=== PATIENT | female | born 1930 | race Caucasian/White ===

== ENCOUNTER 2016-09-01 09:35 | Inpatient (IN) | payer OTHER ==
[~2016-09-01] VITALS: Ht 160 cm; Wt 76.0 kg
[~2016-09-01 09:35] MED LIST: CHOL100010 PO; DOCU1TAB6 PO; INSU1INJ15 SQ
[2016-09-01] MEDS ORDERED: CHOL100010 PO (10:09)
[2016-09-01 10:13] LABS: HEMATOCRIT 32.5 % (37-47); MEAN CELL VOLUME 84.9 fL (80-100); MEAN CORPUSCULAR HEMOGLOBIN 30.8 pg (25-34); MEAN CORPUSCULAR HGB CONC 36.3 g/dl (32-36); MEAN PLATELET VOLUME 9.6 fL (7.4-10.4); PLATELET COUNT 181 K/uL (130-400); RED BLOOD COUNT 3.83 M/uL (4.2-5.4); WHITE BLOOD COUNT 16.32 K/uL (4.8-10.8)
[2016-09-01] MEDS ORDERED: LISI20TA3 PO (10:21)
[2016-09-01 10:22] LABS: BUN/CREATININE RATIO 18.9 (10-20); CALCIUM 9.5 mg/dl (8.5-10.1); CREATININE 1.8 mg/dl (0.60-1.20); POTASSIUM 4.7 mmol/L (3.5-5.1)
[2016-09-01 10:25] LABS: ALB/GLOB RATIO 0.8 (0.9-2)
[2016-09-01 10:53] LABS: BASO % 0.1 %; BASO ABS # 0.01 K/uL (0-0.2); COMPLETE YES; EOS % 0.1 %; IG% 0.3 %; LYMPH ABS # 0.81 K/uL (1.2-3.4); MONO % 3.9 %; NEUT % 90.6 %
[2016-09-01] MEDS ORDERED: ONDANSETRON INJ 2 MG/ML 2 ML VIAL IV STA (11:29)
[2016-09-01] MEDS ORDERED: MoRPHine SULFATE 4 MG/ML 1 ML CARP\\VIAL IV STA (11:29)
[2016-09-01] MEDS ORDERED: SODIUM CHLORIDE 0.9% 500ML 500 ML IV STA (11:29)
--- NOTE | 2016-09-01 11:47 | EMERGENCY ROOM VISIT NOTE ---
History Report prepared by Bill: Elijah Roque Under the Supervision of: Dr. Wei Aceves M.D. First contact with patient: 11:07 Chief Complaint: GI ASSESSMENT Stated Complaint: NAUSEA/VOMITING/DIARRHEA Nursing Triage Summary: pt to the ED from home via EMS with c/o n/v/d and a near syncopal episode last night while on the toilet. pt states that her abd pain in the lower abd and is tender to touch. EMS reports that daughter told her that there were 3 episodes of bright red blood diarrhea BM. pt c/o feeling light headed. pt was Rx protonix but per EMS she has not been taking it History of Present Illness The patient is an 85 year old female who presents to the Emergency Room for an acute GI assessment. The patient has been experiencing persistent nausea for over one month. Last night she finally was able to vomit. She also started to have diarrhea last night, and some of the episodes contained bright-red blood as per the patient's daughter. The daughter also notes that the patient had a near-syncopal episode last night, which is common for her when she experiences vomiting or diarrhea. The patient was also complaining of left-sided chest pain last night at the site of her pacemaker. She is currently nauseous but denies abdominal pain. The patient saw Dr. Bright one month ago for the nausea. She was started on Prilosec, which has not relieved the persistent nausea. The patient is on baby aspirin but does not take any blood thinners. Her last colonoscopy was years ago. Source of History: patient, family (daugher) Onset: today Position: other (GI) Quality: other (GI assessment) Timing: other (acute) Associated Symptoms: + chest pain, + diarrhea, + hematochezia, + nausea, + vomiting, No abdominal pain Review of Systems See HPI for pertinent positives & negatives. A total of 10 systems reviewed and were otherwise negative. 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 Social History Smoking Status: Never Smoker Alcohol Use: none Marital Status: Housing Status: lives alone Occupation Status: unemployed Current/Historical Medications Scheduled Amlodipine (Norvasc), 5 MG PO BID Aspirin (Aspirin Ec), 81 MG PO Q2D Cholecalciferol (Vitamin D), 1,000 UNITS PO DAILY Cyanocobalamin (Vitamin B-12), 1,000 MCG PO DAILY Docusate Sodium (Docusate Sodium), 100 MG PO BID Fish Oil ([place]-3), 1,200 MG PO DAILY Insulin Detemir (Levemir Flextouch), 6 UNITS SC QAM Insulin Lispro (Human) (Humalog Kwikpen), UNITS SQ QAM Lisinopril (Prinivil), 20 MG PO QPM Scheduled PRN Lorazepam (Ativan), 0.5 MG PO Q8 PRN for Anxiety Allergies Coded Allergies: Darbepoetin [place] (Verified Allergy, Unknown, "RED ITCHY BLOTCHES ON SKIN" , 09/01/16) Physical Exam Vital Signs Date Time Temp Pulse Resp B/P Pulse Ox O2 Delivery O2 Flow Rate FiO2 09/01/16 14:57 92 18 189/91 97 Room Air 09/01/16 14:30 97 130/97 96 Room Air 09/01/16 13:33 100 17 203/82 96 Room Air 09/01/16 13:20 96 09/01/16 12:32 98 19 164/90 96 Room Air 09/01/16 11:43 92 24 171/101 96 Room Air 09/01/16 09:43 104 09/01/16 09:39 36.8 105 22 193/96 97 Room Air Physical Exam GENERAL: Patient is a healthy-appearing well-nourished 85 year old female HEAD: Normocephalic atraumatic EYES: Ocular movements intact pupils equal and react to light OROPHARYNX mucous membranes are moist no exudates present no erythema or edema present NECK: Supple no nuchal rigidity CHEST: Good equal expansion LUNGS: Clear and equal to auscultation CARDIAC: Normal S1 and S2 ABDOMEN: Soft nontender no guarding BACK: No CVA tenderness EXTREMITIES: No pain upon palpation normal muscle strength in all groups no clubbing cyanosis or edema NEURO: Patient is following commands is answering questions appropriately. Alert and oriented x3 Cranial Nerves 2-12 grossly intact Medical Decision & Procedures ER Provider Diagnostic Interpretation: Radiology results as stated below per my review and radiologist interpretation: ABDOMEN AND PELVIS CT WITH IV CONTRAST CT DOSE: 704.53 mGycm HISTORY: Pain Pt c/o diffuse abd pain TECHNIQUE: Multiaxial CT images of the abdomen and pelvis were performed following the use of intravenous contrast. COMPARISON STUDY: 05/19/2016 FINDINGS: Mild bibasilar dependent atelectasis mild cardiomegaly. Liver is uniform. Gallbladder is negative for distention. Spleen is unremarkable. Several nonobstructing renal calcifications are present bilaterally. There is no evidence for hydronephrosis. Bowel pattern is remarkable for wall edematous change involving the mid to distal transverse colon as well as proximal descending colon. Moderate pericolonic infiltrative change is present with the appearance consistent with that of a nonspecific colitis. There is no evidence for drainable abscess or collection. The remaining bowel pattern is considered unremarkable. Bladder is midline. The appendix is the extreme top limits of normal at 6 mm. There may be a trace of periappendiceal infiltrative change although again no abscess or collection is appreciated. IMPRESSION: 1. Wall thickening and edematous change of the mid to distal transverse and proximal descending colon. 2. The appearance suggestive of a nonspecific colitis. 3. No evidence for abscess collection or obstruction. 4. Slight prominence of the appendix with minimal periappendiceal infiltrative change. A low-grade form of appendicitis is not excluded although this may be reactive 5. Significant atherosclerotic change abdominal aorta and iliac vasculature with a 60-70% narrowing at the inferior bifurcation Electronically signed by: Brian Jarquin M.D. 09/01/2016 2:19 PM Laboratory Results 09/01/16 09:45 Red Blood Count 3.83, Mean Corpuscular Volume 84.9, Mean Corpuscular Hemoglobin 30.8, Mean Corpuscular Hemoglobin Concent 36.3, Mean Platelet Volume 9.6, Neutrophils (%) (Auto) 90.6, Lymphocytes (%) (Auto) 5.0, Monocytes (%) (Auto) 3.9, Eosinophils (%) (Auto) 0.1, Basophils (%) (Auto) 0.1, Neutrophils # (Auto) 14.81, Lymphocytes # (Auto) 0.81, Monocytes # (Auto) 0.63, Eosinophils # (Auto) 0.01, Basophils # (Auto) 0.01 09/01/16 09:45 Test 09/01/16 09:45 09/01/16 12:50 White Blood Count 16.32 K/uL (4.8-10.8) Red Blood Count 3.83 M/uL (4.2-5.4) Hemoglobin 11.8 g/dL (12.0-16.0) Hematocrit 32.5 % (37-47) Mean Corpuscular Volume 84.9 fL (80-100) Mean Corpuscular Hemoglobin 30.8 pg (25-34) Mean Corpuscular Hemoglobin Concent 36.3 g/dl (32-36) Platelet Count 181 K/uL (130-400) Mean Platelet Volume 9.6 fL (7.4-10.4) Neutrophils (%) (Auto) 90.6 % Lymphocytes (%) (Auto) 5.0 % Monocytes (%) (Auto) 3.9 % Eosinophils (%) (Auto) 0.1 % Basophils (%) (Auto) 0.1 % Neutrophils # (Auto) 14.81 K/uL (1.4-6.5) Lymphocytes # (Auto) 0.81 K/uL (1.2-3.4) Monocytes # (Auto) 0.63 K/uL (0.11-0.59) Eosinophils # (Auto) 0.01 K/uL (0-0.5) Basophils # (Auto) 0.01 K/uL (0-0.2) RDW Standard Deviation 42.4 fL (36.4-46.3) RDW Coefficient of Variation 13.9 % (11.5-14.5) Immature Granulocyte % (Auto) 0.3 % Immature Granulocyte # (Auto) 0.05 K/uL (0.00-0.02) Anion Gap 11.0 mmol/L (3-11) Est Creatinine Clear Calc Drug Dose 21.2 ml/min Estimated GFR () 29.0 Estimated GFR (Non- 25.0 BUN/Creatinine Ratio 18.9 (10-20) Calcium Level 9.5 mg/dl (8.5-10.1) Total Bilirubin 0.4 mg/dl (0.2-1) Aspartate Amino Transf (AST/SGOT) 12 U/L (15-37) Alanine Aminotransferase (ALT/SGPT) 18 U/L (12-78) Alkaline Phosphatase 110 U/L (45-117) Total Creatine Kinase 22 U/L (26-192) Creatine Kinase MB < 0.5 ng/ml (0.5-3.6) Creatine Kinase MB Ratio (0-3.0) Troponin I < 0.015 ng/ml (0-0.045) Total Protein 7.3 gm/dl (6.4-8.2) Albumin 3.2 gm/dl (3.4-5.0) Globulin 4.1 gm/dl (2.5-4.0) Albumin/Globulin Ratio 0.8 (0.9-2) Lipase 82 U/L (73-393) Urine Color YELLOW Urine Appearance CLEAR (CLEAR) Urine pH 6.0 (4.5-7.5) Urine Specific [place] 1.020 (1.000-1.030) Urine Protein 3+ (NEG) Urine Glucose (UA) 3+ (NEG) Urine Ketones NEG (NEG) Urine Occult Blood TRACE (NEG) Urine Nitrite NEG (NEG) Urine Bilirubin NEG (NEG) Urine Urobilinogen NEG (NEG) Urine Leukocyte Esterase NEG (NEG) Urine WBC (Auto) 1-5 /hpf (0-5) Urine RBC (Auto) 0-4 /hpf (0-4) Urine Hyaline Casts (Auto) 1-5 /lpf (0-5) Urine Epithelial Cells (Auto) 10-20 /lpf (0-5) Urine Bacteria (Auto) NEG (NEG) Labs reviewed by ED physician. Medications Administered Medications (Trade) Dose Ordered Sig/Luis Route Start Time Stop Time Status Last Admin Dose Admin Sodium Chloride (Nss 500ml) 500 ml @ 999 mls/hr Q31M STAT IV 09/01/16 11:29 09/01/16 11:59 DC 09/01/16 11:39 999 MLS/HR Morphine Sulfate (MoRPHine SULFATE INJ) 4 mg NOW STAT IV 09/01/16 11:29 09/01/16 11:30 DC 09/01/16 11:40 4 MG Ondansetron HCl 4 mg 4 mg NOW STAT IV 09/01/16 11:29 09/01/16 11:30 DC 09/01/16 11:40 4 MG Pantoprazole Sodium 80 mg/ Dextrose 120 ml @ 480 mls/hr NOW ONCE IV 09/01/16 14:45 09/01/16 14:59 DC 09/01/16 14:59 480 MLS/HR Pantoprazole Sodium/Dextrose (Protonix Inj/D5 100ml) 100 ml @ 20 mls/hr Q5H IV 09/01/16 15:00 09/01/16 19:59 09/01/16 14:59 20 MLS/HR ECG Indication: vomiting Rate (beats per minute): 96 Rhythm: sinus rhythm Findings: 1st degree AV block, no acute ischemic change, prolonged QT, no ectopy ED Course 1122: Past medical records reviewed. The patient was evaluated in room C5. A complete history and physical examination was performed. 1129: Zofran 4 mg IV, Morphine Sulfate 4 mg IV, NSS 500 ml @ 999 mls/hr. 1445: Protonix 80 mg / dextrose 120 ml @ 480 mls/hr. 1446: [facility] the [facility] [place] [facility] The patient will be evaluated. 1500: Protonix 40 mg / dextrose 100 ml @ 20 mls/hr. Medical Decision Differential diagnosis: Etiologies such as diverticulosis, AVM, coagulopathy, colitis, inflammatory bowel disease, malignancy, Charlene-Worthy tear, esophagitis, peptic ulcer disease , variceal bleed, gastritis, epistaxis, fissure, hemorrhoids, as well as others were entertained. This is an 85-year-old female who presents emergency department complaining of abdominal pain. The patient has had hemorrhagic diarrhea since last evening. Based on these findings I sent the patient for CAT scan of the abdomen pelvis. This was concerning for nonspecific colitis. I will start the patient on a Protonix bolus and drip. Her hemoglobin at this point is stable however did discuss the case with the hospitalist service who agreed to it the patient. Patient was in agreement with the treatment plan. Consults Time Called: 1440 Consulting Physician[facility] Returned Call: [phone]: [facility] the [facility] The patient will be evaluated. Impression Primary Impression: GI bleed Scribe Attestation The scribe's documentation has been prepared under my direction and personally reviewed by me in its entirety. I confirm that the note above accurately reflects all work, treatment, procedures, and medical decision making performed by me. Departure Information Dispostion Being Evaluated By Hospitalist Referrals Saúl Bright M.D. (PCP) Patient Instructions My [facility] Problem Qualifiers Primary Impression: GI bleed GI bleed type/associated pathology: anorectal hemorrhage Qualified Codes: K62.5 - Hemorrhage of anus and rectum
[2016-09-01] MEDS ORDERED: OPTIRAY 320 IV PRN (12:00)
[2016-09-01 13:20] LABS: URINE APPEARANCE CLEAR (CLEAR); URINE BILIRUBIN NEG (NEG); URINE COLOR YELLOW; URINE NITRITE NEG (NEG); UROBILINOGEN NEG (NEG); ZZUR CULT IF INDIC CLEAN CATCH NO
[2016-09-01 13:22] LABS: MANUAL MICROSCOPIC REQUIRED? NO; REVIEW REQ? NO
--- NOTE | 2016-09-01 14:20 | DIAGNOSTIC IMAGING REPORT ---
ABDOMEN AND PELVIS CT WITH IV CONTRAST CT DOSE: 704.53 mGycm HISTORY: Pain Pt c/o diffuse abd pain TECHNIQUE: Multiaxial CT images of the abdomen and pelvis were performed following the use of intravenous contrast. COMPARISON STUDY: 05/19/2016 FINDINGS: Mild bibasilar dependent atelectasis mild cardiomegaly. Liver is uniform. Gallbladder is negative for distention. Spleen is unremarkable. Several nonobstructing renal calcifications are present bilaterally. There is no evidence for hydronephrosis. Bowel pattern is remarkable for wall edematous change involving the mid to distal transverse colon as well as proximal descending colon. Moderate pericolonic infiltrative change is present with the appearance consistent with that of a nonspecific colitis. There is no evidence for drainable abscess or collection. The remaining bowel pattern is considered unremarkable. Bladder is midline. The appendix is the extreme top limits of normal at 6 mm. There may be a trace of periappendiceal infiltrative change although again no abscess or collection is appreciated. IMPRESSION: 1. Wall thickening and edematous change of the mid to distal transverse and proximal descending colon. 2. The appearance suggestive of a nonspecific colitis. 3. No evidence for abscess collection or obstruction. 4. Slight prominence of the appendix with minimal periappendiceal infiltrative change. A low-grade form of appendicitis is not excluded although this may be reactive 5. Significant atherosclerotic change abdominal aorta and iliac vasculature with a 60-70% narrowing at the inferior bifurcation Electronically signed by: Brian Jarquin M.D. 09/01/2016 2:19 PM Dictated Date/Time: 09/01/2016 1:26 PM
[2016-09-01] MEDS ORDERED: PANTOprazole INJ 80 MG in DEXTROSE 5% 100ML IV ONE (14:45)
[2016-09-01] MEDS ORDERED: PANTOprazole INJ 40 MG in DEXTROSE 5% 100ML IV SCH (15:00)
[2016-09-01] MEDS ORDERED: HydrALAZINE HCL 20 MG/ML VIAL ONE (15:44)
[2016-09-01] MEDS ORDERED: HydrALAZINE HCL 20 MG/ML VIAL IV. PRN (15:45)
[2016-09-01] MEDS ORDERED: LORA-741 PO (15:47)
[2016-09-01] MEDS: SODIUM CHLORIDE 0.9% 1000ML 1,000 ML IV SCH ×2 (16:05→21:33)
[2016-09-01 16:16] VITALS: BP 154/80; PULSE 105; TEMP 37; O2SAT 98; Ht 160 cm; Wt 76.0 kg
[2016-09-01] MEDS ORDERED: GLUCAGON FOR INJ 1 MG VIAL SQ PRN (17:45)
[2016-09-01] MEDS ORDERED: GLUCOSE 40% GEL 15 GM TUBE PO PRN (17:45)
[2016-09-01] MEDS ORDERED: GLUCOSE 10 TABS/TUBE PO PRN (17:45)
[2016-09-01] MEDS ORDERED: DEXTROSE 50% 50 ML SYR IV PRN (17:45)
--- NOTE | 2016-09-01 18:57 | History and Physical ---
History & Physical Date & Time of Service: Sep 01, 2016 at 18:42 Chief Complaint: Gi Bleed,Hypertension Primary Care Physician: Saúl Bright M.D. History of Present Illness Source: patient This is an 85 yo f that is presenting to us with acute frankly bloody diarrhea. The history was primarily taken by the daughter. She states that for probably more than a month the patient has been suffering not necessarily from abdominal pain but the sensation that she has to throw up. She saw her PCP recently and he placed her on Omeprazole but this has not improved any of the symptoms. this morning the patient woke up and had sudden onset diarrhea which was frankly bloody. This has never occurred in the past. She also vomited once. Because of this the patient was sent to the ED for further evaluation. Patient was hemodynamically stable in the ED however blood pressure was quite high. According to the daughter the patient has been unable to take her morning medications and did not get either her insulin or her bp medications. A Hemoccult was done by the ED Physician and it was noted that she had shayna blood on exam. When asked about the pain she was unable to quantify or describe it and stated she just felt like throwing up. Eructation was noted during the interview. Imaging was reflective of a colitis in the bowel. She has a history of syncope secondary to an asystolic episode where a pacer was placed but has not had an echo since 2012 which was WNL. She he no history of CHF. She does have a history of transfusions after a reaction to darbepoetin [place] however she has not required transfusions in many years. Her typical hgb is in the 11's. She has a history of CKD which she follows nephrology for and BL is 1.3-1.4. Past Medical/Surgical History Medical Problems: (1) Anemia Status: Chronic (2) Benign hypertension Status: Chronic (3) Diabetes mellitus Status: Chronic (4) Hyperlipidemia Status: Chronic (5) Hysterectomy Status: Resolved (6) Polymyalgia rheumatica Status: Chronic (7) Sjorens Status: Chronic Family History Patient reports no known family medical history. Social History Smoking Status: Never Smoker Smokeless Tobacco Use: No Alcohol Use: none Drug Use: none Marital Status: Housing status: lives alone Occupational Status: unemployed Immunizations History of Influenza Vaccine: Yes History of Tetanus Vaccine?: Unknown History of Pneumococcal: Yes History of Hepatitis B Vaccine: Unknown Multi-Drug Resistant Organisms History of MDRO: No Allergies Coded Allergies: Morphine (Verified Allergy, Mild, shortness of breath with panic attack, 09/01/16) Darbepoetin [place] (Verified Allergy, Unknown, "RED ITCHY BLOTCHES ON SKIN" , 09/01/16) Home Medications Scheduled Amlodipine (Norvasc), 5 MG PO BID Aspirin (Aspirin Ec), 81 MG PO Q2D Cholecalciferol (Vitamin D), 1,000 UNITS PO DAILY Cyanocobalamin (Vitamin B-12), 1,000 MCG PO DAILY Docusate Sodium (Docusate Sodium), 100 MG PO BID Fish Oil ([place]-3), 1,200 MG PO DAILY Insulin Detemir (Levemir Flextouch), 6 UNITS SC QAM Insulin Lispro (Human) (Humalog Kwikpen), UNITS SQ QAM Lisinopril (Prinivil), 20 MG PO QPM Scheduled PRN Lorazepam (Ativan), 0.5 MG PO Q8 PRN for Anxiety Review of Systems Unable to complete a full ROS because patient was somnolent in bed Abdomen: + GI bleeding, + diarrhea, + nausea, + pain, + vomiting Physical Exam Vital Signs Date Time Temp Pulse Resp B/P Pulse Ox O2 Delivery O2 Flow Rate FiO2 09/01/16 16:16 37.0 105 19 154/80 98 Room Air 09/01/16 15:42 91 19 184/91 96 09/01/16 14:57 92 18 189/91 97 Room Air 09/01/16 14:30 97 130/97 96 Room Air 09/01/16 13:33 100 17 203/82 96 Room Air 09/01/16 13:20 96 09/01/16 12:32 98 19 164/90 96 Room Air 09/01/16 11:43 92 24 171/101 96 Room Air 09/01/16 09:43 104 09/01/16 09:39 36.8 105 22 193/96 97 Room Air General Appearance: no apparent distress Head: normocephalic, atraumatic Eyes: normal inspection ENT: normal ENT inspection Neck: supple Respiratory/Chest: normal breath sounds, no respiratory distress, no accessory muscle use, + decreased breath sounds (bilat bases) Cardiovascular: no murmur, + tachycardia Abdomen/GI: + tenderness (to deep palpation of the suprapubic region), + abnormal bowel sounds (hyperdynamic), + distended (slightly), + fecal occult blood (positive as per ED physician) Back: normal inspection Extremities/Musculoskelatal: no calf tenderness, + pedal edema (+1 bilat LE) Neurologic/Psych: alert, normal mood/affect, oriented x 3 Skin: normal color, warm/dry, no rash Lymphatic: no adenopathy Diagnostics Laboratory Results Results Past 24 Hours Test 09/01/16 09:45 09/01/16 12:50 09/01/16 18:35 Range/Units White Blood Count 16.32 4.8-10.8 K/uL Red Blood Count 3.83 4.2-5.4 M/uL Hemoglobin 11.8 12.0-16.0 g/dL Hematocrit 32.5 37-47 % Mean Corpuscular Volume 84.9 80-100 fL Mean Corpuscular Hemoglobin 30.8 25-34 pg Mean Corpuscular Hemoglobin Concent 36.3 32-36 g/dl Platelet Count 181 130-400 K/uL Mean Platelet Volume 9.6 7.4-10.4 fL Neutrophils (%) (Auto) 90.6 % Lymphocytes (%) (Auto) 5.0 % Monocytes (%) (Auto) 3.9 % Eosinophils (%) (Auto) 0.1 % Basophils (%) (Auto) 0.1 % Neutrophils # (Auto) 14.81 1.4-6.5 K/uL Lymphocytes # (Auto) 0.81 1.2-3.4 K/uL Monocytes # (Auto) 0.63 0.11-0.59 K/uL Eosinophils # (Auto) 0.01 0-0.5 K/uL Basophils # (Auto) 0.01 0-0.2 K/uL RDW Standard Deviation 42.4 36.4-46.3 fL RDW Coefficient of Variation 13.9 11.5-14.5 % Immature Granulocyte % (Auto) 0.3 % Immature Granulocyte # (Auto) 0.05 0.00-0.02 K/uL Sodium Level 140 136-145 mmol/L Potassium Level 4.7 3.5-5.1 mmol/L Chloride Level 105 98-107 mmol/L Carbon Dioxide Level 24 21-32 mmol/L Anion Gap 11.0 3-11 mmol/L Blood Urea Nitrogen 34 7-18 mg/dl Creatinine 1.80 0.60-1.20 mg/dl Est Creatinine Clear Calc Drug Dose 21.2 ml/min Estimated GFR () 29.0 Estimated GFR (Non- 25.0 BUN/Creatinine Ratio 18.9 10-20 Random Glucose 269 70-99 mg/dl Calcium Level 9.5 8.5-10.1 mg/dl Total Bilirubin 0.4 0.2-1 mg/dl Aspartate Amino Transf (AST/SGOT) 12 15-37 U/L Alanine Aminotransferase (ALT/SGPT) 18 12-78 U/L Alkaline Phosphatase 110 45-117 U/L Total Creatine Kinase 22 26-192 U/L Creatine Kinase MB < 0.5 0.5-3.6 ng/ml Creatine Kinase MB Ratio 0-3.0 Troponin I < 0.015 0-0.045 ng/ml Total Protein 7.3 6.4-8.2 gm/dl Albumin 3.2 3.4-5.0 gm/dl Globulin 4.1 2.5-4.0 gm/dl Albumin/Globulin Ratio 0.8 0.9-2 Lipase 82 73-393 U/L Urine Color YELLOW Urine Appearance CLEAR CLEAR Urine pH 6.0 4.5-7.5 Urine Specific [place] 1.020 1.000-1.030 Urine Protein 3+ NEG Urine Glucose (UA) 3+ NEG Urine Ketones NEG NEG Urine Occult Blood TRACE NEG Urine Nitrite NEG NEG Urine Bilirubin NEG NEG Urine Urobilinogen NEG NEG Urine Leukocyte Esterase NEG NEG Urine WBC (Auto) 1-5 0-5 /hpf Urine RBC (Auto) 0-4 0-4 /hpf Urine Hyaline Casts (Auto) 1-5 0-5 /lpf Urine Epithelial Cells (Auto) 10-20 0-5 /lpf Urine Bacteria (Auto) NEG NEG Diagnostic Radiology HISTORY: Pain Pt c/o diffuse abd pain TECHNIQUE: Multiaxial CT images of the abdomen and pelvis were performed following the use of intravenous contrast. COMPARISON STUDY: 05/19/2016 FINDINGS: Mild bibasilar dependent atelectasis mild cardiomegaly. Liver is uniform. Gallbladder is negative for distention. Spleen is unremarkable. Several nonobstructing renal calcifications are present bilaterally. There is no evidence for hydronephrosis. Bowel pattern is remarkable for wall edematous change involving the mid to distal transverse colon as well as proximal descending colon. Moderate pericolonic infiltrative change is present with the appearance consistent with that of a nonspecific colitis. There is no evidence for drainable abscess or collection. The remaining bowel pattern is considered unremarkable. Bladder is midline. The appendix is the extreme top limits of normal at 6 mm. There may be a trace of periappendiceal infiltrative change although again no abscess or collection is appreciated. IMPRESSION: 1. Wall thickening and edematous change of the mid to distal transverse and proximal descending colon. 2. The appearance suggestive of a nonspecific colitis. 3. No evidence for abscess collection or obstruction. 4. Slight prominence of the appendix with minimal periappendiceal infiltrative change. A low-grade form of appendicitis is not excluded although this may be reactive 5. Significant atherosclerotic change abdominal aorta and iliac vasculature with a 60-70% narrowing at the inferior bifurcation EKG BPM 96 Qtc 490 Sinus rhythm with 1st degree A-V block Left axis deviation Left ventricular hypertrophy with repolarization abnormality Prolonged QT Abnormal ECG When compared with ECG of 14-JUN-2016 14:55, Sinus rhythm has replaced Electronic atrial pacemaker Impression Assessment and Plan This is an 85 yo f with shayna bleeding per rectum concerning for a lower gi bleed. Her labs are reflective of a contraction state vs infective process however will defer any abx at this time. Lower gi bleed ; unknown etiology Consult GI - NPO currently - HH q 8 h, T&S but no RBC held at this time, will base on next HH - CBC in am and follow - follow CMP Hypertension - as patient is NPO - hydralazine 10 mg q 4 h prn for > 160 - amlodipine and lisinopril held - ASA held JANIE on CKD secondary to dehydration - lisinopril held - follow BMP - received 500 cc in ED and NSS @ 75cc/h Contraction state causing leukocytosis vs infective process - follow CBC and BMP - C diff, stool culture and Norovirus DMII - insulin ISS - as NPO will wait to start long acting prolonged QTc - No zofran as can further prolong QTc - recheck EKG am DVT prophylaxis - SCD I agree with Resident assessment and plan and have seen and examined pt myself Pt admitted with LGIB Tachycardia and uncontrolled BP GI consulted at this time Cont to keep NPO Cont to trend HH Hydralazine PRN HTN Cont IVF as JANIE on CKD noted Level of Care Telemetry Advanced Directives Existing Living Will: No Existing Power of Credit Verification Clerk: No Resuscitation Status FULL RESUSCITATION VTE Prophylaxis VTE Risk Assessment Done? Y/N: Yes Risk Level: Moderate Given or contraindicated: SCD's Social Service Consult None Apply Note Total Time: Critical Care 30 - 74 minutes Additional Copies To Saúl Bright M.D.
[2016-09-01 19:13] VITALS: BP_SYST 191; BP_SYST 195; BP_DIAS 78; BP_DIAS 84; PULSE 95; TEMP 37.3; O2SAT 100
[2016-09-01] MEDS: PANTOprazole INJ 40 MG in DEXTROSE 5% 100ML IV SCH (20:49)
[2016-09-01 21:04] VITALS: BP 158/77; PULSE 91
[2016-09-01] MEDS: INSULIN ASPART 100 UNITS/ML 3 ML PEN SC SCH (21:28)
[2016-09-01] MEDS ORDERED: CIPROFLOXACIN / D5W 400 MG in PREMIXED IN D5W 200 ML IV SCH (22:00)
--- NOTE | 2016-09-01 22:31 | GASTROINTESTINAL CONSULTATION ---
DATE OF CONSULTATION: 09/01/2016 AGE: 85. SEX: Female. RACE: . ATTENDING PHYSICIAN: Dr. Calderon CONSULTING PHYSICIAN: Epifanio Sanchez DO REASON FOR CONSULTATION: GI bleed. HISTORY OF PRESENT ILLNESS: Nikki Thomas is an 85-year-old female, who presented to the Department of Emergency Medicine on 09/01/2016 with complaints of nausea, vomiting, diarrhea and multiple bloody bowel movements associated with bilateral lower quadrant abdominal pain the previous evening. The patient was evaluated in the Department of Emergency Medicine, was noted to have an H\T\H of 11.8 and 32.5. It should be noted that her previous H\T\H on 06/14/2016 was 11.6 and 32.6. PT and INR were normal. She did have a slightly elevated lactic acid level of 3.7. Her BUN and creatinine were noted to be 34 and 1.8. She underwent a CT scan of the abdomen and pelvis which showed some thickening of the distal transverse and proximal descending colon as well as the appearance suggesting nonspecific colitis. There was notable slight prominence of the appendix with minimal periappendiceal infiltrative changes. She was subsequently admitted and kept n.p.o. At the time that I saw the patient, she was hemodynamically stable. She had not had any further bowel movements since her arrival to the hospital. She denied any abdominal pain. She has not had any fever, chills, nausea or vomiting since her arrival. Her daughter is at her bedside at time and states that over the past 2-3 months she has noted that her mother has more complaints following meals with cramping as well as belching and gas and had recently tried Prilosec 20 mg daily the previous month, but noted no symptom improvement. She has also tried Gas-X as an outpatient. She last underwent a colonoscopy and EGD in 2011; neither of which showed significant findings for workup of anemia at that time, both performed by Dr. Ledezma. She denies any further complaints. PAST MEDICAL HISTORY: Significant for anemia, benign hypertension, diabetes mellitus, hyperlipidemia, polymyalgia rheumatica, Sjogren's, acute kidney injury and hematochezia. PAST SURGICAL HISTORY: Includes a hysterectomy. ALLERGIES: TO DARBEPOETIN AND MORPHINE. MEDICATIONS: At the present time include; sliding scale insulin, Protonix 8 mg per hour drip, hydralazine 10 mg IV q. 4 p.r.n. hypertension. FAMILY HISTORY: Negative for GI malignancy. SOCIAL HISTORY: She is . No tobacco, alcohol or illicit drug use. REVIEW OF SYSTEMS: Negative x12 system review other than pertinent positives listed in the HPI. PHYSICAL EXAMINATION: VITAL SIGNS: Include a temperature of 37.0, pulse 105, respirations 19, blood pressure 154/80 and pulse ox 98% on room air. GENERAL: She is awake, cooperative, in no acute distress. Chronic ill-appearing. HEAD: Normocephalic and atraumatic. EYES: Pupils are equally round. Extraocular muscles are intact. ENT: External evaluation of ears and nose are normal. Oropharynx is clear. NECK: Soft, supple. CHEST: Clear to auscultation in anterior lung carter, decreased breath sounds in bilateral bases. CARDIOVASCULAR: Regular rate and rhythm. ABDOMEN: Soft, nontender, nondistended. Positive bowel sounds. There is no hepatosplenomegaly or stigmata of chronic liver disease. EXTREMITIES: No clubbing, cyanosis or edema. SKIN: Soft and pink. LABORATORY STUDIES AND RADIOGRAPHIC STUDIES: Reviewed in the HPI. IMPRESSION: An 85-year-old female who presented with recent nausea, vomiting, diarrhea with hematochezia and abnormal CT imaging. Differential diagnosis in the patient includes: 1. Ischemic colitis. 2. Diverticular bleed. 3. Brisk upper gastrointestinal bleed from peptic ulcer disease, though less likely. 4. Hemorrhoidal bleeding. 5. Anal fissure. PLAN: At the present time, I would recommend a conservative approach secondary to the patient's advanced age and comorbid medical conditions due to findings on CT imaging which are consistent with pattern of ischemic colitis. I would add Cipro Cipro 400 mg IV b.i.d. as well as Flagyl 500 mg IV t.i.d. as this will prevent bacterial translocation across an inflamed colonic mucosa which can prevent secondary bacterial infection. I will advance her to clear liquids. I will also monitor her H\T\H and at this time will hold off on performing any invasive testing including EGD or colonoscopy. I will follow her clinical course and make further recommendations. Once again, thank you for allowing me to participate in the care of this patient. If you have any further questions, please do not hesitate in contacting me.
[2016-09-01] MEDS: METRONIDAZOLE / NSS 500 MG in PREMIXED NSS 100 ML IV SCH (23:11)
[2016-09-02] VITALS (7 sets, daily range): BP systolic 133–152; BP diastolic 62–82; PULSE 72–86; TEMP 36.5–37.4; O2SAT 92–99
[2016-09-02] MEDS: PANTOprazole INJ 40 MG in DEXTROSE 5% 100ML IV SCH ×5 (01:06→21:38)
[2016-09-02] MEDS ORDERED: CIPROFLOXACIN CONSULT ACTIVE PRN ×2 (01:15)
[2016-09-02] MEDS: SODIUM CHLORIDE 0.9% 1000ML 1,000 ML IV SCH ×2 (04:35→06:21)
[2016-09-02] MEDS: METRONIDAZOLE / NSS 500 MG in PREMIXED NSS 100 ML IV SCH ×3 (06:21→21:22)
[2016-09-02 06:34] LABS: HEMATOCRIT 28.7 % (37-47); MEAN CORPUSCULAR HEMOGLOBIN 30.6 pg (25-34); MEAN CORPUSCULAR HGB CONC 35.2 g/dl (32-36); MEAN PLATELET VOLUME 9.8 fL (7.4-10.4); PLATELET COUNT 133 K/uL (130-400); WHITE BLOOD COUNT 14.34 K/uL (4.8-10.8)
[2016-09-02 07:09] LABS: BUN/CREATININE RATIO 18.1 (10-20); CALCIUM 8.4 mg/dl (8.5-10.1); CREATININE 1.4 mg/dl (0.60-1.20); POTASSIUM 3.8 mmol/L (3.5-5.1)
[2016-09-02 07:12] LABS: ALB/GLOB RATIO 0.7 (0.9-2)
[2016-09-02] MEDS: INSULIN ASPART 100 UNITS/ML 3 ML PEN SC SCH ×4 (08:37→21:15)
--- NOTE | 2016-09-02 09:16 | Clinical Documentation Query ---
RADHA Whitman : CLINICAL DOCUMENTATION QUERY Patient is an 85 year old female admitted for evaluation and treatment of lower GI bleeding of unknown etiology. Documentation includes JANIE on CKD, not otherwise specified. Estimated GFR range from 09/27 to 05/30 of 29-46 ml/min. Please specify appropriate stage of CKD in your patient according to the [employer] definition. Thank you. In your clinical opinion is this patient being managed for: ( x ) Chronic kidney disease, stage 3 see notes ( ) Other explanation of clinical findings (Please Explain) ( ) Unable to determine (Please Define) ( ) Need to Discuss ( ) Not Agree The medical record reflects the following clinical findings, treatment, and risk factors. Clinical Indicators: As above Treatment: IVF, serial chemistries. Risk Factors: Age, HTN, DM Please clarify and document your clinical opinion in the progress notes and discharge summary. Terms such as "probable", "suspected", "likely", "questionable", "possible", or "still to be ruled out" are acceptable. IF IN AGREEMENT, YOU MUST DOCUMENT ABOVE DIAGNOSTIC STATEMENT IN DAILY PROGRESS NOTES AND DISCHARGE SUMMARY. This document is not part of the patient's record. Thank You, Fredy Ingram, RN [phone]
--- NOTE | 2016-09-02 09:17 | Clinical Documentation Query ---
BETTY Montejo : CLINICAL DOCUMENTATION QUERY Patient is an 85 year old female admitted for evaluation and treatment of lower GI bleeding of unknown etiology. Documentation includes JANIE on CKD, not otherwise specified. Estimated GFR range from 09/27 to 05/30 of 29-46 ml/min. Please specify appropriate stage of CKD in your patient according to the [employer] definition. Thank you. In your clinical opinion is this patient being managed for: ( ) Chronic kidney disease, stage 3 ( ) Other explanation of clinical findings (Please Explain) ( ) Unable to determine (Please Define) ( ) Need to Discuss ( ) Not Agree The medical record reflects the following clinical findings, treatment, and risk factors. Clinical Indicators: As above Treatment: IVF, serial chemistries. Risk Factors: Age, HTN, DM Please clarify and document your clinical opinion in the progress notes and discharge summary. Terms such as "probable", "suspected", "likely", "questionable", "possible", or "still to be ruled out" are acceptable. IF IN AGREEMENT, YOU MUST DOCUMENT ABOVE DIAGNOSTIC STATEMENT IN DAILY PROGRESS NOTES AND DISCHARGE SUMMARY. This document is not part of the patient's record. Thank You, Fredy Ingram, RN [phone]
--- NOTE | 2016-09-02 09:33 | Family Medicine Progress Note ---
Progress Note Date of Service Sep 02, 2016. Subjective Pt evaluation today including: conversation w/ patient, physical exam, chart review, lab review, review of studies Pain: 2/10only with movement PO Intake: tolerated clear fluid diet Voiding: no voiding problems Patient states she feels much better, she is more alert during this interview compared to yesterday Pain is under control and only worsens with movement Nausea is resolved questions and concerns discussed Constitutional: No fever Eyes: No worsening of vision ENT: No hearing loss Respiratory: No cough, No dyspnea on exertion, No shortness of breath, No sputum, No wheezing Abdomen: + pain, No GI bleeding, No constipation, No diarrhea, No nausea, No vomiting Musculoskeletal: No joint pain, No muscle pain Female : No dysuria Neurologic: + weakness, No balance problems Endo: No fatigue Skin: No rash Medications Medications Administered Medications (Trade) Dose Ordered Sig/Luis Route Start Time Stop Time Status Last Admin Dose Admin Sodium Chloride (Nss 500ml) 500 ml @ 999 mls/hr Q31M STAT IV 09/01/16 11:29 09/01/16 11:59 DC 09/01/16 11:39 999 MLS/HR Morphine Sulfate (MoRPHine SULFATE INJ) 4 mg NOW STAT IV 09/01/16 11:29 09/01/16 11:30 DC 09/01/16 11:40 4 MG Ondansetron HCl 4 mg 4 mg NOW STAT IV 09/01/16 11:29 09/01/16 11:30 DC 09/01/16 11:40 4 MG Pantoprazole Sodium 80 mg/ Dextrose 120 ml @ 480 mls/hr NOW ONCE IV 09/01/16 14:45 09/01/16 14:59 DC 09/01/16 14:59 480 MLS/HR Pantoprazole Sodium 40 mg/ Dextrose 100 ml @ 20 mls/hr Q5H IV 09/01/16 15:00 09/01/16 19:59 DC 09/01/16 14:59 20 MLS/HR Sodium Chloride (Nss 1000ml) 1,000 ml @ 75 mls/hr [id number] IV 09/01/16 15:15 10/01/16 15:14 09/02/16 06:21 75 MLS/HR Hydralazine HCl 20 mg 20 mg STK-MED ONCE .ROUTE 09/01/16 15:44 09/01/16 15:48 DC 09/01/16 15:50 10 MG Pantoprazole Sodium/Dextrose (Protonix Inj/D5 100ml) 100 ml @ 20 mls/hr Q5H IV 09/01/16 20:00 10/01/16 19:59 09/02/16 06:21 20 MLS/HR Insulin Aspart SLIDING SCALE G... ACHS SC 09/01/16 21:00 10/01/16 20:59 09/02/16 08:37 4 UNITS Ciprofloxacin/ Dextrose 400 mg/ Prmx 200 ml @ 100 mls/hr Q12H IV 09/01/16 22:00 09/02/16 02:00 DC 09/01/16 23:11 100 MLS/HR Metronidazole/Prmx (Flagyl / Nss/ Premixed Nss) 100 ml @ 100 mls/hr Q8H IV 09/01/16 22:00 09/11/16 21:59 09/02/16 06:21 100 MLS/HR Objective Vital Signs Date Time Temp Pulse Resp B/P Pulse Ox O2 Delivery O2 Flow Rate FiO2 09/02/16 07:33 36.9 81 18 137/66 92 2.0 09/02/16 04:00 Nasal Cannula 2.0 09/02/16 03:50 37.2 82 18 142/70 97 Nasal Cannula 2.0 09/02/16 00:39 37.4 86 19 148/82 97 Nasal Cannula 2.0 09/01/16 23:59 Nasal Cannula 2.0 09/01/16 21:04 91 158/77 09/01/16 20:00 Nasal Cannula 2.0 09/01/16 19:13 37.3 95 18 191/84 100 Nasal Cannula 2.0 195/78 09/01/16 16:16 37.0 105 19 154/80 98 Room Air 09/01/16 15:42 91 19 184/91 96 09/01/16 14:57 92 18 189/91 97 Room Air 09/01/16 14:30 97 130/97 96 Room Air 09/01/16 13:33 100 17 203/82 96 Room Air 09/01/16 13:20 96 09/01/16 12:32 98 19 164/90 96 Room Air 09/01/16 11:43 92 24 171/101 96 Room Air 09/01/16 09:43 104 09/01/16 09:39 36.8 105 22 193/96 97 Room Air Physical Exam General Appearance: no apparent distress, + obese Eyes: normal inspection ENT: normal ENT inspection Neck: supple Respiratory/Chest: normal breath sounds, no respiratory distress, no accessory muscle use, + decreased breath sounds (bilat bases) Cardiovascular: regular rate, rhythm, no murmur Abdomen: normal bowel sounds, soft, + tenderness (tender in lower quadrants however with deep palpation) Extremities: non-tender, normal inspection, no pedal edema, no calf tenderness Neurologic/Psychiatric: alert, oriented x 3 Skin: normal color, warm/dry, no rash Lymphatic: no adenopathy Laboratory Results Results Past 24 Hours Test 09/01/16 09:45 09/01/16 12:50 09/01/16 18:35 09/01/16 20:57 Range/Units White Blood Count 16.32 4.8-10.8 K/uL Red Blood Count 3.83 4.2-5.4 M/uL Hemoglobin 11.8 12.0-16.0 g/dL Hematocrit 32.5 37-47 % Mean Corpuscular Volume 84.9 80-100 fL Mean Corpuscular Hemoglobin 30.8 25-34 pg Mean Corpuscular Hemoglobin Concent 36.3 32-36 g/dl Platelet Count 181 130-400 K/uL Mean Platelet Volume 9.6 7.4-10.4 fL Neutrophils (%) (Auto) 90.6 % Lymphocytes (%) (Auto) 5.0 % Monocytes (%) (Auto) 3.9 % Eosinophils (%) (Auto) 0.1 % Basophils (%) (Auto) 0.1 % Neutrophils # (Auto) 14.81 1.4-6.5 K/uL Lymphocytes # (Auto) 0.81 1.2-3.4 K/uL Monocytes # (Auto) 0.63 0.11-0.59 K/uL Eosinophils # (Auto) 0.01 0-0.5 K/uL Basophils # (Auto) 0.01 0-0.2 K/uL RDW Standard Deviation 42.4 36.4-46.3 fL RDW Coefficient of Variation 13.9 11.5-14.5 % Immature Granulocyte % (Auto) 0.3 % Immature Granulocyte # (Auto) 0.05 0.00-0.02 K/uL Sodium Level 140 136-145 mmol/L Potassium Level 4.7 3.5-5.1 mmol/L Chloride Level 105 98-107 mmol/L Carbon Dioxide Level 24 21-32 mmol/L Anion Gap 11.0 3-11 mmol/L Blood Urea Nitrogen 34 7-18 mg/dl Creatinine 1.80 0.60-1.20 mg/dl Est Creatinine Clear Calc Drug Dose 21.2 ml/min Estimated GFR () 29.0 Estimated GFR (Non- 25.0 BUN/Creatinine Ratio 18.9 10-20 Random Glucose 269 70-99 mg/dl Calcium Level 9.5 8.5-10.1 mg/dl Total Bilirubin 0.4 0.2-1 mg/dl Aspartate Amino Transf (AST/SGOT) 12 15-37 U/L Alanine Aminotransferase (ALT/SGPT) 18 12-78 U/L Alkaline Phosphatase 110 45-117 U/L Total Creatine Kinase 22 26-192 U/L Creatine Kinase MB < 0.5 0.5-3.6 ng/ml Creatine Kinase MB Ratio 0-3.0 Troponin I < 0.015 0-0.045 ng/ml Total Protein 7.3 6.4-8.2 gm/dl Albumin 3.2 3.4-5.0 gm/dl Globulin 4.1 2.5-4.0 gm/dl Albumin/Globulin Ratio 0.8 0.9-2 Lipase 82 73-393 U/L Urine Color YELLOW Urine Appearance CLEAR CLEAR Urine pH 6.0 4.5-7.5 Urine Specific [place] 1.020 1.000-1.030 Urine Protein 3+ NEG Urine Glucose (UA) 3+ NEG Urine Ketones NEG NEG Urine Occult Blood TRACE NEG Urine Nitrite NEG NEG Urine Bilirubin NEG NEG Urine Urobilinogen NEG NEG Urine Leukocyte Esterase NEG NEG Urine WBC (Auto) 1-5 0-5 /hpf Urine RBC (Auto) 0-4 0-4 /hpf Urine Hyaline Casts (Auto) 1-5 0-5 /lpf Urine Epithelial Cells (Auto) 10-20 0-5 /lpf Urine Bacteria (Auto) NEG NEG Lactic Acid Level 3.7 0.4-2.0 mmol/L Bedside Glucose 315 70-90 mg/dl Test 3/20/17 21:41 09/02/16 06:09 09/02/16 07:12 09/02/16 08:53 Range/Units Hemoglobin 10.5 10.1 12.0-16.0 g/dL Hematocrit 30.0 28.7 37-47 % Lactic Acid Level 3.2 2.5 0.4-2.0 mmol/L Troponin I 0.036 0.025 0-0.045 ng/ml White Blood Count 14.34 4.8-10.8 K/uL Red Blood Count 3.30 4.2-5.4 M/uL Mean Corpuscular Volume 87.0 80-100 fL Mean Corpuscular Hemoglobin 30.6 25-34 pg Mean Corpuscular Hemoglobin Concent 35.2 32-36 g/dl RDW Standard Deviation 45.3 36.4-46.3 fL RDW Coefficient of Variation 14.3 11.5-14.5 % Platelet Count 133 130-400 K/uL Mean Platelet Volume 9.8 7.4-10.4 fL Sodium Level 139 136-145 mmol/L Potassium Level 3.8 3.5-5.1 mmol/L Chloride Level 107 98-107 mmol/L Carbon Dioxide Level 24 21-32 mmol/L Anion Gap 8.0 3-11 mmol/L Blood Urea Nitrogen 25 7-18 mg/dl Creatinine 1.40 0.60-1.20 mg/dl Est Creatinine Clear Calc Drug Dose 28.0 ml/min Estimated GFR () 39.3 Estimated GFR (Non- 33.9 BUN/Creatinine Ratio 18.1 10-20 Random Glucose 138 70-99 mg/dl Calcium Level 8.4 8.5-10.1 mg/dl Total Bilirubin 0.5 0.2-1 mg/dl Aspartate Amino Transf (AST/SGOT) 12 15-37 U/L Alanine Aminotransferase (ALT/SGPT) 14 12-78 U/L Alkaline Phosphatase 82 45-117 U/L Total Protein 5.9 6.4-8.2 gm/dl Albumin 2.4 3.4-5.0 gm/dl Globulin 3.5 2.5-4.0 gm/dl Albumin/Globulin Ratio 0.7 0.9-2 Bedside Glucose 158 70-90 mg/dl Assessment and Plan This is an 85 yo f with shayna bleeding per rectum concerning for a lower gi bleed. Based on CT results the patient is suffering from a most likely ischemic colitis. She has been slowly advancing her diet and is currently on rocephin and flagyl (not cipro because of Qtc). No interventions at this time otherwise Lower gi bleed ; unknown etiology Consult GI- appreciate input - Advancing diet as tolerated - HH q 8 h, T&S but no RBC held at this time - CBC follow - follow CMP - Rocephin and Flagyl - changed from cipro and flagyl because of the qtc Hypertension - Can restart home medications- amlodipine and lisinopril - hydralazine 10 mg q 4 h prn for > 160 - ASA held JANIE on CKD secondary to dehydration - lisinopril restarted, JANIE resolved - follow BMP - received 500 cc in ED - Will hold fluids as patient tolerating PO Contraction state causing leukocytosis vs infective process - follow CBC and BMP - C diff, stool culture and Norovirus - Rocephin and flagyl DMII - insulin ISS prolonged QTc - No zofran/ cipro as can further prolong QTc qtc 495 from 490 yesterday - recheck EKG am DVT prophylaxis - SCD Resident Physician Supervision Note: I interviewed and examined the patient. Discussed with Dr. Zhao and agree with findings and plan as documented in the note. Any exceptions or clarifications are listed here: None Documented By: Artem Rao feeling better less bloody stools. discussed probable ischemic colitis. pt/dtr with extensive questions about her chronic constipation and chronic nausea ( which seems to stem from the chronic constipation). vitals noted, nad no pallor or icterus, breathing unlabored rectal bleeding - likely ischemic colitis. improving. continue cipro/flagyl. supportive care. prior lipids noted to be markedly up - but refused statin. will need to re-address. and address risk factors. acute blood loss anemia - from above. hemodynamically stable chronic constipation - and chronic nausea likely stemming from chronic constipation - discussed miralax Continued [facility] stay due to: inadequate po fluid intake, multiple IV medications needed Discharge planning: uncertain
--- NOTE | 2016-09-02 09:49 | Gastroenterology Progress Note ---
Progress Note Date of Service: Sep 02, 2016 Subjective Pt evaluation today including: conversation w/ family, physical exam, lab review, review of studies Patient is an 85 yo female with presumed ischemic colitis after experiencing hematochezia, nausea, vomiting, & diarrhea. Patient reports her symptoms are improving at present. She reports less frequent abdominal discomfort. She reports resolution of nausea & vomiting. Her bowel habits have improved, but not returned to what she considers "normal." Her H/H is 10.1/28.7. She is presently on Cipro & Flagyl therapy. Review of Systems Constitutional: No chills, No fever Eyes: No problem reported Respiratory: No cough, No shortness of breath Cardiac: No chest pain Abdomen: + pain, No GI bleeding, No diarrhea, No nausea, No vomiting Musculoskeletal: No joint pain Medications Current Inpatient Medications Medications (Trade) Dose Ordered Sig/Luis Route Start Time Stop Time Status Last Admin Dose Admin Ioversol 125 ml 125 ml UD PRN IV 09/01/16 12:00 09/05/16 11:59 Sodium Chloride (Nss 1000ml) 1,000 ml @ 75 mls/hr [id number] IV 09/01/16 15:15 10/01/16 15:14 09/02/16 06:21 75 MLS/HR Hydralazine HCl 10 mg 10 mg Q4 PRN IV. 09/01/16 15:45 10/01/16 15:44 Pantoprazole Sodium/Dextrose (Protonix Inj/D5 100ml) 100 ml @ 20 mls/hr Q5H IV 09/01/16 20:00 10/01/16 19:59 09/02/16 06:21 20 MLS/HR Insulin Aspart (novoLOG ASPART) SLIDING SCALE G... ACHS SC 09/01/16 21:00 10/01/16 20:59 09/02/16 08:37 4 UNITS Glucose (Glucose 40% Gel) 15-30 GRAMS 15 GRAMS... UD PRN PO 09/01/16 17:45 10/01/16 17:44 Glucose (Glucose Chew Tab) 4-8 Tablets 4 Tabl... UD PRN PO 09/01/16 17:45 10/01/16 17:44 Dextrose (Dextrose 50% 50ML Syringe) 25-50ML OF 50% DW IV FOR... UD PRN IV 09/01/16 17:45 10/01/16 17:44 Glucagon 1 mg 1 mg UD PRN SQ 09/01/16 17:45 10/01/16 17:44 Metronidazole 500 mg/Prmx 100 ml @ 100 mls/hr Q8H IV 09/01/16 22:00 09/11/16 21:59 09/02/16 06:21 100 MLS/HR Ceftriaxone Sodium/Dextrose (Rocephin Inj/D5 50ml) 70 ml @ 100 mls/hr Q24H IV 09/02/16 09:30 09/12/16 09:29 UNV Objective Vital Signs Date Time Temp Pulse Resp B/P Pulse Ox O2 Delivery O2 Flow Rate FiO2 09/02/16 07:33 36.9 81 18 137/66 92 2.0 09/02/16 04:00 Nasal Cannula 2.0 09/02/16 03:50 37.2 82 18 142/70 97 Nasal Cannula 2.0 09/02/16 00:39 37.4 86 19 148/82 97 Nasal Cannula 2.0 09/01/16 23:59 Nasal Cannula 2.0 09/01/16 21:04 91 158/77 09/01/16 20:00 Nasal Cannula 2.0 09/01/16 19:13 37.3 95 18 191/84 100 Nasal Cannula 2.0 195/78 09/01/16 16:16 37.0 105 19 154/80 98 Room Air 09/01/16 15:42 91 19 184/91 96 09/01/16 14:57 92 18 189/91 97 Room Air 09/01/16 14:30 97 130/97 96 Room Air 09/01/16 13:33 100 17 203/82 96 Room Air 09/01/16 13:20 96 09/01/16 12:32 98 19 164/90 96 Room Air 09/01/16 11:43 92 24 171/101 96 Room Air 09/01/16 09:43 104 Physical Exam General Appearance: WD/WN, no apparent distress Eyes: normal inspection, PERRL Respiratory/Chest: lungs clear, normal breath sounds Cardiovascular: regular rate, rhythm Abdomen: normal bowel sounds, soft, + tenderness (minimal left sided tenderness ) Extremities: non-tender Neurologic/Psych: alert Skin: normal color Laboratory Results Last 24 Hours Test 09/01/16 09:45 09/01/16 12:50 09/01/16 18:35 09/01/16 20:57 White Blood Count 16.32 K/uL Red Blood Count 3.83 M/uL Hemoglobin 11.8 g/dL Hematocrit 32.5 % Mean Corpuscular Volume 84.9 fL Mean Corpuscular Hemoglobin 30.8 pg Mean Corpuscular Hemoglobin Concent 36.3 g/dl Platelet Count 181 K/uL Mean Platelet Volume 9.6 fL Neutrophils (%) (Auto) 90.6 % Lymphocytes (%) (Auto) 5.0 % Monocytes (%) (Auto) 3.9 % Eosinophils (%) (Auto) 0.1 % Basophils (%) (Auto) 0.1 % Neutrophils # (Auto) 14.81 K/uL Lymphocytes # (Auto) 0.81 K/uL Monocytes # (Auto) 0.63 K/uL Eosinophils # (Auto) 0.01 K/uL Basophils # (Auto) 0.01 K/uL RDW Standard Deviation 42.4 fL RDW Coefficient of Variation 13.9 % Immature Granulocyte % (Auto) 0.3 % Immature Granulocyte # (Auto) 0.05 K/uL Sodium Level 140 mmol/L Potassium Level 4.7 mmol/L Chloride Level 105 mmol/L Carbon Dioxide Level 24 mmol/L Anion Gap 11.0 mmol/L Blood Urea Nitrogen 34 mg/dl Creatinine 1.80 mg/dl Est Creatinine Clear Calc Drug Dose 21.2 ml/min Estimated GFR () 29.0 Estimated GFR (Non- 25.0 BUN/Creatinine Ratio 18.9 Random Glucose 269 mg/dl Calcium Level 9.5 mg/dl Total Bilirubin 0.4 mg/dl Aspartate Amino Transf (AST/SGOT) 12 U/L Alanine Aminotransferase (ALT/SGPT) 18 U/L Alkaline Phosphatase 110 U/L Total Creatine Kinase 22 U/L Creatine Kinase MB < 0.5 ng/ml Creatine Kinase MB Ratio Troponin I < 0.015 ng/ml Total Protein 7.3 gm/dl Albumin 3.2 gm/dl Globulin 4.1 gm/dl Albumin/Globulin Ratio 0.8 Lipase 82 U/L Urine Color YELLOW Urine Appearance CLEAR Urine pH 6.0 Urine Specific [place] 1.020 Urine Protein 3+ Urine Glucose (UA) 3+ Urine Ketones NEG Urine Occult Blood TRACE Urine Nitrite NEG Urine Bilirubin NEG Urine Urobilinogen NEG Urine Leukocyte Esterase NEG Urine WBC (Auto) 1-5 /hpf Urine RBC (Auto) 0-4 /hpf Urine Hyaline Casts (Auto) 1-5 /lpf Urine Epithelial Cells (Auto) 10-20 /lpf Urine Bacteria (Auto) NEG Lactic Acid Level 3.7 mmol/L Bedside Glucose 315 mg/dl Test 09/01/16 21:41 09/02/16 06:09 09/02/16 07:12 09/02/16 08:53 Hemoglobin 10.5 g/dL 10.1 g/dL Hematocrit 30.0 % 28.7 % Lactic Acid Level 3.2 mmol/L 2.5 mmol/L Troponin I 0.036 ng/ml 0.025 ng/ml White Blood Count 14.34 K/uL Red Blood Count 3.30 M/uL Mean Corpuscular Volume 87.0 fL Mean Corpuscular Hemoglobin 30.6 pg Mean Corpuscular Hemoglobin Concent 35.2 g/dl RDW Standard Deviation 45.3 fL RDW Coefficient of Variation 14.3 % Platelet Count 133 K/uL Mean Platelet Volume 9.8 fL Sodium Level 139 mmol/L Potassium Level 3.8 mmol/L Chloride Level 107 mmol/L Carbon Dioxide Level 24 mmol/L Anion Gap 8.0 mmol/L Blood Urea Nitrogen 25 mg/dl Creatinine 1.40 mg/dl Est Creatinine Clear Calc Drug Dose 28.0 ml/min Estimated GFR () 39.3 Estimated GFR (Non- 33.9 BUN/Creatinine Ratio 18.1 Random Glucose 138 mg/dl Calcium Level 8.4 mg/dl Total Bilirubin 0.5 mg/dl Aspartate Amino Transf (AST/SGOT) 12 U/L Alanine Aminotransferase (ALT/SGPT) 14 U/L Alkaline Phosphatase 82 U/L Total Protein 5.9 gm/dl Albumin 2.4 gm/dl Globulin 3.5 gm/dl Albumin/Globulin Ratio 0.7 Bedside Glucose 158 mg/dl Assessment and Plan Patient is an 85 yo female with hematochezia, nausea, vomiting, diarrhea, & abdominal pain thought to be related to ischemic colitis. 1) Continue IV Cipro 400 mg BID and Flagyl 500 mg TID. 2) No endoscopic evaluation planned at present. 3) Continue clear liquid diet as tolerated. 4) Supportive care per primary team. Thank you for allowing us to participate in the care of this patient. If you should have any further questions or concerns, do not hesitate to contact us. Agree with RAYSHAWN Tomlinson as above Abd: Soft, Tender LUQ, ND, +BS Continue Cipro and Flagyl therapy Continue supportive care
[2016-09-02] MEDS ORDERED: HYDROCODONE/ACETAMOPHEN 5/325MG TAB PO PRN (11:15)
[2016-09-02] MEDS ORDERED: ACETAMINOPHEN 325 MG TAB ONE (11:16)
[2016-09-02] MEDS ORDERED: CEFTRIAXONE SOD INJ 2,000 MG in DEXTROSE 5% 50ML 50 ML IV SCH (12:00)
--- NOTE | 2016-09-02 13:16 | Medical Student: [facility] ---
Med Student Progress Note Date of Service Sep 02, 2016. Subjective Pt evaluation today including: conversation w/ patient Voiding: no voiding problems Mrs. Thomas is a 85 year old female with past medical history significant for Sjogren's disease, type 2 DM, HTN, stage III chronic kidney disease who is being treated for lower GI bleed. No acute events overnight per RN. Per tele patient has been in normal sinus rhythm. Patient states she is feeling better today. Notes some fatigue. States slept okay and appetite is good, on clear liquid diet. Denies blood in urine or stool, nausea, vomiting, diarrhea, abdominal pain, lightheadedness, chest pain, palpitations. Review of Systems Constitutional: No chills, No fatigue, No fever Respiratory: No cough, No hemoptysis, No shortness of breath Cardiac: No chest pain, No palpitations Abdomen: No GI bleeding, No diarrhea, No nausea, No pain, No vomiting Musculoskeletal: No calf pain, No swelling Female : No dysuria, No hematuria, No urinary frequency Heme: No abnormal bleeding/bruising, No clotting problems Objective Vital Signs Date Time Temp Pulse Resp B/P Pulse Ox O2 Delivery O2 Flow Rate FiO2 09/02/16 12:00 Nasal Cannula 09/02/16 11:12 36.8 78 18 152/74 99 2.0 09/02/16 08:00 Nasal Cannula 09/02/16 07:33 36.9 81 18 137/66 92 2.0 09/02/16 04:00 Nasal Cannula 2.0 09/02/16 03:50 37.2 82 18 142/70 97 Nasal Cannula 2.0 09/02/16 00:39 37.4 86 19 148/82 97 Nasal Cannula 2.0 09/01/16 23:59 Nasal Cannula 2.0 09/01/16 21:04 91 158/77 09/01/16 20:00 Nasal Cannula 2.0 09/01/16 19:13 37.3 95 18 191/84 100 Nasal Cannula 2.0 195/78 09/01/16 16:16 37.0 105 19 154/80 98 Room Air 09/01/16 15:42 91 19 184/91 96 09/01/16 14:57 92 18 189/91 97 Room Air 09/01/16 14:30 97 130/97 96 Room Air 09/01/16 13:33 100 17 203/82 96 Room Air 09/01/16 13:20 96 Physical Exam General Appearance: WD/WN, no apparent distress Neck: supple, no adenopathy, no carotid bruits Respiratory/Chest: chest non-tender, lungs clear, normal breath sounds, no respiratory distress, no accessory muscle use Cardiovascular: regular rate, rhythm, no edema, no gallop, no JVD, no murmur Abdomen: normal bowel sounds, non tender, soft, no organomegaly Extremities: no pedal edema, no calf tenderness Neurologic/Psychiatric: alert, normal mood/affect, oriented x 3 Skin: normal color, warm/dry, no rash Laboratory Results Last 24 Hours Test 09/01/16 18:35 09/01/16 20:57 09/01/16 21:41 09/02/16 06:09 Lactic Acid Level 3.7 mmol/L 3.2 mmol/L Bedside Glucose 315 mg/dl Hemoglobin 10.5 g/dL 10.1 g/dL Hematocrit 30.0 % 28.7 % Troponin I 0.036 ng/ml 0.025 ng/ml White Blood Count 14.34 K/uL Red Blood Count 3.30 M/uL Mean Corpuscular Volume 87.0 fL Mean Corpuscular Hemoglobin 30.6 pg Mean Corpuscular Hemoglobin Concent 35.2 g/dl RDW Standard Deviation 45.3 fL RDW Coefficient of Variation 14.3 % Platelet Count 133 K/uL Mean Platelet Volume 9.8 fL Sodium Level 139 mmol/L Potassium Level 3.8 mmol/L Chloride Level 107 mmol/L Carbon Dioxide Level 24 mmol/L Anion Gap 8.0 mmol/L Blood Urea Nitrogen 25 mg/dl Creatinine 1.40 mg/dl Est Creatinine Clear Calc Drug Dose 28.0 ml/min Estimated GFR () 39.3 Estimated GFR (Non- 33.9 BUN/Creatinine Ratio 18.1 Random Glucose 138 mg/dl Calcium Level 8.4 mg/dl Total Bilirubin 0.5 mg/dl Aspartate Amino Transf (AST/SGOT) 12 U/L Alanine Aminotransferase (ALT/SGPT) 14 U/L Alkaline Phosphatase 82 U/L Total Protein 5.9 gm/dl Albumin 2.4 gm/dl Globulin 3.5 gm/dl Albumin/Globulin Ratio 0.7 Test 09/02/16 07:12 09/02/16 08:53 09/02/16 11:04 Bedside Glucose 158 mg/dl 197 mg/dl Lactic Acid Level 2.5 mmol/L Medications Current Inpatient Medications Medications (Trade) Dose Ordered Sig/Luis Route Start Time Stop Time Status Last Admin Dose Admin Ioversol (Optiray 320) 125 ml UD PRN IV 09/01/16 12:00 09/05/16 11:59 Hydralazine HCl 10 mg 10 mg Q4 PRN IV. 09/01/16 15:45 10/01/16 15:44 Pantoprazole Sodium/Dextrose (Protonix Inj/D5 100ml) 100 ml @ 20 mls/hr Q5H IV 09/01/16 20:00 10/01/16 19:59 09/02/16 11:21 20 MLS/HR Insulin Aspart (novoLOG ASPART) SLIDING SCALE G... ACHS SC 09/01/16 21:00 10/01/16 20:59 09/02/16 12:53 3 UNITS Glucose (Glucose 40% Gel) 15-30 GRAMS 15 GRAMS... UD PRN PO 09/01/16 17:45 10/01/16 17:44 Glucose (Glucose Chew Tab) 4-8 Tablets 4 Tabl... UD PRN PO 09/01/16 17:45 10/01/16 17:44 Dextrose (Dextrose 50% 50ML Syringe) 25-50ML OF 50% DW IV FOR... UD PRN IV 09/01/16 17:45 10/01/16 17:44 Glucagon 1 mg 1 mg UD PRN SQ 09/01/16 17:45 10/01/16 17:44 Metronidazole 500 mg/Prmx 100 ml @ 100 mls/hr Q8H IV 09/01/16 22:00 09/11/16 21:59 09/02/16 12:54 100 MLS/HR Ceftriaxone Sodium/Dextrose (Rocephin Inj/D5 50ml) 70 ml @ 100 mls/hr Q24H IV 09/02/16 12:00 09/12/16 11:59 09/02/16 11:20 100 MLS/HR Amlodipine Besylate (Norvasc Tab) 5 mg BID PO 09/02/16 21:00 10/02/16 20:59 Lisinopril (Zestril Tab) 20 mg QPM PO 09/02/16 21:00 10/02/16 20:59 Acetaminophen (Tylenol Tab) 650 mg Q4H PRN PO 09/02/16 11:15 10/02/16 11:14 Acetaminophen/ Hydrocodone Bitart ([place] 5/325 Tab) 1 tab Q4 PRN PO 09/02/16 11:15 09/16/16 11:14 Assessment and Plan Assessment and Plan: Mrs. Thomas is a 85 year old female with past medical history significant for HTN, type 2 diabetes, chronic kidney disease, Sjogren's disease being treated for GI bleed. 1. GI Bleed - Likely lower GI bleed. CT revealed wall thickening and edematous changes in mid to distal transverse and proximal descending colon, a watershed area. Thus most likely ischemic colitis. In addition age and history of hypercholesterolemia and diabetes support ischemic colitis. - Continue clear liquid diet - Discontinue IV fluids - Wean off oxygen - Discontinue ciprofloxacin and start Rocephin 2000 mg IV q24 due to prolonged QTc. Increased from 490 to 495 msec today. - Continue metronidazole to prevent bacterial translocation across damaged mucous membrane - Continue to monitor CBC, electrolytes, lactic acid 2. HTN - Blood pressure in 130s/60s. Down from 200s/90s yesterday. - Restart lisinopril 20 mg PO and amlodipine 5mg PO - Continue hydralazine 10 mg IV PRN, systolic >160 - Continue to monitor blood pressures 3. Normochromic/normocytic anemia - Likely due to combination of acute blood loss, hemodilution, and anemia of chronic disease. Hemoglobin decreased from 11.8 to 10.1 today. Baseline 11s. - Continue to monitor levels - Consider transfusion if hemoglobin <7 4. Type 2 DM - Last A1c 7.0 from May 2016. - Continue to monitor blood sugars - Continue NovoLog sliding scale 5. DVT prophylaxis - SCDs - Would not consider anticoagulation due to hemorrhage Continued [facility] stay due to: multiple IV medications needed Discharge planning: uncertain
[2016-09-02 13:58] LABS: HEMATOCRIT 27.7 % (37-47)
[2016-09-02] MEDS: ACETAMINOPHEN 325 MG TAB PO PRN (17:44)
[2016-09-02] MEDS: AMLODIPINE BESYLATE 5 MG TAB PO SCH (21:04)
[2016-09-02] MEDS: LISINOPRIL 20 MG TAB PO SCH (21:04)
[2016-09-02] MEDS ORDERED: CIPROFLOXACIN / D5W 400 MG in PREMIXED IN D5W 200 ML IV SCH (23:00)
[2016-09-03] MEDS: PANTOprazole INJ 40 MG in DEXTROSE 5% 100ML IV SCH ×3 (02:12→13:07)
[2016-09-03] MEDS: METRONIDAZOLE / NSS 500 MG in PREMIXED NSS 100 ML IV SCH (06:08)
[2016-09-03 07:51] LABS: HEMATOCRIT 27.2 % (37-47); MEAN CELL VOLUME 84.2 fL (80-100); MEAN CORPUSCULAR HEMOGLOBIN 30.3 pg (25-34); MEAN PLATELET VOLUME 9.6 fL (7.4-10.4); PLATELET COUNT 135 K/uL (130-400); RED BLOOD COUNT 3.23 M/uL (4.2-5.4); WHITE BLOOD COUNT 10.39 K/uL (4.8-10.8)
[2016-09-03 08:01] VITALS: BP 162/78; PULSE 80; TEMP 36.5; O2SAT 96
[2016-09-03] MEDS: INSULIN ASPART 100 UNITS/ML 3 ML PEN SC SCH ×4 (08:21→21:00)
[2016-09-03 08:22] VITALS: O2SAT 96
[2016-09-03 08:27] LABS: BUN/CREATININE RATIO 13.6 (10-20); CREATININE 1.6 mg/dl (0.60-1.20); POTASSIUM 3.4 mmol/L (3.5-5.1)
[2016-09-03 08:30] LABS: ALB/GLOB RATIO 0.7 (0.9-2)
[2016-09-03] MEDS: AMLODIPINE BESYLATE 5 MG TAB PO SCH ×2 (08:59→21:40)
[2016-09-03] MEDS ORDERED: POLYETHYLENE (MIRALAX) 17 GM PACK PO ONE (09:18)
[2016-09-03] MEDS ORDERED: POLYETHYLENE (MIRALAX) 17 GM PACK PO PRN (09:30)
--- NOTE | 2016-09-03 10:14 | Gastroenterology Progress Note ---
Progress Note Date of Service: Sep 03, 2016 Subjective Pt evaluation today including: conversation w/ patient, physical exam, lab review, review of studies Patient is an 85 yo female with hematochezia & abdominal pain felt to be related to ischemic colitis. She reports she is tolerating a clear liquid diet. She reports her abdominal pain is improving. She reports minimal tenderness when her lower abdomen is palpated. She denies rectal bleeding. She denies having a bowel movement in the past 24 hours. She offers no further complaints at present. Her antibiotics have been changed to Rocephin & Flagyl due to prolonged QTCs. Review of Systems Constitutional: No chills, No fever Eyes: No problem reported Respiratory: No cough, No shortness of breath Abdomen: + pain, No GI bleeding, No constipation, No diarrhea, No nausea, No vomiting Musculoskeletal: No joint pain Psych: No problem reported Skin: No problem reported Medications Current Inpatient Medications Medications (Trade) Dose Ordered Sig/Luis Route Start Time Stop Time Status Last Admin Dose Admin Ioversol (Optiray 320) 125 ml UD PRN IV 09/01/16 12:00 09/05/16 11:59 Hydralazine HCl 10 mg 10 mg Q4 PRN IV. 09/01/16 15:45 10/01/16 15:44 Pantoprazole Sodium/Dextrose (Protonix Inj/D5 100ml) 100 ml @ 20 mls/hr Q5H IV 09/01/16 20:00 10/01/16 19:59 09/03/16 07:15 20 MLS/HR Insulin Aspart (novoLOG ASPART) SLIDING SCALE G... ACHS SC 09/01/16 21:00 10/01/16 20:59 09/03/16 08:21 3 UNITS Glucose (Glucose 40% Gel) 15-30 GRAMS 15 GRAMS... UD PRN PO 09/01/16 17:45 10/01/16 17:44 Glucose (Glucose Chew Tab) 4-8 Tablets 4 Tabl... UD PRN PO 09/01/16 17:45 10/01/16 17:44 Dextrose (Dextrose 50% 50ML Syringe) 25-50ML OF 50% DW IV FOR... UD PRN IV 09/01/16 17:45 10/01/16 17:44 Glucagon 1 mg 1 mg UD PRN SQ 09/01/16 17:45 10/01/16 17:44 Metronidazole 500 mg/Prmx 100 ml @ 100 mls/hr Q8H IV 09/01/16 22:00 09/11/16 21:59 09/03/16 06:08 100 MLS/HR Ceftriaxone Sodium/Dextrose (Rocephin Inj/D5 50ml) 70 ml @ 100 mls/hr Q24H IV 09/02/16 12:00 09/12/16 11:59 09/02/16 11:20 100 MLS/HR Amlodipine Besylate (Norvasc Tab) 5 mg BID PO 09/02/16 21:00 10/02/16 20:59 09/03/16 08:59 5 MG Lisinopril (Zestril Tab) 20 mg QPM PO 09/02/16 21:00 10/02/16 20:59 09/02/16 21:04 20 MG Acetaminophen (Tylenol Tab) 650 mg Q4H PRN PO 09/02/16 11:15 10/02/16 11:14 09/02/16 17:44 650 MG Acetaminophen/ Hydrocodone Bitart ([place] 5/325 Tab) 1 tab Q4 PRN PO 09/02/16 11:15 09/16/16 11:14 Polyethylene (Miralax Powder Packet) 17 gm DAILY PO 09/04/16 09:00 10/04/16 08:59 Polyethylene (Miralax Powder Packet) 17 gm DAILY PRN PO 09/03/16 09:30 10/03/16 09:29 Objective Vital Signs Date Time Temp Pulse Resp B/P Pulse Ox O2 Delivery O2 Flow Rate FiO2 09/03/16 08:22 96 Room Air 09/03/16 08:01 36.5 80 22 162/78 96 Room Air 09/03/16 00:00 Room Air 09/02/16 23:55 36.5 73 18 133/67 95 Room Air 09/02/16 19:00 36.7 82 17 134/78 96 Room Air 09/02/16 19:00 96 Room Air 09/02/16 16:00 Room Air 09/02/16 15:42 36.7 72 18 135/70 96 Room Air 09/02/16 12:00 Nasal Cannula 09/02/16 11:12 36.8 78 18 152/74 99 2.0 Physical Exam General Appearance: WD/WN, no apparent distress Eyes: normal inspection, PERRL Respiratory/Chest: chest non-tender, lungs clear, normal breath sounds Cardiovascular: regular rate, rhythm Abdomen: normal bowel sounds, + tenderness Extremities: non-tender Neurologic/Psych: alert, oriented x 3 Skin: normal color Laboratory Results Last 24 Hours Test 09/02/16 11:04 09/02/16 13:50 09/02/16 16:29 09/02/16 19:41 Bedside Glucose 197 mg/dl 122 mg/dl 244 mg/dl Hemoglobin 9.7 g/dL Hematocrit 27.7 % Troponin I 0.030 ng/ml Test 09/03/16 07:40 09/03/16 07:45 White Blood Count 10.39 K/uL Red Blood Count 3.23 M/uL Hemoglobin 9.8 g/dL Hematocrit 27.2 % Mean Corpuscular Volume 84.2 fL Mean Corpuscular Hemoglobin 30.3 pg Mean Corpuscular Hemoglobin Concent 36.0 g/dl RDW Standard Deviation 44.2 fL RDW Coefficient of Variation 14.3 % Platelet Count 135 K/uL Mean Platelet Volume 9.6 fL Sodium Level 141 mmol/L Potassium Level 3.4 mmol/L Chloride Level 109 mmol/L Carbon Dioxide Level 20 mmol/L Anion Gap 12.0 mmol/L Blood Urea Nitrogen 22 mg/dl Creatinine 1.60 mg/dl Est Creatinine Clear Calc Drug Dose 24.5 ml/min Estimated GFR () 33.5 Estimated GFR (Non- 28.9 BUN/Creatinine Ratio 13.6 Random Glucose 171 mg/dl Lactic Acid Level 1.6 mmol/L Calcium Level 9.0 mg/dl Total Bilirubin 0.3 mg/dl Aspartate Amino Transf (AST/SGOT) 23 U/L Alanine Aminotransferase (ALT/SGPT) 14 U/L Alkaline Phosphatase 90 U/L Total Protein 6.0 gm/dl Albumin 2.5 gm/dl Globulin 3.5 gm/dl Albumin/Globulin Ratio 0.7 Bedside Glucose 171 mg/dl Assessment and Plan Patient is an 85 yo female with hematochezia, nausea, vomiting, diarrhea, & abdominal pain thought to be related to ischemic colitis. Antibiotics were changed from Cipro/Flagyl to Rocephin/Flagyl given prolonged QTCs. 1) Continue IV Rocephin 2 gm q 24 hour and Flagyl 500 mg TID. 2) No endoscopic evaluation planned at present. 3) Continue clear liquid diet as tolerated. 4) Supportive care per primary team. Thank you for allowing us to participate in the care of this patient. If you should have any further questions or concerns, do not hesitate to contact us. Agree with RAYSHAWN Tomlinson as above Abd: Soft, NT, ND, +BS Continue current therapy She is feeling much better today and tolerating advancement of diet
[2016-09-03] MEDS ORDERED: POTASSIUM CHLORIDE 10 MEQ TABCR PO ONE (10:30)
[2016-09-03] MEDS: ACETAMINOPHEN 325 MG TAB PO PRN (10:58)
[2016-09-03] MEDS ORDERED: NSS + 20MEQ KCL 1000ML 1,000 ML IV SCH (11:00)
[2016-09-03] MEDS: AMPICILLIN/SULBACTAM SOD INJ 1,500 MG in SODIUM CHLORIDE 0.9% 100ML 100 ML IV SCH ×2 (12:36→18:05)
[2016-09-03] MEDS ORDERED: NURSING VERBAL MED ORDER ONE (13:15)
[2016-09-03 16:00] VITALS: O2SAT 93
--- NOTE | 2016-09-03 16:37 | Family Medicine Progress Note ---
Progress Note Date of Service Sep 03, 2016. Subjective Pt evaluation today including: conversation w/ patient, conversation w/ family , physical exam, chart review, lab review, review of studies Pain: 2/ PO Intake: advancing Voiding: no voiding problems Patient was slightly confused this morning and was worried because her daughter was not there as of yet She states mild pain in LLQ Has not had a bm yet Not opposed to discussing about statin however would prefer to wait to discuss with daughter around The daughter stated that she had a vague muscular weakness in the lower extremities with a statin and thats why was d/c Constitutional: No fever Eyes: No worsening of vision Respiratory: No cough, No dyspnea on exertion, No shortness of breath, No sputum, No wheezing Cardiovascular: No chest pain Abdomen: + constipation, + pain, No GI bleeding, No diarrhea, No nausea, No vomiting Musculoskeletal: No joint pain, No muscle pain Female : No dysuria, No hematuria Neurologic: + weakness, No balance problems Psychiatric: No depression symptoms Heme: No abnormal bleeding/bruising Endo: + fatigue Skin: No rash Medications Medications Administered Medications (Trade) Dose Ordered Sig/Luis Route Start Time Stop Time Status Last Admin Dose Admin Sodium Chloride (Nss 500ml) 500 ml @ 999 mls/hr Q31M STAT IV 09/01/16 11:29 09/01/16 11:59 DC 09/01/16 11:39 999 MLS/HR Morphine Sulfate (MoRPHine SULFATE INJ) 4 mg NOW STAT IV 09/01/16 11:29 09/01/16 11:30 DC 09/01/16 11:40 4 MG Ondansetron HCl 4 mg 4 mg NOW STAT IV 09/01/16 11:29 09/01/16 11:30 DC 09/01/16 11:40 4 MG Pantoprazole Sodium 80 mg/ Dextrose 120 ml @ 480 mls/hr NOW ONCE IV 09/01/16 14:45 09/01/16 14:59 DC 09/01/16 14:59 480 MLS/HR Pantoprazole Sodium 40 mg/ Dextrose 100 ml @ 20 mls/hr Q5H IV 09/01/16 15:00 09/01/16 19:59 DC 09/01/16 14:59 20 MLS/HR Sodium Chloride (Nss 1000ml) 1,000 ml @ 75 mls/hr [id number] IV 09/01/16 15:15 09/02/16 10:31 DC 09/02/16 06:21 75 MLS/HR Hydralazine HCl 20 mg 20 mg STK-MED ONCE .ROUTE 09/01/16 15:44 09/01/16 15:48 DC 09/01/16 15:50 10 MG Pantoprazole Sodium/Dextrose (Protonix Inj/D5 100ml) 100 ml @ 20 mls/hr Q5H IV 09/01/16 20:00 09/03/16 13:15 DC 09/03/16 07:15 20 MLS/HR Insulin Aspart SLIDING SCALE G... ACHS SC 09/01/16 21:00 10/01/16 20:59 09/03/16 12:48 6 UNITS Ciprofloxacin/ Dextrose 400 mg/ Prmx 200 ml @ 100 mls/hr Q12H IV 09/01/16 22:00 09/02/16 02:00 DC 09/01/16 23:11 100 MLS/HR Metronidazole 500 mg/Prmx 100 ml @ 100 mls/hr Q8H IV 09/01/16 22:00 09/03/16 10:14 DC 09/03/16 06:08 100 MLS/HR Ceftriaxone Sodium/Dextrose (Rocephin Inj/D5 50ml) 70 ml @ 100 mls/hr Q24H IV 09/02/16 12:00 09/03/16 11:02 DC 09/02/16 11:20 100 MLS/HR Amlodipine Besylate (Norvasc Tab) 5 mg BID PO 09/02/16 21:00 10/02/16 20:59 09/03/16 08:59 5 MG Lisinopril (Zestril Tab) 20 mg QPM PO 09/02/16 21:00 10/02/16 20:59 09/02/16 21:04 20 MG Acetaminophen (Tylenol Tab) 650 mg Q4H PRN PO 09/02/16 11:15 10/02/16 11:14 09/03/16 10:58 650 MG Acetaminophen (Tylenol Tab) 650 mg STK-MED ONCE .ROUTE 09/02/16 11:16 09/02/16 11:19 DC 09/02/16 11:23 650 MG Polyethylene 17 gm 17 gm 0918 ONCE PO 09/03/16 09:18 09/03/16 09:31 DC 09/03/16 10:12 17 GM Potassium Chloride/Sodium Chloride (Nss + 20meq KCl 1000ml) 1,000 ml @ 80 mls/hr [id number] IV 09/03/16 11:00 10/03/16 10:29 09/03/16 11:29 80 MLS/HR Potassium Chloride 40 meq 40 meq NOW ONCE PO 09/03/16 10:30 09/03/16 10:31 DC 09/03/16 10:57 40 MEQ Ampicillin Sodium/ Sulbactam Sodium/ Sodium Chloride (Unasyn Inj/Nss 100ml) 104 ml @ 200 mls/hr Q6H IV 09/03/16 12:00 09/13/16 11:59 09/03/16 12:36 200 MLS/HR Objective Vital Signs Date Time Temp Pulse Resp B/P Pulse Ox O2 Delivery O2 Flow Rate FiO2 09/03/16 11:10 Room Air 09/03/16 08:22 96 Room Air 09/03/16 08:01 36.5 80 22 162/78 96 Room Air 09/03/16 00:00 Room Air 09/02/16 23:55 36.5 73 18 133/67 95 Room Air 09/02/16 19:00 36.7 82 17 134/78 96 Room Air 09/02/16 19:00 96 Room Air 09/02/16 16:00 Room Air 09/02/16 15:42 36.7 72 18 135/70 96 Room Air Physical Exam General Appearance: no apparent distress Eyes: normal inspection ENT: normal ENT inspection Neck: supple Respiratory/Chest: normal breath sounds, no respiratory distress, no accessory muscle use, + decreased breath sounds (decreased bilat bases) Cardiovascular: regular rate, rhythm, no murmur Abdomen: normal bowel sounds, non tender, soft Extremities: non-tender, normal inspection, no pedal edema, no calf tenderness Neurologic/Psychiatric: alert, + pertinent finding (slightly agitated this morning) Skin: normal color, warm/dry, no rash Lymphatic: no adenopathy Laboratory Results Results Past 24 Hours Test 09/02/16 16:29 09/02/16 19:41 09/03/16 07:40 09/03/16 07:45 Range/Units Bedside Glucose 122 244 171 70-90 mg/dl White Blood Count 10.39 4.8-10.8 K/uL Red Blood Count 3.23 4.2-5.4 M/uL Hemoglobin 9.8 12.0-16.0 g/dL Hematocrit 27.2 37-47 % Mean Corpuscular Volume 84.2 80-100 fL Mean Corpuscular Hemoglobin 30.3 25-34 pg Mean Corpuscular Hemoglobin Concent 36.0 32-36 g/dl RDW Standard Deviation 44.2 36.4-46.3 fL RDW Coefficient of Variation 14.3 11.5-14.5 % Platelet Count 135 130-400 K/uL Mean Platelet Volume 9.6 7.4-10.4 fL Sodium Level 141 136-145 mmol/L Potassium Level 3.4 3.5-5.1 mmol/L Chloride Level 109 98-107 mmol/L Carbon Dioxide Level 20 21-32 mmol/L Anion Gap 12.0 3-11 mmol/L Blood Urea Nitrogen 22 7-18 mg/dl Creatinine 1.60 0.60-1.20 mg/dl Est Creatinine Clear Calc Drug Dose 24.5 ml/min Estimated GFR () 33.5 Estimated GFR (Non- 28.9 BUN/Creatinine Ratio 13.6 10-20 Random Glucose 171 70-99 mg/dl Lactic Acid Level 1.6 0.4-2.0 mmol/L Calcium Level 9.0 8.5-10.1 mg/dl Total Bilirubin 0.3 0.2-1 mg/dl Aspartate Amino Transf (AST/SGOT) 23 15-37 U/L Alanine Aminotransferase (ALT/SGPT) 14 12-78 U/L Alkaline Phosphatase 90 45-117 U/L Total Protein 6.0 6.4-8.2 gm/dl Albumin 2.5 3.4-5.0 gm/dl Globulin 3.5 2.5-4.0 gm/dl Albumin/Globulin Ratio 0.7 0.9-2 Test 09/03/16 11:12 Range/Units Bedside Glucose 217 70-90 mg/dl Assessment and Plan This is an 85 yo f with shayna bleeding per rectum concerning for a lower gi bleed. Based on CT results the patient is suffering from a most likely ischemic colitis. She has been slowly advancing her diet and is currently on Unasyn empirically. Advancing her diet well. Did discuss statin use considering the potential vascular component of ischemic colitis and elevated LDL as per her labs a year ago. Lower gi bleed ; very likely ischemic colitis Consult GI- appreciate input - Advancing diet as tolerated - CBC follow - follow CMP - Unasyn - changed from cipro and flagyl because of the qtc - Did discuss statin with the family as a potential addition to medical regimen - they will think about it at this time, it is not urgent to start a statin now Hypertension - Can restart home medications- amlodipine and lisinopril - hydralazine 10 mg q 4 h prn for > 160 - ASA held JANIE on CKD secondary to dehydration - lisinopril restarted, JANIE resolved - follow BMP - received 500 cc in ED - Will hold fluids as patient tolerating PO Hypokalemia - replete prn - follow bmp Contraction state causing leukocytosis vs infective process - follow CBC and BMP - C diff, stool culture and Norovirus - Rocephin and flagyl DMII - insulin ISS prolonged QTc - No zofran/ cipro/ flagyl as can further prolong QTc - recheck EKG am DVT prophylaxis - SCD Pt/OT Resident Physician Supervision Note: I interviewed and examined the patient. Discussed with Dr. Zhao and agree with findings and plan as documented in the note. Any exceptions or clarifications are listed here: None Documented By: Artem Rao feeling better had BM no blood. discussed statin w vascular disease. she got weak from ?[place] about 5yrs ago, thinks tolerated lipitor well just didn't want to take it; age + data at the time (not clearly showing plaque stabilization in data at the time, now a benefit to consider) margarita noted nad breathing unlabored no pallor or icterus hgb now stable LGI bleed from ishemic colitis w acute blood loss anemia now stable discussed med management and secondary prevention chronic constipation - helped a lot w miralax. hopefully will continue this at home. improving ?home cherellerw Continued [facility] stay due to: multiple IV medications needed Discharge planning: uncertain
--- NOTE | 2016-09-03 16:46 | Medical Student: [facility] ---
Med Student Progress Note Date of Service Sep 03, 2016. Subjective Pt evaluation today including: conversation w/ patient Voiding: no voiding problems Mrs. Thomas is a 85 year old female with past medical history of Sjgren's disease, dyslipidemia, type 2 diabetes, hypertension, and chronic kidney disease who is being treated for a lower GI bleed. Per RN no acute events overnight. Today she states she is feeling better. Notes appetite is good and she was able to sleep during the night. Daughter states patient has been on statin in past both Lipitor and Crestor but had severe muscle pain and did not want to take extra pills. Denies blood in stool or urine, nausea, vomiting, fever, abdominal pain, lightheadedness, chest pain, or palpitations. Review of Systems Constitutional: No chills, No fever, No sweats Respiratory: No cough, No shortness of breath Cardiac: No chest pain, No edema, No palpitations Abdomen: No GI bleeding, No diarrhea, No nausea, No pain, No vomiting Musculoskeletal: No calf pain, No muscle pain, No swelling Female : No dysuria, No hematuria, No urinary frequency Objective Vital Signs Date Time Temp Pulse Resp B/P Pulse Ox O2 Delivery O2 Flow Rate FiO2 09/03/16 11:10 Room Air 09/03/16 08:22 96 Room Air 09/03/16 08:01 36.5 80 22 162/78 96 Room Air 09/03/16 00:00 Room Air 09/02/16 23:55 36.5 73 18 133/67 95 Room Air 09/02/16 19:00 36.7 82 17 134/78 96 Room Air 09/02/16 19:00 96 Room Air Physical Exam General Appearance: WD/WN, no apparent distress Neck: supple, no JVD, no carotid bruits Respiratory/Chest: chest non-tender, lungs clear, normal breath sounds, no respiratory distress, no accessory muscle use Cardiovascular: regular rate, rhythm, no edema, no gallop, no JVD, no murmur Abdomen: normal bowel sounds, soft, no organomegaly, + tenderness (right upper left quadrant) Extremities: no pedal edema, no calf tenderness Neurologic/Psychiatric: alert, normal mood/affect, oriented x 3 Skin: normal color, warm/dry, no rash Lymphatic: no adenopathy Laboratory Results Last 24 Hours Test 09/02/16 19:41 09/03/16 07:40 09/03/16 07:45 09/03/16 11:12 Bedside Glucose 244 mg/dl 171 mg/dl 217 mg/dl White Blood Count 10.39 K/uL Red Blood Count 3.23 M/uL Hemoglobin 9.8 g/dL Hematocrit 27.2 % Mean Corpuscular Volume 84.2 fL Mean Corpuscular Hemoglobin 30.3 pg Mean Corpuscular Hemoglobin Concent 36.0 g/dl RDW Standard Deviation 44.2 fL RDW Coefficient of Variation 14.3 % Platelet Count 135 K/uL Mean Platelet Volume 9.6 fL Sodium Level 141 mmol/L Potassium Level 3.4 mmol/L Chloride Level 109 mmol/L Carbon Dioxide Level 20 mmol/L Anion Gap 12.0 mmol/L Blood Urea Nitrogen 22 mg/dl Creatinine 1.60 mg/dl Est Creatinine Clear Calc Drug Dose 24.5 ml/min Estimated GFR () 33.5 Estimated GFR (Non- 28.9 BUN/Creatinine Ratio 13.6 Random Glucose 171 mg/dl Lactic Acid Level 1.6 mmol/L Calcium Level 9.0 mg/dl Total Bilirubin 0.3 mg/dl Aspartate Amino Transf (AST/SGOT) 23 U/L Alanine Aminotransferase (ALT/SGPT) 14 U/L Alkaline Phosphatase 90 U/L Total Protein 6.0 gm/dl Albumin 2.5 gm/dl Globulin 3.5 gm/dl Albumin/Globulin Ratio 0.7 Test 09/03/16 15:54 Bedside Glucose 151 mg/dl Medications Current Inpatient Medications Medications (Trade) Dose Ordered Sig/Luis Route Start Time Stop Time Status Last Admin Dose Admin Ioversol (Optiray 320) 125 ml UD PRN IV 09/01/16 12:00 09/05/16 11:59 Hydralazine HCl (HydrALAZINE INJ) 10 mg Q4 PRN IV. 09/01/16 15:45 10/01/16 15:44 Insulin Aspart (novoLOG ASPART) SLIDING SCALE G... ACHS SC 09/01/16 21:00 10/01/16 20:59 09/03/16 12:48 6 UNITS Glucose (Glucose 40% Gel) 15-30 GRAMS 15 GRAMS... UD PRN PO 09/01/16 17:45 10/01/16 17:44 Glucose (Glucose Chew Tab) 4-8 Tablets 4 Tabl... UD PRN PO 09/01/16 17:45 10/01/16 17:44 Dextrose (Dextrose 50% 50ML Syringe) 25-50ML OF 50% DW IV FOR... UD PRN IV 09/01/16 17:45 10/01/16 17:44 Glucagon (Glucagon Inj) 1 mg UD PRN SQ 09/01/16 17:45 10/01/16 17:44 Amlodipine Besylate (Norvasc Tab) 5 mg BID PO 09/02/16 21:00 10/02/16 20:59 09/03/16 08:59 5 MG Lisinopril (Zestril Tab) 20 mg QPM PO 09/02/16 21:00 10/02/16 20:59 09/02/16 21:04 20 MG Acetaminophen (Tylenol Tab) 650 mg Q4H PRN PO 09/02/16 11:15 10/02/16 11:14 09/03/16 10:58 650 MG Acetaminophen/ Hydrocodone Bitart ([place] 5/325 Tab) 1 tab Q4 PRN PO 09/02/16 11:15 09/16/16 11:14 Polyethylene (Miralax Powder Packet) 17 gm DAILY PO 09/04/16 09:00 10/04/16 08:59 Polyethylene 17 gm 17 gm DAILY PRN PO 09/03/16 09:30 10/03/16 09:29 Potassium Chloride/Sodium Chloride 1,000 ml @ 80 mls/hr [id number] IV 09/03/16 11:00 10/03/16 10:29 09/03/16 11:29 80 MLS/HR Ampicillin Sodium/ Sulbactam Sodium/ Sodium Chloride (Unasyn Inj/Nss 100ml) 104 ml @ 200 mls/hr Q6H IV 09/03/16 12:00 09/13/16 11:59 09/03/16 12:36 200 MLS/HR Assessment and Plan Assessment and Plan: Mrs. Thomas is a 85 year old female with past medical history significant for HTN, type 2 diabetes, chronic kidney disease, Sjogren's disease being treated for GI bleed. 1. GI Bleed - Likely lower GI bleed. CT revealed wall thickening and edematous changes in mid to distal transverse and proximal descending colon, a watershed area. Thus most likely ischemic colitis. In addition age and history of hypercholesterolemia, diabetes support ischemic colitis. WBC decreased from 14.34 to 10.39 today. Lactic acid down from 2.5 to 1.6. Potassium decreased from 3.8 to 3.4 likely due to clear liquids diet. - Consider 40 mEq Potassium Chloride supplement - Advance diet to soft food - QTc increased from 495 to 518 msec today. Discontinue Flagyl and Rocephin and being Unasyn IV. - Continue to monitor CBC, electrolytes 2. HTN - Blood pressure in 130s/60s. Down from 200s/90s upon admission. - Continue lisinopril 20 mg PO and amlodipine 5mg PO - Continue hydralazine 10 mg IV PRN, systolic >160 - Continue to monitor blood pressures 3. Dyslipidemia - Last values from May 2016 revealed triglycerides 435, total cholesterol 290, and HDL 31. After discussion about risks and benefits of statin. Patient and daughter will discuss and revisit idea tomorrow. Plan for patient to follow up with PCP. 4. Normochromic/normocytic anemia - Likely due to anemia of chronic disease. Hemoglobin decreased from 10.1 to 9.8 today. Baseline 11s. - Continue to monitor levels - Consider transfusion if hemoglobin <7 5. Type 2 DM - Last A1c 7.0 from May 2016. - Continue to monitor blood sugars - Continue NovoLog sliding scale 6. DVT prophylaxis - Encourage ambulation - Would not consider anticoagulation due to hemorrhage Discharge planning: home (with daughter)
[2016-09-03 21:00] VITALS: BP 167/52; PULSE 84; TEMP 36.7; O2SAT 96
[2016-09-03] MEDS: LISINOPRIL 20 MG TAB PO SCH (21:42)
[2016-09-03 23:50] VITALS: BP 164/70; PULSE 106; TEMP 36.7; O2SAT 96
[2016-09-04] MEDS: AMPICILLIN/SULBACTAM SOD INJ 1,500 MG in SODIUM CHLORIDE 0.9% 100ML 100 ML IV SCH ×4 (00:32→13:40)
[2016-09-04 07:03] VITALS: BP 186/70; PULSE 72; TEMP 36.6; O2SAT 95
[2016-09-04 08:03] LABS: HEMATOCRIT 29.6 % (37-47); MEAN CELL VOLUME 86.5 fL (80-100); MEAN CORPUSCULAR HEMOGLOBIN 30.1 pg (25-34); MEAN CORPUSCULAR HGB CONC 34.8 g/dl (32-36); MEAN PLATELET VOLUME 10.1 fL (7.4-10.4); PLATELET COUNT 155 K/uL (130-400); RED BLOOD COUNT 3.42 M/uL (4.2-5.4); WHITE BLOOD COUNT 7.14 K/uL (4.8-10.8)
[2016-09-04] MEDS: ACETAMINOPHEN 325 MG TAB PO PRN (08:17)
[2016-09-04] MEDS: AMLODIPINE BESYLATE 5 MG TAB PO SCH (08:17)
[2016-09-04] MEDS: INSULIN ASPART 100 UNITS/ML 3 ML PEN SC SCH ×2 (08:26→12:16)
[2016-09-04 08:28] LABS: BUN/CREATININE RATIO 11.8 (10-20); CALCIUM 8.6 mg/dl (8.5-10.1); CREATININE 1.7 mg/dl (0.60-1.20); POTASSIUM 4.1 mmol/L (3.5-5.1)
[2016-09-04 08:36] LABS: ALB/GLOB RATIO 0.7 (0.9-2)
[2016-09-04] MEDS ORDERED: POLYETHYLENE (MIRALAX) 17 GM PACK PO SCH (09:00)
[2016-09-04] MEDS ORDERED: SODIUM CHLORIDE 0.9% 1000ML 1,000 ML IV SCH (09:15)
--- NOTE | 2016-09-04 12:36 | Medical Student: [facility] ---
Med Student Progress Note Date of Service Sep 04, 2016. Subjective Pt evaluation today including: conversation w/ patient Voiding: no voiding problems Mrs. Thomas is a 85 year old female with past medical history of Sjgren's disease, dyslipidemia, type 2 diabetes, hypertension, and chronic kidney disease who is being treated for a lower GI bleed. No acute events overnight. Patient states she is feeling more fatigued today. Notes slept okay and tolerated solid food well at breakfast this AM. Denies fever, blood in stool or urine, abdominal pain, nausea, vomiting, lightheadedness, chest pain or palpitations, difficulty breathing. Review of Systems Constitutional: + fatigue, No chills, No fever, No sweats Respiratory: No cough, No shortness of breath, No sputum, No wheezing Cardiac: No chest pain, No edema, No palpitations Abdomen: No GI bleeding, No diarrhea, No nausea, No pain, No vomiting Female : No dysuria, No hematuria Heme: No abnormal bleeding/bruising Skin: No rash Objective Vital Signs Date Time Temp Pulse Resp B/P Pulse Ox O2 Delivery O2 Flow Rate FiO2 09/04/16 11:04 Room Air 09/04/16 07:03 36.6 72 18 186/70 95 09/04/16 00:00 Room Air 09/03/16 23:50 36.7 106 20 164/70 96 Room Air 09/03/16 21:00 36.7 84 167/52 96 Room Air 09/03/16 16:00 93 Room Air Physical Exam General Appearance: WD/WN, no apparent distress Neck: supple, no adenopathy, no carotid bruits Respiratory/Chest: chest non-tender, lungs clear, normal breath sounds, no respiratory distress, no accessory muscle use Cardiovascular: regular rate, rhythm, no edema, no gallop, no JVD, no murmur Abdomen: normal bowel sounds, non tender, soft, no organomegaly Extremities: no pedal edema, no calf tenderness Neurologic/Psychiatric: alert, normal mood/affect, oriented x 3 Skin: normal color, warm/dry, no rash Laboratory Results Last 24 Hours Test 09/03/16 15:54 09/03/16 21:20 09/04/16 07:48 09/04/16 07:49 Bedside Glucose 151 mg/dl 118 mg/dl 179 mg/dl White Blood Count 7.14 K/uL Red Blood Count 3.42 M/uL Hemoglobin 10.3 g/dL Hematocrit 29.6 % Mean Corpuscular Volume 86.5 fL Mean Corpuscular Hemoglobin 30.1 pg Mean Corpuscular Hemoglobin Concent 34.8 g/dl RDW Standard Deviation 45.5 fL RDW Coefficient of Variation 14.5 % Platelet Count 155 K/uL Mean Platelet Volume 10.1 fL Sodium Level 142 mmol/L Potassium Level 4.1 mmol/L Chloride Level 113 mmol/L Carbon Dioxide Level 19 mmol/L Anion Gap 10.0 mmol/L Blood Urea Nitrogen 20 mg/dl Creatinine 1.70 mg/dl Est Creatinine Clear Calc Drug Dose 23.2 ml/min Estimated GFR () 31.1 Estimated GFR (Non- 26.8 BUN/Creatinine Ratio 11.8 Random Glucose 171 mg/dl Calcium Level 8.6 mg/dl Total Bilirubin 0.3 mg/dl Aspartate Amino Transf (AST/SGOT) 19 U/L Alanine Aminotransferase (ALT/SGPT) 16 U/L Alkaline Phosphatase 92 U/L Total Protein 6.2 gm/dl Albumin 2.5 gm/dl Globulin 3.7 gm/dl Albumin/Globulin Ratio 0.7 Test 09/04/16 11:23 Bedside Glucose 200 mg/dl Medications Current Inpatient Medications Medications (Trade) Dose Ordered Sig/Luis Route Start Time Stop Time Status Last Admin Dose Admin Ioversol (Optiray 320) 125 ml UD PRN IV 09/01/16 12:00 09/05/16 11:59 Hydralazine HCl (HydrALAZINE INJ) 10 mg Q4 PRN IV. 09/01/16 15:45 10/01/16 15:44 Insulin Aspart (novoLOG ASPART) SLIDING SCALE G... ACHS SC 09/01/16 21:00 10/01/16 20:59 09/04/16 08:26 2 UNITS Glucose (Glucose 40% Gel) 15-30 GRAMS 15 GRAMS... UD PRN PO 09/01/16 17:45 10/01/16 17:44 Glucose (Glucose Chew Tab) 4-8 Tablets 4 Tabl... UD PRN PO 09/01/16 17:45 10/01/16 17:44 Dextrose (Dextrose 50% 50ML Syringe) 25-50ML OF 50% DW IV FOR... UD PRN IV 09/01/16 17:45 10/01/16 17:44 Glucagon (Glucagon Inj) 1 mg UD PRN SQ 09/01/16 17:45 10/01/16 17:44 Amlodipine Besylate (Norvasc Tab) 5 mg BID PO 09/02/16 21:00 10/02/16 20:59 09/04/16 08:17 5 MG Lisinopril (Zestril Tab) 20 mg QPM PO 09/02/16 21:00 10/02/16 20:59 Future Hold 09/03/16 21:42 20 MG Acetaminophen (Tylenol Tab) 650 mg Q4H PRN PO 09/02/16 11:15 10/02/16 11:14 09/04/16 08:17 650 MG Acetaminophen/ Hydrocodone Bitart ([place] 5/325 Tab) 1 tab Q4 PRN PO 09/02/16 11:15 09/16/16 11:14 Polyethylene (Miralax Powder Packet) 17 gm DAILY PO 09/04/16 09:00 10/04/16 08:59 Polyethylene 17 gm 17 gm DAILY PRN PO 09/03/16 09:30 10/03/16 09:29 Potassium Chloride/Sodium Chloride 1,000 ml @ 80 mls/hr [id number] IV 09/03/16 11:00 10/03/16 10:29 Future Hold 09/03/16 11:29 80 MLS/HR Ampicillin Sodium/ Sulbactam Sodium 1500 mg/Sodium Chloride 104 ml @ 200 mls/hr Q6H IV 09/03/16 12:00 09/13/16 11:59 09/04/16 08:16 200 MLS/HR Sodium Chloride (Nss 1000ml) 1,000 ml @ 100 mls/hr Q10H IV 09/04/16 09:15 10/04/16 09:14 09/04/16 10:45 100 MLS/HR Assessment and Plan Assessment and Plan: Mrs. Thomas is a 85 year old female with past medical history significant for HTN, type 2 diabetes, chronic kidney disease, Sjogren's disease being treated for GI bleed. 1. GI Bleed - Likely lower GI bleed. Most likely ischemic colitis due to age, CT scan, history of DM and dyslipidemia. WBC decreased from 10.39 to 7.14 today. No signs of further bleeding or GI symptoms. - Tolerating solid food diet well. - Day 4 of 7on antibiotics. Switch Unasyn IV to Augmentin 500 mg/ 125 mg PO q12 for three more days. - Continue to monitor CBC, electrolytes 2. Hypokalemia- Patient given 40 mEq potassium chloride supplement PO yesterday. Potassium increased from 3.4 to 4.1 today. - Continue to monitor 3. Prolonged QT - Likely due to ciprofloxacin and underlying kidney disease. Decreased from 518 to 494 today. - Monitor and avoid drugs that prolong QT 4. HTN - Blood pressure in 170-180s/70s this AM. Increased from 130s/60s past two days. - Continue lisinopril 20 mg PO and amlodipine 5mg PO - Give hydralazine 10 mg IV PRN due to systolic >160 - Continue to monitor blood pressures 5. Dyslipidemia - Last values from May 2016 revealed triglycerides 435, total cholesterol 290, and HDL 31. After discussion about risks and benefits of statin. Patient and daughter will discuss and revisit idea tomorrow. Plan for patient to follow up with PCP. 6. Normochromic/normocytic anemia - Likely due to anemia of chronic disease. Hemoglobin increased to 10.3 from 9.8 today. Baseline 11s. Last serum ferritin was in 563 in 2013. - Could consider iron levels or sed rate - Continue to monitor levels - Consider transfusion if hemoglobin <7 7. JANIE on chronic kidney disease - Likely due to dehydration, hypoperfusion. BUN stable at 22. Creatinine up to 1.7 from 1.6 yesterday, baseline at 1.5. - Continue lisinopril 20 mg - Continue to monitor levels - Avoid nephrotoxic drugs 8. Type 2 DM - Last A1c 7.0 from May 2016. - Continue to monitor blood sugars - Continue NovoLog sliding scale 9. DVT prophylaxis - Encourage ambulation - Would not consider anticoagulation due to hemorrhage Discharge planning: home (with daughter, consider home health)
--- NOTE | 2016-09-04 16:14 | Discharge Summary ---
Discharge Summary Date of Service Sep 04, 2016. Discharge Summary Admission Date: Sep 01, 2016 at 15:06 Discharge Disposition: Home Principal Diagnosis: ichemic colitis Immunizations: Have You Had Influenza Vaccine: Yes History of Tetanus Vaccine?: Unknown History of Pneumococcal: Yes History of Hepatitis B Vaccine: Unknown Discharge Exam Patient was feeling well on d/c We did discuss the possibility of starting a statin considering how high her lipid panel was a year ago however may consider in outpt considering the muscle weakness previously discussed d/c with daughter with patient both were agreeable Review of Systems: Constitutional: No fever Eyes: No worsening of vision ENT: No hearing loss Respiratory: No cough, No dyspnea at rest, No dyspnea on exertion, No shortness of breath, No sputum, No wheezing Cardiovascular: No chest pain Abdomen: No constipation, No diarrhea, No nausea, No pain, No vomiting Musculoskeletal: No joint pain, No muscle pain Genitourinary - Female: No dysuria, No hematuria Neurologic: + balance problems, No weakness Endocrine: No fatigue Physical Exam: General Appearance: no apparent distress, + obese Eyes: normal inspection ENT: normal ENT inspection Neck: supple Respiratory/Chest: normal breath sounds, no respiratory distress, no accessory muscle use Cardiovascular: regular rate, rhythm, no murmur Abdomen / GI: normal bowel sounds, non tender, soft Extremities: normal inspection, no calf tenderness, no pedal edema Neurologic/Psychiatric: alert, normal mood/affect, oriented x 3 Skin: normal color, warm/dry, no rash Lymphatic: no adenopathy Hospital Course This is an 85 yo f with shayna bleeding per rectum concerning for a lower gi bleed. Based on CT results the patient is suffering from a most likely ischemic colitis. She has been slowly advancing her diet and was treated with Unasyn empirically. On d/c she was transitioned to oral augmentin to complete the full course of abx. Advanced her diet well. Did discuss statin use considering the potential vascular component of ischemic colitis and elevated LDL as per her labs a year ago. Lower gi bleed ; very likely ischemic colitis Consult GI- appreciate input - Unasyn - transitioned to augmentin for a full 7 day course - Did discuss statin with the family as a potential addition to medical regimen - they will think about it at this time, it is not urgent to start a statin now Hypertension - Amlodipine continued - Lisinopril held on d/c because of elevated cr JANIE on CKD secondary to dehydration vs medication regimen - lisinopril held - recommend a recheck BMP and CBC in one week time Hypokalemia - as noted above DMII - insulin ISS prolonged QTc - No zofran/ cipro/ flagyl as can further prolong QTc - Qtc on d/c was 494 and has been approx 500 during admission DVT prophylaxis - SCD Total Time Spent: Greater than 30 minutes This includes examination of the patient, discharge planning, medication reconciliation, and communication with other providers. Discharge Instructions Please refer to the electronic Patient Visit Report (Discharge Instructions) for additional information. Additional Copies To Saúl Bright M.D.
[2016-09-04] MEDS ORDERED: AMOX500T PO (16:18)
[2016-09-04] MEDS ORDERED: MRLP17X PO (16:18)
[2016-09-04] MEDS ORDERED: LPT40 PO (16:19)
[2016-09-04 16:41] VITALS: BP 186/70; PULSE 72; TEMP 36.6; O2SAT 95
--- NOTE | 2016-09-04 16:57 | Discharge Instructions ---
Discharge Instructions Date of Service Sep 04, 2016. Admission Reason for Admission: Gi Bleed,Hypertension Discharge Discharge Diagnosis / Problem: ischemic colitis Discharge Goals Goal(s): Diagnostic testing, Therapeutic intervention Activity Recommendations Activity Limitations: resume your previous activity . Instructions / Follow-Up Instructions / Follow-Up As you know you were admitted to the hospital for abdominal pain and nausea and vomiting. We evaluated your abdomen with a CT scan and we found that you may be suffering from something called ischemic colitis. This can be as a result of infection or vascular disease. Considering that you have a history of very elevated "bad cholesterol" this may be a result of this. We did discuss statin as a possible addition to your medication regimen however this is not urgent and can be discussed with your PCP. We also would also like you to change your daily colace to one capful of miralax daily for your constipation. 1. Continue the augmentin as prescribed to prevent any potential infection from the colitis, transition of bacteria from the affected bowel can occur rarely however this is in order to prevent it 2. Change colace to miralax 1 capful daily for constipation 3. Please follow up with your PCP, we would like you to recheck your blood count and your kidney functioning in a week 4. Please hold your Lisinopril until your follow up with your PCP Current Hospital Diet Patient's current hospital diet: Diabetes Type 2 Diet Discharge Diet Recommended Diet: Diabetes Type 2 Diet Pending Studies Studies pending at discharge: no Medical Emergencies . Who to Call and When: Medical Emergencies: If at any time you feel your situation is an emergency, please call 911 immediately. . Non-Emergent Contact Non-Emergency issues call your: Primary Care Provider . . "Provider Documentation" section prepared by Mary Zhao. VTE Core Measure Inpt VTE Proph given/why not?: SCD's
[2017-02-06] MEDS ORDERED: CYAN10005 PO (07:20)
== END 2016-09-04 17:50 | disposition home or self-care (01) | DRG 394 ==
LOC: ENRESERVTM → ENRESERVDT → EDBD 09:35 → C.EDC 09:38 → C.2T 15:06 → UNDOADMIN 16:02 → C.MS2W 09-02 18:49
PROVIDERS: ADMIT Hospitalist; ATTEND Family Medicine
DX: K55.9 Vascular disorder of intestine, unspecified (principal); D62 Acute posthemorrhagic anemia; N17.9 Acute kidney failure, unspecified; I12.9 Hypertensive chronic kidney disease with stage 1 through stage 4 chronic kidney disease, or unspecified chronic kidney disease; N18.9 Chronic kidney disease, unspecified; E11.22 Type 2 diabetes mellitus with diabetic chronic kidney disease; K59.09 Other constipation; I45.81 Long QT syndrome; E87.6 Hypokalemia; Z79.4 Long term (current) use of insulin; Z79.82 Long term (current) use of aspirin

== ENCOUNTER → 2016-09-10 | Outpatient (CLI) | payer OTHER ==
[~2016-09-10] MED LIST changes: +AMLO-110 PO; +AMOX500T PO; +ASPI81TA28 PO; +CHOL1CAP57 PO; +CYAN10005 PO; +DIPH-437 PO; -DOCU1TAB6 PO; +ESCI10TA17 PO; +INSU100I2 SQ; -INSU1INJ15 SQ; +INSU3INJ3 SC; +LISI-725 PO; +LORA-741 PO; +LPT40 PO; +MOML PO; +MRLP17X PO; +NF656 TOP; +OMEG10007 PO; +OMEP40CA41 PO; +POLY335019 PO; +RANI75TA19 PO; +SIME80CH PO
[2016-09-10 16:49] LABS: HEMATOCRIT 29.1 % (37-47); MEAN CELL VOLUME 88.4 fL (80-100); MEAN CORPUSCULAR HEMOGLOBIN 30.4 pg (25-34); MEAN CORPUSCULAR HGB CONC 34.4 g/dl (32-36); MEAN PLATELET VOLUME 9.8 fL (7.4-10.4); PLATELET COUNT 235 K/uL (130-400); RED BLOOD COUNT 3.29 M/uL (4.2-5.4); WHITE BLOOD COUNT 6.94 K/uL (4.8-10.8)
[2016-09-10 16:57] LABS: BLOOD UREA NITROGEN 21 mg/dl (7-18); BUN/CREATININE RATIO 16.5 (10-20); CALCIUM 9.2 mg/dl (8.5-10.1); CARBON DIOXIDE 25 mmol/L (21-32); CHLORIDE 109 mmol/L (98-107); GLUCOSE 286 mg/dl (70-99); POTASSIUM 4.4 mmol/L (3.5-5.1); SODIUM 141 mmol/L (136-145)
== END | disposition home or self-care (01) ==
LOC: C.LABBC 14:23
PROVIDERS: ATTEND Internal Medicine
DX: N18.9 Chronic kidney disease, unspecified (principal); K55.9 Vascular disorder of intestine, unspecified

== ENCOUNTER → 2016-10-30 | Outpatient (CLI) | payer OTHER ==
[~2016-10-30] MED LIST changes: -AMOX500T PO; +ESCI1TAB6 PO; +LSN5 PO; +PLV75 PO
--- NOTE | 2016-10-30 14:42 | DIAGNOSTIC IMAGING REPORT ---
CT HEAD WITHOUT CONTRAST (CT) CLINICAL HISTORY: F03.90 Major neurocognitive disorder R/O intracranial [id number] COMPARISON STUDY: 06/14/2016 TECHNIQUE: Axial CT of the brain is performed from the vertex to the skull base. IV contrast was not administered for this examination. CT DOSE: 614.27 mGy.cm FINDINGS: No intra or extra-axial mass lesions are visualized. There is no CT evidence of acute cortical infarction. There is no evidence of midline shift. There is no acute hemorrhage. No calvarial fractures are visualized. There are patchy white matter hypodensities likely on a small vessel basis. There is mild ventricular dilatation, similar to the prior study and likely secondary to volume loss. There is no evidence of acute sinusitis IMPRESSION: No acute intracranial findings Electronically signed by: Villa Moreno M.D. 10/30/2016 2:41 PM Dictated Date/Time: 10/30/2016 2:40 PM
== END | disposition home or self-care (01) ==
LOC: C.CTS 14:25
PROVIDERS: ATTEND Internal Medicine
DX: F03.90 Unspecified dementia, unspecified severity, without behavioral disturbance, psychotic disturbance, mood disturbance, and anxiety (principal)

== ENCOUNTER 2016-11-24 14:31 | Emergency (ER) | payer OTHER ==
[~2016-11-24 14:31] MED LIST changes: -AMLO-110 PO; -ASPI81TA28 PO; -CHOL1CAP57 PO; -CYAN10005 PO; -DIPH-437 PO; -ESCI10TA17 PO; -ESCI1TAB6 PO; -INSU100I2 SQ; -INSU3INJ3 SC; -LISI-725 PO; -LSN5 PO; -MOML PO; -NF656 TOP; -OMEG10007 PO; -OMEP40CA41 PO; -PLV75 PO; -POLY335019 PO; -RANI75TA19 PO; -SIME80CH PO
[2016-11-24 14:39] VITALS: TEMP 36.6; Ht 165.1 cm
[2016-11-24] MEDS ORDERED: ONDANSETRON INJ 2 MG/ML 2 ML VIAL IV STA (14:40)
[2016-11-24] MEDS ORDERED: SODIUM CHLORIDE 0.9% 1000ML 1,000 ML IV STA (14:40)
--- NOTE | 2016-11-24 14:59 | DIAGNOSTIC IMAGING REPORT ---
CHEST ONE VIEW PORTABLE HISTORY: Generalized abdominal pain. COMPARISON: None. FINDINGS: Left basilar subsegmental atelectasis is improved. No new focal lung consolidations. No evidence for pulmonary edema. Calcified thoracic aorta. Cardiac silhouette is normal in size. No pleural effusions. No pneumothorax. Left-sided dual-chamber pacemaker. IMPRESSION: No acute process. Electronically signed by: Cole Sheffield M.D. 11/24/2016 2:58 PM Dictated Date/Time: 11/24/2016 2:55 PM
[2016-11-24] MEDS ORDERED: DIPH-437 PO (15:23)
[2016-11-24] MEDS ORDERED: OMEP40CA41 PO (15:23)
--- NOTE | 2016-11-24 15:25 | EMERGENCY ROOM VISIT NOTE ---
History Report prepared by Bill: Yannick Marcano Under the Supervision of: Dr. Wei Aceves M.D. First contact with patient: 14:34 Stated Complaint: ILLNESS History of Present Illness The patient is a 86 year old female who presents to the Emergency Room by EMS with complaints of a persistent illness beginning today. Her symptoms include nausea, vomiting, diarrhea and abdominal pain. She denies any headaches, chest pain, SOB, or back pain. The patient states that she does not currently have any abdominal pain or nausea. She has a history of abdominal surgeries, but can not remember which ones. She notes that she vomited twice today, and only had " a little" diarrhea. Per nursing staff, the patient was reported to have had a syncopal episode while going to the bathroom. They state that the patient's symptoms began following this episode. They also note that the patient has had five similar episodes within the past year. Per daughter, the patient's syncopal episode was witnessed by her caregiver. She states that the patient was straining while going to the bathroom, and passed out. She notes that the patient has been a little more confused than usual recently. The patient denies any constipation. Source of History: patient Onset: Today Quality: other (illness) Timing: other (persistent) Associated Symptoms: + nausea, + vomiting, + abdominal pain, + diarrhea, No headache, No chest pain, No SOB, No back pain Review of Systems See HPI for pertinent positives & negatives. A total of 10 systems reviewed and were otherwise negative. 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 Social History Smoking Status: Never Smoker Alcohol Use: none Drug Use: none Marital Status: Housing Status: lives alone Occupation Status: unemployed Current/Historical Medications Scheduled Amlodipine (Norvasc), 5 MG PO BID Aspirin (Aspirin Ec), 81 MG PO Q2D Cholecalciferol (Vitamin D3), 1,000 INTER.UNIT PO DAILY Cyanocobalamin (Vitamin B-12), 1,000 MCG PO DAILY Fish Oil (Argyle-3), 1,200 MG PO DAILY Insulin Detemir (Levemir Flextouch), 6 UNITS SC QAM Insulin Lispro (Human) (Humalog Kwikpen), 1 DOSE SQ UD Lidocaine (Lidoderm Patch 5%), 1 PATCH TOP ONAMOFFPM Lisinopril (Zestril), 20 MG PO QPM Omeprazole (Prilosec), 40 MG PO QAM Polyethylene Glycol 3350 (Miralax), 8.5 GM PO DAILY Ranitidine Hcl (Ranitidine Hcl), 75 MG PO HS Scheduled PRN Acetaminophen/Diphenhydramine (Tylenol Pm), 1 TAB PO HS PRN for Sleep Magnesium Hydroxide (Milk Of Magnesia), 30 ML PO DAILY PRN for Constipation Simethicone (Gas-X), 80 MG PO UD PRN for Gas or Constipation Allergies Coded Allergies: Morphine (Verified Allergy, Mild, shortness of breath with panic attack, 09/01/16) Darbepoetin Randall (Verified Allergy, Unknown, "RED ITCHY BLOTCHES ON SKIN" , 09/01/16) Physical Exam Vital Signs Date Time Temp Pulse Resp B/P (MAP) Pulse Ox O2 Delivery O2 Flow Rate FiO2 11/24/16 14:39 36.6 75 18 139/75 96 Room Air 11/24/16 14:39 72 Physical Exam GENERAL: Patient is listless, slow to answer questions but does not appear to be in pain. EYES: The conjunctivae are clear. The pupils are round and reactive. EARS, NOSE, MOUTH AND THROAT: The nose is without any evidence of any deformity. Mucous membranes are moist tongue is midline NECK: The neck is nontender and supple. RESPIRATORY: Normal respiratory effort is noted there is no evidence of wheezing rhonchi or rales CARDIOVASCULAR: Regular rate and rhythm noted to auscultation, systolic murmur suggested. GASTROINTESTINAL: The abdomen is moderately distended and diffusely tender. Significant epigastric tenderness to palpation MUSCULOSKELETAL/EXTREMITIES: There is no evidence of gross deformity full range of motion is noted in the hips and shoulders, Bilateral pedal edema. SKIN: There is no obvious evidence of any rash. There are no petechiae, pallor or cyanosis noted. NEUROLOGIC: Patient is oriented to person, place and situation but not time. Medical Decision & Procedures ER Provider Diagnostic Interpretation: Radiology results as stated below per my review and radiologist interpretation: CHEST ONE VIEW PORTABLE FINDINGS: Left basilar subsegmental atelectasis is improved. No new focal lung consolidations. No evidence for pulmonary edema. Calcified thoracic aorta. Cardiac silhouette is normal in size. No pleural effusions. No pneumothorax. Left-sided dual-chamber pacemaker. IMPRESSION: No acute process. Electronically signed by: Cole Sheffield M.D. CT HEAD WITHOUT CONTRAST (CT) FINDINGS: No intra or extra-axial mass lesions are visualized. There is no CT evidence of acute cortical infarction. There is no evidence of midline shift. There is no acute hemorrhage. No calvarial fractures are visualized. There are patchy white matter hypodensities likely on a small vessel basis. There is mild ventricular dilatation, likely secondary to volume loss. This remain stable. There is no evidence of acute sinusitis IMPRESSION: No acute intracranial findings Electronically signed by: Villa Moreno M.D. ABDOMEN AND PELVIS CT WITHOUT CONTRAST FINDINGS: Mild interstitial change at both lung bases. Liver is uniform. Several small calcific densities are identified along the course of the common ductal these appear to be present on the prior study and possibly vascular. Nonobstructing renal calcifications are present bilaterally. This is similar as compared to the prior study. There is no evidence for hydronephrosis. Bladder is midline. There are no contained bladder calcifications. The appendix is normal. IMPRESSION: 1. Bilateral nonobstructing renal calcifications. 2.. Normal appendix. 3. Nonobstructive bowel pattern. 4. Calcifications adjacent to the cystic/common bile duct felt to be primarily vascular although if Symptomatology persists MRCP or right upper quadrant ultrasound would be indicated. 5. Nonspecific bibasilar interstitial change Electronically signed by: Brian Jarquin M.D. Laboratory Results 11/24/16 15:30 Red Blood Count 3.63, Mean Corpuscular Volume 89.0, Mean Corpuscular Hemoglobin 30.9, Mean Corpuscular Hemoglobin Concent 34.7, Mean Platelet Volume 9.7, Neutrophils (%) (Auto) 79.3, Lymphocytes (%) (Auto) 13.9, Monocytes (%) (Auto) 4.0, Eosinophils (%) (Auto) 2.4, Basophils (%) (Auto) 0.3, Neutrophils # (Auto) 5.88, Lymphocytes # (Auto) 1.03, Monocytes # (Auto) 0.30, Eosinophils # (Auto) 0.18, Basophils # (Auto) 0.02 11/24/16 15:30 Test 11/24/16 15:30 White Blood Count 7.42 K/uL (4.8-10.8) Red Blood Count 3.63 M/uL (4.2-5.4) Hemoglobin 11.2 g/dL (12.0-16.0) Hematocrit 32.3 % (37-47) Mean Corpuscular Volume 89.0 fL (80-100) Mean Corpuscular Hemoglobin 30.9 pg (25-34) Mean Corpuscular Hemoglobin Concent 34.7 g/dl (32-36) Platelet Count 171 K/uL (130-400) Mean Platelet Volume 9.7 fL (7.4-10.4) Neutrophils (%) (Auto) 79.3 % Lymphocytes (%) (Auto) 13.9 % Monocytes (%) (Auto) 4.0 % Eosinophils (%) (Auto) 2.4 % Basophils (%) (Auto) 0.3 % Neutrophils # (Auto) 5.88 K/uL (1.4-6.5) Lymphocytes # (Auto) 1.03 K/uL (1.2-3.4) Monocytes # (Auto) 0.30 K/uL (0.11-0.59) Eosinophils # (Auto) 0.18 K/uL (0-0.5) Basophils # (Auto) 0.02 K/uL (0-0.2) RDW Standard Deviation 47.0 fL (36.4-46.3) RDW Coefficient of Variation 14.4 % (11.5-14.5) Immature Granulocyte % (Auto) 0.1 % Immature Granulocyte # (Auto) 0.01 K/uL (0.00-0.02) Anion Gap 9.0 mmol/L (3-11) Estimated GFR () 25.4 Estimated GFR (Non- 21.9 BUN/Creatinine Ratio 22.0 (10-20) Calcium Level 9.0 mg/dl (8.5-10.1) Total Bilirubin 0.3 mg/dl (0.2-1) Direct Bilirubin < 0.1 mg/dl (0-0.2) Aspartate Amino Transf (AST/SGOT) 10 U/L (15-37) Alanine Aminotransferase (ALT/SGPT) 22 U/L (12-78) Alkaline Phosphatase 100 U/L (45-117) Total Creatine Kinase 20 U/L (26-192) Creatine Kinase MB < 0.5 ng/ml (0.5-3.6) Creatine Kinase MB Ratio (0-3.0) Troponin I < 0.015 ng/ml (0-0.045) Total Protein 6.6 gm/dl (6.4-8.2) Albumin 3.1 gm/dl (3.4-5.0) Lipase 154 U/L (73-393) Laboratory results per my review. Medications Administered Medications (Trade) Dose Ordered Sig/Luis Route Start Time Stop Time Status Last Admin Dose Admin Sodium Chloride 1,000 ml @ 999 mls/hr Q1H1M STAT IV 11/24/16 14:40 11/24/16 15:40 DC 11/24/16 15:56 999 MLS/HR ECG Indication: abdominal pain Rate (beats per minute): 68 Rhythm: sinus rhythm Findings: 1st degree AV block, no ectopy, other (LVH by voltage criteria) Comparison ECG Date: September 04, 2016 Change: no significant change ED Course 1436: The patient was evaluated in room C5. A complete history and physical examination were performed. 1440: Ordered Zofran Inj 4 mg IV, NSS 1,000 ml @ 999 mls/hr IV. 1529: The patient's daughter has arrived. I spoke with her at bedside. The patient is resting comfortably. 1620: Upon reevaluation, the patient is resting comfortably. I discussed the results and treatment plan with her. She verbalized agreement of the treatment plan. The patient was discharged home. Medical Decision Differential diagnosis: Etiologies such as appendicitis, diverticulitis, PUD, biliary pathology, UTI, pancreatitis, obstruction, mesenteric ischemia, aortic pathology, infections, inflammatory bowel disease, renal colic, as well as others were entertained. Patient was found to have a slightly elevated blood pressure due to circumstances. I do not believe that the patient requires hypertension monitoring. Medication Reconciliation: I attest that I have personally reviewed the patient' s current medications list. The patient is an 86-year-old female who presented to the emergency department for an evaluation after having a syncopal episode. The patient was having a bowel movement which she had a syncopal episode. She had an episode of emesis as well. This was witnessed by the caregiver however the patient's daughter presented to the emergency Department with her. The patient was treated with IV fluids in the emergency department. She was reevaluated multiple times. She did have significant abdominal tenderness on initial valuation but this seemed to resolve spontaneously. I discussed the patient's laboratory radiographic studies with her and her daughter. She does have a very loud systolic murmur. I reviewed the patient's echocardiogram from 2012 and apparently the patient does have aortic stenosis. I feel this would explain the patient's syncopal episode especially given that she had a mild elevation in her creatinine I do feel she is somewhat dehydrated. I discussed this with the daughter. At this time she states that she does not take her mother 1 surgery for this lesion and the patient stated that she did not wish to have surgery for this either. She was encouraged to follow-up with her primary digital content marketing manager as well as her primary care physician for further evaluation or return to the emergency Department immediately if symptoms change worsen or the need arises. Impression Primary Impression: Syncope Additional Impressions: Aortic stenosis Heart murmur Dehydration Scribe Attestation The scribe's documentation has been prepared under my direction and personally reviewed by me in its entirety. I confirm that the note above accurately reflects all work, treatment, procedures, and medical decision making performed by me. Departure Information Dispostion Home / Self-Care Referrals Saúl Bright M.D. (PCP) Forms HOME CARE DOCUMENTATION FORM, IMPORTANT VISIT INFORMATION, WORK / SCHOOL INSTRUCTIONS Patient Instructions [facility], Syncope Additional Instructions Continue all medications as prescribed. Encourage the patient to drink plenty of liquids. Keep her well-hydrated. Follow-up with your family this week for reevaluation. Return to the emergency department immediately if symptoms change worsen or if the need arises. Problem Qualifiers Primary Impression: Syncope Syncope type: unspecified Qualified Codes: R55 - Syncope and collapse Additional Impressions: Aortic stenosis Cardiac valve disease etiology: etiology unspecified Qualified Codes: I35.0 - Nonrheumatic aortic (valve) stenosis
[2016-11-24 15:44] LABS: BASO % 0.3 %; BASO ABS # 0.02 K/uL (0-0.2); COMPLETE YES; EOS % 2.4 %; HEMATOCRIT 32.3 % (37-47); IG% 0.1 %; LYMPH % 13.9 %; LYMPH ABS # 1.03 K/uL (1.2-3.4); MEAN CORPUSCULAR HEMOGLOBIN 30.9 pg (25-34); MEAN CORPUSCULAR HGB CONC 34.7 g/dl (32-36); MEAN PLATELET VOLUME 9.7 fL (7.4-10.4); NEUT % 79.3 %; PLATELET COUNT 171 K/uL (130-400); RED BLOOD COUNT 3.63 M/uL (4.2-5.4); WHITE BLOOD COUNT 7.42 K/uL (4.8-10.8)
--- NOTE | 2016-11-24 15:47 | DIAGNOSTIC IMAGING REPORT ---
CT HEAD WITHOUT CONTRAST (CT) CLINICAL HISTORY: Acute change in mental status COMPARISON STUDY: 10/30/2016 TECHNIQUE: Axial CT of the brain is performed from the vertex to the skull base. IV contrast was not administered for this examination. CT DOSE: FINDINGS: No intra or extra-axial mass lesions are visualized. There is no CT evidence of acute cortical infarction. There is no evidence of midline shift. There is no acute hemorrhage. No calvarial fractures are visualized. There are patchy white matter hypodensities likely on a small vessel basis. There is mild ventricular dilatation, likely secondary to volume loss. This remain stable. There is no evidence of acute sinusitis IMPRESSION: No acute intracranial findings Electronically signed by: Villa Moreno M.D. 11/24/2016 3:46 PM Dictated Date/Time: 11/24/2016 3:45 PM
--- NOTE | 2016-11-24 15:58 | DIAGNOSTIC IMAGING REPORT ---
ABDOMEN AND PELVIS CT WITHOUT CONTRAST CT DOSE: 1421.53 mGy.cm HISTORY: Nausea vomiting TECHNIQUE: Multiaxial CT images of the abdomen and pelvis were performed without contrast. COMPARISON STUDY: 09/01/2016 FINDINGS: Mild interstitial change at both lung bases. Liver is uniform. Several small calcific densities are identified along the course of the common ductal these appear to be present on the prior study and possibly vascular. Nonobstructing renal calcifications are present bilaterally. This is similar as compared to the prior study. There is no evidence for hydronephrosis. Bladder is midline. There are no contained bladder calcifications. The appendix is normal. IMPRESSION: 1. Bilateral nonobstructing renal calcifications. 2.. Normal appendix. 3. Nonobstructive bowel pattern. 4. Calcifications adjacent to the cystic/common bile duct felt to be primarily vascular although if Symptomatology persists MRCP or right upper quadrant ultrasound would be indicated. 5. Nonspecific bibasilar interstitial change Electronically signed by: Brian Jarquin M.D. 11/24/2016 3:57 PM Dictated Date/Time: 11/24/2016 3:45 PM
[2016-11-24 15:59] LABS: ALT/SGPT 22 U/L (12-78); AST/SGOT 10 U/L (15-37); BLOOD UREA NITROGEN 44 mg/dl (7-18); CARBON DIOXIDE 24 mmol/L (21-32); CHLORIDE 108 mmol/L (98-107); GLUCOSE 224 mg/dl (70-99); POTASSIUM 5.1 mmol/L (3.5-5.1); SODIUM 141 mmol/L (136-145)
[2016-11-24 16:04] LABS: ALKALINE PHOSPHATASE 100 U/L (45-117)
[2016-11-24 17:00] VITALS: BP 162/116; PULSE 68; O2SAT 97
[2017-02-06] MEDS ORDERED: CYAN10005 PO (07:20)
== END 2016-11-24 17:56 | disposition home or self-care (01) ==
LOC: EDBD 14:31 → C.EDC 14:32
DX: R55 Syncope and collapse (principal); I35.0 Nonrheumatic aortic (valve) stenosis; R01.1 Cardiac murmur, unspecified; E86.0 Dehydration; I10 Essential (primary) hypertension; D64.9 Anemia, unspecified; E11.9 Type 2 diabetes mellitus without complications; E78.5 Hyperlipidemia, unspecified; M35.3 Polymyalgia rheumatica; Z79.82 Long term (current) use of aspirin; Z79.899 Other long term (current) drug therapy

== ENCOUNTER 2017-01-11 15:06 | Inpatient (IN) | payer OTHER ==
[~2017-01-11] VITALS: Ht 160 cm; Wt 73.6 kg
[~2017-01-11 15:06] MED LIST changes: -CHOL100010 PO; +DIPH-437 PO; -LORA-741 PO; -LPT40 PO; -MRLP17X PO; +OMEP40CA41 PO
[2017-01-11] MEDS ORDERED: SODIUM CHLORIDE 0.9% 1000ML 1,000 ML IV STA (15:14)
[2017-01-11] MEDS ORDERED: ONDANSETRON INJ 2 MG/ML 2 ML VIAL IV STA (15:14)
[2017-01-11 15:31] LABS: HEMATOCRIT 30.3 % (37-47); MEAN CELL VOLUME 88.9 fL (80-100); MEAN CORPUSCULAR HEMOGLOBIN 31.7 pg (25-34); MEAN CORPUSCULAR HGB CONC 35.6 g/dl (32-36); MEAN PLATELET VOLUME 9.3 fL (7.4-10.4); PLATELET COUNT 201 K/uL (130-400); RED BLOOD COUNT 3.41 M/uL (4.2-5.4)
[2017-01-11] MEDS: FENTANYL CITRATE INJ 50 MCG/1 ML 2 ML VIAL IV PRN ×2 (15:33→20:38)
[2017-01-11 15:40] LABS: PARTIAL THROMBOPLASTIN RATIO 0.9; PROTHROMBIN TIME (PATIENT) 10.4 SECONDS (9.0-12.0)
[2017-01-11] MEDS ORDERED: ESCI10TA17 PO (15:48)
[2017-01-11 15:49] LABS: ALT/SGPT 21 U/L (12-78); AST/SGOT 11 U/L (15-37); BLOOD UREA NITROGEN 37 mg/dl (7-18); BUN/CREATININE RATIO 21.5 (10-20); CALCIUM 9.4 mg/dl (8.5-10.1); CARBON DIOXIDE 25 mmol/L (21-32); CHLORIDE 106 mmol/L (98-107); GLUCOSE 287 mg/dl (70-99); SODIUM 141 mmol/L (136-145)
[2017-01-11 15:55] LABS: ALKALINE PHOSPHATASE 101 U/L (45-117)
[2017-01-11 15:56] LABS: BASO % 0.4 %; BASO ABS # 0.03 K/uL (0-0.2); COMPLETE YES; EOS % 1.8 %; IG% 0.2 %; LYMPH % 16.3 %; LYMPH ABS # 1.34 K/uL (1.2-3.4); MONO % 4.8 %; NEUT % 76.5 %
--- NOTE | 2017-01-11 17:03 | DIAGNOSTIC IMAGING REPORT ---
GALLBLADDER-ABD LIMITED CLINICAL HISTORY: ABDOMINAL PAIN/GI nausea TECHNIQUE: Ultrasound COMPARISON STUDY: None FINDINGS: Pancreas not well seen due to overlying bowel content. Mild fatty infiltration of liver. Normal gallbladder. No bile duct 3 mm. No evidence for renal hydronephrosis. IMPRESSION: No acute process. Mild fatty infiltration of liver. The above report was generated using voice recognition software. It may contain grammatical, syntax or spelling errors. Electronically signed by: Brian Jarquin M.D. 01/11/2017 5:02 PM Dictated Date/Time: 01/11/2017 5:01 PM
--- NOTE | 2017-01-11 19:14 | EMERGENCY ROOM VISIT NOTE ---
History Report prepared by Bill: Roxana Perez Under the Supervision of: Dr. Devin House D.O. First contact with patient: 15:08 Chief Complaint: ABDOMINAL PAIN Stated Complaint: UPPER RIGHT QUAD AB PAIN History of Present Illness The patient is an 86 year old female who presents to the Emergency Room with complaints of persistent RUQ abdominal pain starting last night. The patient presents to the ED by EMS. Her daughter reports the pain started last night around 2230. The pain worsened with movement. Two hours later, the pain seemed to have improved while she was at rest. This morning the pain started again after she ate her breakfast of cereal with milk. She reports nausea, but denies vomiting. She denies any rashes, back pain,chest pain, or SOB. She still has her gallbladder. She has had gallbladder tests before which were normal. She has had abdominal pain previously, but it was usually in her lower abdomen. Source of History: patient, family Onset: last night Position: abdomen (RUQ) Quality: other (pain) Timing: other (persistent) Modifying Factors (Worsening): movement Associated Symptoms: + nausea, No chest pain, No SOB, No vomiting, No back pain, No rash Review of Systems See HPI for pertinent positives & negatives. A total of 10 systems reviewed and were otherwise negative. 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 Social History Smoking Status: Never Smoker Alcohol Use: none Drug Use: none Marital Status: Housing Status: lives alone Occupation Status: unemployed Current/Historical Medications Scheduled Amlodipine (Norvasc), 5 MG PO BID Aspirin (Aspirin Ec), 81 MG PO Q2D Cholecalciferol (Vitamin D3), 1,000 INTER.UNIT PO QAM Cyanocobalamin (Vitamin B-12), 1,000 MCG PO DAILY Escitalopram (Lexapro), 5 MG PO HS Fish Oil ([place]-3), 1,200 MG PO DAILY Insulin Detemir (Levemir Flextouch), 6 UNITS SC QAM Insulin Lispro (Human) (Humalog Kwikpen), 1 DOSE SQ UD Lidocaine (Lidoderm Patch 5%), 1 PATCH TOP ONAMOFFPM Lisinopril (Zestril), 20 MG PO QPM Omeprazole (Prilosec), 40 MG PO QAM Polyethylene Glycol 3350 (Miralax), 8.5 GM PO DAILY Ranitidine Hcl (Ranitidine Hcl), 75 MG PO HS Scheduled PRN Magnesium Hydroxide (Milk Of Magnesia), 30 ML PO DAILY PRN for Constipation Simethicone (Gas-X), 80 MG PO UD PRN for Gas or Constipation Allergies Coded Allergies: Morphine (Verified Allergy, Mild, shortness of breath with panic attack, 09/01/16) Darbepoetin Randall (Verified Allergy, Unknown, "RED ITCHY BLOTCHES ON SKIN" , 09/01/16) Physical Exam Vital Signs Date Time Temp Pulse Resp B/P (MAP) Pulse Ox O2 Delivery O2 Flow Rate FiO2 01/11/17 21:32 72 20 141/81 95 Room Air 2.0 Nasal Cannula 01/11/17 20:40 76 20 167/103 98 Nasal Cannula 2.0 01/11/17 20:13 79 01/11/17 19:00 78 20 157/84 98 Nasal Cannula 2.0 01/11/17 18:30 76 20 166/59 95 Room Air 01/11/17 17:31 68 20 170/71 96 Room Air 01/11/17 15:33 73 01/11/17 15:10 36.4 82 20 170/84 96 Room Air Physical Exam GENERAL: Patient is awake, alert, very anxious and uncomfortable appearing. EARS, NOSE, MOUTH AND THROAT: The nose is without any evidence of any deformity. Mucous membranes are moist tongue is midline NECK: The neck is nontender and supple. RESPIRATORY: Normal respiratory effort is noted there is no evidence of wheezing rhonchi or rales CARDIOVASCULAR: Regular rate and rhythm noted there no murmurs rubs or gallops normal S1 normal S2 GASTROINTESTINAL: The abdomen is mildly distended but soft, significant RUQ tenderness to palpation, positive Hurtado's sign. MUSCULOSKELETAL/EXTREMITIES: There is no evidence of gross deformity full range of motion is noted in the hips and shoulders SKIN: There is no obvious evidence of any rash. There are no petechiae, pallor or cyanosis noted. NEUROLOGIC: Patient is awake alert and oriented x3 Medical Decision & Procedures ER Provider Diagnostic Interpretation: X-ray results as stated below per interpretation by me and the radiologist. Radiology results as stated below per my review and radiologist interpretation: ABDOMEN 2VIEW W/PA CHEST RTN CLINICAL HISTORY: ABDOMINAL PAIN/GI pain COMPARISON STUDY: 11/24/2016 FINDINGS: Permanent bipolar cardiac pacemaker. Minimal bibasilar atelectasis. Lungs appear clear. Nonobstructive bowel pattern. Moderate increase in fecal load throughout the colon. IMPRESSION: 1. No acute process the chest. 2. Increased fecal load throughout the colon. No obstructive change. The above report was generated using voice recognition software. It may contain grammatical, syntax or spelling errors. Electronically signed by: Brian Jarquin M.D. 01/11/2017 4:27 PM Dictated Date/Time: 01/11/2017 4:26 PM GALLBLADDER-ABD LIMITED CLINICAL HISTORY: ABDOMINAL PAIN/GI nausea TECHNIQUE: Ultrasound COMPARISON STUDY: None FINDINGS: Pancreas not well seen due to overlying bowel content. Mild fatty infiltration of liver. Normal gallbladder. No bile duct 3 mm. No evidence for renal hydronephrosis. IMPRESSION: No acute process. Mild fatty infiltration of liver. The above report was generated using voice recognition software. It may contain grammatical, syntax or spelling errors. Electronically signed by: Brian Jarquin M.D. 01/11/2017 5:02 PM Dictated Date/Time: 01/11/2017 5:01 PM ABD/PELVIS NO IV OR ORAL CONT CT DOSE: 473.78 mGy.cm HISTORY: Pain right sided pain TECHNIQUE: Multiaxial CT images of the abdomen and pelvis were performed without contrast. A dose lowering technique was utilized adhering to the principles of ALARA. COMPARISON STUDY: 11/24/2016 FINDINGS: Bibasilar infiltrative change. Configuration of liver is unremarkable. Bilateral renal calcifications are present. No evidence for an obstructing urinary tract calculus. Atherosclerotic change abdominal and pelvic vasculature. Normal appendix. Nonobstructive bowel pattern. Bladder is midline. No free fluid within the pelvic cul-de-sac. IMPRESSION: 1. Small bibasilar parenchymal infiltrates. 2. Bilateral nonobstructing renal calcifications unchanged from the prior study. 3. Nonobstructing bowel pattern with a normal appendix. The above report was generated using voice recognition software. It may contain grammatical, syntax or spelling errors. Electronically signed by: Brian Jarquin M.D. 01/11/2017 8:02 PM Dictated Date/Time: 01/11/2017 7:59 PM Laboratory Results 01/11/17 15:15 Red Blood Count 3.41, Mean Corpuscular Volume 88.9, Mean Corpuscular Hemoglobin 31.7, Mean Corpuscular Hemoglobin Concent 35.6, Mean Platelet Volume 9.3, Neutrophils (%) (Auto) 76.5, Lymphocytes (%) (Auto) 16.3, Monocytes (%) (Auto) 4.8, Eosinophils (%) (Auto) 1.8, Basophils (%) (Auto) 0.4, Neutrophils # (Auto) 6.27, Lymphocytes # (Auto) 1.34, Monocytes # (Auto) 0.39, Eosinophils # (Auto) 0.15, Basophils # (Auto) 0.03 01/11/17 15:15 Test 01/11/17 15:15 01/11/17 19:55 White Blood Count 8.20 K/uL (4.8-10.8) Red Blood Count 3.41 M/uL (4.2-5.4) Hemoglobin 10.8 g/dL (12.0-16.0) Hematocrit 30.3 % (37-47) Mean Corpuscular Volume 88.9 fL (80-100) Mean Corpuscular Hemoglobin 31.7 pg (25-34) Mean Corpuscular Hemoglobin Concent 35.6 g/dl (32-36) Platelet Count 201 K/uL (130-400) Mean Platelet Volume 9.3 fL (7.4-10.4) Neutrophils (%) (Auto) 76.5 % Lymphocytes (%) (Auto) 16.3 % Monocytes (%) (Auto) 4.8 % Eosinophils (%) (Auto) 1.8 % Basophils (%) (Auto) 0.4 % Neutrophils # (Auto) 6.27 K/uL (1.4-6.5) Lymphocytes # (Auto) 1.34 K/uL (1.2-3.4) Monocytes # (Auto) 0.39 K/uL (0.11-0.59) Eosinophils # (Auto) 0.15 K/uL (0-0.5) Basophils # (Auto) 0.03 K/uL (0-0.2) RDW Standard Deviation 44.3 fL (36.4-46.3) RDW Coefficient of Variation 13.7 % (11.5-14.5) Immature Granulocyte % (Auto) 0.2 % Immature Granulocyte # (Auto) 0.02 K/uL (0.00-0.02) Red Blood Cell Morphology Unremarkable Prothrombin Time 10.4 SECONDS (9.0-12.0) Prothromb Time International Ratio 1.0 (0.9-1.1) Activated Partial Thromboplast Time 23.1 SECONDS (21.0-31.0) Partial Thromboplastin Ratio 0.9 Anion Gap 10.0 mmol/L (3-11) Est Creatinine Clear Calc Drug Dose 23.9 ml/min Estimated GFR () 30.9 Estimated GFR (Non- 26.6 BUN/Creatinine Ratio 21.5 (10-20) Calcium Level 9.4 mg/dl (8.5-10.1) Total Bilirubin 0.4 mg/dl (0.2-1) Direct Bilirubin < 0.1 mg/dl (0-0.2) Aspartate Amino Transf (AST/SGOT) 11 U/L (15-37) Alanine Aminotransferase (ALT/SGPT) 21 U/L (12-78) Alkaline Phosphatase 101 U/L (45-117) Total Creatine Kinase 21 U/L (26-192) Creatine Kinase MB < 0.5 ng/ml (0.5-3.6) Creatine Kinase MB Ratio (0-3.0) Troponin I < 0.015 ng/ml (0-0.045) Total Protein 6.8 gm/dl (6.4-8.2) Albumin 3.1 gm/dl (3.4-5.0) Lipase 114 U/L (73-393) Urine Color YELLOW Urine Appearance CLEAR (CLEAR) Urine pH 6.0 (4.5-7.5) Urine Specific [place] 1.017 (1.000-1.030) Urine Protein TRACE (NEG) Urine Glucose (UA) 1+ (NEG) Urine Ketones NEG (NEG) Urine Occult Blood NEG (NEG) Urine Nitrite NEG (NEG) Urine Bilirubin NEG (NEG) Urine Urobilinogen NEG (NEG) Urine Leukocyte Esterase NEG (NEG) Urine WBC (Auto) 1-5 /hpf (0-5) Urine RBC (Auto) 0-4 /hpf (0-4) Urine Hyaline Casts (Auto) 0 /lpf (0-5) Urine Epithelial Cells (Auto) 10-20 /lpf (0-5) Urine Bacteria (Auto) NEG (NEG) Laboratory results per my review. Medications Administered Medications (Trade) Dose Ordered Sig/Luis Route Start Time Stop Time Status Last Admin Dose Admin Sodium Chloride 1,000 ml @ 125 mls/hr Q8H STAT IV 01/11/17 15:14 01/11/17 23:13 01/11/17 15:32 125 MLS/HR Ondansetron HCl (Zofran Inj) 4 mg NOW STAT IV 01/11/17 15:14 01/11/17 15:16 DC 01/11/17 15:32 4 MG Fentanyl Citrate (Fentanyl Inj) 50 mcg Q20M PRN IV 01/11/17 15:15 01/25/17 15:14 01/11/17 20:38 50 MCG ECG Indication: abdominal pain Rate (beats per minute): 77 Rhythm: sinus rhythm Findings: 1st degree AV block, other (LVH by voltage criteria) Comparison ECG Date: 24-Nov-2016 Change: no significant change ED Course 1512: The patient was evaluated in room A9B. A complete history and physical examination were performed. 1514: Zofran Inj 4 mg IV, NSS 1000 ml @ 125 mls/hr IV. 1515: Fentanyl Citrate 50 mcg IV. 1809: I reevaluated the patient. She is now having pain in his lower abdomen. She will go for a CT. 2020: Upon reevaluation, the patient is resting comfortably. I discussed results and treatment plan with her and her family. They verbalize agreement and understanding. The patient will be evaluated for further management and care. 2047: I discussed the patient's case with Dr. Gotti, [facility] hospitalist. The patient will be evaluated for further management. Medical Decision Prior records/ancillary studies reviewed. Triage Nursing notes reviewed. Additional history obtained from family. The patient's history was concerning for abdominal pain. Differential diagnosis: Etiologies such as appendicitis, diverticulitis, PUD, biliary pathology, UTI, pancreatitis, obstruction, mesenteric ischemia, aortic pathology, infections, inflammatory bowel disease, renal colic, as well as others were entertained. The patient is a 86-year-old female who presented to emergency department for an evaluation of right upper quadrant abdominal pain. The patient did not appear to have referred pain rather she had reproducible right upper quadrant abdominal pain to palpation. There is no signs of rash or signs of chills. She was not tachycardic or hypoxic. The patient was treated with IV fluids as well as IV pain medication in the emergency department. She was reevaluated multiple times. On subsequent reevaluation she was feeling much better. I discussed the patient's laboratory and radiographic studies with her. Because of continued pain in her daughter was very concerned and because of the location of the pain I was concerned this could represent gallbladder pathology with normal ultrasound and labs. This reason I discussed her case with the on-call [facility] hospitalist. They've agreed to evaluate the patient in the emergency department for further management and disposition. Medication Reconcilliation Current Medication List: was personally reviewed by me Blood Pressure Screening Patient's blood pressure: Elevated blood pressure Blood pressure disposition: Elevated BP felt to be situational Consults Time Called: 2033 Consulting Physician: Dr. Gotti [facility] hospitalist Returned Call: 2047 I discussed the patient's case with her. The patient will be evaluated for further management. Impression Primary Impression: Right upper quadrant abdominal pain Additional Impression: Intractable abdominal pain Scribe Attestation The scribe's documentation has been prepared under my direction and personally reviewed by me in its entirety. I confirm that the note above accurately reflects all work, treatment, procedures, and medical decision making performed by me. Departure Information Dispostion Being Evaluated By Hospitalist Referrals Saúl Bright M.D. (PCP) Patient Instructions My [facility] Health Problem Qualifiers
--- NOTE | 2017-01-11 20:04 | DIAGNOSTIC IMAGING REPORT ---
ABD/PELVIS NO IV OR ORAL CONT CT DOSE: 473.78 mGy.cm HISTORY: Pain right sided pain TECHNIQUE: Multiaxial CT images of the abdomen and pelvis were performed without contrast. A dose lowering technique was utilized adhering to the principles of ALARA. COMPARISON STUDY: 11/24/2016 FINDINGS: Bibasilar infiltrative change. Configuration of liver is unremarkable. Bilateral renal calcifications are present. No evidence for an obstructing urinary tract calculus. Atherosclerotic change abdominal and pelvic vasculature. Normal appendix. Nonobstructive bowel pattern. Bladder is midline. No free fluid within the pelvic cul-de-sac. IMPRESSION: 1. Small bibasilar parenchymal infiltrates. 2. Bilateral nonobstructing renal calcifications unchanged from the prior study. 3. Nonobstructing bowel pattern with a normal appendix. The above report was generated using voice recognition software. It may contain grammatical, syntax or spelling errors. Electronically signed by: Brian Jarquin M.D. 01/11/2017 8:02 PM Dictated Date/Time: 01/11/2017 7:59 PM
[2017-01-11 20:37] LABS: URINE APPEARANCE CLEAR (CLEAR); URINE BILIRUBIN NEG (NEG); URINE COLOR YELLOW; URINE NITRITE NEG (NEG); URINE SPECIFIC GRAVITY 1.017 (1.000-1.030); UROBILINOGEN NEG (NEG)
[2017-01-11 20:40] LABS: MANUAL MICROSCOPIC REQUIRED? NO; REVIEW REQ? NO
--- NOTE | 2017-01-11 21:49 | History and Physical ---
History & Physical Date & Time of Service: Jan 11, 2017 at 21:49 Chief Complaint: Upper Right Quad Ab Pain Primary Care Physician: Saúl Bright M.D. History of Present Illness Source: patient, family Mrs Thomas is an 86 yo F with known ischemic colitis (last admission in 08/2016) , hypertension, and long QTc, who presents with severe abdominal pain since last night. Her daughter reports the pt was eating dinner then had severe right upper abd pain. She was gagging but did not vomit. She had persistent pain overnight and it recurred today when the pt was eating her cereal this morning. She notes the pain is worse w/breathing in. She does have a red linear rash under the breast but daughter reports that is persistently there and gets a yeast infection occasionally. In the ED, she was worked up for cholecystitis but Xray, US, and CT were all negative. Her pain is persistent currently, worse w/movements, and she has not eaten anything but is afraid to do so as well. Past Medical/Surgical History Medical Problems: (1) Anemia Status: Chronic (2) Benign hypertension Status: Chronic (3) Diabetes mellitus Status: Chronic (4) Hyperlipidemia Status: Chronic (5) Hysterectomy Status: Resolved (6) Polymyalgia rheumatica Status: Chronic (7) Sjorens Status: Chronic Family History Patient reports no known family medical history. No pertinent FHx Social History Smoking Status: Never Smoker Smokeless Tobacco Use: No Alcohol Use: none Drug Use: none Marital Status: Housing status: lives alone Occupational Status: unemployed Immunizations History of Influenza Vaccine: Yes History of Tetanus Vaccine?: Unknown History of Pneumococcal: Yes History of Hepatitis B Vaccine: Unknown Multi-Drug Resistant Organisms History of MDRO: No Allergies Coded Allergies: Morphine (Verified Allergy, Mild, shortness of breath with panic attack, 09/01/16) Darbepoetin Randall (Verified Allergy, Unknown, "RED ITCHY BLOTCHES ON SKIN" , 09/01/16) Home Medications Scheduled Amlodipine (Norvasc), 5 MG PO BID Aspirin (Aspirin Ec), 81 MG PO Q2D Cholecalciferol (Vitamin D3), 1,000 INTER.UNIT PO QAM Cyanocobalamin (Vitamin B-12), 1,000 MCG PO DAILY Escitalopram (Lexapro), 5 MG PO HS Fish Oil ([place]-3), 1,200 MG PO DAILY Insulin Detemir (Levemir Flextouch), 6 UNITS SC QAM Insulin Lispro (Human) (Humalog Kwikpen), 1 DOSE SQ UD Lidocaine (Lidoderm Patch 5%), 1 PATCH TOP ONAMOFFPM Lisinopril (Zestril), 20 MG PO QPM Omeprazole (Prilosec), 40 MG PO QAM Polyethylene Glycol 3350 (Miralax), 8.5 GM PO DAILY Ranitidine Hcl (Ranitidine Hcl), 75 MG PO HS Scheduled PRN Magnesium Hydroxide (Milk Of Magnesia), 30 ML PO DAILY PRN for Constipation Simethicone (Gas-X), 80 MG PO UD PRN for Gas or Constipation Review of Systems See HPI for pertinent positives & negatives. A total of 10 systems reviewed and were otherwise negative. Physical Exam Vital Signs Date Time Temp Pulse Resp B/P (MAP) Pulse Ox O2 Delivery O2 Flow Rate FiO2 01/11/17 21:32 72 20 141/81 95 Room Air 2.0 Nasal Cannula 01/11/17 20:40 76 20 167/103 98 Nasal Cannula 2.0 01/11/17 20:13 79 01/11/17 19:00 78 20 157/84 98 Nasal Cannula 2.0 01/11/17 18:30 76 20 166/59 95 Room Air 01/11/17 17:31 68 20 170/71 96 Room Air 01/11/17 15:33 73 01/11/17 15:10 36.4 82 20 170/84 96 Room Air General Appearance: WD/WN, + mild distress, + thin Head: normocephalic, atraumatic Eyes: normal inspection, PERRL ENT: hearing grossly normal Neck: supple, no JVD Respiratory/Chest: lungs clear, normal breath sounds, no respiratory distress Cardiovascular: regular rate, rhythm, no murmur, normal peripheral pulses Abdomen/GI: soft, + tenderness (mild RUQ tenderness) Back: no CVA tenderness, normal range of motion Neurologic/Psych: alert, normal mood/affect, normal reflexes, oriented x 3 Skin: + pertinent finding (erythema under R breast, no evidence of yeast infection) Diagnostics Laboratory Results Results Past 24 Hours Test 01/11/17 15:15 01/11/17 19:55 Range/Units White Blood Count 8.20 4.8-10.8 K/uL Red Blood Count 3.41 4.2-5.4 M/uL Hemoglobin 10.8 12.0-16.0 g/dL Hematocrit 30.3 37-47 % Mean Corpuscular Volume 88.9 80-100 fL Mean Corpuscular Hemoglobin 31.7 25-34 pg Mean Corpuscular Hemoglobin Concent 35.6 32-36 g/dl Platelet Count 201 130-400 K/uL Mean Platelet Volume 9.3 7.4-10.4 fL Neutrophils (%) (Auto) 76.5 % Lymphocytes (%) (Auto) 16.3 % Monocytes (%) (Auto) 4.8 % Eosinophils (%) (Auto) 1.8 % Basophils (%) (Auto) 0.4 % Neutrophils # (Auto) 6.27 1.4-6.5 K/uL Lymphocytes # (Auto) 1.34 1.2-3.4 K/uL Monocytes # (Auto) 0.39 0.11-0.59 K/uL Eosinophils # (Auto) 0.15 0-0.5 K/uL Basophils # (Auto) 0.03 0-0.2 K/uL RDW Standard Deviation 44.3 36.4-46.3 fL RDW Coefficient of Variation 13.7 11.5-14.5 % Immature Granulocyte % (Auto) 0.2 % Immature Granulocyte # (Auto) 0.02 0.00-0.02 K/uL Red Blood Cell Morphology Unremarkable Prothrombin Time 10.4 9.0-12.0 SECONDS Prothromb Time International Ratio 1.0 0.9-1.1 Activated Partial Thromboplast Time 23.1 21.0-31.0 SECONDS Partial Thromboplastin Ratio 0.9 Sodium Level 141 136-145 mmol/L Potassium Level 5.0 3.5-5.1 mmol/L Chloride Level 106 98-107 mmol/L Carbon Dioxide Level 25 21-32 mmol/L Anion Gap 10.0 3-11 mmol/L Blood Urea Nitrogen 37 7-18 mg/dl Creatinine 1.70 0.60-1.20 mg/dl Est Creatinine Clear Calc Drug Dose 23.9 ml/min Estimated GFR () 30.9 Estimated GFR (Non- 26.6 BUN/Creatinine Ratio 21.5 10-20 Random Glucose 287 70-99 mg/dl Calcium Level 9.4 8.5-10.1 mg/dl Total Bilirubin 0.4 0.2-1 mg/dl Direct Bilirubin < 0.1 0-0.2 mg/dl Aspartate Amino Transf (AST/SGOT) 11 15-37 U/L Alanine Aminotransferase (ALT/SGPT) 21 12-78 U/L Alkaline Phosphatase 101 45-117 U/L Total Creatine Kinase 21 26-192 U/L Creatine Kinase MB < 0.5 0.5-3.6 ng/ml Creatine Kinase MB Ratio 0-3.0 Troponin I < 0.015 0-0.045 ng/ml Total Protein 6.8 6.4-8.2 gm/dl Albumin 3.1 3.4-5.0 gm/dl Lipase 114 73-393 U/L Urine Color YELLOW Urine Appearance CLEAR CLEAR Urine pH 6.0 4.5-7.5 Urine Specific [place] 1.017 1.000-1.030 Urine Protein TRACE NEG Urine Glucose (UA) 1+ NEG Urine Ketones NEG NEG Urine Occult Blood NEG NEG Urine Nitrite NEG NEG Urine Bilirubin NEG NEG Urine Urobilinogen NEG NEG Urine Leukocyte Esterase NEG NEG Urine WBC (Auto) 1-5 0-5 /hpf Urine RBC (Auto) 0-4 0-4 /hpf Urine Hyaline Casts (Auto) 0 0-5 /lpf Urine Epithelial Cells (Auto) 10-20 0-5 /lpf Urine Bacteria (Auto) NEG NEG Diagnostic Radiology CT ABd/PELVIS IMPRESSION: 1. Small bibasilar parenchymal infiltrates. 2. Bilateral nonobstructing renal calcifications unchanged from the prior study. 3. Nonobstructing bowel pattern with a normal appendix. GALLBLADDER US IMPRESSION: No acute process. Mild fatty infiltration of liver. EKG NSR w/1st degree AV block, Rate 67, QTc 497 No change from prior EKG Impression Assessment and Plan 86 yo F w/hypertension, hx of ischemic colitis, known PMR, w/severe abdominal pain after eating - ddx biliary colic, renal colic, ?ischemic colitis. Plan: Intractable abd pain - HIDA scan with EF tomorrow - For tonight will attempt full liquids if able, NPO in AM before scan - Tylenol IV for pain. Does not do well w/morphine and became "out of it" per daughter w/fentanyl - If HIDA neg, will consider GI consult Hx of PMR - Would consider low dose steroid for pain, will defer until after scan tomorrow HTN - Continue home medications T2DM - Continue home insulin - Lantus / Novolog regime CODE STATUS: DNR VTE: Heparin DISPO: Admitted to Med/Surg *DAUGHTER reports if she needs to be contacted between 9-4pm at work, her number is [phone]. Cell is [phone] for anytime after. Attending Addendum: I have physically seen and examined this patient, have supervised the medical residents activities, and agree with the H&P as noted above with the following exceptions: NONE The patient is awake, alert and oriented 3, lying in bed. Reports sharp discomfort when light pressure is applied to upper body muscles and bones bilaterally in any and every location. HEENT--PERRL, EOMI, mucous membranes and oropharynx dry. Neck--stiff secondary to arthritis, no JVD or bruits, thyroid normal, trachea midline, no adenopathy. Heart--normal S1 and S2, no extra beats, no murmurs, rubs or gallops. Lungs--clear bilaterally but decreased throughout, no respiratory distress, no accessory muscle use. Abdomen--normal bowel sounds and soft, tender to right upper quadrant indistinguishable from myalgias and arthralgias elicited. Nondistended, no hernias or masses, no organomegaly. Extremities--no cyanosis, clubbing or edema. There are good distal pulses b/l. Dermatologic--normal skin turgor, normal color, warm and dry, no abnormal lymph nodes, no rash. Neurologic--cranial nerves II through XII grossly intact, motor and sensory examination normal. Rheumatologic--sharp pain causing wincing when light pressure applied to any areas above the diaphragm along the trunk and upper extremities. No head or scalp tenderness. Psychiatric--keep her eyes closed and winces in pain whenever touched. Assessment and Plan: 1. Abdominal pain worsened after eating--the patient be admitted to the medical surgical floor. She will be nothing by mouth after midnight. Order a HIDA scan with gallbladder ejection fraction to assess for cholecystitis. She has never had an EGD, but may need 1 to assess for gastritis/peptic ulcer disease. She may have an element of diabetic gastroparesis. Change omeprazole 40 mg by mouth every morning to famotidine 20 mg IV twice a day. Consult gastroenterology if HIDA scan negative. 2. Polymyalgia rheumatica--on my examination the symptoms are more significant than the above. Finished a GI workup above, and then would do a trial of prednisone or Solu- Medrol and then a tapering schedule Level of Care Med/Surg Advanced Directives Existing Advance Directive: Yes Existing Living Will: Yes Existing Power of Bulk Sealer Operator: Yes Resuscitation Status DO NOT RESUSCITATE VTE Prophylaxis Risk Level: Moderate Given or contraindicated: SCD's Social Service Consult >80 yr.& Lives Alone Resident Tracking Resident Involvement: Resident Care Provided Care Provided: Adult Hospital Medicine
[2017-01-11] MEDS ORDERED: MAGNESIUM HYDROXIDE SUSP 30 ML UDC PO PRN ×2 (22:00)
[2017-01-11] MEDS ORDERED: ONDANSETRON INJ 2 MG/ML 2 ML VIAL IV PRN (22:00)
[2017-01-11] MEDS ORDERED: ACETAMINOPHEN 325 MG TAB PO PRN (22:00)
[2017-01-11] MEDS ORDERED: SIMETHICONE 80 MG CHEW PO PRN (22:00)
[2017-01-11 22:40] VITALS: BP 173/73; PULSE 80; TEMP 36.5; O2SAT 95
[2017-01-11] MEDS: HEPARIN SOD 5000 UNIT/0.5 ML CARP SQ SCH (23:06)
[2017-01-11] MEDS: LISINOPRIL 20 MG TAB PO SCH (23:08)
[2017-01-11] MEDS: AMLODIPINE BESYLATE 5 MG TAB PO SCH (23:11)
[2017-01-11] MEDS: RANITIDINE HCL 150 MG TAB PO SCH (23:12)
[2017-01-11] MEDS: INSULIN ASPART 100 UNITS/ML 3 ML PEN SQ SCH (23:23)
[2017-01-11 23:54] VITALS: BP 173/73; PULSE 80; TEMP 36.5; Ht 160 cm; Wt 73.6 kg
[2017-01-12 07:12] VITALS: BP 137/84; PULSE 74; TEMP 36.7; O2SAT 90
[2017-01-12] MEDS: AMLODIPINE BESYLATE 5 MG TAB PO SCH ×2 (08:00→20:26)
--- NOTE | 2017-01-12 08:03 | DIAGNOSTIC IMAGING REPORT ---
ABDOMEN 2VIEW W/PA CHEST RTN CLINICAL HISTORY: ABDOMINAL PAIN/GI pain COMPARISON STUDY: 11/24/2016 FINDINGS: Permanent bipolar cardiac pacemaker. Minimal bibasilar atelectasis. Lungs appear clear. Nonobstructive bowel pattern. Moderate increased in fecal load throughout the colon. IMPRESSION: 1. No acute process the chest. 2. Increased fecal load throughout the colon. No obstructive change. The above report was generated using voice recognition software. It may contain grammatical, syntax or spelling errors. Electronically signed by: Brian Jarquin M.D. 01/11/2017 4:27 PM Dictated Date/Time: 01/11/2017 4:26 PM
[2017-01-12] MEDS: INSULIN ASPART 100 UNITS/ML 3 ML PEN SQ SCH ×4 (08:25→20:17)
[2017-01-12] MEDS: LIDODERM (LIDOCAINE) PATCH 5% TD SCH (08:26)
[2017-01-12] MEDS ORDERED: NURSING VERBAL MED ORDER ONE (08:30)
[2017-01-12] MEDS: INSULIN DETEMIR FLEXPEN/FLEX TOUCH 100 UNITS/ML 3ML SC SCH (08:31)
[2017-01-12] MEDS: SODIUM CHLORIDE 0.9% 1000ML 1,000 ML IV SCH ×2 (08:48→15:55)
[2017-01-12] MEDS ORDERED: ASPIRIN 81 MG ECTAB PO SCH (09:00)
--- NOTE | 2017-01-12 09:36 | Family Medicine Progress Note ---
Progress Note Date of Service Jan 12, 2017. Subjective Pt evaluation today including: conversation w/ patient, physical exam, chart review, lab review Pain: Denies pain currently Voiding: no voiding problems Patient currently denies pain Patient has some difficulty vocalizing the overall trajectory of her abdominal pain States she has slight mid-back pain but no abdominal pain currently No other issues overnight Has not eaten since admission No further family nearby to provide collateral Medications Current Inpatient Medications Medications (Trade) Dose Ordered Sig/Luis Route Start Time Stop Time Status Last Admin Dose Admin Amlodipine Besylate (Norvasc Tab) 5 mg BID PO 01/12/17 08:00 02/11/17 08:59 01/11/17 23:11 5 MG Aspirin (Ecotrin Tab) 81 mg Q2D@0900 PO 01/12/17 09:00 02/11/17 08:59 Escitalopram Oxalate (Lexapro Tab) 5 mg HS PO 01/12/17 21:00 02/11/17 20:59 Insulin Detemir (Levemir Flexpen/ FlexTouch) 6 units QAM SC 01/12/17 08:00 02/11/17 08:59 Insulin Aspart (novoLOG ASPART) ACHS SQ 01/11/17 23:00 02/10/17 22:59 01/11/17 23:23 2 UNITS Lidocaine (Lidoderm Patch 5%) 1 patch QAM TD 01/12/17 08:00 02/11/17 07:59 01/12/17 08:26 1 PATCH Lisinopril (Zestril Tab) 20 mg QPM PO 01/12/17 21:00 02/11/17 20:59 01/11/17 23:08 20 MG Simethicone (Mylicon Chew Tab) 80 mg UD PRN PO 01/11/17 22:00 02/10/17 21:59 Pantoprazole Sodium (Protonix Tab) 40 mg QAM PO 01/12/17 08:00 02/11/17 08:59 Ranitidine HCl (zANTac TAB) 75 mg HS PO 01/12/17 21:00 02/11/17 20:59 01/11/17 23:12 75 MG Miscellaneous (Remove Lidoderm Patch) 1 ea DAILY@21 N/A 01/11/17 23:00 02/10/17 22:59 Acetaminophen (Tylenol Tab) 650 mg Q4H PRN PO 01/11/17 22:00 02/10/17 21:59 01/12/17 02:43 650 MG Magnesium Hydroxide (Milk Of Magnesia Susp) 30 ml Q6H PRN PO 01/11/17 22:00 02/10/17 21:59 Ondansetron HCl (Zofran Inj) 4 mg Q6H PRN IV 01/11/17 22:00 02/10/17 21:59 Heparin Sodium (Porcine) (Heparin Sq 5000 Unit/0.5ml) 5,000 unit Q12H SQ 01/11/17 22:00 02/10/17 21:59 01/11/17 23:06 5,000 UNIT Sodium Chloride 1,000 ml @ 150 mls/hr Q6H40M IV 01/12/17 08:45 02/11/17 08:44 01/12/17 08:48 150 MLS/HR Objective Vital Signs Date Time Temp Pulse Resp B/P (MAP) Pulse Ox O2 Delivery O2 Flow Rate FiO2 01/12/17 08:00 Room Air 01/12/17 07:12 36.7 74 16 137/84 (101) 90 Room Air 01/12/17 00:00 Room Air 01/11/17 23:54 36.5 80 16 173/73 Room Air 01/11/17 22:40 36.5 80 16 173/73 (106) 95 Room Air 01/11/17 22:28 88 20 177/69 98 01/11/17 22:28 88 20 177/69 98 Nasal Cannula 2.0 01/11/17 21:32 72 20 141/81 95 Room Air 2.0 Nasal Cannula 01/11/17 20:40 76 20 167/103 98 Nasal Cannula 2.0 01/11/17 20:13 79 01/11/17 19:00 78 20 157/84 98 Nasal Cannula 2.0 01/11/17 18:30 76 20 166/59 95 Room Air 01/11/17 17:31 68 20 170/71 96 Room Air 01/11/17 15:33 73 01/11/17 15:10 36.4 82 20 170/84 96 Room Air Physical Exam General Appearance: WD/WN, no apparent distress Eyes: normal inspection, EOMI ENT: hearing grossly normal, pharynx normal Neck: supple, no adenopathy, no JVD Respiratory/Chest: lungs clear, no respiratory distress Cardiovascular: regular rate, rhythm, no gallop, no murmur Abdomen: normal bowel sounds, non tender, soft, + pertinent finding (Hurtado's sign negative) Extremities: non-tender, no pedal edema Neurologic/Psychiatric: alert, normal mood/affect, oriented x 3 Skin: normal color, warm/dry, no rash Lymphatic: no adenopathy Laboratory Results Last 24 Hours Test 01/11/17 15:15 01/11/17 19:55 01/11/17 23:17 01/12/17 08:20 White Blood Count 8.20 K/uL Red Blood Count 3.41 M/uL Hemoglobin 10.8 g/dL Hematocrit 30.3 % Mean Corpuscular Volume 88.9 fL Mean Corpuscular Hemoglobin 31.7 pg Mean Corpuscular Hemoglobin Concent 35.6 g/dl Platelet Count 201 K/uL Mean Platelet Volume 9.3 fL Neutrophils (%) (Auto) 76.5 % Lymphocytes (%) (Auto) 16.3 % Monocytes (%) (Auto) 4.8 % Eosinophils (%) (Auto) 1.8 % Basophils (%) (Auto) 0.4 % Neutrophils # (Auto) 6.27 K/uL Lymphocytes # (Auto) 1.34 K/uL Monocytes # (Auto) 0.39 K/uL Eosinophils # (Auto) 0.15 K/uL Basophils # (Auto) 0.03 K/uL RDW Standard Deviation 44.3 fL RDW Coefficient of Variation 13.7 % Immature Granulocyte % (Auto) 0.2 % Immature Granulocyte # (Auto) 0.02 K/uL Red Blood Cell Morphology Unremarkable Prothrombin Time 10.4 SECONDS Prothromb Time International Ratio 1.0 Activated Partial Thromboplast Time 23.1 SECONDS Partial Thromboplastin Ratio 0.9 Sodium Level 141 mmol/L Potassium Level 5.0 mmol/L Chloride Level 106 mmol/L Carbon Dioxide Level 25 mmol/L Anion Gap 10.0 mmol/L Blood Urea Nitrogen 37 mg/dl Creatinine 1.70 mg/dl Est Creatinine Clear Calc Drug Dose 23.9 ml/min Estimated GFR () 30.9 Estimated GFR (Non- 26.6 BUN/Creatinine Ratio 21.5 Random Glucose 287 mg/dl Calcium Level 9.4 mg/dl Total Bilirubin 0.4 mg/dl Direct Bilirubin < 0.1 mg/dl Aspartate Amino Transf (AST/SGOT) 11 U/L Alanine Aminotransferase (ALT/SGPT) 21 U/L Alkaline Phosphatase 101 U/L Total Creatine Kinase 21 U/L Creatine Kinase MB < 0.5 ng/ml Creatine Kinase MB Ratio Troponin I < 0.015 ng/ml Total Protein 6.8 gm/dl Albumin 3.1 gm/dl Lipase 114 U/L Urine Color YELLOW Urine Appearance CLEAR Urine pH 6.0 Urine Specific [place] 1.017 Urine Protein TRACE Urine Glucose (UA) 1+ Urine Ketones NEG Urine Occult Blood NEG Urine Nitrite NEG Urine Bilirubin NEG Urine Urobilinogen NEG Urine Leukocyte Esterase NEG Urine WBC (Auto) 1-5 /hpf Urine RBC (Auto) 0-4 /hpf Urine Hyaline Casts (Auto) 0 /lpf Urine Epithelial Cells (Auto) 10-20 /lpf Urine Bacteria (Auto) NEG Bedside Glucose 212 mg/dl 136 mg/dl Test 01/12/17 09:20 Assessment and Plan 86 year old female with history of ischemic colitis, presenting with post- prandial RUQ pain. US and CT scans were negative for acute process. HIDA scan is scheduled for today. Our plan for her is as follows: RUQ pain - US and CT negative - Normal LFT - HIDA scan pending today - Start low residue diet after procedure - Continue Zantac and Simethicone - Tyenol PRN for pain Acute Kidney Injury - Cr 1.7: baseline 1.3-1.5 - Likely 2/2 dehydration - Start IV NSS 150 ml/hr; repeat Cr this AM 1.3, back at baseline currently Type 2 Diabetes Mellitus - Hold home meds - Patient NPO; BSG q6h while fasting; AC/HS when able to tolerate PO - Continue Novolog SSI; goal 140-180 Hypertension - Continue Lisinopril and Amlodipine Depression - Continue Lexapro PMR - Chronic, no evidence of acute exacerbation at this time Anemia - Appears chronic and stable; no action at this time DVT prophylaxis - Heparin 5000 q 8h Code Status - DNR Disposition - Med/Surg Continued [facility] stay due to: inadequate po fluid intake Discharge planning: home Reviewed: Pt Seen/Exam by Me History continues to complain of having pain all over the abdomen. otherwise unable to give much history Constitutional: denies: fever General Appearance: no apparent distress Respiratory: lungs clear, no respiratory distress Cardiovascular: regular rate, rhythm Gastrointestinal: normal bowel sounds, soft, tenderness (right upper abdomen +) Neurologic/Psychiatric: alert Skin Characteristics: warm/dry Assessment/Plan Resident Physician Supervision Note: I was present with Dr. Ty in bedside. I verified the coleman history and physical, reviewed labs and image studies, discussed the case with the resident and agree with the findings and care plan.
[2017-01-12 09:49] LABS: HEMATOCRIT 25.9 % (37-47); MEAN CORPUSCULAR HEMOGLOBIN 31.6 pg (25-34); MEAN CORPUSCULAR HGB CONC 35.5 g/dl (32-36); MEAN PLATELET VOLUME 8.9 fL (7.4-10.4); PLATELET COUNT 163 K/uL (130-400); RED BLOOD COUNT 2.91 M/uL (4.2-5.4)
[2017-01-12] MEDS: HEPARIN SOD 5000 UNIT/0.5 ML CARP SQ SCH (09:53)
[2017-01-12 10:06] LABS: BUN/CREATININE RATIO 24.1 (10-20); CREATININE 1.3 mg/dl (0.60-1.20); POTASSIUM 4.3 mmol/L (3.5-5.1)
[2017-01-12 10:11] LABS: ALB/GLOB RATIO 0.9 (0.9-2)
[2017-01-12] MEDS ORDERED: HydrALAZINE HCL 20 MG/ML VIAL IV. PRN (11:15)
[2017-01-12] MEDS ORDERED: SINCALIDE INJ 1.5 MCG in SODIUM CHLORIDE 0.9% 100ML 100 ML IV ONE (13:45)
--- NOTE | 2017-01-12 13:46 | Medical Student: [facility] ---
Med Student Progress Note Date of Service Jan 12, 2017. Subjective Pt evaluation today including: conversation w/ patient, chart review Patient states she is currently without pain, but feels that something is "catching in her ribs" upon deep inspiration. Abdominal pain has decreased overnight. Denies any chest pain, fevers, nausea, or vomiting. She does complain that is has been several (4-5) days since she last moved her bowels. No issues with urination. She also has not eaten since admission. This is partly due to her being NPO for her HIDA scan this afternoon, however she also reports decreased appetite. Review of Systems Constitutional: No fever, No chills, No sweats, No weakness ENT: No sore throat Respiratory: No cough, No shortness of breath Cardiac: No chest pain, No orthopnea Musculoskeletal: + problem reported (Pain over floating ribs bilaterally) Neurologic: + memory loss Endo: No excessive thirst, No excessive urination Skin: No new/changing skin lesions All Other Systems: Reviewed and Negative Objective Vital Signs Date Time Temp Pulse Resp B/P (MAP) Pulse Ox O2 Delivery O2 Flow Rate FiO2 01/12/17 08:00 Room Air 01/12/17 07:12 36.7 74 16 137/84 (101) 90 Room Air 01/12/17 00:00 Room Air 01/11/17 23:54 36.5 80 16 173/73 Room Air 01/11/17 22:40 36.5 80 16 173/73 (106) 95 Room Air 01/11/17 22:28 88 20 177/69 98 01/11/17 22:28 88 20 177/69 98 Nasal Cannula 2.0 01/11/17 21:32 72 20 141/81 95 Room Air 2.0 Nasal Cannula 01/11/17 20:40 76 20 167/103 98 Nasal Cannula 2.0 01/11/17 20:13 79 01/11/17 19:00 78 20 157/84 98 Nasal Cannula 2.0 01/11/17 18:30 76 20 166/59 95 Room Air 01/11/17 17:31 68 20 170/71 96 Room Air 01/11/17 15:33 73 01/11/17 15:10 36.4 82 20 170/84 96 Room Air Physical Exam General Appearance: WD/WN, no apparent distress Eyes: bilateral eyes normal inspection, bilateral eyes PERRL, bilateral eyes EOMI ENT: normal ENT inspection, hearing grossly normal, pharynx normal Neck: supple, no adenopathy, no JVD, no carotid bruits, trachea midline Respiratory/Chest: lungs clear, normal breath sounds, no respiratory distress, no accessory muscle use, + pertinent finding (Chest wall is tender parasternally ) Cardiovascular: regular rate, rhythm, no edema, no gallop, no JVD, no murmur Abdomen: normal bowel sounds, soft, no organomegaly, no pulsatile mass, + tenderness Extremities: normal inspection, no pedal edema Neurologic/Psychiatric: normal mood/affect Skin: normal color, warm/dry, no rash Laboratory Results Last 24 Hours Test 01/11/17 15:15 01/11/17 19:55 01/11/17 23:17 01/12/17 08:20 White Blood Count 8.20 K/uL Red Blood Count 3.41 M/uL Hemoglobin 10.8 g/dL Hematocrit 30.3 % Mean Corpuscular Volume 88.9 fL Mean Corpuscular Hemoglobin 31.7 pg Mean Corpuscular Hemoglobin Concent 35.6 g/dl Platelet Count 201 K/uL Mean Platelet Volume 9.3 fL Neutrophils (%) (Auto) 76.5 % Lymphocytes (%) (Auto) 16.3 % Monocytes (%) (Auto) 4.8 % Eosinophils (%) (Auto) 1.8 % Basophils (%) (Auto) 0.4 % Neutrophils # (Auto) 6.27 K/uL Lymphocytes # (Auto) 1.34 K/uL Monocytes # (Auto) 0.39 K/uL Eosinophils # (Auto) 0.15 K/uL Basophils # (Auto) 0.03 K/uL RDW Standard Deviation 44.3 fL RDW Coefficient of Variation 13.7 % Immature Granulocyte % (Auto) 0.2 % Immature Granulocyte # (Auto) 0.02 K/uL Red Blood Cell Morphology Unremarkable Prothrombin Time 10.4 SECONDS Prothromb Time International Ratio 1.0 Activated Partial Thromboplast Time 23.1 SECONDS Partial Thromboplastin Ratio 0.9 Sodium Level 141 mmol/L Potassium Level 5.0 mmol/L Chloride Level 106 mmol/L Carbon Dioxide Level 25 mmol/L Anion Gap 10.0 mmol/L Blood Urea Nitrogen 37 mg/dl Creatinine 1.70 mg/dl Est Creatinine Clear Calc Drug Dose 23.9 ml/min Estimated GFR () 30.9 Estimated GFR (Non- 26.6 BUN/Creatinine Ratio 21.5 Random Glucose 287 mg/dl Calcium Level 9.4 mg/dl Total Bilirubin 0.4 mg/dl Direct Bilirubin < 0.1 mg/dl Aspartate Amino Transf (AST/SGOT) 11 U/L Alanine Aminotransferase (ALT/SGPT) 21 U/L Alkaline Phosphatase 101 U/L Total Creatine Kinase 21 U/L Creatine Kinase MB < 0.5 ng/ml Creatine Kinase MB Ratio Troponin I < 0.015 ng/ml Total Protein 6.8 gm/dl Albumin 3.1 gm/dl Lipase 114 U/L Urine Color YELLOW Urine Appearance CLEAR Urine pH 6.0 Urine Specific [place] 1.017 Urine Protein TRACE Urine Glucose (UA) 1+ Urine Ketones NEG Urine Occult Blood NEG Urine Nitrite NEG Urine Bilirubin NEG Urine Urobilinogen NEG Urine Leukocyte Esterase NEG Urine WBC (Auto) 1-5 /hpf Urine RBC (Auto) 0-4 /hpf Urine Hyaline Casts (Auto) 0 /lpf Urine Epithelial Cells (Auto) 10-20 /lpf Urine Bacteria (Auto) NEG Bedside Glucose 212 mg/dl 136 mg/dl Test 01/12/17 09:35 01/12/17 11:35 White Blood Count 5.30 K/uL Red Blood Count 2.91 M/uL Hemoglobin 9.2 g/dL Hematocrit 25.9 % Mean Corpuscular Volume 89.0 fL Mean Corpuscular Hemoglobin 31.6 pg Mean Corpuscular Hemoglobin Concent 35.5 g/dl RDW Standard Deviation 44.9 fL RDW Coefficient of Variation 13.7 % Platelet Count 163 K/uL Mean Platelet Volume 8.9 fL Sodium Level 144 mmol/L Potassium Level 4.3 mmol/L Chloride Level 114 mmol/L Carbon Dioxide Level 24 mmol/L Anion Gap 6.0 mmol/L Blood Urea Nitrogen 31 mg/dl Creatinine 1.30 mg/dl Est Creatinine Clear Calc Drug Dose 29.3 ml/min Estimated GFR () 42.7 Estimated GFR (Non- 36.9 BUN/Creatinine Ratio 24.1 Random Glucose 116 mg/dl Calcium Level 8.0 mg/dl Total Bilirubin 0.2 mg/dl Aspartate Amino Transf (AST/SGOT) 11 U/L Alanine Aminotransferase (ALT/SGPT) 17 U/L Alkaline Phosphatase 73 U/L Total Protein 5.4 gm/dl Albumin 2.5 gm/dl Globulin 2.9 gm/dl Albumin/Globulin Ratio 0.9 Bedside Glucose 140 mg/dl Assessment and Plan Assessment and Plan: Assessment This is a 86 year old woman with a PMH of ischemic colitis who presents with post-prandial upper abdominal pain. Plan Abdominal pain -Patient's pain has drastically decreased and is now more focused around her ribs rather than abdomen. Negative abebe's sign. -Ultrasound and abdominal CT were negative -HIDA scan is pending -Possibly related to demand ischemia given her prior history of ischemic collitis. However, given her age, I'm not sure this warrants further investigation. -Continue tylenol PRN for pain. DM2 -Home meds are being held for HIDA scan this afternoon -Continue sliding scale insulin with blood glucose checks q6h -Resume home meds after HIDA scan Depression -Continue lexapro at home dose HTN -Continue amlodipine and lisinopril Anemia -Appears to be a chronic issue upon reviewing previous labs. Stable at this time. DVT prophylaxis -5000 units of heparin subQ q8h Patient is a DNR Continued [facility] stay due to: inadequate po fluid intake Discharge planning: home
--- NOTE | 2017-01-12 15:07 | DIAGNOSTIC IMAGING REPORT ---
HEPATOBILIARY EF IMAGING HISTORY: Pain. Nausea. rug abd pain after eating COMPARISON: None. TECHNIQUE: Immediately following the intravenous administration of 5.2 mCi Tc-99m Choletec, dynamic anterior abdominal imaging pre/post 1.5 mcg of Kinevac was performed. FINDINGS: Uniform hepatic tracer accumulation is shown. Prompt intrahepatic biliary excretion is seen. The gallbladder, common bile duct, and small bowel are all visualized by 50 minutes. This appearance represents the normal sequence of biliary excretion. The gallbladder ejection fraction following administration of Kinevac was 0 % (normal >35%). IMPRESSION: 1. 1. Delayed imaging of the gallbladder 2. Gallbladder ejection fraction calculated to be 0 %. 3. This appearance suggests chronic a calculus cholecystitis, with no significant ejection fraction. The above report was generated using voice recognition software. It may contain grammatical, syntax or spelling errors. Electronically signed by: Brian Jarquin M.D. 01/12/2017 3:06 PM Dictated Date/Time: 01/12/2017 3:03 PM
[2017-01-12 15:30] VITALS: BP 166/79; PULSE 70; TEMP 36.6; O2SAT 90
[2017-01-12] MEDS: PANTOprazole SOD 40 MG TAB PO SCH (15:51)
[2017-01-12] MEDS ORDERED: OXYCODONE HCL IR 5 MG TAB (IMMEDIATE RELEASE) PO PRN (17:30)
--- NOTE | 2017-01-12 17:58 | Surgery Consultation ---
Consultation Date of Consultation: Jan 12, 2017. Attending Physician: Glory Madison M.D. Reason for Consultation: Right upper quadrant abdominal pain, HIDA scan with EF 0% History of Present Illness Nikki Thomas is an 86 year old woman with HTN, DM2, hyperlipidemia, polymyalgia rheumatica, Sjogren's syndrome, aortic stenosis, pacemaker in place and spinal stenosis who was admitted on 01/11/17 with right upper quadrant abdominal pain. Pain started Thursday evening in the right upper quadrant, associated with some retching (but no real vomiting). Pain continued into Thursday; she attempted to eat some cereal with milk, but had severe abdominal pain following this and was subsequently taken to the ED by her family. Denies fever, chills, headaches, dizziness, vision changes, chest pain, SOB, constipation / diarrhea, melena / hematochezia / acholic stools, dysuria or urinary problems. In the ED, a RUQ ultrasound was completed which showed a normal gallbladder (no stones / sludge, no wall thickening, no pericholecystic fluid, normal intra and extrahepatic bile ducts). A CT scan was completed, which did not show any acute abnormalities; it did show diffusely calcified abdominal vessels. A HIDA scan with CCK was completed today, which showed an EF of 0%; patient is unsure whether administration of CCK caused reproduction of the RUQ pain. She continues to have RUQ pain with deep inspiration, and reports increased pain last night after eating peanut butter crackers. Patient has a history of colonic ischemia a few months ago affecting the mid transverse and proximal descending colon from which she had bloody stools - treated non-operatively with antibiotics and resolution. She has a history of open hysterectomy in the 70s, no other abdominal operations. She takes aspirin 81mg every other day, no other anticoagulation or steroids. Past Medical/Surgical History Medical Problems: (1) Ambulatory dysfunction Status: Acute (2) Aortic stenosis Status: Acute (3) Dehydration Status: Acute (4) Heart murmur Status: Acute (5) Intractable abdominal pain Status: Acute (6) Right upper quadrant abdominal pain Status: Acute (7) Spinal stenosis Status: Acute (8) Syncope Status: Acute (9) UTI (urinary tract infection) Status: Acute (10) Vasovagal syncope Status: Acute (11) Vomiting Status: Acute Family History Patient reports no known family medical history. Social History Smoking Status: Never Smoker Smokeless Tobacco Use: No Alcohol Use: none Drug Use: none Marital Status: Housing Status: lives alone Occupation Status: unemployed Allergies Coded Allergies: Morphine (Verified Allergy, Mild, shortness of breath with panic attack, 09/01/16) Darbepoetin [place] (Verified Allergy, Unknown, "RED ITCHY BLOTCHES ON SKIN" , 09/01/16) Home Medications Scheduled Amlodipine (Norvasc), 5 MG PO BID Aspirin (Aspirin Ec), 81 MG PO Q2D Cholecalciferol (Vitamin D3), 1,000 INTER.UNIT PO QAM Cyanocobalamin (Vitamin B-12), 1,000 MCG PO DAILY Escitalopram (Lexapro), 5 MG PO HS Fish Oil ([place]-3), 1,200 MG PO DAILY Insulin Detemir (Levemir Flextouch), 6 UNITS SC QAM Insulin Lispro (Human) (Humalog Kwikpen), 1 DOSE SQ UD Lidocaine (Lidoderm Patch 5%), 1 PATCH TOP ONAMOFFPM Lisinopril (Zestril), 20 MG PO QPM Omeprazole (Prilosec), 40 MG PO QAM Polyethylene Glycol 3350 (Miralax), 8.5 GM PO DAILY Ranitidine Hcl (Ranitidine Hcl), 75 MG PO HS Scheduled PRN Magnesium Hydroxide (Milk Of Magnesia), 30 ML PO DAILY PRN for Constipation Simethicone (Gas-X), 80 MG PO UD PRN for Gas or Constipation Current Inpatient Medications Current Inpatient Medications Medications (Trade) Dose Ordered Sig/Luis Route Start Time Stop Time Status Last Admin Dose Admin Amlodipine Besylate (Norvasc Tab) 5 mg BID PO 01/12/17 08:00 02/11/17 08:59 01/11/17 23:11 5 MG Aspirin (Ecotrin Tab) 81 mg Q2D@0900 PO 01/12/17 09:00 02/11/17 08:59 Escitalopram Oxalate (Lexapro Tab) 5 mg HS PO 01/12/17 21:00 02/11/17 20:59 Insulin Detemir (Levemir Flexpen/ FlexTouch) 6 units QAM SC 01/12/17 08:00 02/11/17 08:59 Insulin Aspart (novoLOG ASPART) ACHS SQ 01/11/17 23:00 02/10/17 22:59 01/11/17 23:23 2 UNITS Lidocaine (Lidoderm Patch 5%) 1 patch QAM TD 01/12/17 08:00 02/11/17 07:59 01/12/17 08:26 1 PATCH Lisinopril (Zestril Tab) 20 mg QPM PO 01/12/17 21:00 02/11/17 20:59 01/11/17 23:08 20 MG Simethicone (Mylicon Chew Tab) 80 mg UD PRN PO 01/11/17 22:00 02/10/17 21:59 Pantoprazole Sodium (Protonix Tab) 40 mg QAM PO 01/12/17 08:00 02/11/17 08:59 01/12/17 15:51 40 MG Ranitidine HCl (zANTac TAB) 75 mg HS PO 01/12/17 21:00 02/11/17 20:59 01/11/17 23:12 75 MG Miscellaneous (Remove Lidoderm Patch) 1 ea DAILY@21 N/A 01/11/17 23:00 02/10/17 22:59 Acetaminophen (Tylenol Tab) 650 mg Q4H PRN PO 01/11/17 22:00 02/10/17 21:59 01/12/17 02:43 650 MG Magnesium Hydroxide (Milk Of Magnesia Susp) 30 ml Q6H PRN PO 01/11/17 22:00 02/10/17 21:59 Ondansetron HCl (Zofran Inj) 4 mg Q6H PRN IV 01/11/17 22:00 02/10/17 21:59 Heparin Sodium (Porcine) (Heparin Sq 5000 Unit/0.5ml) 5,000 unit Q12H SQ 01/11/17 22:00 02/10/17 21:59 01/12/17 09:53 5,000 UNIT Hydralazine HCl (HydrALAZINE INJ) 5 mg Q4H PRN IV. 01/12/17 11:15 02/11/17 11:14 Oxycodone HCl (Roxicodone Immediate Rel Tab) 5 mg Q4H PRN PO 01/12/17 17:30 01/26/17 17:29 UNV Review of Systems Constitutional: + fatigue, No fever, No chills, No sweats Eyes: No eye pain, No problem reported Respiratory: No cough, No wheezing, No shortness of breath Cardiovascular: No chest pain, No edema, No palpitations Abdomen: + pain (right upper quadrant, subcostal), + nausea Genitourinary - Female: No dysuria, No urinary frequency, No urinary urgency Neurologic: + balance problems Physical Exam Date Time Temp Pulse Resp B/P (MAP) Pulse Ox O2 Delivery O2 Flow Rate FiO2 01/12/17 16:00 Room Air 01/12/17 15:30 36.6 70 18 166/79 (108) 90 Room Air 01/12/17 08:00 Room Air 01/12/17 07:12 36.7 74 16 137/84 (101) 90 Room Air 01/12/17 00:00 Room Air 01/11/17 23:54 36.5 80 16 173/73 Room Air 01/11/17 22:40 36.5 80 16 173/73 (106) 95 Room Air 01/11/17 22:28 88 20 177/69 98 01/11/17 22:28 88 20 177/69 98 Nasal Cannula 2.0 01/11/17 21:32 72 20 141/81 95 Room Air 2.0 Nasal Cannula 01/11/17 20:40 76 20 167/103 98 Nasal Cannula 2.0 01/11/17 20:13 79 01/11/17 19:00 78 20 157/84 98 Nasal Cannula 2.0 01/11/17 18:30 76 20 166/59 95 Room Air General Appearance: WD/WN, no apparent distress, + thin Head: normocephalic, atraumatic Eyes: normal inspection, sclerae normal Neck: supple Respiratory/Chest: chest non-tender, lungs clear, normal breath sounds, no accessory muscle use Cardiovascular: regular rate, rhythm Abdomen/GI: non tender (except deep palpation of right upper quadrant / flank) , soft Neurologic/Psych: normal mood/affect, oriented x 3 Skin: normal color, warm/dry Laboratory Results Last 24 Hours Test 01/11/17 19:55 01/11/17 23:17 01/12/17 08:20 01/12/17 09:35 Urine Color YELLOW Urine Appearance CLEAR Urine pH 6.0 Urine Specific [place] 1.017 Urine Protein TRACE Urine Glucose (UA) 1+ Urine Ketones NEG Urine Occult Blood NEG Urine Nitrite NEG Urine Bilirubin NEG Urine Urobilinogen NEG Urine Leukocyte Esterase NEG Urine WBC (Auto) 1-5 /hpf Urine RBC (Auto) 0-4 /hpf Urine Hyaline Casts (Auto) 0 /lpf Urine Epithelial Cells (Auto) 10-20 /lpf Urine Bacteria (Auto) NEG Bedside Glucose 212 mg/dl 136 mg/dl White Blood Count 5.30 K/uL Red Blood Count 2.91 M/uL Hemoglobin 9.2 g/dL Hematocrit 25.9 % Mean Corpuscular Volume 89.0 fL Mean Corpuscular Hemoglobin 31.6 pg Mean Corpuscular Hemoglobin Concent 35.5 g/dl RDW Standard Deviation 44.9 fL RDW Coefficient of Variation 13.7 % Platelet Count 163 K/uL Mean Platelet Volume 8.9 fL Sodium Level 144 mmol/L Potassium Level 4.3 mmol/L Chloride Level 114 mmol/L Carbon Dioxide Level 24 mmol/L Anion Gap 6.0 mmol/L Blood Urea Nitrogen 31 mg/dl Creatinine 1.30 mg/dl Est Creatinine Clear Calc Drug Dose 29.3 ml/min Estimated GFR () 42.7 Estimated GFR (Non- 36.9 BUN/Creatinine Ratio 24.1 Random Glucose 116 mg/dl Calcium Level 8.0 mg/dl Total Bilirubin 0.2 mg/dl Aspartate Amino Transf (AST/SGOT) 11 U/L Alanine Aminotransferase (ALT/SGPT) 17 U/L Alkaline Phosphatase 73 U/L Total Protein 5.4 gm/dl Albumin 2.5 gm/dl Globulin 2.9 gm/dl Albumin/Globulin Ratio 0.9 Test 01/12/17 11:35 01/12/17 16:55 Bedside Glucose 140 mg/dl 136 mg/dl 01/11/17 RUQ U/S: FINDINGS: Pancreas not well seen due to overlying bowel content. Mild fatty infiltration of liver. Normal gallbladder. No bile duct 3 mm. No evidence for renal hydronephrosis. IMPRESSION: No acute process. Mild fatty infiltration of liver. 01/11/17 CXR & KUB: IMPRESSION: 1. No acute process the chest. 2. Increased fecal load throughout the colon. No obstructive change. 01/11/17 CT Abd / Pelvis without contrast: IMPRESSION: 1. Small bibasilar parenchymal infiltrates. 2. Bilateral nonobstructing renal calcifications unchanged from the prior study. 3. Nonobstructing bowel pattern with a normal appendix. 01/12/17 HIDA scan with CCK administration: IMPRESSION: 1. Delayed imaging of the gallbladder 2. Gallbladder ejection fraction calculated to be 0 %. 3. This appearance suggests chronic a calculus cholecystitis, with no significant ejection fraction. Assessment & Plan Nikki Thomas is an 86 year old woman with HTN, DM2, hyperlipidemia, polymyalgia rheumatica, Sjogren's syndrome, aortic stenosis, pacemaker in place and spinal stenosis who was admitted on 01/11/17 with right upper quadrant abdominal pain, found to have a normal appearing gallbladder on imaging but HIDA scan with CCK administration showed ejection fraction of 0%. Vitals are stable and normal. She does not have a leukocytosis or elevated LFTs / bilirubin. Symptoms are consistent with biliary dyskinesia. Discussed gallbladder disease at length with patient and her daughter at bedside; all questions answered to apparent satisfaction. -Scheduled for laparoscopic, possible open cholecystectomy tomorrow -OK to trial diet tonight, NPO at midnight, maintenance IVF while NPO -Obtain AM labs (CBC/diff, BMP, LFTs) -Hold anticoagulation (aspirin 81mg and heparin) tonight and tomorrow morning -Will re-evaluate in morning -Consent signed by patient's daughter (POA) and placed in hard chart -Recommend pre op cardiology evaluation
[2017-01-12] MEDS: ESCITALOPRAM OXALATE 10 MG TAB PO SCH (20:27)
[2017-01-12] MEDS: RANITIDINE HCL 150 MG TAB PO SCH (20:27)
[2017-01-12] MEDS: LISINOPRIL 20 MG TAB PO SCH (20:27)
[2017-01-13 00:14] VITALS: BP 160/70; PULSE 89; TEMP 36.7; O2SAT 91
[2017-01-13 06:04] LABS: HEMATOCRIT 28.8 % (37-47); MEAN CELL VOLUME 88.1 fL (80-100); MEAN PLATELET VOLUME 9.1 fL (7.4-10.4); PLATELET COUNT 178 K/uL (130-400); RED BLOOD COUNT 3.27 M/uL (4.2-5.4)
[2017-01-13 06:40] LABS: BUN/CREATININE RATIO 17.6 (10-20); CALCIUM 9.1 mg/dl (8.5-10.1); CREATININE 1.4 mg/dl (0.60-1.20); POTASSIUM 4.2 mmol/L (3.5-5.1)
[2017-01-13 06:43] LABS: ALB/GLOB RATIO 0.9 (0.9-2)
[2017-01-13] MEDS ORDERED: NURSING VERBAL MED ORDER ONE (06:45)
[2017-01-13] MEDS: SODIUM CHLORIDE 0.9% 1000ML 1,000 ML IV SCH ×2 (07:03→23:46)
[2017-01-13 07:51] VITALS: BP 175/77; PULSE 90; TEMP 36.6; O2SAT 91
[2017-01-13] MEDS: INSULIN ASPART 100 UNITS/ML 3 ML PEN SQ SCH ×4 (07:54→20:37)
[2017-01-13] MEDS: INSULIN DETEMIR FLEXPEN/FLEX TOUCH 100 UNITS/ML 3ML SC SCH (07:55)
[2017-01-13] MEDS: AMLODIPINE BESYLATE 5 MG TAB PO SCH ×2 (08:20→20:29)
[2017-01-13] MEDS: LIDODERM (LIDOCAINE) PATCH 5% TD SCH (08:21)
[2017-01-13] MEDS: PANTOprazole SOD 40 MG TAB PO SCH (09:05)
--- NOTE | 2017-01-13 09:29 | Family Medicine Progress Note ---
Progress Note Date of Service Jan 13, 2017. Subjective Pt evaluation today including: conversation w/ patient, physical exam, chart review, lab review Pain: None currently NPO this morning; anticipating possible surgery Daughter at bedside; expressing some reluctance to doing surgery immediately; may prefer trial diet to see if pain has subsided Slept well overnight; no issues Pt currently pain free; but notes some generalized chest wall discomfort; reproducible with palpation Constitutional: No fever, No chills, No sweats Eyes: No eye pain, No redness, No discharge ENT: No nasal symptoms, No sore throat, No tinnitus Respiratory: No cough, No wheezing, No shortness of breath Cardiovascular: + chest pain (chest wall tenderness), No orthopnea, No palpitations Abdomen: No pain, No nausea, No vomiting, No diarrhea, No constipation Musculoskeletal: No joint pain, No muscle pain, No swelling Female : No dysuria, No urinary frequency Neurologic: No paralysis, No weakness, No numbness/tingling, No vertigo Heme: No abnormal bleeding/bruising, No clotting problems, No swollen lymph nodes Endo: No fatigue Skin: No rash, No new/changing skin lesions Medications Current Inpatient Medications Medications (Trade) Dose Ordered Sig/Luis Route Start Time Stop Time Status Last Admin Dose Admin Amlodipine Besylate (Norvasc Tab) 5 mg BID PO 01/12/17 08:00 02/11/17 08:59 01/13/17 08:20 5 MG Aspirin (Ecotrin Tab) 81 mg Q2D@0900 PO 01/12/17 09:00 02/11/17 08:59 Future Hold Escitalopram Oxalate (Lexapro Tab) 5 mg HS PO 01/12/17 21:00 02/11/17 20:59 01/12/17 20:27 5 MG Insulin Detemir (Levemir Flexpen/ FlexTouch) 6 units QAM SC 01/12/17 08:00 02/11/17 08:59 Insulin Aspart (novoLOG ASPART) ACHS SQ 01/11/17 23:00 02/10/17 22:59 01/12/17 18:01 1 UNITS Lidocaine (Lidoderm Patch 5%) 1 patch QAM TD 01/12/17 08:00 02/11/17 07:59 01/13/17 08:21 1 PATCH Lisinopril (Zestril Tab) 20 mg QPM PO 01/12/17 21:00 02/11/17 20:59 01/12/17 20:27 20 MG Simethicone (Mylicon Chew Tab) 80 mg UD PRN PO 01/11/17 22:00 02/10/17 21:59 Pantoprazole Sodium (Protonix Tab) 40 mg QAM PO 01/12/17 08:00 02/11/17 08:59 01/13/17 09:05 40 MG Ranitidine HCl (zANTac TAB) 75 mg HS PO 01/12/17 21:00 02/11/17 20:59 01/12/17 20:27 75 MG Miscellaneous (Remove Lidoderm Patch) 1 ea DAILY@21 N/A 01/11/17 23:00 02/10/17 22:59 01/12/17 20:26 1 EA Acetaminophen (Tylenol Tab) 650 mg Q4H PRN PO 01/11/17 22:00 02/10/17 21:59 01/12/17 02:43 650 MG Magnesium Hydroxide (Milk Of Magnesia Susp) 30 ml Q6H PRN PO 01/11/17 22:00 02/10/17 21:59 Ondansetron HCl (Zofran Inj) 4 mg Q6H PRN IV 01/11/17 22:00 02/10/17 21:59 Heparin Sodium (Porcine) (Heparin Sq 5000 Unit/0.5ml) 5,000 unit Q12H SQ 01/11/17 22:00 02/10/17 21:59 Future Hold 01/12/17 09:53 5,000 UNIT Oxycodone HCl (Roxicodone Immediate Rel Tab) 5 mg Q4H PRN PO 01/12/17 17:30 01/26/17 17:29 Sodium Chloride 1,000 ml @ 60 mls/hr [id number] IV 01/13/17 07:00 02/12/17 06:59 01/13/17 07:03 60 MLS/HR Hydralazine HCl (HydrALAZINE INJ) 10 mg Q4H PRN IV. 01/13/17 11:15 02/11/17 11:14 UNV Objective Vital Signs Date Time Temp Pulse Resp B/P (MAP) Pulse Ox O2 Delivery O2 Flow Rate FiO2 01/13/17 08:00 Room Air 01/13/17 07:51 36.6 90 20 175/77 (109) 91 Room Air 01/13/17 00:14 36.7 89 18 160/70 (100) 91 Room Air 01/13/17 00:00 Room Air 01/12/17 20:00 Room Air 01/12/17 16:00 Room Air 01/12/17 15:30 36.6 70 18 166/79 (108) 90 Room Air Physical Exam General Appearance: WD/WN, no apparent distress Eyes: normal inspection, EOMI ENT: hearing grossly normal, pharynx normal Neck: supple, no adenopathy, no JVD Respiratory/Chest: lungs clear, no respiratory distress, + pertinent finding ( bilateral anterior chest wall tenderness) Cardiovascular: regular rate, rhythm, no gallop, no murmur Abdomen: normal bowel sounds, non tender, soft Extremities: non-tender, no pedal edema Neurologic/Psychiatric: alert, normal mood/affect Skin: normal color, warm/dry, no rash Lymphatic: no adenopathy Laboratory Results Last 24 Hours Test 01/12/17 09:35 01/12/17 11:35 01/12/17 16:55 01/12/17 20:13 White Blood Count 5.30 K/uL Red Blood Count 2.91 M/uL Hemoglobin 9.2 g/dL Hematocrit 25.9 % Mean Corpuscular Volume 89.0 fL Mean Corpuscular Hemoglobin 31.6 pg Mean Corpuscular Hemoglobin Concent 35.5 g/dl RDW Standard Deviation 44.9 fL RDW Coefficient of Variation 13.7 % Platelet Count 163 K/uL Mean Platelet Volume 8.9 fL Sodium Level 144 mmol/L Potassium Level 4.3 mmol/L Chloride Level 114 mmol/L Carbon Dioxide Level 24 mmol/L Anion Gap 6.0 mmol/L Blood Urea Nitrogen 31 mg/dl Creatinine 1.30 mg/dl Est Creatinine Clear Calc Drug Dose 29.3 ml/min Estimated GFR () 42.7 Estimated GFR (Non- 36.9 BUN/Creatinine Ratio 24.1 Random Glucose 116 mg/dl Calcium Level 8.0 mg/dl Total Bilirubin 0.2 mg/dl Aspartate Amino Transf (AST/SGOT) 11 U/L Alanine Aminotransferase (ALT/SGPT) 17 U/L Alkaline Phosphatase 73 U/L Total Protein 5.4 gm/dl Albumin 2.5 gm/dl Globulin 2.9 gm/dl Albumin/Globulin Ratio 0.9 Bedside Glucose 140 mg/dl 136 mg/dl 156 mg/dl Test 01/13/17 05:22 01/13/17 07:44 White Blood Count 5.40 K/uL Red Blood Count 3.27 M/uL Hemoglobin 9.8 g/dL Hematocrit 28.8 % Mean Corpuscular Volume 88.1 fL Mean Corpuscular Hemoglobin 30.0 pg Mean Corpuscular Hemoglobin Concent 34.0 g/dl RDW Standard Deviation 44.0 fL RDW Coefficient of Variation 13.7 % Platelet Count 178 K/uL Mean Platelet Volume 9.1 fL Sodium Level 141 mmol/L Potassium Level 4.2 mmol/L Chloride Level 111 mmol/L Carbon Dioxide Level 23 mmol/L Anion Gap 7.0 mmol/L Blood Urea Nitrogen 25 mg/dl Creatinine 1.40 mg/dl Est Creatinine Clear Calc Drug Dose 27.2 ml/min Estimated GFR () 39.1 Estimated GFR (Non- 33.7 BUN/Creatinine Ratio 17.6 Random Glucose 141 mg/dl Calcium Level 9.1 mg/dl Total Bilirubin 0.4 mg/dl Aspartate Amino Transf (AST/SGOT) 11 U/L Alanine Aminotransferase (ALT/SGPT) 15 U/L Alkaline Phosphatase 80 U/L Total Protein 6.0 gm/dl Albumin 2.8 gm/dl Globulin 3.2 gm/dl Albumin/Globulin Ratio 0.9 Bedside Glucose 168 mg/dl Assessment and Plan 86 year old female with history of ischemic colitis, presenting with post- prandial RUQ pain. US and CT scans were negative for acute process. HIDA scan with GB EF of 0%. Our plan for her is as follows: RUQ pain sec to ? biliary dyskinesia - US and CT negative; HIDA showing GB EF 0% - Continues to have normal LFTs - Surgery following patient; recommendations appreciated No urgency for surgery at this time; will do trial of PO diet today Awaiting pre-operative cardiac evaluation in case surgery to happen - We will do trial diet on patient today; type 2 DM diet - Continue Zantac and Simethicone - Tyenol PRN for pain Acute Kidney Injury - Resolved; Cr 1.4: baseline 1.3-1.5 - Likely 2/2 dehydration on arrival - Continue IVF at 60 ml/hr; will start PO diet; will D/C fluids later in the day if patient is tolerating PO Type 2 Diabetes Mellitus - Hold home meds - Patient NPO; BSG q6h while fasting; AC/HS when able to tolerate PO - Continue Novolog SSI; goal 140-180 Hypertension - Continue Lisinopril and Amlodipine Depression - Continue Lexapro History of PMR - Chest wall tenderness may be manifestation of PMR? Will treat conservatively at this time; as I would prefer to avoid starting patient on steroids Anemia - Appears chronic and stable; no action at this time DVT prophylaxis - Will re-start Heparin today; hold tonight in anticipation of possible surgery Code Status - DNR Disposition - Med/Surg Continued [facility] stay due to: inadequate po fluid intake Discharge planning: uncertain Reviewed: Pt Seen/Exam by Me History pain in abdomen better today had a meal this afternoon and felt ok Constitutional: denies: fever Respiratory: negative: short of breath Cardiovascular: denies chest pain Gastrointestinal/Abdominal: negative: abdominal pain General Appearance: no apparent distress Respiratory: no respiratory distress Cardiovascular: regular rate, rhythm Gastrointestinal: normal bowel sounds, non tender, soft Neurologic/Psychiatric: alert, other (sitting up at the edge of bed and comfortable) Skin Characteristics: warm/dry Assessment/Plan Resident Physician Supervision Note: I was present with Dr. Ty in bedside. I verified the coleman history and physical, reviewed labs and image studies, discussed the case with the resident and agree with the findings and care plan.
--- NOTE | 2017-01-13 10:03 | Clinical Documentation Query ---
CLINICAL DOCUMENTATION QUERY Dr. 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 Clinical Indicators: 86 yo female presenting with RUQ abd pain. HIDA scan "suggests chronic acalculus cholecystitis." Treatment: general surgery consult with plan for lap evonne vs open evonne Risk Factors: age, DM Please clarify and document your clinical opinion in the progress notes and discharge summary. Terms such as "probable", "suspected", "likely", "questionable", "possible", or "still to be ruled out" are acceptable. IF IN AGREEMENT, YOU MUST DOCUMENT ABOVE DIAGNOSTIC STATEMENT IN DAILY PROGRESS NOTES AND DISCHARGE SUMMARY. This document is not part of the patient's record. Thank You, Yesenia Lai, LUKE [phone]
--- NOTE | 2017-01-13 10:04 | Clinical Documentation Query ---
CLINICAL DOCUMENTATION QUERY Dr. 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 Clinical Indicators: 86 yo female presenting with RUQ abd pain. HIDA scan "suggests chronic acalculus cholecystitis." Treatment: general surgery consult with plan for lap evonne vs open evonne Risk Factors: age, DM Please clarify and document your clinical opinion in the progress notes and discharge summary. Terms such as "probable", "suspected", "likely", "questionable", "possible", or "still to be ruled out" are acceptable. IF IN AGREEMENT, YOU MUST DOCUMENT ABOVE DIAGNOSTIC STATEMENT IN DAILY PROGRESS NOTES AND DISCHARGE SUMMARY. This document is not part of the patient's record. Thank You, Yesenia Lai, LUKE [phone]
--- NOTE | 2017-01-13 10:14 | CARDIOLOGY CONSULTATION REPORT ---
DATE OF CONSULTATION: 01/13/2017 DATE OF CONSULTATION: 01/13/2017 REASON FOR CONSULTATION: 1. Valvular heart disease. 2. Sinus node dysfunction/complete heart block status post dual chamber pacemaker. 3. Preoperative cardiac evaluation. HISTORY OF PRESENT ILLNESS: Mrs. Thomas is a very pleasant 86-year-old white female with a history of sinus node dysfunction and complete heart block status post [employer]onic Advismindy JOEL MRI compatible dual chamber pacemaker placement, mild aortic stenosis, mild to moderate mitral stenosis, mild concentric LVH, hypertension, hypercholesterolemia, stage III chronic kidney disease, type 2 DM, PMR, GERD, carotid artery disease and a known history of ischemic colitis who presented acutely to [facility] with right upper quadrant pain with eating, which may be related to gallbladder disease, although that has not been confirmed yet. There is a possibility she will need a laparoscopic cholecystectomy so we were asked to evaluate her from a cardiac standpoint. The patient has not experienced any limiting cardiopulmonary symptoms, but she is very limited in her activities. She generally transfers from bed to wheelchair, toilet to wheelchair, etc. but is able to provide self hygiene and do minor things around her home. She has not experienced any exertional chest pain, heaviness, tightness, pressure or discomfort. She denies any exertional neck, jaw, back or arm pain. She denies any shortness of breath, unusual dyspnea on exertion, orthopnea or PND. She denies any palpitations, tachypalpitations, syncope or near syncope. She still has some right upper quadrant and right lower quadrant discomfort at this time, but denies any nausea or vomiting. Her last echocardiogram was performed on 04/22/2013, this showed normal LV size with mild concentric LVH, LVEF 60% to 65% without regional wall motion abnormalities. Mild valvular aortic stenosis, mild to moderate mitral stenosis and normal biatrial dimensions. MEDICATIONS: 1. Normal saline at 60 mL/hr. 2. Lexapro 5 mg at bedtime. 3. Lisinopril 20 mg q. p.m. 4. Ranitidine 75 mg p.o. at bedtime. 5. OxyIR 5 mg p.o. q. 4 hours p.r.n. 6. Hydralazine 5 mg IV q. 4 hours p.r.n. for hypertension. 7. Normally on aspirin, but currently being held. 8. Norvasc 5 mg b.i.d. 9. Levemir insulin 6 units subQ injection each morning. 10. Lidocaine patch on q. a.m. 11. Protonix 40 mg daily. 12. NovoLog siding scale insulin. 13. Simethicone 80 mg as needed for gas or constipation. 14. Tylenol p.r.n. 15. Milk of Magnesia p.r.n. 16. Zofran p.r.n. ALLERGIES: 1. DARBEPOETIN. 2. MORPHINE. PAST MEDICAL HISTORY: 1. Valvular heart disease as described above. 2. Sinus node dysfunction/complete heart block status post Medtronic Nate JOEL MRI compatible dual chamber pacemaker placement. 3. Preserved LV systolic function. 4. Hypertension. 5. Hypercholesterolemia. 6. Chronic kidney disease. 7. Type 2 DM. 8. Polymyalgia rheumatica. 9. GERD. 10. History of ischemic colitis. 11. Carotid artery stenosis. 12. Hearing loss. 13. History of cervical spondyloarthritic. 14. History of candidal intertrigo. 15. History of pancytopenia and anemia. 16. History of neurocognitive disorder. 17. Multinodular goiter. 18. History of renal cyst. 19. Sjogren's syndrome. SOCIAL HISTORY: The patient is . She is a lifelong nonsmoker. She does not drink alcohol. Physically inactive. FAMILY HISTORY: Significant for stroke in her mother. Brother with a history of atherosclerosis, hypertension and type 2 diabetes mellitus. PHYSICAL EXAMINATION: VITAL SIGNS: Temperature is 36.6 degrees celsius, pulse 90 and regular, respiratory rate is 14 unlabored, blood pressure 175/77, SPO2 is 91% on room air. I&Os minus 875 mL total. GENERAL: The patient is in no acute distress. She is lying comfortably in her hospital bed supine. HEAD, EYES, EARS, NOSE, AND THROAT: Head is atraumatic, normocephalic. EOMs intact. Sclera anicteric. Faces symmetric. No perioral cyanosis. Mucous membranes are moist. NECK: Without thyromegaly, adenopathy, or JVD. Carotid upstrokes are +2 bilaterally without obvious bruits. CHEST AND LUNGS: Clear to auscultation throughout all lung carter, no wheezes, rales, or rhonchi. CARDIOVASCULAR SYSTEM: S1 and S2 are regular with a grade 2/6 basal systolic murmur which radiates to the upper chest and left sternal border. No obvious diastolic murmurs or diastolic rumbles. No opening snap. PMI is nondisplaced. No lifts, heaves, or thrills. No abdominal, aortic or renal bruits. ABDOMINAL EXAMINATION: Bowel sounds are present. There is tenderness to palpation in the right lower quadrant and right upper quadrant. No guarding, rigidity or rebound tenderness. EXTREMITIES: Are without clubbing, cyanosis, or edema. Intact radial pulses bilaterally. Intact posterior tibial pulses bilaterally. NEUROLOGIC EXAMINATION: The patient is awake, alert and oriented. Answers questions appropriately. Speech is clear. Follows commands. Normal movement in bilateral upper and lower extremities. Gait pattern not assessed. EKG: Shows normal sinus rhythm with a left anterior fascicular block, left axis deviation, LVH with repolarization abnormality and a prolonged QT interval corrected at 497 milliseconds. No change compared to her initial EKG on admission. Chest x-ray shows no acute cardiopulmonary processes. Abdominal and pelvic CT scan shows bilateral non-obstructing renal calcifications, small bibasilar parenchymal infiltrates, and non-obstructing bowel pattern with normal appendix. HIDA scan shows a gallbladder EF of 0%. Updated echocardiogram is pending. LABORATORY DATA: White blood cell count is 5.40, hemoglobin 9.8 g/dL, hematocrit 28.8%, and platelet count 178,000. Sodium is 141 mmol/L, potassium 4.2 mmol/L, BUN 25 mg/dL, creatinine 1.40 mg/dL. Random glucose 168 mg/dL. LFTs are unremarkable. Total CK 21 units per liter with CK-MB of less than 0.5 ng/mL. Troponin I on admission was less than 0.015 ng/mL. ASSESSMENT: 1. Right upper and right lower quadrant discomfort, question underlying gallbladder disease. 2. Valvular heart disease including mild aortic stenosis, mild to moderate mitral stenosis (on echocardiogram 2012), preserved left ventricular systolic function. 3. Sinus node dysfunction/complete heart block status post dual chamber pacemaker. 4. Hypertension. 5. Dyslipidemia. 6. Chronic kidney disease. 7. Dyslipidemia. 8. Chronic kidney disease. 9. Type 2 diabetes mellitus. 10. Polymyalgia rheumatic. 11. Gastroesophageal reflux disease. 12. Carotid artery disease. 13. History of ischemic colitis. 14. Prolonged QT interval. 15. Diagnosis mentioned above. PLAN: 1. I will discuss with Dr. Fajardo. 2. Recommend echocardiogram to reevaluate LV systolic function, diastolic function and to reassess valvular abnormalities. 3. Will make further recommendations pending the outcome of the echocardiogram. 4. Continue amlodipine 5 mg b.i.d. including the morning of surgery with sips of water. 5. Continue lisinopril 5 mg daily. Hold the day of surgery as to avoid perioperative refractory hypotension. 6. Agree with ongoing IV hydralazine p.r.n. 7. Closely monitor daily I&Os, body weights. 8. Her device was last interrogated in October 2016. She is not dependent upon her device. Appropriate pacing and sensing characteristics. Threshold testing was performed and current device settings are appropriate. 9. We will continue to follow this patient while hospitalized. 10. Thank you for asking us to see this patient in consultation. JATINDER
[2017-01-13] MEDS ORDERED: PERFLUTREN LIPID MICROSPHERE (DEFINITY) IV ONE (10:29)
--- NOTE | 2017-01-13 10:30 | Surgery Progress Note ---
Surgery Progress Note Date of Service Jan 13, 2017. Subjective + feeling well Feeling well this morning. Continues to have pain in RUQ, especially with deep inspiration. Appears to also have some tenderness (though inconsistently endorsed) in left ribs. Did not eat much last night, pain did not increase with small amount of PO intake. Denies N/V. No new symptoms. Objective Vital Signs: Date Time Temp Pulse Resp B/P (MAP) Pulse Ox O2 Delivery O2 Flow Rate FiO2 01/13/17 08:00 Room Air 01/13/17 07:51 36.6 90 20 175/77 (109) 91 Room Air 01/13/17 00:14 36.7 89 18 160/70 (100) 91 Room Air 01/13/17 00:00 Room Air 01/12/17 20:00 Room Air 01/12/17 16:00 Room Air 01/12/17 15:30 36.6 70 18 166/79 (108) 90 Room Air General Appearance: WD/WN, no apparent distress, + thin Head: normocephalic, atraumatic Neck: supple Respiratory/Chest: lungs clear, normal breath sounds Cardiovascular: regular rate, rhythm (Pacemaker in place) Abdomen: normal bowel sounds, soft, + tenderness (to deep palpation in RUQ and upon deep inspiration) Laboratory Results: Results Past 24 Hours Test 01/12/17 11:35 01/12/17 16:55 01/12/17 20:13 01/13/17 05:22 Range/Units Bedside Glucose 140 136 156 70-90 mg/dl White Blood Count 5.40 4.8-10.8 K/uL Red Blood Count 3.27 4.2-5.4 M/uL Hemoglobin 9.8 12.0-16.0 g/dL Hematocrit 28.8 37-47 % Mean Corpuscular Volume 88.1 80-100 fL Mean Corpuscular Hemoglobin 30.0 25-34 pg Mean Corpuscular Hemoglobin Concent 34.0 32-36 g/dl RDW Standard Deviation 44.0 36.4-46.3 fL RDW Coefficient of Variation 13.7 11.5-14.5 % Platelet Count 178 130-400 K/uL Mean Platelet Volume 9.1 7.4-10.4 fL Sodium Level 141 136-145 mmol/L Potassium Level 4.2 3.5-5.1 mmol/L Chloride Level 111 98-107 mmol/L Carbon Dioxide Level 23 21-32 mmol/L Anion Gap 7.0 3-11 mmol/L Blood Urea Nitrogen 25 7-18 mg/dl Creatinine 1.40 0.60-1.20 mg/dl Est Creatinine Clear Calc Drug Dose 27.2 ml/min Estimated GFR () 39.1 Estimated GFR (Non- 33.7 BUN/Creatinine Ratio 17.6 10-20 Random Glucose 141 70-99 mg/dl Calcium Level 9.1 8.5-10.1 mg/dl Total Bilirubin 0.4 0.2-1 mg/dl Aspartate Amino Transf (AST/SGOT) 11 15-37 U/L Alanine Aminotransferase (ALT/SGPT) 15 12-78 U/L Alkaline Phosphatase 80 45-117 U/L Total Protein 6.0 6.4-8.2 gm/dl Albumin 2.8 3.4-5.0 gm/dl Globulin 3.2 2.5-4.0 gm/dl Albumin/Globulin Ratio 0.9 0.9-2 Test 01/13/17 07:44 Range/Units Bedside Glucose 168 70-90 mg/dl Assessment & Plan Nikki Thomas is a 86 year old woman who was admitted on 01/11/17 with right upper quadrant pain. CT scan and ultrasound did not show gallbladder abnormalities. She does not have leukocytosis or LFT abnormalities. Pain reported to increase after eating peanut butter on day of admission. HIDA scan with CCK administration showed EF of 0%. Discussed again at length with patient and her daughter at bedside. -Operation cancelled for today -Will get cardiology evaluation for optimization -Trial diet today - watch for RUQ symptoms with PO intake -NPO at midnight - if symptoms return with PO intake, will schedule for lap evonne tomorrow -Discussed the above with primary team -Will continue to follow
[2017-01-13] MEDS ORDERED: HydrALAZINE HCL 20 MG/ML VIAL IV. PRN (11:15)
--- NOTE | 2017-01-13 11:16 | ECHOCARDIOGRAM REPORT ---
*NOTICE TO RECEIVING DEMOCRAT AGENCY This information is strictly Confidential and protected under [place] law. [place] law prohibits you from making any further disclosure of this information unless further disclosure is expressly permitted by the written consent of the person to whom it pertains or is authorized by law. A general authorization for the release of medical or other information is not sufficient for this purpose. Hospital accepts no responsibility if the information is made available to any other person, INCLUDING THE PATIENT. Interpretation Summary * Name: TOMAS VARGAS Study Date: 01/13/2017 09:20 AM BP: 175/77 mmHg * Patient Location: .4E\S\E403\S\1 HR: 90 * : 1930 (M/d/yyy) Gender: Female Height: 63 in * Age: 86 yrs Ethnicity: CA Weight: 162 lb * Ordering Physician: Raghu Irwin * Performed By: Cara Fowler * * Reason For Study: MURMURS * BSA: 1.8 m2 * -- Conclusions -- * There is mild asymmetric left ventricular hypertrophy. * Left ventricular systolic function is normal. * Grade I diastolic dysfunction, (abnormal relaxation pattern). * The right ventricular systolic function is reduced as assessed by tricuspid annular plane systolic excursion (TAPSE) (TAPSE <1.6 cm). * Mild to moderate valvular aortic stenosis. * There is moderate mitral annular calcification. * There is moderate mitral stenosis. * Compared to a study from 2013 there has been slight progression in the degree of aortic and mitral stenosis. Procedure Details * A complete two-dimensional transthoracic echocardiogram was performed (2D, M-mode, Doppler and color flow Doppler). * The study was technically difficult. * There were technical limitations due to patient'sbody habitus * A contrast injection of Definity was performed to improve assessment of LV function. * Contrast was injected into an intravenous site in the left arm. * One vial of Definity ultrasound contrast was diluted in normal saline to a total volume of 10 ml. A total of '2' ml of solution was administered during imaging. * Lot # [id number] of Definity utilized for procedure. * Expiration date 01/30. * The attending nurse who injected the contrast agent was TRANG RASHAAD, RN. Left Ventricle * The left ventricle is grossly normal size. * There is mild asymmetric left ventricular hypertrophy. * Ejection Fraction = 55-60%. * Left ventricular systolic function is normal. * Grade I diastolic dysfunction, (abnormal relaxation pattern). Right Ventricle * The right ventricle is not well visualized. * The right ventricular systolic function is reduced as assessed by tricuspid annular plane systolic excursion (TAPSE) (TAPSE <1.6 cm). Atria * The left atrium is not well visualized. * Right atrium not well visualized. Mitral Valve * The mitral valve is grossly normal. * There is moderate mitral annular calcification. * There is moderate mitral stenosis. * Significant mitral regurgitation is absent. Tricuspid Valve * The tricuspid valve is not well visualized. * Significant tricuspid regurgitation is absent. Aortic Valve * The aortic valve is not well visualized. * Mild to moderate valvular aortic stenosis. * There is no significant aortic regurgitation. Pericardium/Pleural * There is no pericardial effusion. MMode 2D Measurements and Calculations IVSd 1.5 cm IVSs 1.9 cm LVIDd 3.2 cm LVIDs 2.2 cm LVPWd 1.0 cm LVPWs 1.5 cm IVS/LVPW 1.5 FS 31.5 % EDV(Teich) 40.2 ml ESV(Teich) 15.7 ml EF(Teich) 60.8 % EDV(cubed) 32.0 ml ESV(cubed) 10.3 ml EF(cubed) 67.9 % % IVS thick 21.0 % % LVPW thick 46.8 % LV mass(C)d 129.4 grams LV mass(C)dI 73.2 grams/m\S\2 LV mass(C)s 131.1 grams LV mass(C)sI 74.2 grams/m\S\2 CO(Teich) 2.0 l/min CI(Teich) 1.1 l/min/m\S\2 SV(Teich) 24.5 ml SI(Teich) 13.8 ml/m\S\2 CO(cubed) 1.8 l/min CI(cubed) 10 l/min/m\S\2 SV(cubed) 21.7 ml SI(cubed) 12.3 ml/m\S\2 ACS 0.74 cm asc Aorta Diam 2.4 cm LVOT diam 1.6 cm LVOT area 2.0 cm\S\2 LVAd ap4 25.4 cm\S\2 LVLd ap4 7.7 cm EDV(MOD-sp4) 68.9 ml LVAs ap4 15.9 cm\S\2 LVLs ap4 6.9 cm ESV(MOD-sp4) 29.8 ml EF(MOD-sp4) 56.7 % LVAd ap2 21.4 cm\S\2 LVLd ap2 6.7 cm EDV(MOD-sp2) 55.6 ml LVAs ap2 12.3 cm\S\2 LVLs ap2 5.5 cm ESV(MOD-sp2) 22.4 ml EF(MOD-sp2) 59.7 % CO(MOD-sp4) 3.2 l/min CI(MOD-sp4) 1.8 l/min/m\S\2 SV(MOD-sp4) 39.1 ml SI(MOD-sp4) 22.1 ml/m\S\2 CO(MOD-sp2) 2.7 l/min CI(MOD-sp2) 1.5 l/min/m\S\2 SV(MOD-sp2) 33.2 ml SI(MOD-sp2) 18.8 ml/m\S\2 Doppler Measurements and Calculations MV E max sharon 84.6 cm/sec MV A max sharon 209.7 cm/sec MV E/A 0.40 MV dec time 0.23 sec Ao V2 max 272.4 cm/sec Ao max PG 29.7 mmHg Ao max PG (full) 21.5 mmHg Ao V2 mean 179.4 cm/sec Ao mean PG 15.4 mmHg Ao V2 VTI 65.7 cm VALERIE(V,A) 1.0 cm\S\2 VALERIE(V,D) 1.0 cm\S\2 LV V1 max PG 8.2 mmHg LV V1 max 143.0 cm/sec PA V2 max 89.7 cm/sec PA max PG 3.2 mmHg
[2017-01-13 11:25] VITALS: BP 144/70; PULSE 86
[2017-01-13 14:55] VITALS: BP 166/73; PULSE 81; TEMP 36.5; O2SAT 95
--- NOTE | 2017-01-13 15:06 | Medical Student: [facility] ---
Med Student Progress Note Date of Service Jan 13, 2017. Subjective Pt evaluation today including: conversation w/ patient, conversation w/ family , physical exam, chart review, lab review, review of studies No acute events overnight. Patient reports she overall is feeling, "OK". Was somewhat confused when I saw her this morning. Was repetitively asking where her daughter was and what was going on with her in the hospital. She did not remember meeting with the surgeon the day prior or that she may be having surgery today. The patient was much calmer later this morning when I saw her again with her daughter present. Review of Systems Constitutional: No fever, No chills, No sweats ENT: No hearing loss, No nasal symptoms Respiratory: + cough, No sputum, No wheezing, No shortness of breath, No dyspnea on exertion, No dyspnea at rest Cardiac: No chest pain Abdomen: + pain, No nausea, No vomiting, No diarrhea, No constipation Neurologic: + memory loss Psychiatric: + anxiety All Other Systems: Reviewed and Negative Objective Vital Signs Date Time Temp Pulse Resp B/P (MAP) Pulse Ox O2 Delivery O2 Flow Rate FiO2 01/13/17 11:25 86 144/70 (94) 01/13/17 08:00 Room Air 01/13/17 07:51 36.6 90 20 175/77 (109) 91 Room Air 01/13/17 00:14 36.7 89 18 160/70 (100) 91 Room Air 01/13/17 00:00 Room Air 01/12/17 20:00 Room Air 01/12/17 16:00 Room Air 01/12/17 15:30 36.6 70 18 166/79 (108) 90 Room Air Physical Exam General Appearance: WD/WN, no apparent distress Eyes: bilateral eyes normal inspection, bilateral eyes PERRL, bilateral eyes EOMI ENT: normal ENT inspection Neck: supple, no adenopathy, thyroid normal, no carotid bruits, trachea midline Respiratory/Chest: chest non-tender, lungs clear, normal breath sounds, no respiratory distress, no accessory muscle use Cardiovascular: regular rate, rhythm, no edema, no gallop, no JVD, + systolic murmur (soft, 2/6 systolic murmur) Abdomen: normal bowel sounds, non tender, soft, no organomegaly Neurologic/Psychiatric: no motor/sensory deficits, alert, normal mood/affect Skin: normal color, no rash Lymphatic: no adenopathy Laboratory Results Last 24 Hours Test 01/12/17 16:55 01/12/17 20:13 01/13/17 05:22 01/13/17 07:44 Bedside Glucose 136 mg/dl 156 mg/dl 168 mg/dl White Blood Count 5.40 K/uL Red Blood Count 3.27 M/uL Hemoglobin 9.8 g/dL Hematocrit 28.8 % Mean Corpuscular Volume 88.1 fL Mean Corpuscular Hemoglobin 30.0 pg Mean Corpuscular Hemoglobin Concent 34.0 g/dl RDW Standard Deviation 44.0 fL RDW Coefficient of Variation 13.7 % Platelet Count 178 K/uL Mean Platelet Volume 9.1 fL Sodium Level 141 mmol/L Potassium Level 4.2 mmol/L Chloride Level 111 mmol/L Carbon Dioxide Level 23 mmol/L Anion Gap 7.0 mmol/L Blood Urea Nitrogen 25 mg/dl Creatinine 1.40 mg/dl Est Creatinine Clear Calc Drug Dose 27.2 ml/min Estimated GFR () 39.1 Estimated GFR (Non- 33.7 BUN/Creatinine Ratio 17.6 Random Glucose 141 mg/dl Calcium Level 9.1 mg/dl Total Bilirubin 0.4 mg/dl Aspartate Amino Transf (AST/SGOT) 11 U/L Alanine Aminotransferase (ALT/SGPT) 15 U/L Alkaline Phosphatase 80 U/L Total Protein 6.0 gm/dl Albumin 2.8 gm/dl Globulin 3.2 gm/dl Albumin/Globulin Ratio 0.9 Test 01/13/17 11:34 Bedside Glucose 195 mg/dl Assessment and Plan Assessment and Plan: Assessment and Plan: Assessment This is a 86 year old woman with a PMH of ischemic colitis who presents with post-prandial upper abdominal pain in the setting of an abnormal HIDA scan study. Plan Abdominal pain -Patient's pain has drastically decreased and is now more focused around her ribs ribs and somewhat in RUQ of abdomen. -Ultrasound and abdominal CT were negative -HIDA scan shows 0% emptying of gallbladder. -Initially planned for lap evonne today, however daughter now wants to give a trial of PO food intake to see if pain returns. -Plan for lap evonne tomorrow if pain returns with food intake and keep NPO at midnight. -Appreciate cardiology recommendations on meds and echo. -Continue tylenol PRN for pain. DM2 -Continue sliding scale insulin with blood glucose checks q6h -Resume home meds Depression -Continue lexapro at home dose HTN -Continue amlodipine and lisinopril Anemia -Appears to be a chronic issue upon reviewing previous labs. Stable at this time. DVT prophylaxis -5000 units of heparin subQ q8h Continued [facility] stay due to: inadequate po fluid intake, inadequate oral pain control Discharge planning: uncertain
[2017-01-13] MEDS: ESCITALOPRAM OXALATE 10 MG TAB PO SCH (20:32)
[2017-01-13] MEDS: RANITIDINE HCL 150 MG TAB PO SCH (20:33)
[2017-01-13] MEDS: LISINOPRIL 20 MG TAB PO SCH (20:33)
[2017-01-13 20:34] VITALS: BP 159/71; PULSE 81
[2017-01-13 23:30] VITALS: BP 149/78; PULSE 82; TEMP 36.8; O2SAT 92
[2017-01-14] MEDS: INSULIN DETEMIR FLEXPEN/FLEX TOUCH 100 UNITS/ML 3ML SC SCH (07:45)
[2017-01-14] MEDS: INSULIN ASPART 100 UNITS/ML 3 ML PEN SQ SCH ×2 (08:00→12:34)
[2017-01-14 08:03] VITALS: BP 162/61; PULSE 76; TEMP 36.9; O2SAT 95
[2017-01-14 08:08] LABS: MEAN CELL VOLUME 88.1 fL (80-100); MEAN CORPUSCULAR HEMOGLOBIN 30.8 pg (25-34); MEAN PLATELET VOLUME 9.4 fL (7.4-10.4); PLATELET COUNT 167 K/uL (130-400); RED BLOOD COUNT 3.18 M/uL (4.2-5.4)
[2017-01-14 08:46] LABS: CREATININE 1.4 mg/dl (0.60-1.20)
[2017-01-14 08:49] LABS: ALB/GLOB RATIO 0.8 (0.9-2)
[2017-01-14] MEDS: LIDODERM (LIDOCAINE) PATCH 5% TD SCH (08:58)
[2017-01-14] MEDS: PANTOprazole SOD 40 MG TAB PO SCH (08:58)
[2017-01-14] MEDS: AMLODIPINE BESYLATE 5 MG TAB PO SCH (08:58)
[2017-01-14] MEDS ORDERED: NURSING VERBAL MED ORDER ONE (10:15)
[2017-01-14 14:22] VITALS: BP 146/87; PULSE 70; O2SAT 94
--- NOTE | 2017-01-14 14:59 | Surgery Progress Note ---
Surgery Progress Note Date of Service Jan 14, 2017. Subjective Post OP Day: HD # 3 + feeling well, + pain controlled, + diet (tolerated dinner last night, cannot remember what she had to eat but it tasted good and enjoyed it), No complaints, No chest pain, No SOB, No bowel movement, No flatus, No nausea, No vomiting Objective Vital Signs: Date Time Temp Pulse Resp B/P (MAP) Pulse Ox O2 Delivery O2 Flow Rate FiO2 01/14/17 14:22 70 94 01/14/17 08:20 Room Air 01/14/17 08:03 36.9 76 20 162/61 (94) 95 Room Air 01/14/17 00:00 Room Air 01/13/17 23:30 36.8 82 18 149/78 (101) 92 Room Air 01/13/17 20:34 81 159/71 (100) 01/13/17 20:00 Room Air 01/13/17 16:00 Room Air 01/13/17 14:55 36.5 81 20 166/73 (104) 95 Room Air General Appearance: WD/WN, no apparent distress Head: normocephalic, atraumatic Neck: trachea midline Respiratory/Chest: no respiratory distress, no accessory muscle use Cardiovascular: regular rate, rhythm, no murmur Abdomen: non distended, soft, + tenderness (Right mid abdomen to flank region, reproducible at times other times not, no rigidity , guarding, or peritonitis) Laboratory Results: Results Past 24 Hours Test 01/13/17 16:23 01/13/17 20:34 01/14/17 07:00 01/14/17 07:58 Range/Units Bedside Glucose 99 192 164 70-90 mg/dl White Blood Count 5.70 4.8-10.8 K/uL Red Blood Count 3.18 4.2-5.4 M/uL Hemoglobin 9.8 12.0-16.0 g/dL Hematocrit 28.0 37-47 % Mean Corpuscular Volume 88.1 80-100 fL Mean Corpuscular Hemoglobin 30.8 25-34 pg Mean Corpuscular Hemoglobin Concent 35.0 32-36 g/dl RDW Standard Deviation 44.7 36.4-46.3 fL RDW Coefficient of Variation 13.9 11.5-14.5 % Platelet Count 167 130-400 K/uL Mean Platelet Volume 9.4 7.4-10.4 fL Sodium Level 142 136-145 mmol/L Potassium Level 4.0 3.5-5.1 mmol/L Chloride Level 113 98-107 mmol/L Carbon Dioxide Level 21 21-32 mmol/L Anion Gap 8.0 3-11 mmol/L Blood Urea Nitrogen 25 7-18 mg/dl Creatinine 1.40 0.60-1.20 mg/dl Est Creatinine Clear Calc Drug Dose 27.2 ml/min Estimated GFR () 39.1 Estimated GFR (Non- 33.7 BUN/Creatinine Ratio 18.0 10-20 Random Glucose 150 70-99 mg/dl Calcium Level 9.0 8.5-10.1 mg/dl Total Bilirubin 0.4 0.2-1 mg/dl Aspartate Amino Transf (AST/SGOT) 15 15-37 U/L Alanine Aminotransferase (ALT/SGPT) 15 12-78 U/L Alkaline Phosphatase 78 45-117 U/L Total Protein 6.1 6.4-8.2 gm/dl Albumin 2.8 3.4-5.0 gm/dl Globulin 3.3 2.5-4.0 gm/dl Albumin/Globulin Ratio 0.8 0.9-2 Test 01/14/17 11:26 Range/Units Bedside Glucose 156 70-90 mg/dl Assessment & Plan RUQ/Right Flank Pain -vitals stable - no leukocytosis - cmp showing normal LFTS and total bilirubin Biliary Dyskinesia?? -HIDA scan showing EF of 0% - sometimes reproducible RUQ to right flank pain other times not on examination Plan: Patient feeling better today. Tolerated dinner last evening with no reproduction of her abdominal pain. There is no indication for emergent cholecystectomy at this time and patients daughter is not present today. Will start diet. Dr. Mendez to speak with patient's daughter in regards to plan for either inpatient cholecystectomy or elective cholecystectomy Continue current medical management Dr. Mendez has seen and examined patient, agrees with above.
[2017-01-14 15:11] VITALS: BP 143/67; PULSE 72; TEMP 36.7; O2SAT 93
[2017-01-14 16:48] VITALS: BP 143/67; PULSE 72; TEMP 36.7; O2SAT 93
--- NOTE | 2017-01-14 16:48 | Discharge Instructions ---
Discharge Instructions Date of Service Jan 14, 2017. Admission Reason for Admission: Intractable Abd Pain, Rt Upper Quad Abd Pain Discharge Discharge Diagnosis / Problem: Biliary Colic Discharge Goals Goal(s): Decrease discomfort, Improve function Activity Recommendations Activity Limitations: resume your previous activity . Instructions / Follow-Up Instructions / Follow-Up You came to the ED for right upper quadrant abdominal pain. An ultrasound and CT scan were negative for gallbladder inflammation. However a HIDA study showed that you gallbladder does not contract effectively. It is possible that the source of your pain was your gallbladder but based on the timing and inconsistent pattern with eating, the picture is still unclear. Our surgical team followed you throughout your hospital course and agree. We opted initially to attempt conservative measures and watch for recurrence of abdominal pain on a diet. Fortunately, you tolerated your food well and we decided that you may do well without surgery at this time and simply being observed at home. As such you can be discharged back home. When you go home please do the following: - Please start eating soups and then move to lower bulk foods (bananas, rice, apple, sauce, toast) and advance your diet if you have no pain - Take 1 dose of Miralax today to help with having a bowel movement and preventing constipation - Continue all your current medications. If your symptoms fail to improve, acutely worsen, please seek medical attention immediately by either calling your primary care provider or going to your nearest emergency department. Otherwise, please see your primary care provider in 3-5 days to ensure that your symptoms continue to improve. It was a pleasure to be involved in your care and we wish you all the best. Current Hospital Diet Patient's current hospital diet: Diabetes Type 2 Diet Discharge Diet Recommended Diet: Low Sodium Diet (2gm Na) (low fat, high fibre) Procedures Procedures Performed: Echocardiogram Interpretation Summary Name: TOMAS VARGAS Study Date: 01/13/2017 09:20 AM BP: 175/77 mmHg Patient Location: C.4E\\S\\E403\\S\\1 HR: 90 : 1930 (M/d/yyyy) Gender: Female Height: 63 in Age: 86 yrs Ethnicity: [place] Weight: 162 lb Ordering Physician: Raghu Irwin PA Performed By: Cara Fowler Reason For Study: MURMURS BSA: 1.8 m2 -- Conclusions -- There is mild asymmetric left ventricular hypertrophy. Left ventricular systolic function is normal. Grade I diastolic dysfunction, (abnormal relaxation pattern). The right ventricular systolic function is reduced as assessed by tricuspid annular plane systolic excursion (TAPSE) (TAPSE <1.6 cm). Mild to moderate valvular aortic stenosis. There is moderate mitral annular calcification. There is moderate mitral stenosis. Compared to a study from 2013 there has been slight progression in the degree of aortic and Pending Studies Studies pending at discharge: no Medical Emergencies . Who to Call and When: Medical Emergencies: If at any time you feel your situation is an emergency, please call 911 immediately. . Non-Emergent Contact Non-Emergency issues call your: Primary Care Provider Call Non-Emergent contact if: you have a fever, your pain is worsening, your pain is unusual for you, your pain is concerning you . . "Provider Documentation" section prepared by Bryan Ty. . VTE Core Measure Inpt VTE Proph given/why not?: Unfractionated heparin SQ, SCD's
--- NOTE | 2017-01-14 17:16 | Discharge Summary ---
Discharge Summary Date of Service Jan 14, 2017. (Bryan Ty MD) Discharge Summary Admission Date: Jan 11, 2017 at 21:52 Discharge Date: Jan 14, 2017 Discharge Disposition: Home Principal Diagnosis: RUQ Pain, Biliary Akinesia Immunizations: Have You Had Influenza Vaccine: Yes History of Tetanus Vaccine?: Unknown History of Pneumococcal: Yes History of Hepatitis B Vaccine: Unknown Procedures: HISTORY: Pain. Nausea. rug abd pain after eating COMPARISON: None. TECHNIQUE: Immediately following the intravenous administration of 5.2 mCi Tc-99m Choletec, dynamic anterior abdominal imaging pre/post 1.5 mcg of Kinevac was performed. FINDINGS: Uniform hepatic tracer accumulation is shown. Prompt intrahepatic biliary excretion is seen. The gallbladder, common bile duct, and small bowel are all visualized by 50 minutes. This appearance represents the normal sequence of biliary excretion. The gallbladder ejection fraction following administration of Kinevac was 0 % (normal >35%). IMPRESSION: 1. 1. Delayed imaging of the gallbladder 2. Gallbladder ejection fraction calculated to be 0 %. 3. This appearance suggests chronic a calculus cholecystitis, with no significant ejection fraction. [~ rep ct add3]] ABD/PELVIS NO IV OR ORAL CONT CT DOSE: 473.78 mGy.cm HISTORY: Pain right sided pain TECHNIQUE: Multiaxial CT images of the abdomen and pelvis were performed without contrast. A dose lowering technique was utilized adhering to the principles of ALARA. COMPARISON STUDY: 11/24/2016 FINDINGS: Bibasilar infiltrative change. Configuration of liver is unremarkable. Bilateral renal calcifications are present. No evidence for an obstructing urinary tract calculus. Atherosclerotic change abdominal and pelvic vasculature. Normal appendix. Nonobstructive bowel pattern. Bladder is midline. No free fluid within the pelvic cul-de-sac. IMPRESSION: 1. Small bibasilar parenchymal infiltrates. 2. Bilateral nonobstructing renal calcifications unchanged from the prior study. 3. Nonobstructing bowel pattern with a normal appendix. GALLBLADDER-ABD LIMITED CLINICAL HISTORY: ABDOMINAL PAIN/GI nausea TECHNIQUE: Ultrasound COMPARISON STUDY: None FINDINGS: Pancreas not well seen due to overlying bowel content. Mild fatty infiltration of liver. Normal gallbladder. No bile duct 3 mm. No evidence for renal hydronephrosis. IMPRESSION: No acute process. Mild fatty infiltration of liver. Interpretation Summary * Name: TOMAS VARGAS Study Date: 01/13/2017 09:20 AM BP: 175/77 mmHg * Patient Location: C.4E\S\E403\S\1 HR: 90 * : 1930 (M/d/yyyy) Gender: Female Height: 63 in * Age: 86 yrs Ethnicity: [place] Weight: 162 lb * Ordering Physician: Raghu Irwin * Performed By: Cara Fowler * * Reason For Study: MURMURS * BSA: 1.8 m2 * -- Conclusions -- * There is mild asymmetric left ventricular hypertrophy. * Left ventricular systolic function is normal. * Grade I diastolic dysfunction, (abnormal relaxation pattern). * The right ventricular systolic function is reduced as assessed by tricuspid annular plane systolic excursion (TAPSE) (TAPSE <1.6 cm). * Mild to moderate valvular aortic stenosis. * There is moderate mitral annular calcification. * There is moderate mitral stenosis. * Compared to a study from 2013 there has been slight progression in the degree of aortic and mitral stenosis. Consultations: General Surgery (Bryan Ty MD) Medication Reconciliation Continued Medications: Amlodipine (Norvasc) 5 Mg Tab 5 MG PO BID Aspirin (Aspirin Ec) 81 Mg Tab 81 MG PO Q2D Cholecalciferol (Vitamin D3) 1,000 Unit Cap 1000 INTER.UNIT PO QAM Cyanocobalamin (Vitamin B-12) 1,000 Mcg Tab 1000 MCG PO DAILY Escitalopram (Lexapro) 10 Mg Tab 5 MG PO HS Fish Oil (Encampment-3) 1 Ea Cap 1200 MG PO DAILY Insulin Detemir (Levemir Flextouch) 100 Unit/Ml Inj 6 UNITS SC QAM Insulin Lispro (Human) (Humalog Kwikpen) 100 Unit/Ml Inj 1 DOSE SQ UD SLIDING SCALE FOR HUMALOG FOLLOWS: LESS THAN 180 O UNITS 181-200 3 UNITS 201-250 6 UNITS 251-300 12 UNITS 301-350 14 UNITS 351-400 18 UNITS Lidocaine (Lidoderm Patch 5%) 1 Ea Tdsy 1 PATCH TOP ONAMOFFPM APPLY IN MORNING, REMOVE AT NIGHT. (ON 12 HOURS-OFF 12 HOURS). Lisinopril (Zestril) 20 Mg Tab 20 MG PO QPM Magnesium Hydroxide (Milk Of Magnesia) 30 Ml Susp 30 ML PO DAILY PRN for Constipation Omeprazole (Prilosec) 40 Mg Cap 40 MG PO QAM Polyethylene Glycol 3350 (Miralax) 1 Pow Pow 8.5 GM PO DAILY Ranitidine Hcl (Ranitidine Hcl) 75 Mg Tab 75 MG PO HS Simethicone (Gas-X) 80 Mg Chw 80 MG PO UD PRN for Gas or Constipation TAKE PER PACKAGE DIRECTIONS Discharge Exam 10 point review of systems was negative unless stated in the hospital course (Bryan Ty MD) Review of Systems: Constitutional: No fever Respiratory: No shortness of breath Cardiovascular: + problem reported (mild lower abdomen discomfort not related to eating), No chest pain Physical Exam: General Appearance: no apparent distress Respiratory/Chest: lungs clear, no respiratory distress Cardiovascular: regular rate, rhythm Abdomen / GI: normal bowel sounds, non tender, soft Neurologic/Psychiatric: alert, oriented x 3 Skin: warm/dry (Glory Madison M.D.) Hospital Course 86 year old female with history of ischemic colitis, presenting with intermittent post-prandial RUQ pain x 2 days. She is also known to have had ischemic colitis in August 2016, treated supportively. Her hospital course was as follows: RUQ pain sec to ? biliary dyskinesia - US and CT negative - HIDA showing GB EF 0%; LFTs normal - Surgery consulted; picture somewhat unclear given timing of pain and at time inconsistent location of reported pain (occasionally points to RUQ, other times points to ribs) - Observed with feeding; had 48 hours where PO diet was tolerated - Decision made with family to withhold surgery at this time, to return home and observe for recurrence of symptoms with slowing advancing diet - Recommended patient advance diet slowly after going home: start soup --> BRAT diet --> advance to bulkier foods as tolerated Instructed to take dose of Miralax to help with BM and eat high fluid and high fibre diet Recommended Tylenol PRN for pain Acute Kidney Injury - Likely 2/2 dehydration from vomiting prior to hospital arrival - Increased to 1.7 at admission - Improved to baseline after IV rehydration and improved PO intake Type 2 Diabetes Mellitus - Insulin sliding scale; BSG within range during hospitalization Hypertension - Continued Lisinopril and Amlodipine Depression - Continued Lexapro History of PMR - Occasional complaints of mild bilateral chest wall tenderness. Considered possibility of PMR but preferred to avoid steroids as pain seemed to be improving on its own Disposition Safe to Return home per PT assessment Total Time Spent: Less than 30 minutes This includes examination of the patient, discharge planning, medication reconciliation, and communication with other providers. (Bryan Ty MD) Resident Physician Supervision Note: I was present with Dr. Ty in bedside. I verified the coleman history and physical, reviewed labs and image studies, discussed the case with the resident and agree with the findings and care plan. Total Time Spent: Greater than 30 minutes (35) (Glory Madison M.D.) Discharge Instructions Please refer to the electronic Patient Visit Report (Discharge Instructions) for additional information. (Bryan Ty MD) Additional Copies To Saúl Bright M.D.
[2017-02-06] MEDS ORDERED: CYAN10005 PO (07:20)
== END 2017-01-14 17:23 | disposition home or self-care (01) | DRG 445 ==
LOC: EDBD 15:06 → C.EDA 15:07 → C.4E 21:52 → ENRESERV 22:14
PROVIDERS: ADMIT Hospitalist; ATTEND Family Medicine
DX: K82.8 Other specified diseases of gallbladder (principal); N17.9 Acute kidney failure, unspecified; E86.0 Dehydration; I08.0 Rheumatic disorders of both mitral and aortic valves; R07.89 Other chest pain; E11.9 Type 2 diabetes mellitus without complications; I10 Essential (primary) hypertension; E78.5 Hyperlipidemia, unspecified; F32.9 Major depressive disorder, single episode, unspecified; Z51.81 Encounter for therapeutic drug level monitoring; Z79.899 Other long term (current) drug therapy; Z79.4 Long term (current) use of insulin; Z79.82 Long term (current) use of aspirin; Z66 Do not resuscitate; Z87.39 Personal history of other diseases of the musculoskeletal system and connective tissue; Z87.19 Personal history of other diseases of the digestive system; Z95.0 Presence of cardiac pacemaker

== ENCOUNTER 2017-02-06 09:29 | Observation (INO) | payer OTHER ==
[~2017-02-06] VITALS: Ht 167.6 cm; Wt 73.6 kg
[~2017-02-06 09:29] MED LIST changes: +CYAN10005 PO; -DIPH-437 PO; +ESCI10TA17 PO
[2017-02-06] MEDS ORDERED: METOCLOPRAMIDE HCL INJ 5 MG/ML 2 ML VIAL IV STA (09:35)
[2017-02-06] MEDS ORDERED: SODIUM CHLORIDE 0.9% 500ML 500 ML IV STA (09:35)
[2017-02-06] MEDS ORDERED: LORA-741 PO (09:37)
[2017-02-06] MEDS ORDERED: OPTIRAY 320 IV PRN (09:45)
--- NOTE | 2017-02-06 09:51 | EMERGENCY ROOM VISIT NOTE ---
History Report prepared by Bill: Mimi Callahan Under the Supervision of: Dr. Wei Aceves M.D. First contact with patient: 09:29 Chief Complaint: VOMITING Stated Complaint: ILLNESS History of Present Illness The patient is a 86 year old female who presents to the Emergency Room with complaints of intermittent vomiting since last night. She started feeling unwell last evening and has been vomiting green and yellow bile into this morning. She has been complaining of diffuse lower abdominal pain. The patient denies any diarrhea or recent antibiotic use. She was brought to the ED by ambulance. Source of History: patient, EMS Onset: last night Position: abdomen Quality: other (vomiting) Timing: intermittent Associated Symptoms: + abdominal pain, No diarrhea Review of Systems See HPI for pertinent positives & negatives. A total of 10 systems reviewed and were otherwise negative. 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 Social History Smoking Status: Never Smoker Alcohol Use: none Drug Use: none Marital Status: Housing Status: lives alone Occupation Status: unemployed Current/Historical Medications Scheduled Amlodipine (Norvasc), 5 MG PO BID Aspirin (Aspirin Ec), 81 MG PO Q2D Cholecalciferol (Vitamin D3), 2,000 INTER.UNIT PO QAM Cyanocobalamin (Vitamin B-12), 1,000 MCG PO DAILY Fish Oil ([place]-3), 1,200 MG PO DAILY Insulin Detemir (Levemir Flextouch), 6 UNITS SC QAM Insulin Lispro (Human) (Humalog Kwikpen), 1 DOSE SQ UD Lidocaine (Lidoderm Patch 5%), 1 PATCH TOP ONAMOFFPM Lisinopril (Zestril), 20 MG PO QPM Polyethylene Glycol 3350 (Miralax), 17 GM PO DAILY Ranitidine Hcl (Ranitidine Hcl), 75 MG PO HS Scheduled PRN Lorazepam (Ativan), 0.5 MG PO Q8 PRN for Anxiety Magnesium Hydroxide (Milk Of Magnesia), 30 ML PO DAILY PRN for Constipation Simethicone (Gas-X), 80 MG PO UD PRN for Gas or Constipation Allergies Coded Allergies: Morphine (Verified Allergy, Mild, shortness of breath with panic attack, 09/01/16) Darbepoetin Randall (Verified Allergy, Unknown, "RED ITCHY BLOTCHES ON SKIN" , 09/01/16) Physical Exam Vital Signs Date Time Temp Pulse Resp B/P (MAP) Pulse Ox O2 Delivery O2 Flow Rate FiO2 02/06/17 13:15 72 02/06/17 13:04 72 16 175/72 95 Room Air 02/06/17 11:49 Room Air 02/06/17 10:45 79 16 155/58 97 Room Air 02/06/17 09:53 79 02/06/17 09:40 96 Room Air 02/06/17 09:36 36.6 84 22 149/81 98 Room Air Physical Exam GENERAL: Patient is a healthy-appearing well-nourished elderly female. HEAD: Normocephalic atraumatic EYES: Ocular movements intact pupils equal and react to light OROPHARYNX mucous membranes are moist no exudates present no erythema or edema present NECK: Supple no nuchal rigidity CHEST: Good equal expansion LUNGS: Clear and equal to auscultation CARDIAC: Normal S1 and S2 ABDOMEN: Soft, diffusely tender throughout the abdomen, no guarding BACK: No CVA tenderness EXTREMITIES: No pain upon palpation normal muscle strength in all groups no clubbing cyanosis or edema NEURO: Patient is following commands and answering questions appropriately. Alert and oriented x3 Cranial Nerves 2-12 grossly intact Medical Decision & Procedures ER Provider Diagnostic Interpretation: Radiology results as stated below per my review and radiologist interpretation: CHEST ONE VIEW PORTABLE CLINICAL HISTORY: Chest pain and. COMPARISON STUDY: Chest radiograph November 24, 2016. FINDINGS: A dual lead left subclavian pacemaker is unchanged in position. Cardiomediastinal silhouette is normal. There is no evidence of pulmonary edema. No pneumothorax or pleural effusion is present. No consolidation is identified. The appearance of the chest is unchanged. IMPRESSION: No acute cardiopulmonary findings. Electronically signed by: Javan Camargo M.D. 02/06/2017 10:22 AM Dictated Date/Time: 02/06/2017 10:20 AM ABDOMEN AND PELVIS CT WITH IV CONTRAST CT DOSE: 824.73 mGycm HISTORY: Pt c/o diffuse abdominal pain TECHNIQUE: Multiaxial CT images of the abdomen and pelvis were performed following the use of intravenous contrast. A dose lowering technique was utilized adhering to the principles of ALARA. COMPARISON STUDY: Abdomen and pelvis CT 01/11/2017. FINDINGS: Bibasilar linear densities consistent with subsegmental atelectasis. No suspicious lytic or blastic osseous lesions. Pacemaker wires are noted. The liver, spleen, pancreas, adrenal glands, and gallbladder are unremarkable. Bilateral nephrolithiasis is again noted. Dominant stone within the lower pole the right kidney measures 1.2 cm. Extensive calcified plaque within the abdominal aorta and mesenteric vessels. This results in approximately 80% focal stenosis at the aortic bifurcation. Mild bladder wall thickening. No ureteral stones. No hydronephrosis. Hysterectomy. No bowel wall thickening or obstruction. Normal appendix. IMPRESSION: 1. Bilateral nephrolithiasis. No ureteral stones. No hydronephrosis. 2. No bowel wall thickening or obstruction. 3. Normal appendix. 4. Extensive calcified plaque within the aorta and iliac arteries. There is focal stenosis of approximately 80% at the aortic bifurcation. Electronically signed by: Cole Sheffield M.D. 02/06/2017 10:31 AM Dictated Date/Time: 02/06/2017 10:20 AM Laboratory Results 02/06/17 09:40 Red Blood Count 3.68, Mean Corpuscular Volume 89.4, Mean Corpuscular Hemoglobin 29.6, Mean Corpuscular Hemoglobin Concent 33.1, Mean Platelet Volume 9.4, Neutrophils (%) (Auto) 79.6, Lymphocytes (%) (Auto) 15.0, Monocytes (%) (Auto) 4.5, Eosinophils (%) (Auto) 0.3, Basophils (%) (Auto) 0.3, Neutrophils # (Auto) 7.18, Lymphocytes # (Auto) 1.35, Monocytes # (Auto) 0.41, Eosinophils # (Auto) 0.03, Basophils # (Auto) 0.03 02/06/17 09:40 Test 02/06/17 09:40 02/06/17 09:48 02/06/17 12:11 White Blood Count 9.03 K/uL (4.8-10.8) Red Blood Count 3.68 M/uL (4.2-5.4) Hemoglobin 10.9 g/dL (12.0-16.0) Hematocrit 32.9 % (37-47) Mean Corpuscular Volume 89.4 fL (80-100) Mean Corpuscular Hemoglobin 29.6 pg (25-34) Mean Corpuscular Hemoglobin Concent 33.1 g/dl (32-36) Platelet Count 180 K/uL (130-400) Mean Platelet Volume 9.4 fL (7.4-10.4) Neutrophils (%) (Auto) 79.6 % Lymphocytes (%) (Auto) 15.0 % Monocytes (%) (Auto) 4.5 % Eosinophils (%) (Auto) 0.3 % Basophils (%) (Auto) 0.3 % Neutrophils # (Auto) 7.18 K/uL (1.4-6.5) Lymphocytes # (Auto) 1.35 K/uL (1.2-3.4) Monocytes # (Auto) 0.41 K/uL (0.11-0.59) Eosinophils # (Auto) 0.03 K/uL (0-0.5) Basophils # (Auto) 0.03 K/uL (0-0.2) RDW Standard Deviation 44.4 fL (36.4-46.3) RDW Coefficient of Variation 13.5 % (11.5-14.5) Immature Granulocyte % (Auto) 0.3 % Immature Granulocyte # (Auto) 0.03 K/uL (0.00-0.02) Est Creatinine Clear Calc Drug Dose 28.9 ml/min Estimated GFR () 39.1 Estimated GFR (Non- 33.7 BUN/Creatinine Ratio 16.4 (10-20) Calcium Level 9.2 mg/dl (8.5-10.1) Total Bilirubin 0.7 mg/dl (0.2-1) Direct Bilirubin 0.1 mg/dl (0-0.2) Aspartate Amino Transf (AST/SGOT) 11 U/L (15-37) Alanine Aminotransferase (ALT/SGPT) 16 U/L (12-78) Alkaline Phosphatase 91 U/L (45-117) Total Creatine Kinase 20 U/L (26-192) Creatine Kinase MB < 0.5 ng/ml (0.5-3.6) Creatine Kinase MB Ratio (0-3.0) Troponin I 0.018 ng/ml (0-0.045) Total Protein 7.0 gm/dl (6.4-8.2) Albumin 3.3 gm/dl (3.4-5.0) Lipase 85 U/L (73-393) Bedside Hemoglobin 10.2 g/dl (12.0-16.0) Bedside Hematocrit 30 % (37-47) Bedside Sodium 140 mEq/L (135-144) Bedside Potassium 4.0 mEq/L (3.3-5.0) Bedside Chloride 102 mEq/L (101-112) Bedside Total CO2 22 mEq/l (24-31) Anion Gap 20.0 mmol/L (16-25) Bedside Blood Urea Nitrogen 25 mg/dl (7-18) Bedside Creatinine 1.4 mg/dl (0.6-1.3) Bedside Glucose (other) 167 mg/dl (70-99) Bedside Ionized Calcium (Sarah) 1.24 mmol/l (1.12-1.32) Bedside Lactic Acid Venous 0.80 mmol/L (0.90-1.70) Labs reviewed by ED physician. Medications Administered Medications (Trade) Dose Ordered Sig/Luis Route Start Time Stop Time Status Last Admin Dose Admin Sodium Chloride 500 ml @ 999 mls/hr Q31M STAT IV 02/06/17 09:35 02/06/17 10:05 DC 02/06/17 09:54 999 MLS/HR Metoclopramide HCl (Reglan Inj) 10 mg NOW STAT IV 02/06/17 09:35 02/06/17 09:37 DC 02/06/17 09:53 10 MG ECG Indication: vomiting Rate (beats per minute): 77 Rhythm: normal sinus Findings: 1st degree AV block, no acute ischemic change, prolonged QT, no ectopy ED Course 0929: Past medical records reviewed. The patient was evaluated in room C3. A complete history and physical examination was performed. 0935: Reglan 10 mg IV, NSS 500 ml @ 999 mls/hr IV 1057: I spoke with Dr. Draper. We discussed the patients case. The patient will be evaluated by the [facility] for further management. 1103: I discussed the case with Dr. Mendez of general surgery. 1105: I reassessed the patient at this time. She is resting comfortably. I discussed the results and treatment plan with the patient. I answered all pertaining questions that she had. She expressed understanding and verbalized agreement. Medical Decision Differential diagnosis: Etiologies such as gastroenteritis, food borne illness, infections, appendicitis , diverticulitis, inflammatory bowel disease, obstruction, GI bleed, biliary pathology, as well as others were entertained. This is an 86-year-old female who presents emergency department complaining of generalized abdominal pain. Upon arrival to the emergency department the patient is exquisitely tender on examination. The patient has a known chronic mesenteric ischemia as well as known chronic acalculous cholecystitis. She has a normal CBC normal renal profile normal liver profile normal lipase. The patient was given normal saline bolus as well as Reglan. Repeat examination revealed improvement patient's symptoms. I did discuss the case with surgery who asked that the patient be admitted to the hospital. I also discussed the case with the hospitalist service who agreed to admit the patient. Medication Reconcilliation Current Medication List: was personally reviewed by me Blood Pressure Screening Patient's blood pressure: Elevated blood pressure Blood pressure disposition: Referred to PCP Consults Time Called: 1055 Consulting Physician: Dr. Draper Returned Call: [address] Draper. We discussed the patients case. The patient will be evaluated by the [facility] for further management. Additional Consults: Time Called: 1101 Consulted Physician: Dr. Mendez Returned Call: 1103 Additional Comments: I discussed the case with Dr. Mendez of general surgery. Impression Primary Impression: Generalized abdominal pain Scribe Attestation The scribe's documentation has been prepared under my direction and personally reviewed by me in its entirety. I confirm that the note above accurately reflects all work, treatment, procedures, and medical decision making performed by me. Departure Information Dispostion Being Evaluated By Hospitalist Referrals Saúl Bright M.D. (PCP) Patient Instructions My [facility]
[2017-02-06 09:53] LABS: BASO % 0.3 %; BASO ABS # 0.03 K/uL (0-0.2); COMPLETE YES; EOS % 0.3 %; HEMATOCRIT 32.9 % (37-47); IG% 0.3 %; LYMPH ABS # 1.35 K/uL (1.2-3.4); MEAN CELL VOLUME 89.4 fL (80-100); MEAN CORPUSCULAR HEMOGLOBIN 29.6 pg (25-34); MEAN CORPUSCULAR HGB CONC 33.1 g/dl (32-36); MEAN PLATELET VOLUME 9.4 fL (7.4-10.4); MONO % 4.5 %; NEUT % 79.6 %; PLATELET COUNT 180 K/uL (130-400); RED BLOOD COUNT 3.68 M/uL (4.2-5.4); WHITE BLOOD COUNT 9.03 K/uL (4.8-10.8)
[2017-02-06 09:58] LABS: ISTAT CREATININE 1.4 mg/dl (0.6-1.3); ISTAT HEMOGLOBIN 10.2 g/dl (12.0-16.0); ISTAT IONIZED CALCIUM 1.24 mmol/l (1.12-1.32)
[2017-02-06] MEDS ORDERED: INSU3INJ3 SC (10:09)
[2017-02-06 10:14] LABS: AST/SGOT 11 U/L (15-37); BLOOD UREA NITROGEN 23 mg/dl (7-18); BUN/CREATININE RATIO 16.4 (10-20); CALCIUM 9.2 mg/dl (8.5-10.1); CARBON DIOXIDE 24 mmol/L (21-32); CHLORIDE 106 mmol/L (98-107); GLUCOSE 164 mg/dl (70-99); SODIUM 139 mmol/L (136-145)
[2017-02-06 10:19] LABS: ALKALINE PHOSPHATASE 91 U/L (45-117); ALT/SGPT 16 U/L (12-78)
--- NOTE | 2017-02-06 10:23 | DIAGNOSTIC IMAGING REPORT ---
CHEST ONE VIEW PORTABLE CLINICAL HISTORY: Chest pain and. COMPARISON STUDY: Chest radiograph November 24, 2016. FINDINGS: A dual lead left subclavian pacemaker is unchanged in position. Cardiomediastinal silhouette is normal. There is no evidence of pulmonary edema. No pneumothorax or pleural effusion is present. No consolidation is identified. The appearance of the chest is unchanged. IMPRESSION: No acute cardiopulmonary findings. Electronically signed by: Javan Camargo M.D. 02/06/2017 10:22 AM Dictated Date/Time: 02/06/2017 10:20 AM
--- NOTE | 2017-02-06 10:33 | DIAGNOSTIC IMAGING REPORT ---
ABDOMEN AND PELVIS CT WITH IV CONTRAST CT DOSE: 824.73 mGycm HISTORY: Pt c/o diffuse abdominal pain TECHNIQUE: Multiaxial CT images of the abdomen and pelvis were performed following the use of intravenous contrast. A dose lowering technique was utilized adhering to the principles of ALARA. COMPARISON STUDY: Abdomen and pelvis CT 01/11/2017. FINDINGS: Bibasilar linear densities consistent with subsegmental atelectasis. No suspicious lytic or blastic osseous lesions. Pacemaker wires are noted. The liver, spleen, pancreas, adrenal glands, and gallbladder are unremarkable. Bilateral nephrolithiasis is again noted. Dominant stone within the lower pole the right kidney measures 1.2 cm. Extensive calcified plaque within the abdominal aorta and mesenteric vessels. This results in approximately 80% focal stenosis at the aortic bifurcation. Mild bladder wall thickening. No ureteral stones. No hydronephrosis. Hysterectomy. No bowel wall thickening or obstruction. Normal appendix. IMPRESSION: 1. Bilateral nephrolithiasis. No ureteral stones. No hydronephrosis. 2. No bowel wall thickening or obstruction. 3. Normal appendix. 4. Extensive calcified plaque within the aorta and iliac arteries. There is focal stenosis of approximately 80% at the aortic bifurcation. Electronically signed by: Cole Sheffield M.D. 02/06/2017 10:31 AM Dictated Date/Time: 02/06/2017 10:20 AM
[2017-02-06] MEDS ORDERED: OMEG10007 PO (11:08)
[2017-02-06 11:49] VITALS: Ht 167.6 cm; Wt 73.6 kg
--- NOTE | 2017-02-06 11:54 | Surgery Consultation ---
Consultation Date of Consultation: Feb 06, 2017. Attending Physician: History of Present Illness Nikki Thomas is an 86 year old woman with HTN, DM2, hyperlipidemia, polymyalgia rheumatica, Sjogren's syndrome, aortic stenosis, pacemaker in place and spinal stenosis who presented to the ED with diffuse abdominal pain. Per her daughter , yesterday patient wasn't quite acting herself - was tolerating fluids, but had no appetite and did not eat much. In the evening, she starting having bilious vomiting, and complained of bilateral low abdominal pain. Vomiting continued overnight. This morning she was brought to the ED for further evaluation. Since arrival, she has received IV hydration, and currently denies abdominal pain or feeling nauseated. She was recently admitted earlier this month with right upper quadrant abdominal pain; the gallbladder was found to be normal with low EF on HIDA scan, and pain resolved without treatment. Denies fever, chills, headaches, dizziness, vision changes, chest pain, SOB, constipation / diarrhea, melena / hematochezia / acholic stools, dysuria or urinary problems. A CT scan was completed, which did not show any acute abnormalities; it did show diffusely calcified abdominal vessels. Patient has a history of colonic ischemia a few months ago affecting the mid transverse and proximal descending colon from which she had bloody stools - treated non- operatively with antibiotics and resolution. She has a history of open hysterectomy in the 70s, no other abdominal operations. She takes aspirin 81mg every other day, no other anticoagulation or steroids. Past Medical/Surgical History Medical Problems: (1) Ambulatory dysfunction Status: Acute (2) Aortic stenosis Status: Acute (3) Dehydration Status: Acute (4) Heart murmur Status: Acute (5) Intractable abdominal pain Status: Acute (6) Right upper quadrant abdominal pain Status: Acute (7) Spinal stenosis Status: Acute (8) Syncope Status: Acute (9) UTI (urinary tract infection) Status: Acute (10) Vasovagal syncope Status: Acute (11) Vomiting Status: Acute Family History Patient reports no known family medical history. Social History Smoking Status: Never Smoker Drug Use: none Marital Status: Housing Status: lives alone Occupation Status: unemployed Allergies Coded Allergies: Morphine (Verified Allergy, Mild, shortness of breath with panic attack, 09/01/16) Darbepoetin Randall (Verified Allergy, Unknown, "RED ITCHY BLOTCHES ON SKIN" , 09/01/16) Home Medications Scheduled Amlodipine (Norvasc), 5 MG PO BID Aspirin (Aspirin Ec), 81 MG PO Q2D Cholecalciferol (Vitamin D3), 2,000 INTER.UNIT PO QAM Cyanocobalamin (Vitamin B-12), 1,000 MCG PO DAILY Fish Oil ([place]-3), 1,200 MG PO DAILY Insulin Detemir (Levemir Flextouch), 6 UNITS SC QAM Insulin Lispro (Human) (Humalog Kwikpen), 1 DOSE SQ UD Lidocaine (Lidoderm Patch 5%), 1 PATCH TOP ONAMOFFPM Lisinopril (Zestril), 20 MG PO QPM Polyethylene Glycol 3350 (Miralax), 17 GM PO DAILY Ranitidine Hcl (Ranitidine Hcl), 75 MG PO HS Scheduled PRN Lorazepam (Ativan), 0.5 MG PO Q8 PRN for Anxiety Magnesium Hydroxide (Milk Of Magnesia), 30 ML PO DAILY PRN for Constipation Simethicone (Gas-X), 80 MG PO UD PRN for Gas or Constipation Current Inpatient Medications Current Inpatient Medications Medications (Trade) Dose Ordered Sig/Luis Route Start Time Stop Time Status Last Admin Dose Admin Ioversol (Optiray 320) 125 ml UD PRN IV 02/06/17 09:45 02/10/17 09:44 Review of Systems Constitutional: + fatigue, No fever, No chills, No sweats Eyes: No eye pain, No redness Respiratory: No cough, No sputum, No shortness of breath Cardiovascular: No chest pain Abdomen: + pain, + nausea, + vomiting, No diarrhea, No constipation Genitourinary - Female: No dysuria Physical Exam Date Time Temp Pulse Resp B/P (MAP) Pulse Ox O2 Delivery O2 Flow Rate FiO2 02/06/17 10:45 79 16 155/58 97 Room Air 02/06/17 09:53 79 02/06/17 09:40 96 Room Air 02/06/17 09:36 36.6 84 22 149/81 98 Room Air General Appearance: WD/WN, no apparent distress Head: normocephalic, atraumatic Eyes: normal inspection Neck: supple Respiratory/Chest: lungs clear, normal breath sounds, no respiratory distress Cardiovascular: regular rate, rhythm Abdomen/GI: normal bowel sounds, non tender, soft Skin: normal color, warm/dry Laboratory Results Last 24 Hours Test 02/06/17 09:40 02/06/17 09:48 White Blood Count 9.03 K/uL Red Blood Count 3.68 M/uL Hemoglobin 10.9 g/dL Hematocrit 32.9 % Mean Corpuscular Volume 89.4 fL Mean Corpuscular Hemoglobin 29.6 pg Mean Corpuscular Hemoglobin Concent 33.1 g/dl Platelet Count 180 K/uL Mean Platelet Volume 9.4 fL Neutrophils (%) (Auto) 79.6 % Lymphocytes (%) (Auto) 15.0 % Monocytes (%) (Auto) 4.5 % Eosinophils (%) (Auto) 0.3 % Basophils (%) (Auto) 0.3 % Neutrophils # (Auto) 7.18 K/uL Lymphocytes # (Auto) 1.35 K/uL Monocytes # (Auto) 0.41 K/uL Eosinophils # (Auto) 0.03 K/uL Basophils # (Auto) 0.03 K/uL RDW Standard Deviation 44.4 fL RDW Coefficient of Variation 13.5 % Immature Granulocyte % (Auto) 0.3 % Immature Granulocyte # (Auto) 0.03 K/uL Sodium Level 139 mmol/L Potassium Level 4.0 mmol/L Chloride Level 106 mmol/L Carbon Dioxide Level 24 mmol/L Anion Gap 9.0 mmol/L 20.0 mmol/L Blood Urea Nitrogen 23 mg/dl Creatinine 1.40 mg/dl Est Creatinine Clear Calc Drug Dose 28.9 ml/min Estimated GFR () 39.1 Estimated GFR (Non- 33.7 BUN/Creatinine Ratio 16.4 Random Glucose 164 mg/dl Calcium Level 9.2 mg/dl Total Bilirubin 0.7 mg/dl Direct Bilirubin 0.1 mg/dl Aspartate Amino Transf (AST/SGOT) 11 U/L Alanine Aminotransferase (ALT/SGPT) 16 U/L Alkaline Phosphatase 91 U/L Total Creatine Kinase 20 U/L Creatine Kinase MB < 0.5 ng/ml Creatine Kinase MB Ratio Troponin I 0.018 ng/ml Total Protein 7.0 gm/dl Albumin 3.3 gm/dl Lipase 85 U/L Bedside Hemoglobin 10.2 g/dl Bedside Hematocrit 30 % Bedside Sodium 140 mEq/L Bedside Potassium 4.0 mEq/L Bedside Chloride 102 mEq/L Bedside Total CO2 22 mEq/l Bedside Blood Urea Nitrogen 25 mg/dl Bedside Creatinine 1.4 mg/dl Bedside Glucose (other) 167 mg/dl Bedside Ionized Calcium (Sarah) 1.24 mmol/l 02/06/17 CT Abd / Pelvis: IMPRESSION: 1. Bilateral nephrolithiasis. No ureteral stones. No hydronephrosis. 2. No bowel wall thickening or obstruction. 3. Normal appendix. 02/06/17 CXR: No acute cardiorespiratory abnormalities Assessment & Plan Nikki Thomas is an 86 year old woman with HTN, DM2, hyperlipidemia, polymyalgia rheumatica, Sjogren's syndrome, aortic stenosis, pacemaker in place and spinal stenosis who presented to the ED with diffuse abdominal pain, likely due to mesenteric ischemia. Vitals are stable and normal. Labs are within normal limits. Pain is now improved with IV hydration, just feels weak and fatigued. CT scan did not show any acute abnormalities - did show diffuse calcification of abdominal vessels. Likely patient had pain due to mesenteric ischemia which was exacerbated by dehydration / vomiting. -No acute surgical intervention indicated at this time -Continue IVF hydration -Would keep NPO today, possible trial CLD tomorrow depending on progress -Trend labs, replete electrolytes as needed -Pain and nausea control as needed (none needed at this time) -Rest of care per Medicine team -Will continue to follow Lizz Mendez MD 02/06/17
[2017-02-06] MEDS ORDERED: AMLO-110 PO (12:30)
[2017-02-06] MEDS ORDERED: POLYETHYLENE (MIRALAX) 17 GM PACK PO PRN (13:45)
[2017-02-06] MEDS ORDERED: ONDANSETRON INJ 2 MG/ML 2 ML VIAL IV PRN (13:45)
[2017-02-06] MEDS ORDERED: ALUMINUM/MAGNESIUM/SIMETH (MAALOX MAX) 30 ML UDC PO PRN (13:45)
[2017-02-06] MEDS ORDERED: ACETAMINOPHEN 325 MG TAB PO PRN (13:45)
[2017-02-06] MEDS ORDERED: MAGNESIUM HYDROXIDE SUSP 30 ML UDC PO PRN ×2 (13:45→17:45)
[2017-02-06 14:13] VITALS: O2SAT 96
[2017-02-06 14:57] VITALS: BP 161/59; PULSE 74; TEMP 36.5; O2SAT 96
[2017-02-06] MEDS ORDERED: LISI-725 PO (15:23)
[2017-02-06] MEDS ORDERED: POLY335019 PO (15:23)
[2017-02-06] MEDS ORDERED: NF656 TOP (15:23)
[2017-02-06] MEDS ORDERED: SIME80CH PO (15:23)
[2017-02-06] MEDS ORDERED: RANI75TA19 PO (15:23)
[2017-02-06] MEDS ORDERED: MOML PO (15:23)
[2017-02-06] MEDS ORDERED: CHOL1CAP57 PO (15:23)
[2017-02-06] MEDS ORDERED: ASPI81TA28 PO (16:12)
[2017-02-06] MEDS ORDERED: MICONAZOLE NITRATE POWDER 43 GM ONE (16:32)
[2017-02-06] MEDS ORDERED: INSU100I2 SQ (16:38)
[2017-02-06] MEDS ORDERED: NURSING VERBAL MED ORDER ONE (17:15)
[2017-02-06] MEDS: SODIUM CHLOR 0.45% + 20MEQ KCL 1,000 ML IV SCH (17:38)
[2017-02-06] MEDS ORDERED: SIMETHICONE 80 MG CHEW PO PRN (17:45)
[2017-02-06] MEDS ORDERED: LORAZEPAM 0.5 MG TAB PO PRN (17:45)
[2017-02-06] MEDS ORDERED: DEXTROSE 50% 50 ML SYR IV PRN (18:45)
[2017-02-06] MEDS ORDERED: GLUCAGON FOR INJ 1 MG VIAL SQ PRN (18:45)
[2017-02-06] MEDS ORDERED: INSULIN ASPART 100 UNITS/ML 3 ML PEN SQ SCH (18:45)
[2017-02-06] MEDS ORDERED: GLUCOSE 40% GEL 15 GM TUBE PO PRN (18:45)
[2017-02-06] MEDS ORDERED: GLUCOSE 10 TABS/TUBE PO PRN (18:45)
[2017-02-06 19:40] VITALS: BP 160/77; PULSE 76; TEMP 36.7; O2SAT 95
--- NOTE | 2017-02-06 19:40 | History and Physical ---
History & Physical Date of Service Feb 06, 2017. History & Physical obs #[id number]
[2017-02-06 20:04] VITALS: BP 157/86; PULSE 73
[2017-02-06] MEDS: AMLODIPINE BESYLATE 5 MG TAB PO SCH (20:06)
[2017-02-06] MEDS: RANITIDINE HCL 150 MG TAB PO SCH (20:07)
[2017-02-06] MEDS: LISINOPRIL 20 MG TAB PO SCH (20:08)
--- NOTE | 2017-02-06 20:43 | HISTORY & PHYSICAL EXAMINATION ---
DATE OF ADMISSION: 02/06/2017 ADMISSION HISTORY AND PHYSICAL CHIEF COMPLAINT: Nausea and vomiting. HISTORY OF PRESENT ILLNESS: The patient is a very pleasant 86-year-old female who started last evening with nausea and vomiting. Earlier in the day, she seemed to be feeling okay, she did not eat as well, but actually the daughter always is encouraging her to drink more and she normally does not actually was drinking more fluids yesterday than she normally does, but then started to complain of feeling full and then as evening came around, she started with nausea and vomiting several episodes and seeming a little bit out of it, the daughter notes that she has had previous episodes of syncope and while she was truly syncopal she kind of looked like she was maybe headed in that direction. As the night progressed, the patient then was able to lie down and rest some, although the daughter notes she did not think she really slept much at all and then this morning she had more nausea and vomiting. Because of all of this, she was brought to the ER for further evaluation. Here, she also was complaining of some diffuse lower abdominal pain, no upper abdominal, no epigastric or right upper quadrant pain; however, that pain even totally went away after getting some IV fluids. Relevantly, she has been here recently in the past in August with an episode of abdominal pain that was deemed likely due to ischemic colitis and then here in late December early January with abdominal pain that was deemed most likely related to gallbladder disease with a gallbladder EF of 0%, but she improved with supportive care and was deemed too high risk for surgical intervention at this point in time. REVIEW OF SYSTEMS: Otherwise negative, except for as above. PAST MEDICAL HISTORY: Most notable for ischemic colitis and gallbladder disease. She also has anemia, hypertension, type 2 diabetes, hyperlipidemia, polymyalgia rheumatica, Sjogrens, aortic stenosis, osteoarthritis, carotid artery disease, GERD, CKD stage III, and mitral stenosis. PAST SURGICAL HISTORY: Hysterectomy, temporal artery biopsy and a pacer placement for sick sinus syndrome and third degree AV block. FAMILY HISTORY: Including atherosclerosis, hypertension, stroke and diabetes. SOCIAL HISTORY: She is not a smoker. She is . She has a supportive family. She is not a drinker. ALLERGIES: DARBEPOETIN AND MORPHINE. PHYSICAL EXAMINATION: VITAL SIGNS: Temperature 36.6, pulse 84, respiratory rate 22, blood pressure 149/81, 98% on room air. GENERAL: She is awake, alert, oriented x3, pleasant. She has no recollection of last night's event; however, appears somewhat fatigued, otherwise in no acute distress. HEENT: Normocephalic, atraumatic. Mucous membranes slightly dry. CARDIOVASCULAR: Regular, fairly distant. No rubs, murmurs, or gallops. LUNGS: Clear to auscultation bilaterally. No rales, rhonchi, or wheezes. Good effort. ABDOMEN: Soft, nondistended, nontender, no masses or organomegaly. There is no right upper quadrant pain to even deep palpation and the remainder of her abdomen is totally benign as well. EXTREMITIES: Show no cyanosis, clubbing or edema. No calf tenderness. SKIN: Shows no rashes. No pallor or icterus. NEUROLOGIC: Shows cranial nerves II-XII to be grossly intact. Gross motor and sensory are intact. MENTAL STATUS: Shows overall good recent and remote recall, however, she really has very little recollection for last night's events including perseverating on the fact that she does not remember vomiting multiple times. Normal mood and affect. Good judgment and insight overall. LABS AND DIAGNOSTICS: CBC shows a white count of 9.03, hemoglobin 10.9, platelets of 180. Complete metabolic panel with sodium 139, potassium 4, chloride 106, CO2 24, BUN 23, creatinine 1.4, calcium 9.2, glucose 164. Total bili of 0.7 with a direct of 0.1, AST 11, ALT 16, alkaline phosphatase 91, CK total of 20 with an MB of less than 0.5. Troponin of 0.018. Total protein 7, albumin 3.3, lipase 85. Lactate of 0.8. Chest x-ray showed no acute cardiopulmonary findings. CT abdomen and pelvis showed bibasilar linear densities consistent with subsegmental atelectasis, no suspicious lytic or blastic osseous lesions, pacemaker wires noted. Liver, spleen, pancreas, adrenal glands, and gallbladder unremarkable. Bilateral nephrolithiasis noted, dominant stone in the lower pole of right kidney measuring 1.2 cm, extensive calcified plaque within the abdominal aorta and mesenteric vessels resulting in an 80% focal stenosis at the aortic bifurcation, mild bladder wall thickening, no ureteral stones, no hydronephrosis, hysterectomy. No bowel wall thickening or obstruction, normal appendix. ASSESSMENT AND PLAN: 1. Nausea and vomiting. This appears most likely to be related to a viral gastroenteritis. The patient's daughter does note that they have had a number of people as they know come down with a viral gastroenteritis and certainly there is one known in the community right now given the fact that she was feeling good and then suddenly had some nausea and vomiting and now appears to be feeling better again and this is the most likely etiology, probably with some subsequent dehydration continuing to have her feel bad, but it is far less likely this is gallbladder related given the fact that it is a different presentation of what she had last month. She has no right upper quadrant pain even though she did last month. Her labs is relates to her biliary tree are normal and she has no abdominal pain to palpation; however, certainly will continue to monitor and well less likely than simply a viral etiology, ischemic colitis, ischemic mesenteric disease flareup seems also less likely given the fact that there has been no diarrhea, bloody or otherwise, although it is possible that some of her abdominal pain was due to transient mesenteric ischemia from dehydration. 2. Dehydration. Continue IV fluids gently and follow closely. 3. Chronic kidney disease stage III. Continue IV fluids, follow her labs. 4. Ischemic colitis as above. If there was a little bit of flare up, it was probably simply due to dehydration. Continue to follow her closely. Certainly if she has any bloody diarrhea that we confirm this was going on, if there is in not, it would be more likely this is all just viral etiology alone. 5. Gallbladder disease, continue to follow her clinically. Follow complete metabolic panel and if she is unable to tolerate advancing her diet will need to then revisit how much gallbladder issues are at play. 6. Hypertension. Continue her home medications. 7. Diabetes. Continue insulin management. 8. Deep venous thrombosis prophylaxis, heparin subQ.
[2017-02-07 00:14] VITALS: BP 155/65; PULSE 67; TEMP 36.4; O2SAT 97
[2017-02-07 05:50] LABS: HEMATOCRIT 29.2 % (37-47); MEAN CELL VOLUME 88.8 fL (80-100); MEAN CORPUSCULAR HEMOGLOBIN 30.1 pg (25-34); MEAN CORPUSCULAR HGB CONC 33.9 g/dl (32-36); MEAN PLATELET VOLUME 9.3 fL (7.4-10.4); PLATELET COUNT 156 K/uL (130-400); RED BLOOD COUNT 3.29 M/uL (4.2-5.4); WHITE BLOOD COUNT 8.15 K/uL (4.8-10.8)
[2017-02-07 06:14] LABS: BASO % 0.1 %; BASO ABS # 0.01 K/uL (0-0.2); COMPLETE YES; EOS % 0.6 %; IG% 0.4 %; LYMPH % 14.7 %; MONO % 6.7 %; NEUT % 77.5 %
[2017-02-07 06:27] LABS: BUN/CREATININE RATIO 17.9 (10-20); CALCIUM 8.6 mg/dl (8.5-10.1); CREATININE 1.2 mg/dl (0.60-1.20); POTASSIUM 4.1 mmol/L (3.5-5.1)
[2017-02-07] MEDS: SODIUM CHLOR 0.45% + 20MEQ KCL 1,000 ML IV SCH ×2 (06:35→20:26)
[2017-02-07] MEDS: AMLODIPINE BESYLATE 5 MG TAB PO SCH ×2 (07:45→20:27)
[2017-02-07] MEDS: CHOLECALCIFEROL 1000 INTER.UNIT TAB PO SCH (07:45)
[2017-02-07] MEDS: OMEGA-3 (PURIFIED FISH OIL) 1 GM CAP PO SCH (07:45)
[2017-02-07] MEDS: CYANOCOBALAMIN 500 MCG TAB (VIT B-12) PO SCH (07:46)
[2017-02-07] MEDS: LIDODERM (LIDOCAINE) PATCH 5% TD SCH (07:47)
[2017-02-07] MEDS: POLYETHYLENE (MIRALAX) 17 GM PACK PO SCH (07:47)
[2017-02-07] MEDS: INSULIN ASPART 100 UNITS/ML 3 ML PEN SQ SCH ×3 (07:50→17:10)
[2017-02-07] MEDS ORDERED: ASPIRIN 81 MG ECTAB PO SCH (08:00)
[2017-02-07 08:14] VITALS: BP 163/64; PULSE 78; TEMP 36.4; O2SAT 92
[2017-02-07] MEDS: INSULIN DETEMIR FLEXPEN/FLEX TOUCH 100 UNITS/ML 3ML SC SCH (08:33)
--- NOTE | 2017-02-07 09:11 | Surgery Progress Note ---
Surgery Progress Note Date of Service Feb 07, 2017. Subjective Patient examined at bedside this morning. Afebrile, vitals stable overnight on room air, no acute events. Sitting up comfortably in chair this morning, states she has no abdominal pain. Tolerated clear liquids for breakfast without N/V. Voiding without difficulty. Last BM 02/07. No complaints, feels great. Objective Vital Signs: Date Time Temp Pulse Resp B/P (MAP) Pulse Ox O2 Delivery O2 Flow Rate FiO2 02/07/17 08:14 36.4 78 18 163/64 (97) 92 Room Air 02/07/17 00:14 36.4 67 16 155/65 (95) 97 Room Air 02/07/17 00:05 Room Air 02/06/17 20:04 73 157/86 (109) 02/06/17 20:00 Room Air 02/06/17 19:40 36.7 76 18 160/77 (104) 95 Room Air 02/06/17 16:00 Room Air 02/06/17 14:57 36.5 74 18 161/59 (93) 96 Room Air 02/06/17 14:13 76 18 171/75 96 02/06/17 13:15 72 02/06/17 13:04 72 16 175/72 95 Room Air 02/06/17 11:49 Room Air 02/06/17 10:45 79 16 155/58 97 Room Air 02/06/17 09:53 79 02/06/17 09:40 96 Room Air 02/06/17 09:36 36.6 84 22 149/81 98 Room Air General Appearance: WD/WN, no apparent distress Head: normocephalic Neck: supple Respiratory/Chest: lungs clear, normal breath sounds Cardiovascular: regular rate, rhythm Abdomen: normal bowel sounds, non tender, non distended, soft Laboratory Results: Results Past 24 Hours Test 02/06/17 09:40 02/06/17 09:48 02/06/17 12:11 02/06/17 17:44 Range/Units White Blood Count 9.03 4.8-10.8 K/uL Red Blood Count 3.68 4.2-5.4 M/uL Hemoglobin 10.9 12.0-16.0 g/dL Hematocrit 32.9 37-47 % Mean Corpuscular Volume 89.4 80-100 fL Mean Corpuscular Hemoglobin 29.6 25-34 pg Mean Corpuscular Hemoglobin Concent 33.1 32-36 g/dl Platelet Count 180 130-400 K/uL Mean Platelet Volume 9.4 7.4-10.4 fL Neutrophils (%) (Auto) 79.6 % Lymphocytes (%) (Auto) 15.0 % Monocytes (%) (Auto) 4.5 % Eosinophils (%) (Auto) 0.3 % Basophils (%) (Auto) 0.3 % Neutrophils # (Auto) 7.18 1.4-6.5 K/uL Lymphocytes # (Auto) 1.35 1.2-3.4 K/uL Monocytes # (Auto) 0.41 0.11-0.59 K/uL Eosinophils # (Auto) 0.03 0-0.5 K/uL Basophils # (Auto) 0.03 0-0.2 K/uL RDW Standard Deviation 44.4 36.4-46.3 fL RDW Coefficient of Variation 13.5 11.5-14.5 % Immature Granulocyte % (Auto) 0.3 % Immature Granulocyte # (Auto) 0.03 0.00-0.02 K/uL Sodium Level 139 136-145 mmol/L Potassium Level 4.0 3.5-5.1 mmol/L Chloride Level 106 98-107 mmol/L Carbon Dioxide Level 24 21-32 mmol/L Anion Gap 9.0 20.0 16-25 mmol/L Blood Urea Nitrogen 23 7-18 mg/dl Creatinine 1.40 0.60-1.20 mg/dl Est Creatinine Clear Calc Drug Dose 28.9 ml/min Estimated GFR () 39.1 Estimated GFR (Non- 33.7 BUN/Creatinine Ratio 16.4 10-20 Random Glucose 164 70-99 mg/dl Calcium Level 9.2 8.5-10.1 mg/dl Total Bilirubin 0.7 0.2-1 mg/dl Direct Bilirubin 0.1 0-0.2 mg/dl Aspartate Amino Transf (AST/SGOT) 11 15-37 U/L Alanine Aminotransferase (ALT/SGPT) 16 12-78 U/L Alkaline Phosphatase 91 45-117 U/L Total Creatine Kinase 20 26-192 U/L Creatine Kinase MB < 0.5 0.5-3.6 ng/ml Creatine Kinase MB Ratio 0-3.0 Troponin I 0.018 0-0.045 ng/ml Total Protein 7.0 6.4-8.2 gm/dl Albumin 3.3 3.4-5.0 gm/dl Lipase 85 73-393 U/L Bedside Hemoglobin 10.2 12.0-16.0 g/dl Bedside Hematocrit 30 37-47 % Bedside Sodium 140 135-144 mEq/L Bedside Potassium 4.0 3.3-5.0 mEq/L Bedside Chloride 102 101-112 mEq/L Bedside Total CO2 22 24-31 mEq/l Bedside Blood Urea Nitrogen 25 7-18 mg/dl Bedside Creatinine 1.4 0.6-1.3 mg/dl Bedside Glucose (other) 167 70-99 mg/dl Bedside Ionized Calcium (Sarah) 1.24 1.12-1.32 mmol/l Bedside Lactic Acid Venous 0.80 0.90-1.70 mmol/L Bedside Glucose 155 70-90 mg/dl Test 02/06/17 20:25 02/07/17 05:24 02/07/17 07:50 Range/Units Bedside Glucose 153 150 70-90 mg/dl White Blood Count 8.15 4.8-10.8 K/uL Red Blood Count 3.29 4.2-5.4 M/uL Hemoglobin 9.9 12.0-16.0 g/dL Hematocrit 29.2 37-47 % Mean Corpuscular Volume 88.8 80-100 fL Mean Corpuscular Hemoglobin 30.1 25-34 pg Mean Corpuscular Hemoglobin Concent 33.9 32-36 g/dl Platelet Count 156 130-400 K/uL Mean Platelet Volume 9.3 7.4-10.4 fL Neutrophils (%) (Auto) 77.5 % Lymphocytes (%) (Auto) 14.7 % Monocytes (%) (Auto) 6.7 % Eosinophils (%) (Auto) 0.6 % Basophils (%) (Auto) 0.1 % Neutrophils # (Auto) 6.31 1.4-6.5 K/uL Lymphocytes # (Auto) 1.20 1.2-3.4 K/uL Monocytes # (Auto) 0.55 0.11-0.59 K/uL Eosinophils # (Auto) 0.05 0-0.5 K/uL Basophils # (Auto) 0.01 0-0.2 K/uL RDW Standard Deviation 44.3 36.4-46.3 fL RDW Coefficient of Variation 13.6 11.5-14.5 % Immature Granulocyte % (Auto) 0.4 % Immature Granulocyte # (Auto) 0.03 0.00-0.02 K/uL Sodium Level 141 136-145 mmol/L Potassium Level 4.1 3.5-5.1 mmol/L Chloride Level 110 98-107 mmol/L Carbon Dioxide Level 21 21-32 mmol/L Anion Gap 10.0 3-11 mmol/L Blood Urea Nitrogen 21 7-18 mg/dl Creatinine 1.20 0.60-1.20 mg/dl Est Creatinine Clear Calc Drug Dose 33.9 ml/min Estimated GFR () 47.1 Estimated GFR (Non- 40.6 BUN/Creatinine Ratio 17.9 10-20 Random Glucose 134 70-99 mg/dl Calcium Level 8.6 8.5-10.1 mg/dl Assessment & Plan Nikki Thomas is an 86 year old woman with HTN, DM2, hyperlipidemia, polymyalgia rheumatica, Sjogren's syndrome, aortic stenosis, pacemaker in place and spinal stenosis who presented to the ED with diffuse abdominal pain, likely due to mesenteric ischemia. Vitals are stable and normal. Labs are within normal limits. Pain is now improved with IV hydration.. CT scan did not show any acute abnormalities - did show diffuse calcification of abdominal vessels. Likely patient had pain due to mesenteric ischemia which was exacerbated by dehydration / vomiting. -No acute surgical intervention indicated -CLD, advance diet as tolerated -Trend labs, replete electrolytes as needed -Pain and nausea control as needed (none needed at this time) -Rest of care per Medicine team -Will continue to follow Lizz Mendez MD 02/07/17
--- NOTE | 2017-02-07 12:39 | Progress Note ---
Subjective Date of Service: Feb 07, 2017. Subjective Pt evaluation today including: conversation w/ patient, physical exam, chart review, lab review, review of studies, review of inpatient medication list Resting comfortably in bed Denies any further nausea or vomiting No acute events overnight Problem List Medical Problems: (1) Ambulatory dysfunction Status: Acute (2) Aortic stenosis Status: Acute (3) Dehydration Status: Acute (4) Generalized abdominal pain Status: Acute (5) Heart murmur Status: Acute (6) Intractable abdominal pain Status: Acute (7) Right upper quadrant abdominal pain Status: Acute (8) Spinal stenosis Status: Acute (9) Syncope Status: Acute (10) UTI (urinary tract infection) Status: Acute (11) Vasovagal syncope Status: Acute (12) Vomiting Status: Acute Review of Systems Constitutional: No fever, No chills, No sweats, No weight loss, No weakness Eyes: No worsening of vision, No eye pain, No redness, No discharge Respiratory: No cough, No sputum, No wheezing, No shortness of breath, No dyspnea on exertion Cardiac: No chest pain, No orthopnea, No PND, No edema Abdomen: No pain, No nausea, No vomiting, No diarrhea, No constipation Musculoskeletal: No joint pain, No muscle pain, No swelling, No calf pain Female : No dysuria, No urinary frequency, No hematuria, No incontinence Neurologic: No memory loss, No paralysis, No weakness, No numbness/tingling Psychiatric: No depression symptoms, No anhedonism, No anxiety, No insomnia Endo: No fatigue, No excessive thirst Skin: No rash, No itch Objective Vital Signs Date Time Temp Pulse Resp B/P (MAP) Pulse Ox O2 Delivery O2 Flow Rate FiO2 02/07/17 08:14 36.4 78 18 163/64 (97) 92 Room Air 02/07/17 08:00 Room Air 02/07/17 00:14 36.4 67 16 155/65 (95) 97 Room Air 02/07/17 00:05 Room Air 02/06/17 20:04 73 157/86 (109) 02/06/17 20:00 Room Air 02/06/17 19:40 36.7 76 18 160/77 (104) 95 Room Air 02/06/17 16:00 Room Air 02/06/17 14:57 36.5 74 18 161/59 (93) 96 Room Air 02/06/17 14:13 76 18 171/75 96 02/06/17 13:15 72 02/06/17 13:04 72 16 175/72 95 Room Air Physical Exam General Appearance: WD/WN, no apparent distress Eyes: normal inspection, PERRL, EOMI, sclerae normal Neck: supple, no adenopathy, thyroid normal, no JVD Respiratory/Chest: chest non-tender, lungs clear, normal breath sounds, no respiratory distress Cardiovascular: regular rate, rhythm, no edema, no gallop, no JVD Abdomen: normal bowel sounds, non tender, soft, no organomegaly Neurologic/Psychiatric: no motor/sensory deficits, alert, normal mood/affect, oriented x 3 Laboratory Results Last 24 Hours Test 02/06/17 17:44 02/06/17 20:25 02/07/17 05:24 02/07/17 07:50 Bedside Glucose 155 mg/dl 153 mg/dl 150 mg/dl White Blood Count 8.15 K/uL Red Blood Count 3.29 M/uL Hemoglobin 9.9 g/dL Hematocrit 29.2 % Mean Corpuscular Volume 88.8 fL Mean Corpuscular Hemoglobin 30.1 pg Mean Corpuscular Hemoglobin Concent 33.9 g/dl Platelet Count 156 K/uL Mean Platelet Volume 9.3 fL Neutrophils (%) (Auto) 77.5 % Lymphocytes (%) (Auto) 14.7 % Monocytes (%) (Auto) 6.7 % Eosinophils (%) (Auto) 0.6 % Basophils (%) (Auto) 0.1 % Neutrophils # (Auto) 6.31 K/uL Lymphocytes # (Auto) 1.20 K/uL Monocytes # (Auto) 0.55 K/uL Eosinophils # (Auto) 0.05 K/uL Basophils # (Auto) 0.01 K/uL RDW Standard Deviation 44.3 fL RDW Coefficient of Variation 13.6 % Immature Granulocyte % (Auto) 0.4 % Immature Granulocyte # (Auto) 0.03 K/uL Sodium Level 141 mmol/L Potassium Level 4.1 mmol/L Chloride Level 110 mmol/L Carbon Dioxide Level 21 mmol/L Anion Gap 10.0 mmol/L Blood Urea Nitrogen 21 mg/dl Creatinine 1.20 mg/dl Est Creatinine Clear Calc Drug Dose 33.9 ml/min Estimated GFR () 47.1 Estimated GFR (Non- 40.6 BUN/Creatinine Ratio 17.9 Random Glucose 134 mg/dl Calcium Level 8.6 mg/dl Test 02/07/17 11:27 Bedside Glucose 248 mg/dl Assessment and Plan Nausea and vomiting likely related to viral gastroenteritis Cont supportive care Gen surg consulted, no need for intervention at this time Will advance diet as tolerated Dehydration. Continue IV fluids gently and follow closely. Chronic kidney disease stage III. Continue IV fluids, follow her labs. Ischemic colitis as above. If there was a little bit of flare up, it was probably simply due to dehydration. Continue to follow her closely. Certainly if she has any bloody diarrhea that we confirm this was going on, if there is in not, it would be more likely this is all just viral etiology alone. Hypertension. Continue her home medications. Diabetes. Continue insulin management. Deep venous thrombosis prophylaxis, heparin subQ.
[2017-02-07 15:49] VITALS: BP 148/69; PULSE 72; TEMP 36.5; O2SAT 96
[2017-02-07] MEDS: LISINOPRIL 20 MG TAB PO SCH (20:27)
[2017-02-07] MEDS: RANITIDINE HCL 150 MG TAB PO SCH (20:28)
[2017-02-07 23:54] VITALS: BP 147/76; PULSE 70; TEMP 36.6; O2SAT 96
[2017-02-08 07:53] VITALS: BP 168/69; PULSE 78; TEMP 36.8; O2SAT 99
[2017-02-08] MEDS ORDERED: NURSING VERBAL MED ORDER ONE (08:00)
--- NOTE | 2017-02-08 09:00 | Surgery Progress Note ---
Surgery Progress Note Date of Service Feb 08, 2017. Subjective Patient examined at bedside this morning. Afebrile, vitals stable on room air, no acute events overnight. Feels great this morning. Denies abdominal pain. Tolerated breakfast without N/V. Voiding without difficulty. No complaints. Objective Vital Signs: Date Time Temp Pulse Resp B/P (MAP) Pulse Ox O2 Delivery O2 Flow Rate FiO2 02/08/17 07:53 36.8 78 18 168/69 (102) 99 Room Air 02/08/17 00:46 Room Air 02/07/17 23:54 36.6 70 16 147/76 (99) 96 Room Air 02/07/17 20:41 Room Air 02/07/17 16:00 Room Air 02/07/17 15:49 36.5 72 18 148/69 (95) 96 Room Air General Appearance: WD/WN, no apparent distress Head: normocephalic Neck: supple Respiratory/Chest: chest non-tender, lungs clear, normal breath sounds Cardiovascular: regular rate, rhythm Abdomen: non tender, non distended, soft (no rebound / guarding) Laboratory Results: Results Past 24 Hours Test 02/07/17 11:27 02/07/17 16:32 02/07/17 19:56 02/08/17 07:48 Range/Units Bedside Glucose 248 124 161 153 70-90 mg/dl Assessment & Plan Nikki Thomas is an 86 year old woman with HTN, DM2, hyperlipidemia, polymyalgia rheumatica, Sjogren's syndrome, aortic stenosis, pacemaker in place and spinal stenosis who presented to the ED with diffuse abdominal pain, likely due to mesenteric ischemia. Vitals are stable and normal. Labs are within normal limits. Pain is now improved with IV hydration. CT scan did not show any acute abnormalities - did show diffuse calcification of abdominal vessels. Likely patient had pain due to GI virus / mesenteric ischemia which was exacerbated by dehydration / vomiting. -No acute surgical intervention indicated -Diet as tolerated -Rest of care per Medicine team -General Surgery will sign off. Please call with any further concerns or questions. Lizz Mendez MD 02/08/17
[2017-02-08] MEDS: OMEGA-3 (PURIFIED FISH OIL) 1 GM CAP PO SCH (09:03)
[2017-02-08] MEDS: CYANOCOBALAMIN 500 MCG TAB (VIT B-12) PO SCH (09:03)
[2017-02-08] MEDS: AMLODIPINE BESYLATE 5 MG TAB PO SCH (09:03)
[2017-02-08] MEDS: CHOLECALCIFEROL 1000 INTER.UNIT TAB PO SCH (09:03)
[2017-02-08] MEDS: POLYETHYLENE (MIRALAX) 17 GM PACK PO SCH (09:04)
[2017-02-08] MEDS: INSULIN ASPART 100 UNITS/ML 3 ML PEN SQ SCH ×2 (09:04→12:22)
[2017-02-08] MEDS: LIDODERM (LIDOCAINE) PATCH 5% TD SCH (09:04)
[2017-02-08] MEDS: INSULIN DETEMIR FLEXPEN/FLEX TOUCH 100 UNITS/ML 3ML SC SCH (09:07)
--- NOTE | 2017-02-08 11:50 | Discharge Instructions ---
Discharge Instructions Date of Service Feb 08, 2017. Admission Reason for Admission: Generalized Abdomial Pain Discharge Discharge Diagnosis / Problem: Generalized abdominal pain, viral gastroenteritis Discharge Goals Goal(s): Decrease discomfort, Improve function, Increase independence, Improve disease control, Improve nutritional status, Learn about illness, Diagnostic testing, Prevent Disease Progression Activity Recommendations Activity Limitations: resume your previous activity Exercise/Sports Limitations: as tolerated . Instructions / Follow-Up Instructions / Follow-Up Patient to be discharged home Likely patient had a bout of viral gastroenteritis "stomach bug" Please advance diet as tolerated, may start with soups and broths and advance as tolerated Please stay hydrated If worsening abdominal pain, nausea, vomiting or diarrhea please report to ER Follow up with Dr Saúl Bright as scheduled Current Hospital Diet Patient's current hospital diet: Diabetes Type 2 Diet Discharge Diet Recommended Diet: Diabetes Type 2 Diet Pending Studies Studies pending at discharge: no Medical Emergencies . Who to Call and When: Medical Emergencies: If at any time you feel your situation is an emergency, please call 911 immediately. . Non-Emergent Contact Non-Emergency issues call your: Primary Care Provider Call Non-Emergent contact if: you have a fever, your pain is worsening . . "Provider Documentation" section prepared by Eric Frederick. . VTE Core Measure Inpt VTE Proph given/why not?: Treatment not indicated
[2017-02-08 12:49] VITALS: BP 168/69; PULSE 78; TEMP 36.8; O2SAT 99
--- NOTE | 2017-02-08 15:33 | Discharge Summary ---
Discharge Summary Date of Service Feb 08, 2017. Discharge Summary Admission Date: Feb 06, 2017 at 13:34 Discharge Date: Feb 08, 2017 Discharge Disposition: Home Principal Diagnosis: Chronic mesenteric ischemia, viral gastroenteritis Immunizations: Have You Had Influenza Vaccine: Yes History of Tetanus Vaccine?: Unknown History of Pneumococcal: Yes History of Hepatitis B Vaccine: Unknown Consultations: General surgery Medication Reconciliation Continued Medications: Amlodipine (Norvasc) 5 Mg Tab 5 MG PO BID Aspirin (Aspirin Ec) 81 Mg Tab 81 MG PO Q2D Cholecalciferol (Vitamin D3) 1,000 Unit Cap 2000 INTER.UNIT PO QAM Cyanocobalamin (Vitamin B-12) 1,000 Mcg Tab 1000 MCG PO DAILY Fish Oil ([place]-3) 1 Ea Cap 1200 MG PO DAILY Insulin Detemir (Levemir Flextouch) 100 Unit/Ml Inj 6 UNITS SC QAM Insulin Lispro (Human) (Humalog Kwikpen) 100 Unit/Ml Inj 1 DOSE SQ UD SLIDING SCALE FOR HUMALOG FOLLOWS: LESS THAN 180 O UNITS 181-200 3 UNITS 201-250 6 UNITS 251-300 12 UNITS 301-350 14 UNITS 351-400 18 UNITS Lidocaine (Lidoderm Patch 5%) 1 Ea Tdsy 1 PATCH TOP ONAMOFFPM APPLY IN MORNING, REMOVE AT NIGHT. (ON 12 HOURS-OFF 12 HOURS). Lisinopril (Zestril) 20 Mg Tab 20 MG PO QPM Lorazepam (Ativan) 0.5 Mg Tab 0.5 MG PO Q8 PRN for Anxiety, TAB Magnesium Hydroxide (Milk Of Magnesia) 30 Ml Susp 30 ML PO DAILY PRN for Constipation Polyethylene Glycol 3350 (Miralax) 1 Pow Pow 17 GM PO DAILY Ranitidine Hcl (Ranitidine Hcl) 75 Mg Tab 75 MG PO HS Simethicone (Gas-X) 80 Mg Chw 80 MG PO UD PRN for Gas or Constipation TAKE PER PACKAGE DIRECTIONS Discharge Exam Review of Systems: Constitutional: No fever, No chills, No sweats, No weakness ENT: No hearing loss, No unusual epistaxis, No nasal symptoms, No sore throat Respiratory: No cough, No sputum, No wheezing, No shortness of breath Cardiovascular: No chest pain, No orthopnea, No PND, No edema Abdomen: No pain, No nausea, No vomiting, No diarrhea Musculoskeletal: No joint pain, No muscle pain, No swelling Genitourinary - Female: No dysuria, No urinary frequency, No urinary urgency , No urinary incontinence Neurologic: No memory loss, No paralysis, No weakness, No numbness/tingling Psychiatric: No depression symptoms, No anhedonism, No anxiety, No insomnia Endocrine: No fatigue, No excessive thirst Physical Exam: General Appearance: WD/WN, no apparent distress Eyes: normal inspection, PERRL, EOMI, sclerae normal Neck: supple, no adenopathy, thyroid normal, no JVD Respiratory/Chest: chest non-tender, lungs clear, normal breath sounds, no respiratory distress Cardiovascular: regular rate, rhythm, no edema, no gallop, no JVD Abdomen / GI: normal bowel sounds, non tender, soft, no organomegaly Extremities: normal inspection, no calf tenderness, normal capillary refill , no pedal edema Neurologic/Psychiatric: no motor/sensory deficits, alert, normal mood/affect , oriented x 3 Skin: normal color, warm/dry, no rash Lymphatic: no adenopathy Hospital Course Nausea and vomiting likely related to viral gastroenteritis in addition to chronic mesenteric ischemia Cont supportive care Gen surg consulted, no need for intervention at this time Will advance diet as tolerated, DC home Dehydration. Continue IV fluids gently and follow closely. Chronic kidney disease stage III. At baseline. Continue IV fluids. Ischemic colitis as above. If there was a little bit of flare up, it was probably simply due to dehydration. Continue to follow her closely. Certainly if she has any bloody diarrhea that we confirm this was going on, if there is in not, it would be more likely this is all just viral etiology alone. Hypertension. Continue her home medications. Diabetes. Continue insulin management. Deep venous thrombosis prophylaxis, heparin subQ. Total Time Spent: Greater than 30 minutes This includes examination of the patient, discharge planning, medication reconciliation, and communication with other providers. Discharge Instructions Please refer to the electronic Patient Visit Report (Discharge Instructions) for additional information. Additional Copies To Saúl Bright M.D.
== END 2017-02-08 15:18 | disposition home or self-care (01) ==
LOC: EDBD 09:29 → C.EDC 09:31 → C.4E 13:34 → ENRESERV 13:50 → CANRESERV 13:50 → ENRESERV 13:54 → C.4E 18:58
PROVIDERS: ADMIT Family Medicine; ATTEND Hospitalist
DX: K55.9 Vascular disorder of intestine, unspecified (principal); E86.0 Dehydration; E11.9 Type 2 diabetes mellitus without complications; A08.4 Viral intestinal infection, unspecified; N18.3 Chronic kidney disease, stage 3 (moderate); M35.00 Sjogren syndrome, unspecified; I35.0 Nonrheumatic aortic (valve) stenosis; I12.9 Hypertensive chronic kidney disease with stage 1 through stage 4 chronic kidney disease, or unspecified chronic kidney disease; K21.9 Gastro-esophageal reflux disease without esophagitis; E78.5 Hyperlipidemia, unspecified; M35.3 Polymyalgia rheumatica; Z79.82 Long term (current) use of aspirin; Z79.899 Other long term (current) drug therapy; Z79.4 Long term (current) use of insulin; Z95.0 Presence of cardiac pacemaker

== ENCOUNTER 2017-05-09 09:47 | Inpatient (IN) | payer OTHER ==
[~2017-05-09] VITALS: Ht 157.5 cm; Wt 74.5 kg
[~2017-05-09 09:47] MED LIST changes: +AMLO-110 PO; +ASPI81TA28 PO; +CHOL1CAP57 PO; -ESCI10TA17 PO; +INSU100I2 SQ; +INSU3INJ3 SC; +LISI-725 PO; +LORA-741 PO; +MOML PO; +NF656 TOP; +OMEG10007 PO; -OMEP40CA41 PO; +POLY335019 PO; +RANI75TA19 PO; +SIME80CH PO
[2017-05-09] MEDS ORDERED: SODIUM CHLORIDE 0.9% 1000ML 1,000 ML IV STA (10:07)
--- NOTE | 2017-05-09 10:24 | EMERGENCY ROOM VISIT NOTE ---
History Report prepared by Bill: Narcisa Mohr Under the Supervision of: Dr. Curly Rodríguez M.D. First contact with patient: 10:00 Chief Complaint: DEHYDRATION Stated Complaint: WEAKNESS Nursing Triage Summary: pt lives with her daughter both family and pt reports "general illness last few days" no n/v/d family reports pt "gets like this with dehydration" pt has had decrease fluid intake last few days pt has equal movement of all extremities, equal but weak pt speech is slurred and has been last few days, family reports "this happens when she is dehydrated" no pain no recent falls pt reports "Im just not thirsty" History of Present Illness The patient is an 86 year old white female with a past medical history of anemia , hypertension, diabetes, GI bleed, hyperlipidemia, and Sjgren's Syndrome who presents to the ED with a cc of persistent weakness beginning several days ago. Positive slurred speech, decrease fluid intake, decrease urination, cough. Negative nausea, vomiting, diarrhea. The patient's daughter states that she feels that the patient has become dehydrated, noting that she becomes dehydrated periodically. She states that the patient has become too weak to transfer herself from her wheelchair to a chair over the past few days. The patient's daughter denies the patient ever having slurred speech in the past. Source of History: patient Onset: several days ago Position: other (global) Quality: other (weakness) Timing: other (persistent) Associated Symptoms: + cough, No nausea, No vomiting, No diarrhea Note: Associated symptoms: decrease fluid intake, slurred speech, decrease urination Review of Systems See HPI for pertinent positives and negatives. A total of ten systems were reviewed and were otherwise negative. Past Medical & Surgical Medical Problems: (1) Anemia (2) Benign hypertension (3) Diabetes mellitus (4) GI bleed (5) Hyperlipidemia (6) Hypertension (7) Hysterectomy (8) Intractable back pain (9) Nausea & vomiting (10) Polymyalgia rheumatica (11) possible cva (12) Sjorens Family History Patient reports no known family medical history. Social History Smoking Status: Never Smoker Alcohol Use: none Drug Use: none Marital Status: Housing Status: lives alone Occupation Status: unemployed Current/Historical Medications Scheduled Acetaminophen/Diphenhydramine (Tylenol Pm), 1 TAB PO HS Amlodipine (Norvasc), 5 MG PO BID Aspirin (Aspirin Ec), 81 MG PO Q2D Cholecalciferol (Vitamin D3), 2,000 INTER.UNIT PO QAM Cyanocobalamin (Vitamin B-12), 1,000 MCG PO DAILY Escitalopram Oxalate (Lexapro), 5 MG PO QPM Fish Oil ([place]-3), 1,200 MG PO DAILY Insulin Detemir (Levemir Flextouch), 6 UNITS SC QAM Insulin Lispro (Human) (Humalog Kwikpen), 1 DOSE SQ UD Lidocaine (Lidoderm Patch 5%), 1 PATCH TOP ONAMOFFPM Lisinopril (Zestril), 20 MG PO QPM Polyethylene Glycol 3350 (Miralax), 17 GM PO DAILY Ranitidine Hcl (Ranitidine Hcl), 75 MG PO HS Scheduled PRN Magnesium Hydroxide (Milk Of Magnesia), 30 ML PO DAILY PRN for Constipation Simethicone (Gas-X), 80 MG PO UD PRN for Gas or Constipation Allergies Coded Allergies: Morphine (Verified Allergy, Mild, shortness of breath with panic attack, 09/01/16) Darbepoetin Randall (Verified Allergy, Unknown, "RED ITCHY BLOTCHES ON SKIN" , 09/01/16) Physical Exam Vital Signs Date Time Temp Pulse Resp B/P (MAP) Pulse Ox O2 Delivery O2 Flow Rate FiO2 05/09/17 13:32 179/53 05/09/17 13:06 75 14 98 05/09/17 13:01 189/75 05/09/17 12:36 74 20 97 05/09/17 12:31 201/75 05/09/17 12:29 76 20 198/85 97 05/09/17 12:06 67 17 97 05/09/17 12:01 198/75 05/09/17 11:36 70 18 96 05/09/17 11:31 178/62 05/09/17 11:24 183/68 05/09/17 10:50 95 Room Air 05/09/17 10:36 71 17 05/09/17 10:31 209/78 05/09/17 10:17 73 15 97 05/09/17 10:02 192/75 05/09/17 09:58 74 05/09/17 09:55 36.7 75 20 200/82 97 Room Air 05/09/17 09:53 200/82 Physical Exam GENERAL: Awake, alert, well-appearing, NAD HENT: Normocephalic, atraumatic. Dry mucous membranes. EYES: Normal conjunctiva. Sclera non-icteric. NECK: Supple. No nuchal rigidity. FROM. RESPIRATORY: Decreased breath sounds at the bases, CTAB, no rhonchi, wheezing, crackles CARDIAC: RRR, no MRG ABDOMEN: Soft, NTND, BS+ MSK: No chest wall TTP, no LE edema NEURO: CN 2-12 intact, 5/5 upper and lower extremity strength, no dysmetria, questionable left sided facial droop, slurred speech, no drift, good finger to nose, no sensory deficits. SKIN: No rash or jaundice noted. Medical Decision & Procedures ER Provider Diagnostic Interpretation: Radiology results as stated below per my review and radiologist interpretation: CT OF THE HEAD WITHOUT CONTRAST CLINICAL HISTORY: Weakness COMPARISON STUDY: Head CT November 24, 2016. CT DOSE: 537.48 mGy.cm TECHNIQUE: Helical axial images of the head were obtained without IV contrast. Automated exposure control was utilized for the study. A dose lowering technique was utilized adhering to the principles of ALARA. FINDINGS: No acute intracranial hemorrhage, midline shift or mass effect is present. Ventricular system is stable. Basilar cisterns are patent. There are no extra-axial collections. White matter hypodensity suggests small vessel disease. There are no findings to suggest acute dural sinus thrombosis or acute territorial infarct. There are no significant calvarial abnormalities. IMPRESSION: No acute intracranial findings. Electronically signed by: Javan Camargo M.D. 05/09/2017 11:52 AM Dictated Date/Time: 05/09/2017 11:51 AM CHEST ONE VIEW PORTABLE CLINICAL HISTORY: Weakness. COMPARISON STUDY: Chest radiograph February 06, 2017. 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 There is no pneumothorax or pleural effusion. Lung volumes are diminished. There is no evidence of pulmonary edema. Cardiomediastinal silhouette is stable. There is no consolidation to suggest pneumonia. IMPRESSION: No acute cardiopulmonary findings. Electronically signed by: Javan Camargo M.D. 05/09/2017 11:38 AM Dictated Date/Time: 05/09/2017 11:37 AM KUB CLINICAL HISTORY: Abdominal fullness. COMPARISON STUDY: CT of the abdomen and pelvis February 06, 2017. FINDINGS: Pacer leads are partially imaged. There is extensive vascular calcification. There is no evidence for a bowel obstruction. Multiple bilateral renal calculi are noted. Pelvic calcifications likely reflect phleboliths. IMPRESSION: 1. No evidence of a bowel obstruction. 2. Bilateral nephrolithiasis. Electronically signed by: Javan Camargo M.D. 05/09/2017 11:39 AM Dictated Date/Time: 05/09/2017 11:38 AM Laboratory Results 05/09/17 10:41 Red Blood Count 3.55, Mean Corpuscular Volume 88.2, Mean Corpuscular Hemoglobin 31.0, Mean Corpuscular Hemoglobin Concent 35.1, Mean Platelet Volume 9.4, Neutrophils (%) (Auto) 69.5, Lymphocytes (%) (Auto) 20.3, Monocytes (%) (Auto) 5.2, Eosinophils (%) (Auto) 4.0, Basophils (%) (Auto) 0.7, Neutrophils # (Auto) 4.18, Lymphocytes # (Auto) 1.22, Monocytes # (Auto) 0.31, Eosinophils # (Auto) 0.24, Basophils # (Auto) 0.04 05/09/17 10:41 Test 05/09/17 10:41 White Blood Count 6.01 K/uL (4.8-10.8) Red Blood Count 3.55 M/uL (4.2-5.4) Hemoglobin 11.0 g/dL (12.0-16.0) Hematocrit 31.3 % (37-47) Mean Corpuscular Volume 88.2 fL (80-100) Mean Corpuscular Hemoglobin 31.0 pg (25-34) Mean Corpuscular Hemoglobin Concent 35.1 g/dl (32-36) Platelet Count 167 K/uL (130-400) Mean Platelet Volume 9.4 fL (7.4-10.4) Neutrophils (%) (Auto) 69.5 % Lymphocytes (%) (Auto) 20.3 % Monocytes (%) (Auto) 5.2 % Eosinophils (%) (Auto) 4.0 % Basophils (%) (Auto) 0.7 % Neutrophils # (Auto) 4.18 K/uL (1.4-6.5) Lymphocytes # (Auto) 1.22 K/uL (1.2-3.4) Monocytes # (Auto) 0.31 K/uL (0.11-0.59) Eosinophils # (Auto) 0.24 K/uL (0-0.5) Basophils # (Auto) 0.04 K/uL (0-0.2) RDW Standard Deviation 45.2 fL (36.4-46.3) RDW Coefficient of Variation 14.0 % (11.5-14.5) Immature Granulocyte % (Auto) 0.3 % Immature Granulocyte # (Auto) 0.02 K/uL (0.00-0.02) Prothrombin Time 10.7 SECONDS (9.0-12.0) Prothromb Time International Ratio 1.0 (0.9-1.1) Activated Partial Thromboplast Time 24.1 SECONDS (21.0-31.0) Partial Thromboplastin Ratio 0.9 Anion Gap 8.0 mmol/L (3-11) Est Creatinine Clear Calc Drug Dose 30.7 ml/min Estimated GFR () 44.4 Estimated GFR (Non- 38.3 BUN/Creatinine Ratio 19.0 (10-20) Calcium Level 9.4 mg/dl (8.5-10.1) Phosphorus Level 3.7 mg/dl (2.5-4.9) Magnesium Level 1.9 mg/dl (1.8-2.4) Total Bilirubin 0.4 mg/dl (0.2-1) Direct Bilirubin < 0.1 mg/dl (0-0.2) Aspartate Amino Transf (AST/SGOT) 14 U/L (15-37) Alanine Aminotransferase (ALT/SGPT) 18 U/L (12-78) Alkaline Phosphatase 83 U/L (45-117) Troponin I < 0.015 ng/ml (0-0.045) Total Protein 7.2 gm/dl (6.4-8.2) Albumin 3.4 gm/dl (3.4-5.0) Lipase 119 U/L (73-393) Thyroid Stimulating Hormone (TSH) 1.360 uIu/ml (0.300-4.500) Laboratory results reviewed by me Medications Administered Medications (Trade) Dose Ordered Sig/Luis Route Start Time Stop Time Status Last Admin Dose Admin Sodium Chloride 1,000 ml @ 999 mls/hr Q1H1M STAT IV 05/09/17 10:07 05/09/17 11:07 DC 05/09/17 11:44 999 MLS/HR Aspirin (Aspirin Chew) 324 mg NOW STAT PO 05/09/17 13:14 05/09/17 13:15 DC 05/09/17 14:40 324 MG ECG Indication: weakness Rate (beats per minute): 69 Rhythm: sinus rhythm Findings: 1st degree AV block, prolonged QT, other (prolonged WI, no STS or TWI ) ED Course 1013: The patient was evaluated in room B11B. A complete history and physical exam was performed. 1224: I reevaluated the patient and she is resting comfortably. I discussed the exam findings with her and I discussed the treatment plan. She verbalized complete understanding and agreement. She is going to be evaluated for further treatment. 1229: I discussed the patients case with Dr. Medina [facility]. He is going to evaluate the patient for further treatment. Medical Decision Differential diagnosis: Etiologies such as metabolic, infection, hypo/hyperglycemia, electrolyte abnormalities, cardiac sources, intracerebral event, toxicologic, neurologic, as well as others were entertained. The patient is an 86 year old white female with a past medical history of anemia , hypertension, diabetes, GI bleed, hyperlipidemia, and Sjgren's Syndrome who presents to the ED with a cc of persistent weakness beginning several days ago. Patient was seen and evaluated at the bedside patient does live with her daughter who states that she has gotten progressively worse and with regard to weakness over the last several days. Patient has had a decreased by mouth intake. Patient did have a bowel movement today and has been urinating without issue. Patient denies any abdominal pain, nausea, vomiting. On exam the patient does have some slurred speech and some questionable left-sided facial droop. However, the patient is able to smile without any droop but in her base position its questionable. Patient's symptom onset sounds like it several days. The daughter states that sometimes when she has slurred speech it is related to dehydration as it has in the past. Patient's neurologic exam is otherwise fairly unremarkable. Patient does have some dry mucous membranes. Patient did have blood work that was completed along with a CT of the head, chest x-ray, KUB, and EKG. Patient was given IV fluids. Patient's EKG was nonischemic. Patient CT of the head neg acute. Patient's plain imaging was also negative for any acute abnormality that would require further treatment. Patient was able tolerate some helena ar by mouth. Given that the patient has had prolonged slurred speech for possible TIA versus acute or subacute stroke. Patient was given a full dose aspirin. Patient's other blood work was fairly unremarkable. Patient does have some CK D. Creatinine today is 1.2. I did speak with the medicine team who agreed to further evaluate the patient for further treatment and work up. Medication Reconcilliation Current Medication List: was personally reviewed by me Consults Time Called: [id number] Consulting Physician: MAKAYLA Kimble Returned Call: [phone] I discussed the patients case with MAKAYLA Kimble. He is going to evaluate the patient for further treatment. Impression Primary Impression: Weakness Additional Impression: Slurred speech Scribe Attestation The scribe's documentation has been prepared under my direction and personally reviewed by me in its entirety. I confirm that the note above accurately reflects all work, treatment, procedures, and medical decision making performed by me. Departure Information Dispostion Being Evaluated By Hospitalist Saúl Cisse M.D. (PCP) Problem Qualifiers
[2017-05-09] MEDS ORDERED: DIPH-437 PO (10:37)
[2017-05-09] MEDS ORDERED: ESCI1TAB6 PO (10:37)
[2017-05-09 10:54] LABS: BASO % 0.7 %; BASO ABS # 0.04 K/uL (0-0.2); COMPLETE YES; HEMATOCRIT 31.3 % (37-47); IG% 0.3 %; LYMPH % 20.3 %; LYMPH ABS # 1.22 K/uL (1.2-3.4); MEAN CELL VOLUME 88.2 fL (80-100); MEAN CORPUSCULAR HGB CONC 35.1 g/dl (32-36); MEAN PLATELET VOLUME 9.4 fL (7.4-10.4); MONO % 5.2 %; NEUT % 69.5 %; PLATELET COUNT 167 K/uL (130-400); RED BLOOD COUNT 3.55 M/uL (4.2-5.4); WHITE BLOOD COUNT 6.01 K/uL (4.8-10.8)
[2017-05-09 11:02] LABS: PARTIAL THROMBOPLASTIN RATIO 0.9; PROTHROMBIN TIME (PATIENT) 10.7 SECONDS (9.0-12.0)
[2017-05-09 11:08] LABS: ALT/SGPT 18 U/L (12-78); AST/SGOT 14 U/L (15-37); BLOOD UREA NITROGEN 24 mg/dl (7-18); CALCIUM 9.4 mg/dl (8.5-10.1); CARBON DIOXIDE 23 mmol/L (21-32); CHLORIDE 107 mmol/L (98-107); CREATININE 1.26 mg/dl (0.60-1.20); GLUCOSE 141 mg/dl (70-99); MAGNESIUM 1.9 mg/dl (1.8-2.4); POTASSIUM 4.2 mmol/L (3.5-5.1); SODIUM 138 mmol/L (136-145)
[2017-05-09 11:19] LABS: ALKALINE PHOSPHATASE 83 U/L (45-117)
--- NOTE | 2017-05-09 11:39 | DIAGNOSTIC IMAGING REPORT ---
CHEST ONE VIEW PORTABLE CLINICAL HISTORY: Weakness. COMPARISON STUDY: Chest radiograph February 06, 2017. 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 There is no pneumothorax or pleural effusion. Lung volumes are diminished. There is no evidence of pulmonary edema. Cardiomediastinal silhouette is stable. There is no consolidation to suggest pneumonia. IMPRESSION: No acute cardiopulmonary findings. Electronically signed by: Javan Camargo M.D. 05/09/2017 11:38 AM Dictated Date/Time: 05/09/2017 11:37 AM
--- NOTE | 2017-05-09 11:41 | DIAGNOSTIC IMAGING REPORT ---
KUB CLINICAL HISTORY: Abdominal fullness. COMPARISON STUDY: CT of the abdomen and pelvis February 06, 2017. FINDINGS: Pacer leads are partially imaged. There is extensive vascular calcification. There is no evidence for a bowel obstruction. Multiple bilateral renal calculi are noted. Pelvic calcifications likely reflect phleboliths. IMPRESSION: 1. No evidence of a bowel obstruction. 2. Bilateral nephrolithiasis. Electronically signed by: Javan Camargo M.D. 05/09/2017 11:39 AM Dictated Date/Time: 05/09/2017 11:38 AM
--- NOTE | 2017-05-09 11:54 | DIAGNOSTIC IMAGING REPORT ---
CT OF THE HEAD WITHOUT CONTRAST CLINICAL HISTORY: Weakness COMPARISON STUDY: Head CT November 24, 2016. CT DOSE: 537.48 mGy.cm TECHNIQUE: Helical axial images of the head were obtained without IV contrast. Automated exposure control was utilized for the study. A dose lowering technique was utilized adhering to the principles of ALARA. FINDINGS: No acute intracranial hemorrhage, midline shift or mass effect is present. Ventricular system is stable. Basilar cisterns are patent. There are no extra-axial collections. White matter hypodensity suggests small vessel disease. There are no findings to suggest acute dural sinus thrombosis or acute territorial infarct. There are no significant calvarial abnormalities. IMPRESSION: No acute intracranial findings. Electronically signed by: Javan Camargo M.D. 05/09/2017 11:52 AM Dictated Date/Time: 05/09/2017 11:51 AM
[2017-05-09 12:38] LABS: URINE APPEARANCE CLEAR (CLEAR); URINE BILIRUBIN NEG (NEG); URINE COLOR YELLOW; URINE EPITHELIAL CELL AUTO 0-5 /lpf (0-5); URINE NITRITE NEG (NEG); URINE PH 6.5 (4.5-7.5); URINE SPECIFIC GRAVITY 1.012 (1.000-1.030); UROBILINOGEN NEG (NEG)
[2017-05-09 12:42] LABS: MANUAL MICROSCOPIC REQUIRED? NO; REVIEW REQ? NO
[2017-05-09] MEDS ORDERED: ASPIRIN 324 MG CHEW PO STA (13:14)
[2017-05-09] MEDS ORDERED: CLOPIDOGREL BISULFATE 75 MG TAB PO ONE (14:00)
[2017-05-09] MEDS ORDERED: SIMETHICONE 80 MG CHEW PO PRN (14:00)
[2017-05-09] MEDS ORDERED: POLYETHYLENE (MIRALAX) 17 GM PACK PO PRN (14:00)
[2017-05-09] MEDS ORDERED: PHARMACIST DISCHARGE MED REC CONSULT PRN (14:00)
[2017-05-09] MEDS ORDERED: LIDODERM (LIDOCAINE) PATCH 5% TD PRN (14:00)
[2017-05-09] MEDS ORDERED: ONDANSETRON INJ 2 MG/ML 2 ML VIAL IV PRN (14:00)
[2017-05-09] MEDS ORDERED: ALUMINUM/MAGNESIUM/SIMETH (MAALOX MAX) 30 ML UDC PO PRN (14:00)
[2017-05-09] MEDS ORDERED: HydrALAZINE HCL 20 MG/ML VIAL IV. PRN (14:00)
[2017-05-09] MEDS ORDERED: ZOLPIDEM TARTRATE 5 MG TAB PO PRN (14:00)
[2017-05-09] MEDS ORDERED: MAGNESIUM HYDROXIDE SUSP 30 ML UDC PO PRN ×2 (14:00)
[2017-05-09] MEDS ORDERED: OPTIRAY 320 IV PRN (14:15)
--- NOTE | 2017-05-09 14:15 | History and Physical ---
History & Physical Date of Service May 09, 2017. History & Physical possible cva, [id number]
[2017-05-09 14:25] VITALS: BP 213/67; PULSE 92; TEMP 36.4; O2SAT 98; Ht 157.5 cm; Wt 74.5 kg
--- NOTE | 2017-05-09 15:07 | HISTORY & PHYSICAL EXAMINATION ---
DATE OF ADMISSION: 05/09/2017 This is a Level 3 inpatient admission, 45 minutes. CHIEF COMPLAINT: Generalized weakness, slurry speeches, and facial droop. HISTORY OF PRESENT ILLNESS: The patient is an 86-year-old white female with a significant past medical history of anemia, diabetic, GI bleeding, dyslipidemia, Sjogren syndrome, coming to the hospital Emergency Department because of the above chief complaint. The major complaint has been of generalized weakness, persistent for several days associated with decreased oral intake of food and fluids. Daughter reported she has been having slurry speeches for 1 day. Per daughter, the patient was feeling somehow dehydrated, generalized weakness. She was not able to be transferred from wheelchair to bed, which she was able to do before. The slurry speeches have been new and there was no problem in the past. Probably, has the problem of finding words as well. In the Emergency Room, because of generalized weakness, the patient had head CT studies, there was no acute intracranial findings. Chest x-ray was not remarkable. KUB shows bilateral nephrolithiasis with elevated creatinine. I was called to admit the patient because of possible CVA. When I interviewed with the patient, she was reporting slurry speeches getting better. There was left side facial droop, which is not new per daughter. Daughter confirmed me the above information, also include dehydration and poor p.o. intake. The patient reports a decreased appetite and generalized weakness. Denied fever or chills. Denied cough, sputum, shortness of breath. Denied nausea, vomiting, abdominal pain, diarrhea, or constipation. Denied dysuria, urgency, and frequencies. Denied skin rashes. Denied local weakness. PAST MEDICAL HISTORY: Like I mentioned in the above, which include anemia, hypertension, diabetic, GI bleeding, dyslipidemia, hypertension, hysterectomy, intractable lower back pain, polymyalgia rheumatica, Sjogren syndrome. FAMILY HISTORY: Noncontributory. SOCIAL HISTORY: Never smoked. Denied alcohol abuse disorder. Denied illicit drug abuse. The patient lives alone and is . Daughter at the bedside. MEDICATIONS: Taking at home include Tylenol 1 tab p.o. at bedtime, amlodipine 5 mg p.o. b.i.d., aspirin 81 mg p.o. every other day, vitamin D3 2000 international units p.o. q.a.m., vitamin B12 1000 mcg p.o. daily, Lexapro 5 mg p.o. q.p.m., fish oil 1200 mg p.o. daily, Levemir insulin 6 units subQ q.a.m., lidocaine patch 1 patch topical use daily, lisinopril 20 mg p.o. q.p.m., MiraLax 17 grams p.o. daily, ranitidine 75 mg p.o. at bedtime. Medicine as needed include milk of magnesemia 30 mL p.o. daily as needed for constipation, simethicone 80 mg p.o. p.r.n. for gas or constipation. ALLERGIES: MORPHINE AND DARBEPOETIN. REVIEW OF SYSTEMS: Please see HPI, otherwise 14-point organ system review were negative. PHYSICAL EXAMINATION: VITAL SIGNS: Temperature is 36.7, pulse 76, respiratory rate 20, blood pressure was up to 200/82, pulse ox was 97% in room air. GENERAL: The patient is a white female, pleasant, awake, alert, well appearing, in no acute distress, was smiling. HEENT: Head was normocephalic. Pupils equal, round, responds to light. There were dry mucous membranes. Conjunctivae no injection. Sclerae nonicterus. NECK: Supple. Thyroid no enlargement. LUNGS: Bilateral lungs decreased breathing sounds, clear to auscultation. No wheezing, rhonchi, or crackles. HEART: Regular rhythm. S1, S2. There were decreased breathing sounds. There was no wheezing, rhonchi, or crackles. ABDOMEN: Soft, nontender. Bowel sound was positive. MUSCULOSKELETAL SYSTEM: No limited range of motion. No edema. NEUROLOGIC EVALUATION: Cranial nerves II-XII were intact. Upper extremities, 5/5 muscle strain in upper and lower extremities. There was a left side facial droop, but daughter report ti is not new, Left side facial droop and possible mild slurry speeches. There was no drifting, good finger to nose and no sensory deficits. NIH stroke scale could be 2, which is because of left side facial droop and slurry speeches. Skin has no rashes. LABORATORY STUDIES: WBC 6, hemoglobin 11, platelet 167. PT/INR 10/1. Sodium 138, BUN 24, creatinine 1.26, random blood glucose 141. Magnesium 1.9. Liver function test was within normal limits. TSH was normal. UA was not remarkable. IMAGING STUDIES: Include head CT has no acute disease. Chest x-ray, no acute disease. KUB was unremarkable. ASSESSMENT AND PLAN: An 86-year-old white female with the conditions below: 1. Slurry speeches with left side facial droop, which is improving, possible transient ischemic attack versus cerebrovascular accident. Need to rule out acute cerebrovascular accident. 2. Possible dehydration with dry lips and poor oral intake. 3. History of chronic kidney disease stage III. Current creatinine is 1.26, which is in baseline. 4. Diabetic with hyperglycemia. We will check hemoglobin A1c. 5. Hypertension. 6. History of gastrointestinal bleeding. 7. Dyslipidemia. 8. History of polymyalgia rheumatica. 9. History of Sjogren syndrome. 10. Prolong QT in ekg, is not new 11. celso nephrolithiasis PLAN: 1. The patient need to rule out acute or subacute CVA with possible TIA. We will admit her to tele. NIH stroke scale. Low fat, AHA diet after bedside speech evaluation. We will allow permissive hypertension. She was on aspirin at home already. We will upgrade to Plavix and stop aspirin because of possible CVA. The patient has pacemaker per family, not able to do brain MRI. We will check head and neck CTA. We will have neurology consultation. At the same time, we will give permissive hypertension at the first 24 hours, hold home medication of amlodipine and lisinopril, order hydralazine p.r.n. for accelerated hypertension. Continue home dose of Levemir. Order hemoglobin A1c and insulin sliding scale. Check fasting lipid panel, give Lipitor 20 mg p.o. daily , counselling Stroke risk factor modifications to pt's daughter. 2. For polymyalgia rheumatica and Sjogren syndrome, we will just followup and watch. 3. Possible history of depression. We will continue home dose of Lexapro. 4. DVT prophylaxis is ordered. GI prophylaxis is ordered. I have ordered PT, OT evaluation and director of social work for discharge plan. The patient is do not resuscitation. I discussed with patient's daughter at bedside and answered all the questions. JATINDER
[2017-05-09 16:27] VITALS: BP 158/68; PULSE 74
[2017-05-09 16:43] LABS: URINE APPEARANCE CLEAR (CLEAR); URINE BILIRUBIN NEG (NEG); URINE COLOR YELLOW; URINE NITRITE NEG (NEG); URINE SPECIFIC GRAVITY 1.009 (1.000-1.030); UROBILINOGEN NEG (NEG)
[2017-05-09 16:58] LABS: MANUAL MICROSCOPIC REQUIRED? NO; REVIEW REQ? NO
[2017-05-09] MEDS: INSULIN ASPART 100 UNITS/ML 3 ML PEN SC SCH ×2 (17:19→21:00)
[2017-05-09] MEDS: SODIUM CHLORIDE 0.9% 1000ML 1,000 ML IV SCH (17:19)
[2017-05-09 19:57] VITALS: BP 148/72; PULSE 72; TEMP 36.7; O2SAT 97
[2017-05-09 20:00] VITALS: O2SAT 96
[2017-05-09] MEDS ORDERED: NON-FORMULARY MEDICATION (Acetaminophen/Diphenhydramine (Tylenol Pm) 1 TAB) PO SCH (21:00)
--- NOTE | 2017-05-09 21:37 | DIAGNOSTIC IMAGING REPORT ---
CTA ANGIOGRAPHY OF THE HEAD CLINICAL HISTORY: Weakness. Possible cerebrovascular accident. COMPARISON STUDY: Head CT November 24, 2016 and May 09, 2017. TECHNIQUE: Helical axial images of the head were obtained following uneventful intravenous administration of 119 cc of Optiray 320. A dose lowering technique was utilized adhering to the principles of ALARA. FINDINGS: No acute intracranial hemorrhage, midline shift or mass effect is present. Ventricular system is unchanged from earlier head CT's. Basilar cisterns are patent. There are no extra-axial collections. There is extensive atherosclerotic plaque within the bilateral cavernous carotids. There is a hypodensity within the ophthalmic portion of the left internal carotid artery shown on axial image 146 of 468. This results in severe narrowing of this vessel. There is moderate stenosis of the right cavernous carotid. No abrupt vessel cut off is identified. There is no intracranial aneurysm or evidence for dissection within the intracranial vessels. IMPRESSION: 1. No abrupt vessel cut off or intracranial aneurysm identified. 2. Intraluminal hypodensity within the ophthalmic portion of the left internal carotid artery that results in severe narrowing of this vessel. This could reflect noncalcified plaque or thrombus. 3. Moderate atherosclerotic plaque of the major intracranial vessels. Electronically signed by: Javna Camargo M.D. 05/09/2017 9:35 PM Dictated Date/Time: 05/09/2017 9:28 PM
[2017-05-09] MEDS: ESCITALOPRAM OXALATE 10 MG TAB PO SCH (21:40)
[2017-05-09] MEDS: RANITIDINE HCL 150 MG TAB PO SCH (21:40)
[2017-05-09] MEDS: HEPARIN SOD 5000 UNIT/0.5 ML CARP SQ SCH (21:42)
--- NOTE | 2017-05-09 21:43 | DIAGNOSTIC IMAGING REPORT ---
CT ANGIOGRAPHY OF THE NECK WITH CONTRAST CLINICAL HISTORY: Weakness. Possible cerebrovascular accident. COMPARISON STUDY: Carotid ultrasound February 24, 2013. Technique: CT angiography of the carotid and vertebral arteries was obtained using OneName 320 IV and 3D reconstruction on an independent workstation. NASCET criteria was utilized. A dose lowering technique was utilized adhering to the principles of ALARA. CT DOSE: 599.78 mGy.cm Findings: Visualized portions of the lung apices demonstrate mild airspace opacities within the right upper lobe. There is moderate atherosclerotic plaque of the thoracic aorta. There is no dissection within the major vasculature of the neck. There is severe stenosis at the origin of the left vertebral artery. There is moderate plaque within the proximal right internal carotid artery without significant stenosis. There is extensive calcified plaque within the proximal left internal carotid artery which makes evaluation difficult. However, the findings suggest a severe stenosis of the proximal left internal carotid artery at the vessel origin. The degree of stenosis is approximately 80-90%. IMPRESSION: 1. 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 Degree of stenosis difficult to assess given extensive calcified plaque however approximate 80-90% stenosis at the vessel origin. 2. Severe stenosis at the origin of the left vertebral artery. 3. Mild right upper lobe airspace opacities which could reflect a mild infectious process or atelectasis. Electronically signed by: Javan Camargo M.D. 05/09/2017 9:42 PM Dictated Date/Time: 05/09/2017 9:35 PM
[2017-05-09 23:53] VITALS: BP 140/56; PULSE 69; TEMP 36.9; O2SAT 97
[2017-05-10] VITALS (8 sets, daily range): BP systolic 110–170; BP diastolic 60–72; PULSE 68–87; TEMP 36.5–36.9; O2SAT 94–99
[2017-05-10] MEDS: SODIUM CHLORIDE 0.9% 1000ML 1,000 ML IV SCH ×3 (04:12→21:05)
[2017-05-10] MEDS: HEPARIN SOD 5000 UNIT/0.5 ML CARP SQ SCH ×3 (06:15→21:09)
[2017-05-10 06:38] LABS: BASO % 0.4 %; BASO ABS # 0.02 K/uL (0-0.2); COMPLETE YES; EOS % 4.5 %; HEMATOCRIT 28.7 % (37-47); IG% 0.2 %; LYMPH % 26.5 %; LYMPH ABS # 1.36 K/uL (1.2-3.4); MEAN CELL VOLUME 88.3 fL (80-100); MEAN CORPUSCULAR HEMOGLOBIN 30.8 pg (25-34); MEAN CORPUSCULAR HGB CONC 34.8 g/dl (32-36); MEAN PLATELET VOLUME 9.5 fL (7.4-10.4); NEUT % 62.4 %; PLATELET COUNT 163 K/uL (130-400); RED BLOOD COUNT 3.25 M/uL (4.2-5.4); WHITE BLOOD COUNT 5.13 K/uL (4.8-10.8)
[2017-05-10 07:10] LABS: BUN/CREATININE RATIO 18.1 (10-20); CALCIUM 8.7 mg/dl (8.5-10.1); CREATININE 1.16 mg/dl (0.60-1.20); MAGNESIUM 1.7 mg/dl (1.8-2.4); PHOSPHORUS 3.1 mg/dl (2.5-4.9); POTASSIUM 3.5 mmol/L (3.5-5.1)
--- NOTE | 2017-05-10 08:02 | Progress Note ---
Subjective Date of Service: May 10, 2017. Subjective pt still with right sided weakness, has some garbled speech, daughter feels she is different than normal Problem List Medical Problems: (1) Ambulatory dysfunction Status: Acute (2) Aortic stenosis Status: Acute (3) Dehydration Status: Acute (4) Generalized abdominal pain Status: Acute (5) Heart murmur Status: Acute (6) Intractable abdominal pain Status: Acute (7) Right upper quadrant abdominal pain Status: Acute (8) Slurred speech Status: Acute (9) Spinal stenosis Status: Acute (10) Syncope Status: Acute (11) UTI (urinary tract infection) Status: Acute (12) Vasovagal syncope Status: Acute (13) Vomiting Status: Acute (14) Weakness Status: Acute Review of Systems Constitutional: + weakness, + fatigue, No fever, No chills Respiratory: No cough, No sputum, No shortness of breath Cardiac: No chest pain, No orthopnea, No edema Abdomen: No pain, No nausea, No vomiting Neurologic: + memory loss, + weakness, + balance problems, No paralysis Psychiatric: No depression symptoms, No anhedonism Objective Vital Signs Date Time Temp Pulse Resp B/P (MAP) Pulse Ox O2 Delivery O2 Flow Rate FiO2 05/10/17 04:39 36.8 68 17 136/62 (86) 97 Room Air 05/10/17 04:00 97 Room Air 05/10/17 00:00 97 Room Air 05/09/17 23:53 36.9 69 17 140/56 (84) 97 Room Air 05/09/17 20:00 96 Room Air 05/09/17 19:57 36.7 72 20 148/72 (97) 97 Room Air 05/09/17 16:27 74 158/68 (98) 05/09/17 14:36 68 18 05/09/17 14:31 185/55 05/09/17 14:25 36.4 92 18 213/67 98 Room Air 05/09/17 14:06 65 14 05/09/17 14:01 175/67 05/09/17 13:32 179/53 05/09/17 13:06 75 14 98 05/09/17 13:01 189/75 05/09/17 12:36 74 20 97 05/09/17 12:31 201/75 05/09/17 12:29 76 20 198/85 97 05/09/17 12:06 67 17 97 05/09/17 12:01 198/75 05/09/17 11:36 70 18 96 05/09/17 11:31 178/62 05/09/17 11:24 183/68 05/09/17 10:50 95 Room Air 05/09/17 10:36 71 17 05/09/17 10:31 209/78 05/09/17 10:17 73 15 97 05/09/17 10:02 192/75 05/09/17 09:58 74 05/09/17 09:55 36.7 75 20 200/82 97 Room Air 05/09/17 09:53 200/82 Physical Exam General Appearance: WD/WN, + moderate distress Neck: supple, no JVD Respiratory/Chest: chest non-tender, lungs clear, normal breath sounds Cardiovascular: regular rate, rhythm, no murmur Abdomen: normal bowel sounds, non tender, soft Extremities: no pedal edema, no calf tenderness Neurologic/Psychiatric: alert, + facial droop, + motor weakness, + depressed affect Laboratory Results Last 24 Hours Test 05/09/17 10:41 05/09/17 12:25 05/09/17 15:50 05/09/17 16:36 White Blood Count 6.01 K/uL Red Blood Count 3.55 M/uL Hemoglobin 11.0 g/dL Hematocrit 31.3 % Mean Corpuscular Volume 88.2 fL Mean Corpuscular Hemoglobin 31.0 pg Mean Corpuscular Hemoglobin Concent 35.1 g/dl Platelet Count 167 K/uL Mean Platelet Volume 9.4 fL Neutrophils (%) (Auto) 69.5 % Lymphocytes (%) (Auto) 20.3 % Monocytes (%) (Auto) 5.2 % Eosinophils (%) (Auto) 4.0 % Basophils (%) (Auto) 0.7 % Neutrophils # (Auto) 4.18 K/uL Lymphocytes # (Auto) 1.22 K/uL Monocytes # (Auto) 0.31 K/uL Eosinophils # (Auto) 0.24 K/uL Basophils # (Auto) 0.04 K/uL RDW Standard Deviation 45.2 fL RDW Coefficient of Variation 14.0 % Immature Granulocyte % (Auto) 0.3 % Immature Granulocyte # (Auto) 0.02 K/uL Prothrombin Time 10.7 SECONDS Prothromb Time International Ratio 1.0 Activated Partial Thromboplast Time 24.1 SECONDS Partial Thromboplastin Ratio 0.9 Sodium Level 138 mmol/L Potassium Level 4.2 mmol/L Chloride Level 107 mmol/L Carbon Dioxide Level 23 mmol/L Anion Gap 8.0 mmol/L Blood Urea Nitrogen 24 mg/dl Creatinine 1.26 mg/dl Est Creatinine Clear Calc Drug Dose 30.7 ml/min Estimated GFR () 44.4 Estimated GFR (Non- 38.3 BUN/Creatinine Ratio 19.0 Random Glucose 141 mg/dl Calcium Level 9.4 mg/dl Phosphorus Level 3.7 mg/dl Magnesium Level 1.9 mg/dl Total Bilirubin 0.4 mg/dl Direct Bilirubin < 0.1 mg/dl Aspartate Amino Transf (AST/SGOT) 14 U/L Alanine Aminotransferase (ALT/SGPT) 18 U/L Alkaline Phosphatase 83 U/L Troponin I < 0.015 ng/ml Total Protein 7.2 gm/dl Albumin 3.4 gm/dl Lipase 119 U/L Thyroid Stimulating Hormone (TSH) 1.360 uIu/ml Urine Color YELLOW YELLOW Urine Appearance CLEAR CLEAR Urine pH 6.5 7.0 Urine Specific [place] 1.012 1.009 Urine Protein 1+ 1+ Urine Glucose (UA) NEG NEG Urine Ketones NEG NEG Urine Occult Blood NEG TRACE Urine Nitrite NEG NEG Urine Bilirubin NEG NEG Urine Urobilinogen NEG NEG Urine Leukocyte Esterase NEG TRACE Urine WBC (Auto) 1-5 /hpf 1-5 /hpf Urine RBC (Auto) 0-4 /hpf 0-4 /hpf Urine Hyaline Casts (Auto) 0 /lpf 0 /lpf Urine Epithelial Cells (Auto) 0-5 /lpf 10-20 /lpf Urine Bacteria (Auto) NEG NEG Bedside Glucose 128 mg/dl Test 05/09/17 21:05 05/10/17 06:11 05/10/17 06:59 Bedside Glucose 145 mg/dl 125 mg/dl White Blood Count 5.13 K/uL Red Blood Count 3.25 M/uL Hemoglobin 10.0 g/dL Hematocrit 28.7 % Mean Corpuscular Volume 88.3 fL Mean Corpuscular Hemoglobin 30.8 pg Mean Corpuscular Hemoglobin Concent 34.8 g/dl Platelet Count 163 K/uL Mean Platelet Volume 9.5 fL Neutrophils (%) (Auto) 62.4 % Lymphocytes (%) (Auto) 26.5 % Monocytes (%) (Auto) 6.0 % Eosinophils (%) (Auto) 4.5 % Basophils (%) (Auto) 0.4 % Neutrophils # (Auto) 3.20 K/uL Lymphocytes # (Auto) 1.36 K/uL Monocytes # (Auto) 0.31 K/uL Eosinophils # (Auto) 0.23 K/uL Basophils # (Auto) 0.02 K/uL RDW Standard Deviation 45.1 fL RDW Coefficient of Variation 13.9 % Immature Granulocyte % (Auto) 0.2 % Immature Granulocyte # (Auto) 0.01 K/uL Sodium Level 142 mmol/L Potassium Level 3.5 mmol/L Chloride Level 108 mmol/L Carbon Dioxide Level 22 mmol/L Anion Gap 12.0 mmol/L Blood Urea Nitrogen 21 mg/dl Creatinine 1.16 mg/dl Est Creatinine Clear Calc Drug Dose 31.6 ml/min Estimated GFR () 49.0 Estimated GFR (Non- 42.3 BUN/Creatinine Ratio 18.1 Random Glucose 106 mg/dl Calcium Level 8.7 mg/dl Phosphorus Level 3.1 mg/dl Magnesium Level 1.7 mg/dl Triglycerides Level 258 mg/dl Cholesterol Level 261 mg/dl HDL Cholesterol 29 mg/dl LDL Cholesterol, Calculated 180 mg/dl VLDL Cholesterol, Calculated 52 mg/dl Cholesterol/HDL Ratio 9.0 Assessment and Plan 86-year-old white female with concern for CVA or TIA Transient ischemic attack versus cerebrovascular accident. She has a history of HTn but will allow permissive hypertension by holding home medication of amlodipine and lisinopril, but have hydralazine p.r.n.. Previously was on aspirin at home will substitute Plavix. Pacemaker prevents MRI repeat CT head does not confirm CVA head and neck CTA suggests severe stenosis of LICA and Left Vertebral, neurology consultation for recommendation. Continue Lipitor Possible dehydration with dry lips and poor oral intake, gently hydration with surveillance of BP History of chronic kidney disease stage III. Diabetic with hyperglycemia. continue basal bolus insulin with ssi and frequent BSG. A1C polymyalgia rheumatica and Sjogren syndrome. History of depression. continue Lexapro. DVT prophylaxis is ordered. PT, OT evaluation and family welfare social work professor for discharge plan. The patient is do not resuscitate.
[2017-05-10] MEDS: INSULIN ASPART 100 UNITS/ML 3 ML PEN SC SCH ×4 (08:36→21:00)
[2017-05-10] MEDS: ATORVASTATIN 20 MG TAB PO SCH (08:52)
[2017-05-10] MEDS: OMEGA-3 (PURIFIED FISH OIL) 1 GM CAP PO SCH (08:52)
[2017-05-10] MEDS: POLYETHYLENE (MIRALAX) 17 GM PACK PO SCH (08:52)
[2017-05-10] MEDS: CHOLECALCIFEROL 1000 INTER.UNIT TAB PO SCH (08:52)
[2017-05-10] MEDS: CLOPIDOGREL BISULFATE 75 MG TAB PO SCH (08:52)
[2017-05-10] MEDS: CYANOCOBALAMIN 500 MCG TAB (VIT B-12) PO SCH (08:52)
[2017-05-10] MEDS: INSULIN DETEMIR FLEXPEN/FLEX TOUCH 100 UNITS/ML 3ML SC SCH (08:54)
[2017-05-10] MEDS ORDERED: ASPIRIN 81 MG ECTAB PO SCH (09:00)
[2017-05-10] MEDS ORDERED: POLYETHYLENE (MIRALAX) 17 GM PACK PO SCH (09:00)
--- NOTE | 2017-05-10 09:05 | Neurology Consultation ---
Neurology Consultation Date of Consultation: May 10, 2017. Attending Physician: Derek Velazquez M.D. Primary Care Physician: Saúl Bright M.D. Reason for Consultation: Patient is an 86-year-old, who was asked to see at the request of Dr. Medina, for neurologic consultation regarding possible stroke. History of Present Illness Source: patient, caregiver, clinic records, hospital records Patient has a longstanding history of diabetes on insulin, hypertension, dyslipidemia, and rheumatologic conditions such as Sjogren's syndrome and polymyalgia rheumatica. She has been on an 81 milligram aspirin tablet daily. Patient has been on a cardiac pacemaker for at least 2 years. Patient has had several day history of feeling weak in general and fatigud. She was somewhat dehydrated and not drinking fluids. Her speech became slurred and she was brought to the hospital. On May 09, at 0953 hours, temperature was 36.7, pulse 75, respiratory rate 20, blood pressure 200/82, and O2 saturation 97 percent. On exam there was a noted slurred speech and left facial droop (although the patient's daughter told clinicians that this was old) CT scan of the head was unremarkable. Chest x-ray was unremarkable. KUB noted nephrolithiasis. CT angiography of the head revealed some stenosis in the distal left internal carotid artery with diffuse plaque in other vessels. CT angiography of the neck revealed severe stenosis of the proximal left internal carotid artery (80-90 percent) and severe stenosis at the origin of the left vertebral artery. BUN and creatinine were elevated on admission. She had mild anemia and TSH was unremarkable. Lipid profile revealed elevated triglyceride and cholesterol. This morning the patient feels tired and weak in general. She did not complain of pain, headache, chest pain, abdominal discomfort, nausea, dizziness, vision problems, shortness of breath, or numbness Past Medical/Surgical History Medical Problems: (1) Ambulatory dysfunction Status: Acute (2) Aortic stenosis Status: Acute (3) Dehydration Status: Acute (4) Generalized abdominal pain Status: Acute (5) Heart murmur Status: Acute (6) Intractable abdominal pain Status: Acute (7) Right upper quadrant abdominal pain Status: Acute (8) Slurred speech Status: Acute (9) Spinal stenosis Status: Acute (10) Syncope Status: Acute (11) UTI (urinary tract infection) Status: Acute (12) Vasovagal syncope Status: Acute (13) Vomiting Status: Acute (14) Weakness Status: Acute Hypertension Diabetes on insulin Anemia Dyslipidemia Pacemaker PMR Sjogren syndrome Depression Post hysterectomy Post laparoscopic cholecystectomy Family History Patient cannot recall anything specific about her mother or father or other family history. Social History Patient never smoked cigarettes and does not use alcohol. She used to work at [employer] and she claims that she worked up until 79 years old Smoking Status: Never smoker Smokeless Tobacco Use: No Alcohol Use: none Drug Use: none Marital Status: Housing Status: lives alone Occupation Status: retired Allergies Coded Allergies: Morphine (Verified Allergy, Mild, shortness of breath with panic attack, 09/01/16) Darbepoetin Randall (Verified Allergy, Unknown, "RED ITCHY BLOTCHES ON SKIN" , 09/01/16) Current Inpatient Medications Current Inpatient Medications Medications (Trade) Dose Ordered Sig/Luis Route Start Time Stop Time Status Last Admin Dose Admin Atorvastatin Calcium (Lipitor Tab) 20 mg QAM PO 05/10/17 09:00 06/09/17 08:59 Miscellaneous Information (Pharmacist Discharge Med Rec Consult) 1 ea UD PRN N/A 05/09/17 14:00 06/08/17 13:59 Sodium Chloride 1,000 ml @ 100 mls/hr Q10H IV 05/09/17 14:00 06/08/17 13:59 05/10/17 04:12 100 MLS/HR Heparin Sodium (Porcine) (Heparin Sq 5000 Unit/0.5ml) 5,000 unit Q8 SQ 05/09/17 22:00 06/08/17 21:59 05/10/17 06:15 5,000 UNIT Acetaminophen (Tylenol Tab) 650 mg Q4H PRN PO 05/09/17 14:00 06/08/17 13:59 Al Hydrox/Mg Hydrox/Simethicone (Maalox Max Susp) 15 ml Q4H PRN PO 05/09/17 14:00 06/08/17 13:59 Magnesium Hydroxide (Milk Of Magnesia Susp) 30 ml Q12H PRN PO 05/09/17 14:00 06/08/17 13:59 Zolpidem Tartrate (Ambien Tab) 5 mg HSZ PRN PO 05/09/17 14:00 06/08/17 13:59 Ondansetron HCl (Zofran Inj) 4 mg Q6H PRN IV 05/09/17 14:00 06/08/17 13:59 Polyethylene (Miralax Powder Packet) 17 gm DAILY PRN PO 05/09/17 14:00 06/08/17 13:59 Cyanocobalamin (Vitamin B-12 Tab) 1,000 mcg DAILY PO 05/10/17 09:00 06/09/17 08:59 Escitalopram Oxalate (Lexapro Tab) 5 mg QPM PO 05/09/17 21:00 06/08/17 20:59 05/09/17 21:40 5 MG Fish Oil (Claridge-3 (Purified Fish Oil) Cap) 1 gm DAILY PO 05/10/17 09:00 06/09/17 08:59 Insulin Detemir (Levemir Flexpen/ FlexTouch) 6 units QAM SC 05/10/17 09:00 06/09/17 08:59 Lidocaine (Lidoderm Patch 5%) 1 patch DAILY PRN TD 05/09/17 14:00 06/08/17 13:59 Simethicone (Mylicon Chew Tab) 80 mg QID PRN PO 05/09/17 14:00 06/08/17 13:59 Cholecalciferol (Vitamin D Tab) 2,000 inter.unit QAM PO 05/10/17 09:00 06/09/17 08:59 Ranitidine HCl (zANTac TAB) 75 mg HS PO 05/09/17 21:00 06/08/17 20:59 05/09/17 21:40 75 MG Clopidogrel Bisulfate (plAVix TAB) 75 mg QAM PO 05/10/17 09:00 06/09/17 08:59 Hydralazine HCl (HydrALAZINE INJ) 20 mg Q6 PRN IV. 05/09/17 14:00 06/08/17 13:59 Insulin Aspart (novoLOG ASPART) SLIDING SCALE G... ACHS SC 05/09/17 16:00 06/08/17 15:59 05/09/17 17:19 1 UNITS Ioversol (Optiray 320) 111 ml UD PRN IV 05/09/17 14:15 05/13/17 14:14 Miscellaneous (Remove Lidoderm Patch) 1 ea DAILY N/A 05/10/17 09:00 06/09/17 08:59 Polyethylene (Miralax Powder Packet) 17 gm DAILY PO 05/10/17 09:00 06/09/17 08:59 Review of Systems Constitutional: + weakness, + fatigue Eyes: No diplopia ENT: No tinnitus, No trouble swallowing Respiratory: No cough, No shortness of breath Cardiovascular: No chest pain, No palpitations Abdomen: No pain, No nausea Musculoskeletal: No joint pain, No muscle pain Genitourinary - Female: No dysuria, No urinary incontinence Neurologic: + weakness, + balance problems, No memory loss, No numbness/ tingling, No vertigo Psychiatric: + depression symptoms, + anxiety Endocrine: + fatigue Hematologic / Lymphatic: No abnormal bleeding/bruising Integumentary: No rash Allergic / Immunologic: No hives Physical Exam Vital Signs (Past 24 Hrs): Date Time Temp Pulse Resp B/P (MAP) Pulse Ox O2 Delivery O2 Flow Rate FiO2 05/10/17 08:23 36.8 86 18 120/60 (80) 95 05/10/17 04:39 36.8 68 17 136/62 (86) 97 Room Air 05/10/17 04:00 97 Room Air 05/10/17 00:00 97 Room Air 05/09/17 23:53 36.9 69 17 140/56 (84) 97 Room Air 05/09/17 20:00 96 Room Air 05/09/17 19:57 36.7 72 20 148/72 (97) 97 Room Air 05/09/17 16:27 74 158/68 (98) 05/09/17 14:36 68 18 05/09/17 14:31 185/55 05/09/17 14:25 36.4 92 18 213/67 98 Room Air 05/09/17 14:06 65 14 05/09/17 14:01 175/67 05/09/17 13:32 179/53 05/09/17 13:06 75 14 98 05/09/17 13:01 189/75 05/09/17 12:36 74 20 97 05/09/17 12:31 201/75 05/09/17 12:29 76 20 198/85 97 05/09/17 12:06 67 17 97 05/09/17 12:01 198/75 05/09/17 11:36 70 18 96 05/09/17 11:31 178/62 05/09/17 11:24 183/68 05/09/17 10:50 95 Room Air 05/09/17 10:36 71 17 05/09/17 10:31 209/78 05/09/17 10:17 73 15 97 05/09/17 10:02 192/75 05/09/17 09:58 74 05/09/17 09:55 36.7 75 20 200/82 97 Room Air 05/09/17 09:53 200/82 Patient is right-handed. The patient is awake and alert. Speech is notable for some mild dysarthria without aphasia. She is somewhat slurred but can name objects and colors, new left from right, and new some simple facts as well as simple calculations. She is fairly well oriented. Mood and affect are normal and appropriate. Appearance and grooming are normal. She has [id number] long and short-term memory deficits. The discs are sharp with positive venous pulsations. There are no exudates, hemorrhages, or blood vessel changes seen. Pupils are 3mm bilaterally and reactive to light. Extraocular eye muscles are intact without nystagmus. Visual acuity and visual carter seem normal grossly to confrontation. There are no deficits to sensation of the face bilaterally. Corneal reflexes are positive bilaterally. Facial strength is normal bilaterally, with voluntary smile. However at rest, patient has some slight droop of the corner of the mouth on the left. Hearing seems mildly decreased to voice and finger rub. Palate moves well without asymmetry. There is normal sternocleidomastoid and trapezius strength bilaterally. Tongue is midline with good strength bilaterally. Neck is with full range of motion without discomfort. There are no cervical bruits. There are no cranial or ocular bruits. Heart is without murmur. Cervical, thoracic, and lumbar spine are nontender to palpation. Gait was not tested. Stance sitting up in bed is poor and she falls back into the right With outstretched arms there is mild drift on the right. There are no resting, postural, or action tremors. There is no ataxia with [id number] testing. There is decreased facility in the right hand, compared to the left which seem normal. There are no abnormal involuntary movements noted. Motor strength is 4/5 diffusely in the right upper extremity and right lower extremity compared to the left side which seem 5/5 diffusely both proximally and distally. The limbs have good tone without rigidity or spasticity (although the right upper extremity has some mild decreased tone), and there is no atrophy noted. Muscle bulk is normal, there is no tenderness, no myotonia noted to percussion, and no fasciculations seen. Sensory examination is intact to pin and touch throughout all four limbs. Reflexes are 1/4 in the biceps, triceps, brachioradialis, quadriceps, and Achilles tendons bilaterally. Toes are upgoing to plantar stimulation on the right and downgoing with plantar stimulation left. Peripheral pulses are present and of normal quality distally in all four limbs. There is no peripheral edema noted. Laboratory Results Past 24 Hours: 05/10/17 06:11 Red Blood Count 3.25, Mean Corpuscular Volume 88.3, Mean Corpuscular Hemoglobin 30.8, Mean Corpuscular Hemoglobin Concent 34.8, Mean Platelet Volume 9.5, Neutrophils (%) (Auto) 62.4, Lymphocytes (%) (Auto) 26.5, Monocytes (%) (Auto) 6.0, Eosinophils (%) (Auto) 4.5, Basophils (%) (Auto) 0.4, Neutrophils # (Auto) 3.20, Lymphocytes # (Auto) 1.36, Monocytes # (Auto) 0.31, Eosinophils # (Auto) 0.23, Basophils # (Auto) 0.02 05/10/17 06:11 Test 05/09/17 10:41 05/09/17 15:50 05/10/17 06:11 05/10/17 06:59 Prothrombin Time 10.7 SECONDS (9.0-12.0) Prothromb Time International Ratio 1.0 (0.9-1.1) Activated Partial Thromboplast Time 24.1 SECONDS (21.0-31.0) Partial Thromboplastin Ratio 0.9 Total Bilirubin 0.4 mg/dl (0.2-1) Direct Bilirubin < 0.1 mg/dl (0-0.2) Aspartate Amino Transf (AST/SGOT) 14 U/L (15-37) Alanine Aminotransferase (ALT/SGPT) 18 U/L (12-78) Alkaline Phosphatase 83 U/L (45-117) Troponin I < 0.015 ng/ml (0-0.045) Total Protein 7.2 gm/dl (6.4-8.2) Albumin 3.4 gm/dl (3.4-5.0) Lipase 119 U/L (73-393) Thyroid Stimulating Hormone (TSH) 1.360 uIu/ml (0.300-4.500) Urine Color YELLOW Urine Appearance CLEAR (CLEAR) Urine pH 7.0 (4.5-7.5) Urine Specific Shickley 1.009 (1.000-1.030) Urine Protein 1+ (NEG) Urine Glucose (UA) NEG (NEG) Urine Ketones NEG (NEG) Urine Occult Blood TRACE (NEG) Urine Nitrite NEG (NEG) Urine Bilirubin NEG (NEG) Urine Urobilinogen NEG (NEG) Urine Leukocyte Esterase TRACE (NEG) Urine WBC (Auto) 1-5 /hpf (0-5) Urine RBC (Auto) 0-4 /hpf (0-4) Urine Hyaline Casts (Auto) 0 /lpf (0-5) Urine Epithelial Cells (Auto) 10-20 /lpf (0-5) Urine Bacteria (Auto) NEG (NEG) White Blood Count 5.13 K/uL (4.8-10.8) Red Blood Count 3.25 M/uL (4.2-5.4) Hemoglobin 10.0 g/dL (12.0-16.0) Hematocrit 28.7 % (37-47) Mean Corpuscular Volume 88.3 fL (80-100) Mean Corpuscular Hemoglobin 30.8 pg (25-34) Mean Corpuscular Hemoglobin Concent 34.8 g/dl (32-36) Platelet Count 163 K/uL (130-400) Mean Platelet Volume 9.5 fL (7.4-10.4) Neutrophils (%) (Auto) 62.4 % Lymphocytes (%) (Auto) 26.5 % Monocytes (%) (Auto) 6.0 % Eosinophils (%) (Auto) 4.5 % Basophils (%) (Auto) 0.4 % Neutrophils # (Auto) 3.20 K/uL (1.4-6.5) Lymphocytes # (Auto) 1.36 K/uL (1.2-3.4) Monocytes # (Auto) 0.31 K/uL (0.11-0.59) Eosinophils # (Auto) 0.23 K/uL (0-0.5) Basophils # (Auto) 0.02 K/uL (0-0.2) RDW Standard Deviation 45.1 fL (36.4-46.3) RDW Coefficient of Variation 13.9 % (11.5-14.5) Immature Granulocyte % (Auto) 0.2 % Immature Granulocyte # (Auto) 0.01 K/uL (0.00-0.02) Anion Gap 12.0 mmol/L (3-11) Est Creatinine Clear Calc Drug Dose 31.6 ml/min Estimated GFR () 49.0 Estimated GFR (Non- 42.3 BUN/Creatinine Ratio 18.1 (10-20) Calcium Level 8.7 mg/dl (8.5-10.1) Phosphorus Level 3.1 mg/dl (2.5-4.9) Magnesium Level 1.7 mg/dl (1.8-2.4) Triglycerides Level 258 mg/dl (0-150) Cholesterol Level 261 mg/dl (0-200) HDL Cholesterol 29 mg/dl LDL Cholesterol, Calculated 180 mg/dl VLDL Cholesterol, Calculated 52 mg/dl Cholesterol/HDL Ratio 9.0 Bedside Glucose 125 mg/dl (70-90) Imaging CTA ANGIOGRAPHY OF THE HEAD CLINICAL HISTORY: Weakness. Possible cerebrovascular accident. COMPARISON STUDY: Head CT November 24, 2016 and May 09, 2017. TECHNIQUE: Helical axial images of the head were obtained following uneventful intravenous administration of 119 cc of Optiray 320. A dose lowering technique was utilized adhering to the principles of ALARA. FINDINGS: No acute intracranial hemorrhage, midline shift or mass effect is present. Ventricular system is unchanged from earlier head CT's. Basilar cisterns are patent. There are no extra-axial collections. There is extensive atherosclerotic plaque within the bilateral cavernous carotids. There is a hypodensity within the ophthalmic portion of the left internal carotid artery shown on axial image 146 of 468. This results in severe narrowing of this vessel. There is moderate stenosis of the right cavernous carotid. No abrupt vessel cut off is identified. There is no intracranial aneurysm or evidence for dissection within the intracranial vessels. IMPRESSION: 1. No abrupt vessel cut off or intracranial aneurysm identified. 2. Intraluminal hypodensity within the ophthalmic portion of the left internal carotid artery that results in severe narrowing of this vessel. This could reflect noncalcified plaque or thrombus. 3. Moderate atherosclerotic plaque of the major intracranial vessels. Electronically signed by: Javan Camargo M.D. 05/09/2017 9:[address] ANGIOGRAPHY OF THE NECK WITH CONTRAST CLINICAL HISTORY: Weakness. Possible cerebrovascular accident. COMPARISON STUDY: Carotid ultrasound February 24, 2013. Technique: CT angiography of the carotid and vertebral arteries was obtained using Optiray 320 IV and 3D reconstruction on an independent workstation. NASCET criteria was utilized. A dose lowering technique was utilized adhering to the principles of ALARA. CT DOSE: 599.78 mGy.cm Findings: Visualized portions of the lung apices demonstrate mild airspace opacities within the right upper lobe. There is moderate atherosclerotic plaque of the thoracic aorta. There is no dissection within the major vasculature of the neck. There is severe stenosis at the origin of the left vertebral artery. There is moderate plaque within the proximal right internal carotid artery without significant stenosis. There is extensive calcified plaque within the proximal left internal carotid artery which makes evaluation difficult. However, the findings suggest a severe stenosis of the proximal left internal carotid artery at the vessel origin. The degree of stenosis is approximately 80-90%. IMPRESSION: 1. 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 Degree of stenosis difficult to assess given extensive calcified plaque however approximate 80-90% stenosis at the vessel origin. 2. Severe stenosis at the origin of the left vertebral artery. 3. Mild right upper lobe airspace opacities which could reflect a mild infectious process or atelectasis. Electronically signed by: Javan Camargo M.D. 05/09/2017 9:42 PM Impression 1. Acute dysarthria and right-sided weakness with upper motor neuron sign consistent with probable new left hemispheric stroke. The patient has multiple risk factors for stroke including hypertension (which was not adequately controlled on admission), diabetes on insulin, significant dyslipidemia, and advanced age. The patient also has significant vascular stenoses including the left internal carotid artery and left vertebral artery. All of this was despite being on 81 milligram aspirin tablet daily. Currently on exam she has some right-sided weakness with upgoing toe on the right. Left-sided facial droop is likely old. She has mild dysarthria still. 2. Left internal carotid artery stenosis, severe proximally and moderate distally 3. 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 Plan 1. Although I would like an MRI of the brain to evaluate the extent severity of stroke she has a pacemaker and we cannot get an MRI. 2. Repeat CT scan of the head without contrast 3. Agree with discontinuing aspirin and initiating clopidogrel 75 milligrams daily. 4. This patient would be a candidate for high-dose statins given her lipid levels. 5. Control blood pressure 6. Control sugar 7. Physical, occupational, and speech therapy. I have spoken with Dr. Velazquez regarding this case including differential diagnosis and treatment options.
[2017-05-10] MEDS ORDERED: MAGNESIUM SULFATE 1GM / D5W 1 GM in PREMIXED IN D5W 100 ML IV ONE (11:00)
--- NOTE | 2017-05-10 11:15 | ECHOCARDIOGRAM REPORT ---
*NOTICE TO RECEIVING LIBERTARIAN AGENCY This information is strictly Confidential and protected under [place] law. [place] law prohibits you from making any further disclosure of this information unless further disclosure is expressly permitted by the written consent of the person to whom it pertains or is authorized by law. A general authorization for the release of medical or other information is not sufficient for this purpose. Hospital accepts no responsibility if the information is made available to any other person, INCLUDING THE PATIENT. Interpretation Summary * Name: TOMAS VARGAS Study Date: 05/09/2017 02:56 PM BP: 198/85 mmHg * Patient Location: [facility] HR: 76 * : 1930 (M/d/yyyy) Gender: Female Height: 62 in * Age: 86 yrs Ethnicity: [place] Weight: 175 lb * Ordering Physician: Jevon Medina * Referring Physician: Self, Referred * Performed By: Milli Monet RDCS * * Reason For Study: Cerebral Ischemia/Embolus * BSA: 1.8 m2 * -- Conclusions -- * 1. Normal LV size, mild concentric LVH. * 2. Hyperdynamic LV. LVEF >70%. No regional wall motion abnormalities. * 3. Normal RV size and function. * 4. Aortic valve sclerosis without stenosis. * 5. Mitral annular calcification with mild mitral stenosis. * 6. Grade I diastolic dysfunction. * 7. Compared with prior study on 01/13/2017: No significant changes. Procedure Details * A complete two-dimensional transthoracic echocardiogram was performed (2D, M-mode, Doppler and color flow Doppler). * The study was technically difficult. * The study was technically difficult, but visualization was adequate with the administration of Definity ultrasound contrast. * A contrast injection of Definity was performed to improve assessment of LV function. * Contrast was injected into an intravenous site in the right arm. * One vial of Definity ultrasound contrast was diluted in normal saline to a total volume of 10 ml. A total of '2' ml of solution was administered during imaging. * Lot # [id number] of Definity utilized for procedure. * Expiration date 1DEC18. * The attending nurse who injected the contrast agent was LUKE Fowler. Left Ventricle * The left ventricle is grossly normal size. * An intracavitary gradient is suspected. * There is mild concentric left ventricular hypertrophy. * Ejection Fraction = >70 %. * The left ventricle is hyperdynamic. * No regional wall motion abnormalities noted. Right Ventricle * The right ventricle is grossly normal size. * There is a pacemaker lead in the right ventricle. * The right ventricular systolic function is normal as assessed by tricuspid annular plane systolic excursion (TAPSE) (normal >1.5 cm). Atria * The left atrium is mildly dilated. * Right atrium not well visualized. * There is no evidence of atrial septal defect, but resolution does not allow assessment for a patent foramen ovale. Mitral Valve * There is moderate mitral annular calcification. * There is mild mitral stenosis. * There is trace mitral regurgitation. Aortic Valve * Aortic valve sclerosis mild, without significant aortic valvular stenosis. * No hemodynamically significant valvular aortic stenosis. Great Vessels * The aortic root and proximal ascending aorta are normal sized. Pericardium/Pleural * There is no pericardial effusion. Great Vessels * Normal inferior vena cava size and collapsability with sniff indicates a normal right atrial pressure of 3 mmHg Left Ventricular Diastolic Function * Grade I diastolic dysfunction, (abnormal relaxation pattern). MMode 2D Measurements and Calculations IVSd 1.3 cm LVIDd 3.5 cm LVIDs 2.1 cm LVPWd 1.2 cm IVS/LVPW 1.1 FS 39.3 % EDV(Teich) 52.2 ml ESV(Teich) 15.3 ml EF(Teich) 70.8 % EDV(cubed) 44.2 ml ESV(cubed) 9.9 ml EF(cubed) 77.6 % LV mass(C)d 143.8 grams LV mass(C)dI 79.6 grams/m\S\2 SV(Teich) 36.9 ml SI(Teich) 20.4 ml/m\S\2 SV(cubed) 34.3 ml SI(cubed) 19.0 ml/m\S\2 Ao root diam 2.8 cm Ao root area 6.2 cm\S\2 ACS 1.1 cm LA dimension 3.3 cm LA/Ao 1.2 LVOT diam 1.8 cm LVOT area 2.4 cm\S\2 LVAd ap4 21.6 cm\S\2 LVLd ap4 6.7 cm EDV(MOD-sp4) 56.5 ml EDV(sp4-el) 59.3 ml LVAs ap4 8.5 cm\S\2 LVLs ap4 5.4 cm ESV(MOD-sp4) 11.1 ml ESV(sp4-el) 11.3 ml EF(MOD-sp4) 80.3 % EF(sp4-el) 81.0 % LVAd ap2 19.7 cm\S\2 LVLd ap2 7.7 cm EDV(MOD-sp2) 47.5 ml EDV(sp2-el) 42.9 ml LVAs ap2 9.3 cm\S\2 LVLs ap2 6.2 cm ESV(MOD-sp2) 14.1 ml ESV(sp2-el) 11.9 ml EF(MOD-sp2) 70.3 % EF(sp2-el) 72.2 % LVLd %diff 12.4 % EDV(MOD-bp) 53.1 ml LVLs %diff 13.2 % ESV(MOD-bp) 12.9 ml EF(MOD-bp) 75.7 % SV(MOD-sp4) 45.4 ml SI(MOD-sp4) 25.1 ml/m\S\2 SV(MOD-sp2) 33.4 ml SI(MOD-sp2) 18.5 ml/m\S\2 SV(MOD-bp) 40.2 ml SI(MOD-bp) 22.3 ml/m\S\2 SV(sp4-el) 48.1 ml SI(sp4-el) 26.6 ml/m\S\2 SV(sp2-el) 30.9 ml SI(sp2-el) 17.1 ml/m\S\2 Doppler Measurements and Calculations MV E max sharon 89.7 cm/sec MV A max sharon 192.3 cm/sec MV E/A 0.47 MV V2 max 213.1 cm/sec MV max PG 18.2 mmHg MV V2 mean 93.6 cm/sec MV mean PG 4.5 mmHg MV V2 VTI 49.6 cm MVA(VTI) 1.4 cm\S\2 MV P1/2t max sharon 95.3 cm/sec MV P1/2t 154.7 msec MVA(P1/2t) 1.4 cm\S\2 MV dec slope 180.4 cm/sec\S\2 MV dec time 0.42 sec Ao V2 max 251.6 cm/sec Ao max PG 25.5 mmHg Ao max PG (full) 21.0 mmHg Ao V2 mean 182.9 cm/sec Ao mean PG 15.0 mmHg Ao mean PG (full) 12.5 mmHg Ao V2 VTI 58.6 cm VALERIE(I,A) 1.1 cm\S\2 VALERIE(I,D) 1.1 cm\S\2 VALERIE(V,A) 1.0 cm\S\2 VALERIE(V,D) 1.0 cm\S\2 LV V1 max PG 4.4 mmHg LV V1 mean PG 2.4 mmHg LV V1 max 105.2 cm/sec LV V1 mean 72.2 cm/sec LV V1 VTI 27.7 cm SV(Ao) 365.9 ml SI(Ao) 202.6 ml/m\S\2 SV(LVOT) 67.2 ml SI(LVOT) 37.2 ml/m\S\2 PA V2 max 77.6 cm/sec PA max PG 2.4 mmHg TR max sharon 215.9 cm/sec
--- NOTE | 2017-05-10 12:30 | DIAGNOSTIC IMAGING REPORT ---
HEAD CT NONCONTRAST CT DOSE: 614.27 mGy.cm HISTORY: eval left brain for cva has LICA and vertebral stenosis on CTA, TECHNIQUE: Multiaxial CT images of the head were performed without the use of intravenous contrast. Automated exposure control was utilized for this study. A dose lowering technique was utilized adhering to the principles of ALARA. Comparison: Head CT 05/09/2017. Findings: The paranasal sinuses and mastoid air cells are clear. The calvarium and skull base are intact. There is no mass, hematoma, midline shift, acute infarct. White matter hypodensity is nonspecific but suggestive of microvascular ischemic change. The ventricles and sulci demonstrate mild age-related involutional changes. Impression: No significant change compared to the prior study. No acute intracranial abnormality. Electronically signed by: Cole Sheffield M.D. 05/10/2017 12:29 PM Dictated Date/Time: 05/10/2017 12:26 PM
[2017-05-10] MEDS: ACETAMINOPHEN 325 MG TAB PO PRN (14:45)
[2017-05-10] MEDS: ESCITALOPRAM OXALATE 10 MG TAB PO SCH (21:05)
[2017-05-10] MEDS: RANITIDINE HCL 150 MG TAB PO SCH (21:05)
[2017-05-11] VITALS (8 sets, daily range): BP systolic 121–162; BP diastolic 63–80; PULSE 69–88; TEMP 36.6–37; O2SAT 97–98
[2017-05-11] MEDS: HEPARIN SOD 5000 UNIT/0.5 ML CARP SQ SCH ×3 (06:05→21:30)
[2017-05-11] MEDS: SODIUM CHLORIDE 0.9% 1000ML 1,000 ML IV SCH ×2 (06:06→17:51)
[2017-05-11 07:41] LABS: BASO % 0.4 %; BASO ABS # 0.02 K/uL (0-0.2); COMPLETE YES; EOS % 4.2 %; HEMATOCRIT 29.2 % (37-47); LYMPH % 23.2 %; LYMPH ABS # 1.16 K/uL (1.2-3.4); MEAN CELL VOLUME 87.4 fL (80-100); MEAN CORPUSCULAR HEMOGLOBIN 30.8 pg (25-34); MEAN CORPUSCULAR HGB CONC 35.3 g/dl (32-36); MEAN PLATELET VOLUME 9.4 fL (7.4-10.4); MONO % 6.8 %; NEUT % 65.4 %; PLATELET COUNT 153 K/uL (130-400); RED BLOOD COUNT 3.34 M/uL (4.2-5.4); WHITE BLOOD COUNT 4.99 K/uL (4.8-10.8)
[2017-05-11 07:49] LABS: ESTIMATED AVERAGE GLUCOSE 140 mg/dl; HA1C FLAG Normal (Normal)
[2017-05-11] MEDS: INSULIN ASPART 100 UNITS/ML 3 ML PEN SC SCH ×4 (08:12→21:30)
[2017-05-11 08:14] LABS: BUN/CREATININE RATIO 14.7 (10-20); CREATININE 1.08 mg/dl (0.60-1.20); POTASSIUM 3.4 mmol/L (3.5-5.1)
[2017-05-11] MEDS: OMEGA-3 (PURIFIED FISH OIL) 1 GM CAP PO SCH (08:16)
[2017-05-11] MEDS: CLOPIDOGREL BISULFATE 75 MG TAB PO SCH (08:16)
[2017-05-11] MEDS: POLYETHYLENE (MIRALAX) 17 GM PACK PO SCH (08:16)
[2017-05-11] MEDS: CYANOCOBALAMIN 500 MCG TAB (VIT B-12) PO SCH (08:16)
[2017-05-11] MEDS: ATORVASTATIN 20 MG TAB PO SCH (08:16)
[2017-05-11] MEDS: CHOLECALCIFEROL 1000 INTER.UNIT TAB PO SCH (08:17)
[2017-05-11] MEDS: INSULIN DETEMIR FLEXPEN/FLEX TOUCH 100 UNITS/ML 3ML SC SCH (08:18)
[2017-05-11] MEDS ORDERED: POTASSIUM CHLORIDE 20 MEQ TABCR PO ONE (09:30)
[2017-05-11] MEDS ORDERED: ATORVASTATIN 20 MG TAB PO ONE (12:00)
--- NOTE | 2017-05-11 12:11 | Hospitalist Progress Note ---
Hospitalist Progress Note Date of Service May 11, 2017. (Ivonne Shah .MARCEC) Subjective Pt evaluation today including: conversation w/ patient, physical exam, chart review, lab review, review of studies, review of inpatient medication list Pain: Left hip pain PO Intake: Tolerating PO diet Voiding: no voiding problems The patient states she is not feeling very well today compared to other days. She complains of left hip pain. She complains of fatigue as well. She does not feel particularly weak. The patient denies fevers, chills, sweats, chest pain, palpitations, claudication, cough, wheezing, shortness of breath, nausea, vomiting, abdominal pain, dysuria, hematuria, urinary retention, paralysis, weakness, numbness and tingling. Additional Comments: See HPI for pertinent positives and negatives. All other systems reviewed and negative. (Ivonne Shah ., MARCEC) Objective Vital Signs Date Time Temp Pulse Resp B/P (MAP) Pulse Ox O2 Delivery O2 Flow Rate FiO2 05/11/17 08:18 36.9 88 18 121/63 (82) 98 05/11/17 04:47 37.0 82 16 148/76 (100) 98 Room Air 05/11/17 04:00 Room Air 05/10/17 23:59 Room Air 05/10/17 23:29 36.9 82 16 170/72 (104) 96 Room Air 05/10/17 20:00 Room Air 05/10/17 19:52 36.7 86 18 164/68 (100) 95 Room Air 05/10/17 16:01 36.8 87 20 138/62 (87) 94 Room Air 05/10/17 16:00 Room Air 05/10/17 12:00 Room Air 05/10/17 11:57 36.5 76 18 110/64 (79) 99 (Ivonne Shah PA-C) Physical Exam Notes: General appearance: +Leaning to right side. Well-developed, well-nourished, no apparent distress Head: Normocephalic, atraumatic Eyes: Normal inspection, PERRL, EOMI ENT: Normal ENT inspection, hearing grossly normal, pharynx normal Neck: Supple, no JVD, trachea midline Respiratory/Chest: Lungs clear to auscultation, normal breath sounds, no respiratory distress Cardiovascular: Regular rate & rhythm, no gallop, no murmur Abdomen/GI: Normal bowel sounds, non-tender, soft Extremities/Musculoskeletal: Normal inspection, no calf tenderness, no pedal edema Neurological/Psych: +RUE and RLE 3/5 strength. LUE 5/5, LLE 4/5. Disoriented to time. Some slurred speech. Alert, normal mood/affect, oriented x 2 Skin: Normal color, warm/dry, no rash (Ivonne Shah ., ENRIQUE) Laboratory Results Last 24 Hours Test 05/10/17 11:11 05/10/17 16:22 05/10/17 21:08 05/11/17 06:51 Bedside Glucose 157 mg/dl 138 mg/dl 119 mg/dl White Blood Count 4.99 K/uL Red Blood Count 3.34 M/uL Hemoglobin 10.3 g/dL Hematocrit 29.2 % Mean Corpuscular Volume 87.4 fL Mean Corpuscular Hemoglobin 30.8 pg Mean Corpuscular Hemoglobin Concent 35.3 g/dl Platelet Count 153 K/uL Mean Platelet Volume 9.4 fL Neutrophils (%) (Auto) 65.4 % Lymphocytes (%) (Auto) 23.2 % Monocytes (%) (Auto) 6.8 % Eosinophils (%) (Auto) 4.2 % Basophils (%) (Auto) 0.4 % Neutrophils # (Auto) 3.26 K/uL Lymphocytes # (Auto) 1.16 K/uL Monocytes # (Auto) 0.34 K/uL Eosinophils # (Auto) 0.21 K/uL Basophils # (Auto) 0.02 K/uL RDW Standard Deviation 44.2 fL RDW Coefficient of Variation 13.8 % Immature Granulocyte % (Auto) 0.0 % Immature Granulocyte # (Auto) 0.00 K/uL Sodium Level 141 mmol/L Potassium Level 3.4 mmol/L Chloride Level 110 mmol/L Carbon Dioxide Level 19 mmol/L Anion Gap 13.0 mmol/L Blood Urea Nitrogen 16 mg/dl Creatinine 1.08 mg/dl Est Creatinine Clear Calc Drug Dose 33.9 ml/min Estimated GFR () 53.5 Estimated GFR (Non- 46.1 BUN/Creatinine Ratio 14.7 Random Glucose 112 mg/dl Calcium Level 9.0 mg/dl Magnesium Level 1.9 mg/dl Test 05/11/17 06:54 Bedside Glucose 121 mg/dl (Ivonne Shah ., JOSÉ LUIS-C) Diagnostic Results Reviewed the following studies and agree with interpretation as follows: HEAD CT NONCONTRAST CT DOSE: 614.27 mGy.cm HISTORY: eval left brain for cva has LICA and vertebral stenosis on CTA, TECHNIQUE: Multiaxial CT images of the head were performed without the use of intravenous contrast. Automated exposure control was utilized for this study. A dose lowering technique was utilized adhering to the principles of ALARA. Comparison: Head CT 05/09/2017. Findings: The paranasal sinuses and mastoid air cells are clear. The calvarium and skull base are intact. There is no mass, hematoma, midline shift, acute infarct. White matter hypodensity is nonspecific but suggestive of microvascular ischemic change. The ventricles and sulci demonstrate mild age-related involutional changes. Impression: No significant change compared to the prior study. No acute intracranial abnormality. (Ivonne Shah ., JOSÉ LUIS-C) Assessment and Plan 86 y/o female with a history of HTN, HLD, DM II, PMR, Sjgren's, anxiety and depression who presents with slurred speech and stroke like symptoms. CVA--stable -Admit to telemetry. No acute events overnight. Pt in sinus rhythm with HR 60s -90s. 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 Repeat head CT as not able to obtain MRI. Continue Plavix, recommend high dose statin. Control BP and sugars. -Lipid panel shows elevated triglycerides, non-HDL 232 -Increase Lipitor to 40 mg PO qd -Continue Plavix -Pacemaker thought to not be MRI compatible, but daughter states that MRI is actually compatible. Confirmed pt has [employer] PRIYANKA Jaramillo pacemaker and can have MRI -Order brain MRI -Repeat head CT 05/10 shows no change -Head and neck CTA shows severe stenosis of left ICA and left vertebral -PT/OT recommend acute rehab Poor oral intake, possible dehydration -Continue NSS at 100 cc/hr HTN--stable. BP WNL -Continue to hold amlodipine and lisinopril. BP 121/63 this am HLD -Lipitor as above CKD stage III--stable -Creatinine stable, at baseline DM II--A1c 6.5 on 05/09 -Levemir 6 units SC qam -Insulin sliding scale -Check BSGs q ac and qhs PMR and Sjogren's--stable Depression -Continue Lexapro 5 mg PO qd DVT prophylaxis -Heparin 5000 units SC q8h Dispo -Pt from home -PT/OT recommend acute rehab -Case management following, referral to [facility] Code Status -Level V, DO NOT RESUSCITATE (Ivonne Shah ., PA-C) Reviewed: Pt Seen/Exam by Me (Pt fe) (Ila Mcdonough, DO) History Pt feels she is improved. Still feels her speech is a bit off, "but it's doing ok". Has been tolerating PO without issue. No chest pain or SOB. Agree with HPI/ROS as noted. (Ila Mcdonough, DO) General Appearance: WD/WN, no apparent distress Eye Exam: bilateral eye normal inspection, bilateral eye EOMI Respiratory: normal breath sounds, no respiratory distress Cardiovascular: normal peripheral pulses, regular rate, rhythm Gastrointestinal: non tender, soft Neurologic/Psychiatric: alert (to person and place), normal mood/affect, facial droop, other (Seems slightly confused at times, talking about people in the hallway, listing to the L, speech is understandable but trails off frequently mid-sentence) Skin Characteristics: normal color, warm/dry (Ila Mcdonough, DO) Assessment/Plan Agree with plan as outlined above Likely CVA MRI compatible pacer, pending Increased atorvastatin to 40mg dose Awaiting rehab placement Stable for transfer from [facility] (Ila Mcdonough, DO)
[2017-05-11] MEDS ORDERED: NURSING VERBAL MED ORDER ONE (14:45)
--- NOTE | 2017-05-11 15:17 | DIAGNOSTIC IMAGING REPORT ---
BRAIN WITHOUT CONTRAST HISTORY: 86 years-old Female stroke acute strokelike symptoms. COMPARISON: Head CT 05/10/2017 TECHNIQUE: Multiplanar multisequence MRI of the brain was obtained without contrast FINDINGS: There is a focal area of restricted diffusion within the left ventral edouard, 1.5 x 0.8 cm as seen on image 8 of series 4 which is low signal on ADC map and demonstrates increased signal on the T2/FLAIR images. No additional areas of restricted diffusion identified. The midline structures including the pituitary, infundibulum, optic chiasm and pineal glands are unremarkable in the sagittal T1 series. No cerebellar tonsillar herniation. Interval changes are seen within the imaged upper cervical spine. There is no acute intracranial hemorrhage, midline shift, abnormal extra-axial collections, hydrocephalus or intracranial mass. Moderate atrophy with ex vacuo ventriculomegaly. Severe chronic microvascular ischemic changes are noted with remote lacunar infarctions of the basal ganglia. The major flow voids at the level of the skull base appear patent. The distal left vertebral artery appears dominant. Mastoid air cells are clear. Mild mucosal thickening of the ethmoid air cells. Scalp and soft tissues are unremarkable. Calvarium is unremarkable. IMPRESSION: 1. Acute to subacute infarction of the ventral left edouard with mild associated edema. 2. Atrophy with advanced chronic microvascular ischemic changes. The above report was generated using voice recognition software. It may contain grammatical, syntax or spelling errors. Electronically signed by: Beni Ramos M.D. 05/11/2017 3:15 PM Dictated Date/Time: 05/11/2017 3:09 PM
[2017-05-11] MEDS: ACETAMINOPHEN 325 MG TAB PO PRN (15:43)
[2017-05-11] MEDS: ESCITALOPRAM OXALATE 10 MG TAB PO SCH (21:27)
[2017-05-11] MEDS: RANITIDINE HCL 150 MG TAB PO SCH (21:27)
[2017-05-12 00:30] VITALS: BP 135/78; PULSE 78; TEMP 36.7; O2SAT 98
[2017-05-12] MEDS: SODIUM CHLORIDE 0.9% 1000ML 1,000 ML IV SCH ×2 (04:00→14:59)
[2017-05-12] MEDS: HEPARIN SOD 5000 UNIT/0.5 ML CARP SQ SCH ×2 (05:24→13:35)
[2017-05-12 05:39] LABS: BASO % 0.6 %; BASO ABS # 0.03 K/uL (0-0.2); COMPLETE YES; EOS % 4.1 %; HEMATOCRIT 28.4 % (37-47); IG% 0.2 %; LYMPH % 30.9 %; LYMPH ABS # 1.65 K/uL (1.2-3.4); MEAN CELL VOLUME 87.7 fL (80-100); MEAN CORPUSCULAR HEMOGLOBIN 30.6 pg (25-34); MEAN CORPUSCULAR HGB CONC 34.9 g/dl (32-36); MONO % 7.1 %; NEUT % 57.1 %; PLATELET COUNT 158 K/uL (130-400); RED BLOOD COUNT 3.24 M/uL (4.2-5.4); WHITE BLOOD COUNT 5.34 K/uL (4.8-10.8)
[2017-05-12 06:04] LABS: BUN/CREATININE RATIO 14.3 (10-20); CALCIUM 8.4 mg/dl (8.5-10.1); CREATININE 1.02 mg/dl (0.60-1.20); POTASSIUM 3.7 mmol/L (3.5-5.1)
[2017-05-12] MEDS: CLOPIDOGREL BISULFATE 75 MG TAB PO SCH (07:34)
[2017-05-12] MEDS: OMEGA-3 (PURIFIED FISH OIL) 1 GM CAP PO SCH (07:34)
[2017-05-12] MEDS: CYANOCOBALAMIN 500 MCG TAB (VIT B-12) PO SCH (07:34)
[2017-05-12] MEDS: CHOLECALCIFEROL 1000 INTER.UNIT TAB PO SCH (07:34)
[2017-05-12] MEDS: POLYETHYLENE (MIRALAX) 17 GM PACK PO SCH (07:35)
[2017-05-12 07:39] VITALS: BP 148/58; PULSE 82; TEMP 36.8; O2SAT 94
[2017-05-12] MEDS ORDERED: ATORVASTATIN 40 MG TAB PO SCH (08:00)
[2017-05-12] MEDS: INSULIN ASPART 100 UNITS/ML 3 ML PEN SC SCH ×2 (08:51→12:26)
[2017-05-12] MEDS: INSULIN DETEMIR FLEXPEN/FLEX TOUCH 100 UNITS/ML 3ML SC SCH (09:08)
[2017-05-12] MEDS ORDERED: LPT40 PO (10:20)
[2017-05-12] MEDS ORDERED: LSN5 PO (10:20)
[2017-05-12] MEDS ORDERED: PLV75 PO (10:20)
--- NOTE | 2017-05-12 10:30 | Discharge Instructions ---
Discharge Instructions Date of Service May 12, 2017. Admission Reason for Admission: Possible Cva Discharge Discharge Diagnosis / Problem: Stroke Discharge Goals Goal(s): Decrease discomfort, Improve function, Diagnostic testing, Therapeutic intervention Activity Recommendations Activity Level: Assistance Required Therapies: Physical Therapy, Occupational Therapy, Speech Therapy . Additional Information Patient informed of condition: Yes Advance Directives: Yes DNR: Yes Level of Care: Acute Rehab Communicable Disease: No Prognosis: Stable Grimes Catheter: No Instructions / Follow-Up Instructions / Follow-Up The patient was admitted to the hospital after presenting with weakness and slurred speech. The patient was found to have right sided weakness with a presumed left sided stroke. MRI of the brain confirmed an acute infarction of the ventral left edouard with mild associated edema. The patient has been stable and is medically ready for discharge. Inpatient physical therapy recommended that the patient continue with inpatient acute rehab on discharge. Medications: *Aspirin discontinued. Continue Plavix 75 mg PO qd instead. *Lipitor increased to 40 mg PO qd due to elevated lipid panel. *Amlodipine discontinued. *Lisinopril dose decreased to 5 mg PO qd. Follow up: *Follow up with medical provider at [facility]. *Recommend following up with neurology in 1 month at outpatient clinic. Activity Recommendations: See above. Patient will need physical, occupation and speech therapies due to slurred speech and right sided weakness. Warning Signs and Symptoms of Stroke: * Sudden numbness or weakness of the face, arm or leg, especially on one side of the body * Sudden confusion, trouble speaking or understanding * Sudden trouble seeing in one or both eyes * Sudden trouble walking, dizziness, loss of balance or coordination * Sudden severe headache with no cause Do not delay calling 911 if you experience any warning signs or symptoms of a stroke. Delay in seeking medical attention may affect what treatments can be given to you. Risk Factors for Stroke: You can reduce your chances of stroke by working with your medical provider to adopt a healthy lifestyle. Some specific ways to lower your chance of stroke are: * If you are a smoker, now is the time to stop smoking cigarettes * If you are diabetic, improve the control of your blood sugars * Avoid excessive amounts of alcohol * Control high blood pressure * Lose weight if you are overweight * Be sure to lead an active lifestyle * Eat a healthy diet low in salt, cholesterol and fat You should know about other risk factors for stroke that you are unable to control. These include: * Age 55 years or older * Male gender * Certain racial groups: , or / * Family History of Stroke, Mini stroke or Heart Attack * Sickle Cell Disease Follow Up: It is important for you to keep your follow up appointments with your medical provider. Current Hospital Diet Patient's current hospital diet: AHA Diet (Heart Healthy), Diabetes Type 2 Diet Discharge Diet Recommended Diet: AHA Diet (Heart Healthy), Diabetes Type 2 Diet Pending Studies Studies pending at discharge: no Physician Orders On Transfer Special Precautions: Fall precautions Aspiration precautions Vital Signs: Routine Laboratory Results Hemoglobin A1c Test 05/09/17 10:41 Range/Units Estimated Average Glucose 140 mg/dl Hemoglobin A1c 6.5 H 4.5-5.6 % Lipid Panel Test 05/10/17 06:11 Range/Units Triglycerides Level 258 H 0-150 mg/dl Cholesterol Level 261 H 0-200 mg/dl HDL Cholesterol 29 mg/dl Cholesterol/HDL Ratio 9.0 LDL Cholesterol, Calculated 180 mg/dl Medical Emergencies . Who to Call and When: Medical Emergencies: If at any time you feel your situation is an emergency, please call 911 immediately. . Non-Emergent Contact Non-Emergency issues call your: Primary Care Provider, Neurologist Call Non-Emergent contact if: you have a fever, you have any medication questions . Past History Medical & Surgical History: (1) Stroke . "Provider Documentation" section prepared by Ivonne Shah. . Core Measure Problem Core Measures: Stroke Stroke Core Measures Reason no t-PA for Stroke: Treatment not indicated Reason no antithrom by day 2: Treatment provided - N/A Reason no antithrom at D/C: Treatment provided - N/A Reason no statin at D/C: Treatment provided - N/A Reason no anticoag w/a fib: Treatment not indicated
--- NOTE | 2017-05-12 10:39 | Discharge Summary ---
Discharge Summary Date of Service May 12, 2017. (Ivonne Shah, ENRIQUE) Discharge Summary Admission Date: May 09, 2017 at 13:54 Discharge Date: May 12, 2017 Discharge Disposition: Rehab Principal Diagnosis: Stroke Problems/Secondary Diagnoses: HTN, HLD, DM II, PMR, Sjgren's, anxiety and depression Immunizations: Have You Had Influenza Vaccine: Yes History of Tetanus Vaccine?: Unknown History of Pneumococcal: Yes History of Hepatitis B Vaccine: Unknown Procedures: [~ rep ct add3]] BRAIN WITHOUT CONTRAST HISTORY: 86 years-old Female stroke acute strokelike symptoms. COMPARISON: Head CT 05/10/2017 TECHNIQUE: Multiplanar multisequence MRI of the brain was obtained without contrast FINDINGS: There is a focal area of restricted diffusion within the left ventral edouard, 1.5 x 0.8 cm as seen on image 8 of series 4 which is low signal on ADC map and demonstrates increased signal on the T2/FLAIR images. No additional areas of restricted diffusion identified. The midline structures including the pituitary, infundibulum, optic chiasm and pineal glands are unremarkable in the sagittal T1 series. No cerebellar tonsillar herniation. Interval changes are seen within the imaged upper cervical spine. There is no acute intracranial hemorrhage, midline shift, abnormal extra-axial collections, hydrocephalus or intracranial mass. Moderate atrophy with ex vacuo ventriculomegaly. Severe chronic microvascular ischemic changes are noted with remote lacunar infarctions of the basal ganglia. The major flow voids at the level of the skull base appear patent. The distal left vertebral artery appears dominant. Mastoid air cells are clear. Mild mucosal thickening of the ethmoid air cells. Scalp and soft tissues are unremarkable. Calvarium is unremarkable. IMPRESSION: 1. Acute to subacute infarction of the ventral left edouard with mild associated edema. 2. Atrophy with advanced chronic microvascular ischemic changes. CT ANGIOGRAPHY OF THE NECK WITH CONTRAST CLINICAL HISTORY: Weakness. Possible cerebrovascular accident. COMPARISON STUDY: Carotid ultrasound February 24, 2013. Technique: CT angiography of the carotid and vertebral arteries was obtained using [employer] 320 IV and 3D reconstruction on an independent workstation. NASCET criteria was utilized. A dose lowering technique was utilized adhering to the principles of ALARA. CT DOSE: 599.78 mGy.cm Findings: Visualized portions of the lung apices demonstrate mild airspace opacities within the right upper lobe. There is moderate atherosclerotic plaque of the thoracic aorta. There is no dissection within the major vasculature of the neck. There is severe stenosis at the origin of the left vertebral artery. There is moderate plaque within the proximal right internal carotid artery without significant stenosis. There is extensive calcified plaque within the proximal left internal carotid artery which makes evaluation difficult. However, the findings suggest a severe stenosis of the proximal left internal carotid artery at the vessel origin. The degree of stenosis is approximately 80-90%. IMPRESSION: 1. 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 Degree of stenosis difficult to assess given extensive calcified plaque however approximate 80-90% stenosis at the vessel origin. 2. Severe stenosis at the origin of the left vertebral artery. 3. Mild right upper lobe airspace opacities which could reflect a mild infectious process or atelectasis. CTA ANGIOGRAPHY OF THE HEAD CLINICAL HISTORY: Weakness. Possible cerebrovascular accident. COMPARISON STUDY: Head CT November 24, 2016 and May 09, 2017. TECHNIQUE: Helical axial images of the head were obtained following uneventful intravenous administration of 119 cc of Optiray 320. A dose lowering technique was utilized adhering to the principles of ALARA. FINDINGS: No acute intracranial hemorrhage, midline shift or mass effect is present. Ventricular system is unchanged from earlier head CT's. Basilar cisterns are patent. There are no extra-axial collections. There is extensive atherosclerotic plaque within the bilateral cavernous carotids. There is a hypodensity within the ophthalmic portion of the left internal carotid artery shown on axial image 146 of 468. This results in severe narrowing of this vessel. There is moderate stenosis of the right cavernous carotid. No abrupt vessel cut off is identified. There is no intracranial aneurysm or evidence for dissection within the intracranial vessels. IMPRESSION: 1. No abrupt vessel cut off or intracranial aneurysm identified. 2. Intraluminal hypodensity within the ophthalmic portion of the left internal carotid artery that results in severe narrowing of this vessel. This could reflect noncalcified plaque or thrombus. 3. Moderate atherosclerotic plaque of the major intracranial vessels. Consultations: Neurology (Ivonne Shah ., PAChinaC) Medication Reconciliation New Medications: Lisinopril (Lisinopril) 5 Mg Tab 5 MG PO DAILY for 30 Days, #30 TABS Atorvastatin (Atorvastatin Calcium) 40 Mg Tab 40 MG PO QAM for 30 Days, #30 TAB Clopidogrel Bisulfate (Clopidogrel) 75 Mg Tab 75 MG PO QAM for 30 Days, #30 TAB Continued Medications: Acetaminophen/Diphenhydramine (Tylenol Pm) 500 Mg/25 Mg Tab 1 TAB PO HS, TAB Cholecalciferol (Vitamin D3) 1,000 Unit Cap 2000 INTER.UNIT PO QAM Cyanocobalamin (Vitamin B-12) 1,000 Mcg Tab 1000 MCG PO DAILY Escitalopram Oxalate (Lexapro) 5 Mg Tab 5 MG PO QPM, TAB Fish Oil ([place]-3) 1 Ea Cap 1200 MG PO DAILY Insulin Detemir (Levemir Flextouch) 100 Unit/Ml Inj 6 UNITS SC QAM Insulin Lispro (Human) (Humalog Kwikpen) 100 Unit/Ml Inj 1 DOSE SQ UD SLIDING SCALE FOR HUMALOG FOLLOWS: LESS THAN 180 O UNITS 181-200 3 UNITS 201-250 6 UNITS 251-300 12 UNITS 301-350 14 UNITS 351-400 18 UNITS Lidocaine (Lidoderm Patch 5%) 1 Ea Tdsy 1 PATCH TOP ONAMOFFPM APPLY IN MORNING, REMOVE AT NIGHT. (ON 12 HOURS-OFF 12 HOURS). Magnesium Hydroxide (Milk Of Magnesia) 30 Ml Susp 30 ML PO DAILY PRN for Constipation Polyethylene Glycol 3350 (Miralax) 1 Pow Pow 17 GM PO DAILY Ranitidine Hcl (Ranitidine Hcl) 75 Mg Tab 75 MG PO HS Simethicone (Gas-X) 80 Mg Chw 80 MG PO UD PRN for Gas or Constipation TAKE PER PACKAGE DIRECTIONS Discontinued Medications: Amlodipine (Norvasc) 5 Mg Tab 5 MG PO BID Aspirin (Aspirin Ec) 81 Mg Tab 81 MG PO Q2D Lisinopril (Zestril) 20 Mg Tab 20 MG PO QPM Discharge Exam Patient complains of weakness in her right hand that is making it difficult to eat as she is right handed. She also complains of left hip pain again. 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 The patient denies fevers, chills, sweats, chest pain, palpitations, claudication, cough, wheezing , shortness of breath, nausea, vomiting, abdominal pain, dysuria, hematuria, urinary retention, paralysis, numbness and tingling. Review of Systems: Constitutional: No fever, No chills, No sweats Eyes: No worsening of vision, No eye pain, No diplopia ENT: No hearing loss, No nasal symptoms, No trouble swallowing Respiratory: No cough, No wheezing, No shortness of breath Cardiovascular: No chest pain, No claudication, No palpitations Abdomen: No pain, No nausea, No vomiting Musculoskeletal: + joint pain (left hip), No muscle pain, No swelling Genitourinary - Female: No dysuria, No urinary retention, No hematuria Neurologic: + weakness (right side), No paralysis, No numbness/tingling Integumentary: No rash, No itch, No color change Physical Exam: General Appearance: WD/WN, no apparent distress, + obese Eyes: normal inspection, PERRL, EOMI ENT: normal ENT inspection, hearing grossly normal, pharynx normal Neck: supple, no JVD, trachea midline Respiratory/Chest: lungs clear, normal breath sounds, no respiratory distress Cardiovascular: regular rate, rhythm, no gallop, no murmur Abdomen / GI: normal bowel sounds, non tender, soft Extremities: normal inspection, no calf tenderness, no pedal edema Neurologic/Psychiatric: alert, normal mood/affect, + motor weakness (RUE and RLE 3/5, LLE 4/5, LUE 5/5), + disoriented (time) Skin: normal color, warm/dry, no rash (Ivonne Shah ., ENRIQUE) Hospital Course 86 y/o female with a history of HTN, HLD, DM II, PMR, Sjgren's, anxiety and depression who presents with slurred speech and stroke like symptoms. CVA--stable -Admit to telemetry. No acute events overnight. Pt in sinus rhythm with HR 60s -90s. Stable, transfer to medical 05/11 -Neurology consulted, appreciate recs: Probably new left hemispheric CVA. Repeat head CT as not able to obtain MRI. Continue Plavix, recommend high dose statin. Control BP and sugars. -Lipid panel shows elevated triglycerides, non-HDL 232 -Increase Lipitor to 40 mg PO qd -Continue Plavix, ASA d/c'd -Restart lisinopril at 5 mg PO qd, continue to hold amlodipine at discharge -Pacemaker thought to not be MRI compatible, but daughter states that MRI is actually compatible. Confirmed pt has [employer] PRIYANKA Jaramillo pacemaker and can have MRI -Brain MRI shows acute/subacute infarction in ventral left edouard with mild associated edema -Repeat head CT 05/10 shows no change -Head and neck CTA shows severe stenosis of left ICA and left vertebral -PT/OT recommend acute rehab Poor oral intake, possible dehydration -Continue NSS at 100 cc/hr HTN--stable. BP mildly elevated -Lisinopril dose decreased to 5 mg PO qd -Continue to hold amlodipine HLD -Lipitor as above CKD stage III--stable -Creatinine stable, at baseline DM II--A1c 6.5 on 05/09 -Levemir 6 units SC qam -Insulin sliding scale -Check BSGs q ac and qhs PMR and Sjogren's--stable Depression -Continue Lexapro 5 mg PO qd DVT prophylaxis -Heparin 5000 units SC q8h Dispo -Pt from home -PT/OT recommend acute rehab -Accepted to [facility] -Recommend f/u with neurology 1 month Code Status -Level V, DO NOT RESUSCITATE Total Time Spent: Greater than 30 minutes This includes examination of the patient, discharge planning, medication reconciliation, and communication with other providers. (Ivonne Shah ., PA-C) PA Physician Supervision Note: I interviewed and examined the patient. Discussed with Ivonne Shah PAC and agree with findings and plan as documented in the note. Any exceptions or clarifications are listed here: None Patient was admitted with strokelike symptoms it was discovered she had a MRI compatible pacemaker, an MRI eventually did confirm the patient had a stroke her symptoms seem to revolve around arm weakness and difficulty speaking. The patient is to go to rehabilitation 05/12 Her vitals show her blood pressure is slightly creeping up we will reinstitute her MAHNAZ inhibitor and one half strength as it also is renal protective with her diabetes she has some garbled speech was able to talk to me she generally fluid at the bedside her arm is weak however she does have at least 4 over 5 strength Acute CVA for acute rehabilitation using medication to modify her risks and watching her blood pressure as we have reduced her outpatient regimen Documented By: Derek Velazquez (Derek Velazquez M.D.) Discharge Instructions Please refer to the electronic Patient Visit Report (Discharge Instructions) for additional information. (Ivonne Shah ., PA-C) Additional Copies To [facility]
[2017-05-12 15:20] VITALS: BP 162/70; PULSE 76; TEMP 36.5; O2SAT 99
== END 2017-05-12 16:01 | DRG 66 ==
LOC: EDBD 09:47 → C.EDB 09:49 → C.2T 13:54 → ENRESERV 05-11 12:41 → C.4E 05-11 13:18
PROVIDERS: ADMIT Hospitalist; ATTEND Internal Medicine
DX: I63.9 Cerebral infarction, unspecified (principal); E11.9 Type 2 diabetes mellitus without complications; I12.9 Hypertensive chronic kidney disease with stage 1 through stage 4 chronic kidney disease, or unspecified chronic kidney disease; E78.5 Hyperlipidemia, unspecified; M35.00 Sjogren syndrome, unspecified; M35.3 Polymyalgia rheumatica; F41.9 Anxiety disorder, unspecified; F32.9 Major depressive disorder, single episode, unspecified; N20.0 Calculus of kidney; N18.3 Chronic kidney disease, stage 3 (moderate); Z79.82 Long term (current) use of aspirin; Z79.4 Long term (current) use of insulin; Z90.710 Acquired absence of both cervix and uterus

== ENCOUNTER 2017-07-20 08:02 | Inpatient (IN) | payer OTHER ==
[2017-07-20] VITALS (8 sets, daily range): BP systolic 150–182; BP diastolic 80–101; PULSE 102–110; TEMP 36.8–37; O2SAT 93–100; BMI 674.1
[~2017-07-20] VITALS: Ht 157.5 cm; Wt 74.9 kg
[~2017-07-20 08:02] MED LIST changes: -AMLO-110 PO; -ASPI81TA28 PO; +DIPH-437 PO; +ESCI1TAB6 PO; -LISI-725 PO; -LORA-741 PO; +LPT40 PO; +LSN5 PO; +PLV75 PO
[2017-07-20] MEDS ORDERED: SODIUM CHLORIDE 0.9% 500ML 500 ML IV STA (08:14)
[2017-07-20] MEDS ORDERED: SODIUM CHLORIDE 0.9% 1000ML 1,000 ML IV STA ×2 (08:14→11:47)
--- NOTE | 2017-07-20 08:19 | EMERGENCY ROOM VISIT NOTE ---
History Report prepared by Bill: Nighat Lindsay Under the Supervision of: Dr. Dalia Godfrey M.D. First contact with patient: 08:09 Chief Complaint: RESPIRATORY DISTRESS Stated Complaint: ILLNESS History of Present Illness The patient is a 86 year old female who presents to the Emergency Room with complaints of constant respiratory distress beginning this morning. Per nursing , the patient has been sick with flu-like symptoms for the past four days. The patient is 80% on room air. Per nursing the patient is DNR/DNI. History is limited secondary to the patient's respiratory distress. Source of History: nursing staff History Limited By: dyspnea Onset: this morning Position: other (generalized) Quality: other (repiratory distress) Modifying Factors (Relieving): other (none) Review of Systems ROS limited secondary to respiratory distress. Past Medical & Surgical Medical Problems: (1) Anemia (2) Benign hypertension (3) CVA (cerebral vascular accident) (4) Diabetes mellitus (5) Fall due to stumbling (6) GI bleed (7) Hyperlipidemia (8) Hypertension (9) Hysterectomy (10) Intractable back pain (11) Malignant hypertension (12) Nausea & vomiting (13) Orthostasis (14) Polymyalgia rheumatica (15) Sjorens (16) Stroke (17) Syncope (18) Syncope, cardiogenic Surgical Problems: (1) Hx of cardiac pacemaker (2) Hx of cataract removal with insertion of prosthetic lens (3) Hx of hysterectomy Family History Patient reports no known family medical history. Social History Smoking Status: Never Smoker Alcohol Use: none Drug Use: none Marital Status: Housing Status: lives alone Occupation Status: retired Current/Historical Medications Scheduled Cholecalciferol (Vitamin D3), 2,000 INTER.UNIT PO QAM Clopidogrel (Plavix), 75 MG PO QAM Cyanocobalamin (Vitamin B-12), 1,000 MCG PO DAILY Escitalopram Oxalate (Lexapro), 10 MG PO QPM Insulin Glargine (Lantus), 12 UNITS SC QAM Potassium Chloride (Potassium Chloride Er), 40 MEQ PO QAM Pravastatin Sodium (Pravastatin Sodium), 40 MG PO HS Ranitidine Hcl (Ranitidine Hcl), 75 MG PO BID Scheduled PRN Acetaminophen (Tylenol), 500 MG PO Q4H PRN for Pain Acetaminophen Tab (Tylenol), 650 MG PO TID PRN for Pain Calcium Carbonate (Tums), 1,000 MG PO QID PRN for Indigestion Dextrose (Diabetic Use) (Glucose), 15 GM PO UD PRN for Hypoglycemia Protocol Glucagon (Glucagon Emergency Kit), 1 MG IM UD PRN for Hypoglycemia Protocol Ipratropium-Albuterol (Duoneb), 3 ML INH Q6H PRN for Wheezing Magnesium Hydroxide (Milk Of Magnesia), 30 ML PO DAILY PRN for Constipation Ondansetron Hcl (Zofran), 4 MG PO AC PRN for Nausea Polyethylene Glycol 3350 (Miralax), 17 GM PO DAILY PRN for Constipation Senna (Senokot), 3 TAB PO BID PRN for Constipation Sodium Chloride (Gu Irrigant) (Sodium Chloride 0.9%), 10 ML IV QS PRN for FLUSH Allergies Coded Allergies: Morphine (Verified Allergy, Mild, shortness of breath with panic attack, 07/20/17) Darbepoetin Randall (Verified Allergy, Unknown, "RED ITCHY BLOTCHES ON SKIN" , 07/20/17) Physical Exam Vital Signs Date Time Temp Pulse Resp B/P (MAP) Pulse Ox O2 Delivery O2 Flow Rate FiO2 07/20/17 12:30 38.7 07/20/17 12:17 105 07/20/17 12:00 104 34 171/84 07/20/17 11:32 103 54 98 07/20/17 11:02 103 44 99 07/20/17 11:01 156/86 07/20/17 10:35 154/88 07/20/17 10:00 106 34 139/64 99 Nasal Cannula 4.0 07/20/17 09:32 106 36 100 07/20/17 09:18 107 36 139/64 99 Nasal Cannula 4.0 07/20/17 09:17 139/64 07/20/17 09:02 103 32 07/20/17 08:32 114 29 07/20/17 08:22 109 07/20/17 08:05 99 Nasal Cannula 4.0 07/20/17 08:04 127/71 07/20/17 08:02 36.6 109 40 127/71 88 Room Air 07/20/17 08:02 Room Air Physical Exam Vital signs reviewed. General: Critically ill-appearing female, in no significant distress. HEENT: No scleral icterus, PERRLA, neck supple. Atraumatic. Mucus membrane dry. Cardiovascular: Regular rate and rhythm, no extra sounds. Pulmonary: Clear to auscultation bilaterally, increased work of breathing. Abdomen: Tender abdomen with tympany and some guarding. Musculoskeletal: Modeled left distal lower extremity. Neurologic: Patient is minimally responsive, unable to follow commands Skin: Cool to touch, dry, no rash Medical Decision & Procedures ER Provider Diagnostic Interpretation: Radiology results as stated below per my review and radiologist interpretation: KUB FINDINGS: An AP, portable, supine abdominal radiograph is compared to study dated 05/09/2017 and correlated with abdominal CT dated 02/06/2017. There is a nonobstructed abdominal bowel gas pattern. Mild colonic fecal retention is observed. There are numerous bilateral nonobstructing renal calculi. The largest stone on the left is in the lower pole and measures 10 mm. The largest on the right measures 12 mm. There is no radiographic evidence of ureteral stone. Calcified pelvic phleboliths are similar to previous. The skeletal structures are osteopenic. Multilevel lumbosacral spondylosis is observed. A pacemaker lead is partially visualized. IMPRESSION: 1. Nonobstructed abdominal bowel gas pattern. 2. Numerous nonobstructing bilateral renal calculi are identified and similar to previous. Electronically signed by: Ron Franco M.D. CHEST ONE VIEW PORTABLE FINDINGS: Permanent bipolar cardiac pacer in good position. Mild cardiomegaly. Prominent pulmonary vasculature. Small left pleural effusion. IMPRESSION: Congestive heart failure The above report was generated using voice recognition software. It may contain grammatical, syntax or spelling errors. Electronically signed by: Brian Jarquin M.D. ABDOMEN AND PELVIS CT WITHOUT CONTRAST FINDINGS: Study is moderately limited secondary to patient motion. There are small moderate bilateral pleural effusions with subsegmental bibasilar consolidation. No pneumatosis or pneumoperitoneum identified. The imaged inferior cardiac chambers are enlarged. Calcifications of the mitral and aortic annuli are noted in addition to coronary arterial disease. Partially imaged pacer leads are seen overlying the right atrium and right ventricle. No pericardial effusion. Layering increased attenuation in the region of the gallbladder neck suggest cholelithiasis. No CT evidence of acute cholecystitis. No intrahepatic biliary ductal dilation. Liver appears unremarkable. Spleen and adrenal glands are also within normal limits. There is moderate generalized pancreatic atrophy. Bilateral nephrolithiasis with largest calculus within the inferior pole left kidney measuring 8 mm. 1.2 cm calculus seen within the inferior pole right kidney. 7 x 4 x 8 mm calculus of the distal right ureter seen on image 311 series 3 which is located approximately 4.5 cm superior to the ureterovesicular junction. Mild to moderate right-sided hydroureteronephrosis with perinephric and periureteral inflammatory stranding. Mild wall thickening of the urinary bladder. Prior hysterectomy. No adnexal mass lesions identified. Extensive calcified plaque of the aorta and branch vessels. No pathologic adenopathy identified. No bowel obstruction or focal bowel wall thickening identified. Appendix appears normal. Small fat filled No hernias noted, diastases 1.4 cm. The bones appear moderately demineralized. Degenerative changes are seen about the spine, hips and pubic symphysis. IMPRESSION: 1. Mild to moderate right-sided hydroureteronephrosis secondary to a 7 x 4 x 8 mm calculus of the distal right ureter. Multiple additional bilateral nonobstructing nephrolithiasis. 2. Moderately motion degraded exam. 3. Small to moderate bilateral pleural effusions with subsegmental bibasilar consolidation suggesting compressive atelectasis or pneumonia. 4. Cholelithiasis. Electronically signed by: Beni Ramos M.D. Laboratory Results Test 07/20/17 00:00 07/20/17 08:25 07/20/17 09:20 07/20/17 11:17 Urine Color YELLOW Urine Appearance TURBID (CLEAR) Urine pH 5.0 (4.5-7.5) Urine Specific [place] 1.019 (1.000-1.030) Urine Protein 2+ (NEG) Urine Glucose (UA) NEG (NEG) Urine Ketones NEG (NEG) Urine Occult Blood 2+ (NEG) Urine Nitrite NEG (NEG) Urine Bilirubin NEG (NEG) Urine Urobilinogen NEG (NEG) Urine Leukocyte Esterase LARGE (NEG) Urine WBC (Auto) >30 /hpf (0-5) Urine RBC (Auto) 10-30 /hpf (0-4) Urine Hyaline Casts (Auto) 5-10 /lpf (0-5) Urine Epithelial Cells (Auto) >30 /lpf (0-5) Urine Bacteria (Auto) 1+ (NEG) Urine Yeast (Auto) BUD W/ HYPHAE (NONE PRSENT) Immature Granulocyte % (Auto) 0.9 % White Blood Count 40.36 K/uL (4.8-10.8) Red Blood Count 2.95 M/uL (4.2-5.4) Hemoglobin 9.1 g/dL (12.0-16.0) Hematocrit 28.3 % (37-47) Mean Corpuscular Volume 95.9 fL (80-100) Mean Corpuscular Hemoglobin 30.8 pg (25-34) Mean Corpuscular Hemoglobin Concent 32.2 g/dl (32-36) Platelet Count 255 K/uL (130-400) Mean Platelet Volume 9.4 fL (7.4-10.4) Neutrophils (%) (Auto) 94.2 % Lymphocytes (%) (Auto) 1.9 % Monocytes (%) (Auto) 3.0 % Eosinophils (%) (Auto) 0.0 % Basophils (%) (Auto) 0.0 % Neutrophils # (Auto) 38.00 K/uL (1.4-6.5) Lymphocytes # (Auto) 0.77 K/uL (1.2-3.4) Monocytes # (Auto) 1.22 K/uL (0.11-0.59) Eosinophils # (Auto) 0.00 K/uL (0-0.5) Basophils # (Auto) 0.02 K/uL (0-0.2) Immature Granulocyte # (Auto) 0.35 K/uL (0.00-0.02) Procalcitonin 17.14 ng/ml (0-0.5) Influenza Type A Antigen Neg for Influ A (NEG) Influenza Type B Antigen Neg for Influ B (NEG) Arterial Blood pH 7.41 (7.35-7.45) Arterial Blood Partial Pressure CO2 30 mmHg (35-46) Arterial Blood Partial Pressure O2 103 mm/Hg (80-95) Arterial Blood HCO3 19 mmol/L (19-24) Arterial Blood Oxygen Saturation 92.5 % (90-95) Arterial Blood Base Excess -5.3 mEq/L (-9-1.8) Arterial Blood Gas Delivery 3L Fletcher Test POS (POS) Bedside Hemoglobin 7.8 g/dl (12.0-16.0) Bedside Hematocrit 23 % (37-47) Bedside Sodium 141 mEq/L (135-144) Bedside Potassium 6.8 mEq/L (3.3-5.0) Bedside Chloride 116 mEq/L (101-112) Bedside Total CO2 19 mEq/l (24-31) Bedside Blood Urea Nitrogen 40 mg/dl (7-18) Bedside Creatinine 2.6 mg/dl (0.6-1.3) Bedside Glucose (other) 265 mg/dl (70-99) Bedside Ionized Calcium (Sarah) 1.26 mmol/l (1.12-1.32) Test 07/20/17 11:21 Bedside Lactic Acid Venous 2.25 mmol/L (0.90-1.70) Laboratory results per my review. Medications Administered Medications (Trade) Dose Ordered Sig/Ulis Route Start Time Stop Time Status Last Admin Dose Admin Sodium Chloride 500 ml @ 999 mls/hr Q31M STAT IV 07/20/17 08:14 07/20/17 08:44 DC 07/20/17 09:16 999 MLS/HR Sodium Chloride 1,000 ml @ 150 mls/hr Q6H40M STAT IV 07/20/17 08:14 07/20/17 14:53 DC 07/20/17 09:16 150 MLS/HR Calcium Gluconate (Calcium Gluconate 10%) 1,000 mg NOW STAT IV 07/20/17 08:37 07/20/17 08:39 DC 07/20/17 09:11 1,000 MG Insulin Human Regular (novoLIN-R U-100 PER UNIT) 10 units NOW STAT IV 07/20/17 08:37 07/20/17 08:39 DC 07/20/17 09:15 10 UNITS Dextrose (Dextrose 50% 50ML Syringe) 50 ml NOW STAT IV 07/20/17 08:37 07/20/17 08:39 DC 07/20/17 09:13 50 ML Sodium Chloride 1,000 ml @ 125 mls/hr Q8H STAT IV 07/20/17 11:47 07/20/17 16:07 DC 07/20/17 12:18 125 MLS/HR Piperacillin Sod/ Tazobactam Sod (Zosyn Iv) 4.5 gm TODAY@0914 IV 07/20/17 09:14 07/20/17 12:45 DC 07/20/17 12:18 4.5 GM Procedure Peripheral line in the right external jugular, placed by me without difficulty. Blood was obtained. ECG Indication: SOB/dyspnea Rate (beats per minute): 109 Rhythm: sinus rhythm Findings: Q waves (Inferior), left axis deviation, other (poor quality for interpretation, nonspecific ST change, previous inferior, anterior, and lateral infarcts, wide QRS complex ) Comparison ECG Date: 04/08/17 Change: QRS has lengthened, inferior and anterior lateral Q-waves are now noted, intraventricular block is new and rate has increased by 40 bpm ED Course 0810: Past medical records reviewed. The patient was evaluated in room B4B. A complete history and physical examination was performed. 0814: Ordered Sodium Chloride 1000 ml @ 150 mls/hr IV, Sodium Chloride 500 ml @ 999 mls/hr IV. 0837: Ordered Dextrose 25 ml IV, Insulin Human regular 10 units IV, Calcium Gluconate 1000 mg IV. 0914: Ordered Zosyn IV 4.5 gm IV. 1137: I reviewed the patient's case with Kassandra Little. She will evaluate the patient for further management. 1147: Ordered Sodium Chloride 1000 ml @ 125 mls/hr IV 1150: I updated the patient and her family on her test results. 1154: I reviewed the patient's case with Dr. Irving-Urologist. He will come consult the patient. Medical Decision Differential diagnosis: Etiologies such as infections, reactive airway disease, pneumonia, pneumothorax , COPD, CHF, cardiac ischemia, pulmonary embolism, musculoskeletal, gastrointestinal, as well as others were entertained. This patient was evaluated and appeared to be in no significant distress. IV access was obtained and laboratory work was drawn. The patient was placed on the rn ante partum and found to be in a normal sinus rhythm. Patient was hydrated with normal saline solution. Laboratory work reveals a significant leukocytosis of 40,000 with an acute renal failure. Patient seems to be tender to the abdominal exam and a CT scan of the abdomen and pelvis was ordered. This does reveal an obstructing ureteral calculus. Nursing staff had some delay in obtaining a catheterized urine specimen. The patient was treated with Zosyn 4.5 g IV. Blood cultures were drawn prior to this administration. Dr. Irving of urology was contacted and evaluated the patient emergency department. Patient's daughter is at the bedside and reiterates a DO NOT RESUSCITATE/DO NOT INTUBATE. The hospitalist service was contacted for admission and further management. Medication Reconcilliation Current Medication List: was personally reviewed by me Blood Pressure Screening Patient's blood pressure: Elevated blood pressure Blood pressure disposition: Referred to PCP (evaluated further by hospitalist) Consults Time Called: 1050 Consulting Physician: Kassandra Little Returned Call: 1131 I reviewed the patient's case with Kassandra Little. She will evaluate the patient for further management. Additional Consults: Time Called: 1140 Consulted Physician: Dr. Irving-Urologist Returned Call: 1157 Additional Comments: I reviewed the patient's case with Dr. Irving-Urologist. Impression Primary Impression: Urinary tract obstruction by kidney stone Additional Impression: Sepsis Scribe Attestation The scribe's documentation has been prepared under my direction and personally reviewed by me in its entirety. I confirm that the note above accurately reflects all work, treatment, procedures, and medical decision making performed by me. Departure Information Dispostion Being Evaluated By Hospitalist Referrals Saúl Bright M.D. (PCP) Patient Instructions Asthma - [facility], COPD - [facility], Croup - [facility], My [facility] Problem Qualifiers
[2017-07-20] MEDS ORDERED: OPTIRAY 320 IV PRN (08:30)
[2017-07-20] MEDS ORDERED: NovoLIN-R INSULIN PER UNIT CHARGE IV STA (08:37)
[2017-07-20] MEDS ORDERED: CALCIUM GLUCONATE 10% 10 ML VIAL IV STA (08:37)
[2017-07-20] MEDS ORDERED: DEXTROSE 50% 50 ML SYR IV STA (08:37)
--- NOTE | 2017-07-20 08:43 | DIAGNOSTIC IMAGING REPORT ---
CHEST ONE VIEW PORTABLE CLINICAL HISTORY: SOB dyspnea COMPARISON STUDY: M 01/11/2016 FINDINGS: Permanent bipolar cardiac pacer in good position. Mild cardiomegaly. Prominent pulmonary vasculature. Small left pleural effusion. IMPRESSION: Congestive heart failure The above report was generated using voice recognition software. It may contain grammatical, syntax or spelling errors. Electronically signed by: Brian Jarquin M.D. 07/20/2017 8:41 AM Dictated Date/Time: 07/20/2017 8:41 AM
[2017-07-20 08:48] LABS: ISTAT CREATININE 2.6 mg/dl (0.6-1.3); ISTAT IONIZED CALCIUM 1.23 mmol/l (1.12-1.32); ISTAT POTASSIUM 7.4 mEq/L (3.3-5.0)
--- NOTE | 2017-07-20 08:52 | DIAGNOSTIC IMAGING REPORT ---
KUB CLINICAL HISTORY: Generalized abdominal pain. FINDINGS: An AP, portable, supine abdominal radiograph is compared to study dated 05/09/2017 and correlated with abdominal CT dated 02/06/2017. There is a nonobstructed abdominal bowel gas pattern. Mild colonic fecal retention is observed. There are numerous bilateral nonobstructing renal calculi. The largest stone on the left is in the lower pole and measures 10 mm. The largest on the right measures 12 mm. There is no radiographic evidence of ureteral stone. Calcified pelvic phleboliths are similar to previous. The skeletal structures are osteopenic. Multilevel lumbosacral spondylosis is observed. A pacemaker lead is partially visualized. IMPRESSION: 1. Nonobstructed abdominal bowel gas pattern. 2. Numerous nonobstructing bilateral renal calculi are identified and similar to previous. Electronically signed by: Ron Franco M.D. 07/20/2017 8:51 AM Dictated Date/Time: 07/20/2017 8:49 AM
[2017-07-20 09:12] LABS: ALBUMIN 1.9 gm/dl (3.4-5.0); ALKALINE PHOSPHATASE 81 U/L (45-117); ALT/SGPT 72 U/L (12-78); AST/SGOT 129 U/L (15-37); BLOOD UREA NITROGEN 45 mg/dl (7-18); CALCIUM 8.6 mg/dl (8.5-10.1); CARBON DIOXIDE 18 mmol/L (21-32); CREATININE 2.68 mg/dl (0.60-1.20); GLUCOSE 282 mg/dl (70-99); HEMATOCRIT 28.3 % (37-47); HEMOGLOBIN 9.1 g/dL (12.0-16.0); LIPASE 128 U/L (73-393); MEAN CELL VOLUME 95.9 fL (80-100); MEAN CORPUSCULAR HEMOGLOBIN 30.8 pg (25-34); MEAN CORPUSCULAR HGB CONC 32.2 g/dl (32-36); MEAN PLATELET VOLUME 9.4 fL (7.4-10.4); PLATELET COUNT 255 K/uL (130-400); POTASSIUM 7.3 mmol/L (3.5-5.1); RED CELL DISTRIBUTION WIDTH CV 16.3 % (11.5-14.5); RED CELL DISTRIBUTION WIDTH SD 56.8 fL (36.4-46.3); SODIUM 140 mmol/L (136-145); TOTAL PROTEIN 5.9 gm/dl (6.4-8.2); WHITE BLOOD COUNT 40.36 K/uL (4.8-10.8)
[2017-07-20 09:14] LABS: BASO ABS # 0.02 K/uL (0-0.2); IG# 0.35 K/uL (0.00-0.02); LYMPH % 1.9 %; LYMPH ABS # 0.77 K/uL (1.2-3.4); MONO ABS # 1.22 K/uL (0.11-0.59); NEUT % 94.2 %
[2017-07-20] MEDS ORDERED: PIPERACILLIN/TAZOBACTAM 4.5 GM/100ML D5W IV SCH (09:14)
[2017-07-20] MEDS ORDERED: PIPERACILLIN/TAZOBACTAM 4.5 GM/100ML D5W IV STA (09:14)
[2017-07-20] MEDS ORDERED: CLOP1TAB15 PO (09:23)
[2017-07-20] MEDS ORDERED: ACET-1256 PO (09:23)
[2017-07-20] MEDS ORDERED: GLGKIT IM (09:26)
[2017-07-20] MEDS ORDERED: IPRASOL4 INH (09:26)
[2017-07-20] MEDS ORDERED: INSDGI SC (09:30)
[2017-07-20] MEDS ORDERED: POTA-74 PO (09:30)
[2017-07-20] MEDS ORDERED: PRAV40TA2 PO (09:30)
[2017-07-20] MEDS ORDERED: DEXT40GE20 PO (09:30)
[2017-07-20 09:33] LABS: INFLUENZA B ANTIGEN Neg for Influ B (NEG)
[2017-07-20] MEDS ORDERED: SENN-61 PO (09:33)
[2017-07-20] MEDS ORDERED: SODI0.9S IV (09:33)
[2017-07-20] MEDS ORDERED: CALC500C3 PO (09:34)
[2017-07-20] MEDS ORDERED: ONDA4TAB46 PO (09:37)
[2017-07-20] MEDS ORDERED: ACET325T96 PO (09:37)
--- NOTE | 2017-07-20 10:08 | DIAGNOSTIC IMAGING REPORT ---
ABDOMEN AND PELVIS CT WITHOUT CONTRAST CT DOSE: 1056.70 mGycm HISTORY: Acute renal failure with leukocytosis and hypoxia renal failure, elevated WBC, hypoxia TECHNIQUE: Multiaxial CT images of the abdomen and pelvis were performed without contrast. A dose lowering technique was utilized adhering to the principles of ALARA. COMPARISON STUDY: CT abdomen and pelvis 02/06/2017. FINDINGS: Study is moderately limited secondary to patient motion. There are small moderate bilateral pleural effusions with subsegmental bibasilar consolidation. No pneumatosis or pneumoperitoneum identified. The imaged inferior cardiac chambers are enlarged. Calcifications of the mitral and aortic annuli are noted in addition to coronary arterial disease. Partially imaged pacer leads are seen overlying the right atrium and right ventricle. No pericardial effusion. Layering increased attenuation in the region of the gallbladder neck suggest cholelithiasis. No CT evidence of acute cholecystitis. No intrahepatic biliary ductal dilation. Liver appears unremarkable. Spleen and adrenal glands are also within normal limits. There is moderate generalized pancreatic atrophy. Bilateral nephrolithiasis with largest calculus within the inferior pole left kidney measuring 8 mm. 1.2 cm calculus seen within the inferior pole right kidney. 7 x 4 x 8 mm calculus of the distal right ureter seen on image 311 series 3 which is located approximately 4.5 cm superior to the ureterovesicular junction. Mild to moderate right-sided hydroureteronephrosis with perinephric and periureteral inflammatory stranding. Mild wall thickening of the urinary bladder. Prior hysterectomy. No adnexal mass lesions identified. Extensive calcified plaque of the aorta and branch vessels. No pathologic adenopathy identified. No bowel obstruction or focal bowel wall thickening identified. Appendix appears normal. Small fat filled No hernias noted, diastases 1.4 cm. The bones appear moderately demineralized. Degenerative changes are seen about the spine, hips and pubic symphysis. IMPRESSION: 1. Mild to moderate right-sided hydroureteronephrosis secondary to a 7 x 4 x 8 mm calculus of the distal right ureter. Multiple additional bilateral nonobstructing nephrolithiasis. 2. Moderately motion degraded exam. 3. Small to moderate bilateral pleural effusions with subsegmental bibasilar consolidation suggesting compressive atelectasis or pneumonia. 4. Cholelithiasis. Electronically signed by: Beni Ramos M.D. 07/20/2017 10:07 AM Dictated Date/Time: 07/20/2017 9:58 AM
[2017-07-20 11:33] LABS: ISTAT CREATININE 2.6 mg/dl (0.6-1.3); ISTAT IONIZED CALCIUM 1.26 mmol/l (1.12-1.32); ISTAT POTASSIUM 6.8 mEq/L (3.3-5.0)
[2017-07-20] MEDS ORDERED: ICU PROTOCOL FOR HYPERGLYCEMIA PRN (12:45)
[2017-07-20] MEDS ORDERED: NITROGLYCERIN 0.4 MG SL PER TAB CHARGE SL PRN (12:45)
[2017-07-20] MEDS ORDERED: ACETAMINOPHEN 325 MG TAB PO PRN (12:45)
[2017-07-20] MEDS ORDERED: LORAZEPAM 2 MG/ML 1 ML VIAL IV STA ×2 (12:51→14:01)
[2017-07-20] MEDS ORDERED: PIPERACILL/TAZOBAC CONSULT ACTIVE PRN (12:55)
[2017-07-20] MEDS ORDERED: VANCOMYCIN CONSULT ACTIVE PRN (13:00)
[2017-07-20] MEDS ORDERED: DEXTROSE 50% 50 ML SYR IV ONE ×3 (13:14→18:14)
[2017-07-20] MEDS ORDERED: INSULIN HUMAN REGULAR PER UNIT 10 UNITS in SYRINGE 9.9 ML IV ONE (13:15)
--- NOTE | 2017-07-20 13:44 | Urology Consultation ---
History General Date of Service: Jul 20, 2017. Primary Care Physician: Evi Quijano D.O. History of Present Illness 86-year-old white female brought to the emergency room because of respiratory distress. She has a white count of 40,000. She is obtunded currently. Of note she is a DO NOT RESUSCITATE at the correction she resides in. CT scan showed a 7 mm stone in the mid right ureter and multiple renal stones. She does not appear to be in any pain at the moment. Laboratory Last 24 Hours Test 07/20/17 00:00 07/20/17 08:25 07/20/17 08:34 07/20/17 09:20 Urine Color YELLOW Urine Appearance TURBID Urine pH 5.0 Urine Specific [place] 1.019 Urine Protein 2+ Urine Glucose (UA) NEG Urine Ketones NEG Urine Occult Blood 2+ Urine Nitrite NEG Urine Bilirubin NEG Urine Urobilinogen NEG Urine Leukocyte Esterase LARGE Urine WBC (Auto) >30 /hpf Urine RBC (Auto) 10-30 /hpf Urine Hyaline Casts (Auto) 5-10 /lpf Urine Epithelial Cells (Auto) >30 /lpf Urine Bacteria (Auto) 1+ Urine Yeast (Auto) BUD W/ HYPHAE White Blood Count 40.36 K/uL Red Blood Count 2.95 M/uL Hemoglobin 9.1 g/dL Hematocrit 28.3 % Mean Corpuscular Volume 95.9 fL Mean Corpuscular Hemoglobin 30.8 pg Mean Corpuscular Hemoglobin Concent 32.2 g/dl Platelet Count 255 K/uL Mean Platelet Volume 9.4 fL Neutrophils (%) (Auto) 94.2 % Lymphocytes (%) (Auto) 1.9 % Monocytes (%) (Auto) 3.0 % Eosinophils (%) (Auto) 0.0 % Basophils (%) (Auto) 0.0 % Neutrophils # (Auto) 38.00 K/uL Lymphocytes # (Auto) 0.77 K/uL Monocytes # (Auto) 1.22 K/uL Eosinophils # (Auto) 0.00 K/uL Basophils # (Auto) 0.02 K/uL RDW Standard Deviation 56.8 fL RDW Coefficient of Variation 16.3 % Immature Granulocyte % (Auto) 0.9 % Immature Granulocyte # (Auto) 0.35 K/uL Sodium Level 140 mmol/L Potassium Level 7.3 mmol/L Chloride Level 113 mmol/L Carbon Dioxide Level 18 mmol/L Anion Gap 11.0 mmol/L 15.0 mmol/L Blood Urea Nitrogen 45 mg/dl Creatinine 2.68 mg/dl Est Creatinine Clear Calc Drug Dose 14.7 ml/min Estimated GFR () 17.8 Estimated GFR (Non- 15.4 BUN/Creatinine Ratio 16.8 Random Glucose 282 mg/dl Calcium Level 8.6 mg/dl Magnesium Level 2.3 mg/dl Total Bilirubin 0.3 mg/dl Direct Bilirubin < 0.1 mg/dl Aspartate Amino Transf (AST/SGOT) 129 U/L Alanine Aminotransferase (ALT/SGPT) 72 U/L Alkaline Phosphatase 81 U/L Total Protein 5.9 gm/dl Albumin 1.9 gm/dl Lipase 128 U/L Influenza Type A Antigen Neg for Influ A Influenza Type B Antigen Neg for Influ B Bedside Hemoglobin 8.8 g/dl Bedside Hematocrit 26 % Bedside Sodium 139 mEq/L Bedside Potassium 7.4 mEq/L Bedside Chloride 114 mEq/L Bedside Total CO2 18 mEq/l Bedside Blood Urea Nitrogen 38 mg/dl Bedside Creatinine 2.6 mg/dl Bedside Glucose (other) 290 mg/dl Bedside Ionized Calcium (Sarah) 1.23 mmol/l Arterial Blood pH 7.41 Arterial Blood Partial Pressure CO2 30 mmHg Arterial Blood Partial Pressure O2 103 mm/Hg Arterial Blood HCO3 19 mmol/L Arterial Blood Oxygen Saturation 92.5 % Arterial Blood Base Excess -5.3 mEq/L Arterial Blood Gas Delivery 3L Fletcher Test POS Test 07/20/17 11:17 07/20/17 11:21 07/20/17 12:52 07/20/17 13:04 Bedside Hemoglobin 7.8 g/dl Bedside Hematocrit 23 % Bedside Sodium 141 mEq/L Bedside Potassium 6.8 mEq/L Bedside Chloride 116 mEq/L Bedside Total CO2 19 mEq/l Anion Gap 13.0 mmol/L Bedside Blood Urea Nitrogen 40 mg/dl Bedside Creatinine 2.6 mg/dl Bedside Glucose (other) 265 mg/dl Bedside Ionized Calcium (Sarah) 1.26 mmol/l Bedside Lactic Acid Venous 2.25 mmol/L Problem List Medical Problems: (1) Ambulatory dysfunction Status: Acute (2) Aortic stenosis Status: Acute (3) Dehydration Status: Acute (4) Generalized abdominal pain Status: Acute (5) Heart murmur Status: Acute (6) Intractable abdominal pain Status: Acute (7) Right upper quadrant abdominal pain Status: Acute (8) Sepsis Status: Acute (9) Slurred speech Status: Acute (10) Spinal stenosis Status: Acute (11) Syncope Status: Acute (12) Urinary tract obstruction by kidney stone Status: Acute (13) UTI (urinary tract infection) Status: Acute (14) Vasovagal syncope Status: Acute (15) Vomiting Status: Acute (16) Weakness Status: Acute Family History Patient reports no known family medical history. Social History Hx Tobacco Use In Past Year?: No Marital status: Housing status: lives alone Occupation status: retired Immunizations History of Influenza Vaccine: Yes History of Tetanus Vaccine?: Unknown History of Pneumococcal: Yes History of Hepatitis B Vaccine: Unknown History of MDRO No Allergies Coded Allergies: Morphine (Verified Allergy, Mild, shortness of breath with panic attack, 07/20/17) Darbepoetin Randall (Verified Allergy, Unknown, "RED ITCHY BLOTCHES ON SKIN" , 07/20/17) Medications Home Medications: Home Meds and Scripts Medications Dose Route/Sig Max Daily Dose Days Date Category Dose Instructions Zofran (Ondansetron HCl) 4 Mg Tab 4 Mg PO AC PRN 07/20/17 Reported Tylenol (Acetaminophen) 325 Mg Tab 650 Mg PO TID PRN 07/20/17 Reported MAX 3GMS APAP/24HRS Tums (Calcium Carbonate) 500 Mg Chew 1,000 Mg PO QID PRN 07/20/17 Reported Sodium Chloride 0.9% (Sodium Chloride (Gu Irrigant)) 0.9 % Blaire 10 Ml IV QS PRN 07/20/17 Reported Senokot (Senna) 8.6 Mg Tab 3 Tab PO BID PRN 07/20/17 Reported Pravastatin Sodium 40 Mg Tab 40 Mg PO HS 07/20/17 Reported Potassium Chloride Er (Potassium Chloride) 10 Meq Tab 40 Meq PO QAM 07/20/17 Reported Lantus (Insulin Glargine) 100 Unit/Ml Inj 12 Units SC QAM 07/20/17 Reported Glucose (Dextrose (Diabetic Use)) 40 % Gel 15 Gm PO UD PRN 07/20/17 Reported Glucagon Emergency Kit (Glucagon) 1 Mg Kit 1 Mg IM UD PRN 07/20/17 Reported Duoneb (Ipratropium-Albuterol) 3 Ml Nebu 3 Ml INH Q6H PRN 07/20/17 Reported Plavix (Clopidogrel Bisulfate) 75 Mg Tab 75 Mg PO QAM 07/20/17 Reported Tylenol (Acetaminophen) 500 Mg Tab 500 Mg PO Q4H PRN 07/20/17 Reported Lexapro (Escitalopram Oxalate) 5 Mg Tab 10 Mg PO QPM 05/09/17 Reported Milk Of Magnesia (Magnesium Hydroxide) 30 Ml Susp 30 Ml PO DAILY PRN 11/24/16 Reported Ranitidine Hcl 75 Mg Tab 75 Mg PO BID 11/24/16 Reported Miralax (Polyethylene Glycol 3350) 1 Pow Pow 17 Gm PO DAILY PRN 11/24/16 Reported Vitamin D3 (Cholecalciferol) 1,000 Unit Cap 2,000 Inter.unit PO QAM 11/24/16 Reported CURRENTLY ON HOLD BY PHYSICIAN, ALL OF JULY SO FAR. Vitamin B-12 (Cyanocobalamin) 1,000 Mcg Tab 1,000 Mcg PO DAILY 05/19/16 Reported CURRENTLY ON HOLD BY PHYSICIAN, ALL OF JULY SO FAR Inpatient Medications: Current Inpatient Medications Medications (Trade) Dose Ordered Sig/Lius Route Start Time Stop Time Status Last Admin Dose Admin Sodium Chloride 1,000 ml @ 150 mls/hr Q6H40M STAT IV 07/20/17 08:14 07/20/17 14:53 07/20/17 09:16 150 MLS/HR Ioversol (Optiray 320) 100 ml UD PRN IV 07/20/17 08:30 07/24/17 08:29 Sodium Chloride 1,000 ml @ 125 mls/hr Q8H STAT IV 07/20/17 11:47 07/20/17 19:46 07/20/17 12:18 125 MLS/HR Heparin Sodium (Porcine) (Heparin Sq 5000 Unit/0.5ml) 5,000 unit Q12H SQ 07/20/17 12:45 08/19/17 12:44 UNV Acetaminophen (Tylenol Tab) 650 mg Q4H PRN PO 07/20/17 12:45 08/19/17 12:44 Nitroglycerin (Nitrostat Tab) 0.4 mg UD PRN SL 07/20/17 12:45 08/19/17 12:44 Levalbuterol (Xopenex 1.25MG/ 3ML Neb) 1.25 mg Q6R INH 07/20/17 15:00 08/19/17 14:59 Miscellaneous Information (Icu Protocol For Hyperglycemia) 1 ea PRN PRN N/A 07/20/17 12:45 07/22/17 12:44 Miscellaneous Information (Consult) 1 ea UD PRN N/A 07/20/17 12:55 08/19/17 12:54 Lorazepam (Ativan Inj) 0.5 mg NOW STAT IV 07/20/17 12:51 07/20/17 12:52 UNV Miscellaneous Information (Consult) 1 ea UD PRN N/A 07/20/17 13:00 08/19/17 12:59 Physical Exam Vital Signs: Vital Signs Past 12 Hours Date Time Temp Pulse Resp B/P (MAP) Pulse Ox O2 Delivery O2 Flow Rate FiO2 07/20/17 13:08 108 100 40 07/20/17 13:00 101 22 154/104 100 BiPAP 07/20/17 12:17 105 07/20/17 12:00 104 34 171/84 07/20/17 11:32 103 54 98 07/20/17 11:02 103 44 99 07/20/17 11:01 156/86 07/20/17 10:35 154/88 07/20/17 10:00 106 34 139/64 99 Nasal Cannula 4.0 07/20/17 09:32 106 36 100 07/20/17 09:18 107 36 139/64 99 Nasal Cannula 4.0 07/20/17 09:17 139/64 07/20/17 09:02 103 32 07/20/17 08:32 114 29 07/20/17 08:22 109 07/20/17 08:05 99 Nasal Cannula 4.0 07/20/17 08:04 127/71 07/20/17 08:02 36.6 109 40 127/71 88 Room Air 07/20/17 08:02 Room Air Physical Exam: General Appearance: WD/WN Respiratory/Chest: + respiratory distress Skin: normal color Assessment & Plan Assessment & Plan Assessment Right midureteral stone-possible sepsis I spoke with the patient's daughter at the bedside. Apparently her mother is a DO NOT RESUSCITATE at the correction. The daughter states that her mother's quality of life is poor. We discussed the possibility of placing a stent to unobstruct the kidney. At this point she just wants to watch her mother for now and does not want any surgical intervention. I did review the CT scan with the patient's daughter she has multiple stones in the kidneys as well has a right midureteral stone. I did explain to her that if she is truly uroseptic that leaving the kidney obstructed may be a terminal event again the patient is a DO NOT RESUSCITATE.
[2017-07-20] MEDS ORDERED: NovoLIN-R INSULIN PER UNIT CHARGE ONE (14:22)
[2017-07-20] MEDS ORDERED: GLUCOSE 40% GEL 15 GM TUBE PO PRN (14:30)
[2017-07-20] MEDS ORDERED: GLUCAGON FOR INJ 1 MG VIAL SQ PRN (14:30)
[2017-07-20] MEDS ORDERED: GLUCOSE 10 TABS/TUBE PO PRN (14:30)
[2017-07-20] MEDS ORDERED: DEXTROSE 50% 50 ML SYR IV PRN (14:30)
--- NOTE | 2017-07-20 14:51 | History and Physical ---
History & Physical Date & Time of Service: Jul 20, 2017 at 13:03 Chief Complaint: Illness Primary Care Physician: Evi Quijano D.O. History of Present Illness Source: family, clinic records, hospital records Pt is 86 y/o F with PMH CVA with secondary dysarthria, R sided weakness, HTN, DM II, Sjgren's, GERD, depression, dyslipidemia, pacemaker presented to ER from [facility] for worsening SOB & leukocytosis. Pt was treated prophylactically with Tamiflu as residents with flu in [facility]. Pt then developed cough and SOB and being treated for respiratory tract infection and UTI. She was started on IV Rocephin on 07/08/17. Duonebs were started. She had JANIE and lisinopril was d/c and pt received IVF which was then d/c. Pt had out patient u/s abd showing non-obstructing renal calculi. On 07/16/17 WBC: 12.8, K: 3.2, Cr: 1.9. On 07/07/17 urine culture consistent with contamination. Pt was on prednisone 20mg x 2 days (07/17/17-07/19/17). Pt not verbal today and pt's daughter with her and states pt sometimes says a few things. She does report pt more lethargic than usual, but right sided weakness unchanged since stroke. Daughter notes that pt has been having SOB and noticeable trouble breathing the past 5 days. Daughter also reports pt was having intermittent nausea and vomiting past couple of weeks and has been given zofran. States has noticed pt does sometimes choke and she is currently on soft mechanical diet, however daughter states reports from nursing pt hasn't been eating much and it has been reported pt has been pocketing food. Daughter reports morphine makes pt feel like having hard time breathing and makes her anxious. Past Medical/Surgical History Medical Problems: (1) Anemia Status: Chronic (2) Benign hypertension Status: Chronic (3) CVA (cerebral vascular accident) Status: Resolved (4) Diabetes mellitus Status: Chronic (5) Fall due to stumbling Status: Resolved (6) GI bleed Status: Resolved (7) Hyperlipidemia Status: Chronic (8) Hypertension Status: Chronic (9) Hysterectomy Status: Resolved (10) Intractable back pain Status: Resolved (11) Malignant hypertension Status: Resolved (12) Polymyalgia rheumatica Status: Chronic (13) Sjorens Status: Chronic (14) Stroke Status: Resolved (15) Syncope, cardiogenic Status: Resolved Surgical Problems: (1) Hx of cardiac pacemaker Permanent Comment: MRI compatible Status: Resolved (2) Hx of cataract removal with insertion of prosthetic lens Status: Resolved (3) Hx of hysterectomy Status: Resolved Family History Diabetes mellitus Hypertension Stroke Social History Smoking Status: Never Smoker Smokeless Tobacco Use: No Alcohol Use: none Drug Use: none Marital Status: Housing status: residential Occupational Status: retired Immunizations History of Influenza Vaccine: Yes History of Tetanus Vaccine?: Unknown History of Pneumococcal: Yes History of Hepatitis B Vaccine: Unknown Multi-Drug Resistant Organisms History of MDRO: No Allergies Coded Allergies: Morphine (Verified Allergy, Mild, shortness of breath with panic attack, 07/20/17) Darbepoetin Randall (Verified Allergy, Unknown, "RED ITCHY BLOTCHES ON SKIN" , 07/20/17) Home Medications Scheduled Cholecalciferol (Vitamin D3), 2,000 INTER.UNIT PO QAM Clopidogrel (Plavix), 75 MG PO QAM Cyanocobalamin (Vitamin B-12), 1,000 MCG PO DAILY Escitalopram Oxalate (Lexapro), 10 MG PO QPM Insulin Glargine (Lantus), 12 UNITS SC QAM Potassium Chloride (Potassium Chloride Er), 40 MEQ PO QAM Pravastatin Sodium (Pravastatin Sodium), 40 MG PO HS Ranitidine Hcl (Ranitidine Hcl), 75 MG PO BID Scheduled PRN Acetaminophen (Tylenol), 500 MG PO Q4H PRN for Pain Acetaminophen Tab (Tylenol), 650 MG PO TID PRN for Pain Calcium Carbonate (Tums), 1,000 MG PO QID PRN for Indigestion Dextrose (Diabetic Use) (Glucose), 15 GM PO UD PRN for Hypoglycemia Protocol Glucagon (Glucagon Emergency Kit), 1 MG IM UD PRN for Hypoglycemia Protocol Ipratropium-Albuterol (Duoneb), 3 ML INH Q6H PRN for Wheezing Magnesium Hydroxide (Milk Of Magnesia), 30 ML PO DAILY PRN for Constipation Ondansetron Hcl (Zofran), 4 MG PO AC PRN for Nausea Polyethylene Glycol 3350 (Miralax), 17 GM PO DAILY PRN for Constipation Senna (Senokot), 3 TAB PO BID PRN for Constipation Sodium Chloride (Gu Irrigant) (Sodium Chloride 0.9%), 10 ML IV QS PRN for FLUSH Review of Systems Further ROS cannot be obtained secondary to pt's cognitive status Physical Exam Vital Signs Date Time Temp Pulse Resp B/P (MAP) Pulse Ox O2 Delivery O2 Flow Rate FiO2 07/20/17 12:17 105 07/20/17 11:32 103 54 98 07/20/17 11:02 103 44 99 07/20/17 11:01 156/86 07/20/17 10:35 154/88 07/20/17 10:00 106 34 139/64 99 Nasal Cannula 4.0 07/20/17 09:32 106 36 100 07/20/17 09:18 107 36 139/64 99 Nasal Cannula 4.0 07/20/17 09:17 139/64 07/20/17 09:02 103 32 07/20/17 08:32 114 29 07/20/17 08:22 109 07/20/17 08:05 99 Nasal Cannula 4.0 07/20/17 08:04 127/71 07/20/17 08:02 36.6 109 40 127/71 88 Room Air 07/20/17 08:02 Room Air General Appearance: + moderate distress (increased work of breathing), + pertinent finding (ill appearing) Head: normocephalic, atraumatic Eyes: normal inspection, PERRL ENT: + pertinent finding (mucous membranes dry) Neck: supple, no JVD, trachea midline Respiratory/Chest: + respiratory distress, + decreased breath sounds ( scattered rhonchi), + accessory muscle use Cardiovascular: + tachycardia Abdomen/GI: normal bowel sounds, soft, + tenderness (Pt groans with palpation of abdomen) Extremities/Musculoskelatal: normal capillary refill, no pedal edema Neurologic/Psych: + pertinent finding (non-verbal, somnolent, pt with eyes closed, will open eyes when asked, will not follow any other commands, responds to painful stimuli with groans) Skin: normal color Diagnostics Laboratory Results Results Past 24 Hours Test 07/20/17 00:00 07/20/17 08:25 07/20/17 08:34 07/20/17 09:20 Range/Units White Blood Count 40.36 4.8-10.8 K/uL Red Blood Count 2.95 4.2-5.4 M/uL Hemoglobin 9.1 12.0-16.0 g/dL Hematocrit 28.3 37-47 % Mean Corpuscular Volume 95.9 80-100 fL Mean Corpuscular Hemoglobin 30.8 25-34 pg Mean Corpuscular Hemoglobin Concent 32.2 32-36 g/dl Platelet Count 255 130-400 K/uL Mean Platelet Volume 9.4 7.4-10.4 fL Neutrophils (%) (Auto) 94.2 % Lymphocytes (%) (Auto) 1.9 % Monocytes (%) (Auto) 3.0 % Eosinophils (%) (Auto) 0.0 % Basophils (%) (Auto) 0.0 % Neutrophils # (Auto) 38.00 1.4-6.5 K/uL Lymphocytes # (Auto) 0.77 1.2-3.4 K/uL Monocytes # (Auto) 1.22 0.11-0.59 K/uL Eosinophils # (Auto) 0.00 0-0.5 K/uL Basophils # (Auto) 0.02 0-0.2 K/uL RDW Standard Deviation 56.8 36.4-46.3 fL RDW Coefficient of Variation 16.3 11.5-14.5 % Immature Granulocyte % (Auto) 0.9 % Immature Granulocyte # (Auto) 0.35 0.00-0.02 K/uL Sodium Level 140 136-145 mmol/L Potassium Level 7.3 3.5-5.1 mmol/L Chloride Level 113 98-107 mmol/L Carbon Dioxide Level 18 21-32 mmol/L Anion Gap 11.0 15.0 16-25 mmol/L Blood Urea Nitrogen 45 7-18 mg/dl Creatinine 2.68 0.60-1.20 mg/dl Est Creatinine Clear Calc Drug Dose 14.7 ml/min Estimated GFR () 17.8 Estimated GFR (Non- 15.4 BUN/Creatinine Ratio 16.8 10-20 Random Glucose 282 70-99 mg/dl Calcium Level 8.6 8.5-10.1 mg/dl Magnesium Level 2.3 1.8-2.4 mg/dl Total Bilirubin 0.3 0.2-1 mg/dl Direct Bilirubin < 0.1 0-0.2 mg/dl Aspartate Amino Transf (AST/SGOT) 129 15-37 U/L Alanine Aminotransferase (ALT/SGPT) 72 12-78 U/L Alkaline Phosphatase 81 45-117 U/L Total Protein 5.9 6.4-8.2 gm/dl Albumin 1.9 3.4-5.0 gm/dl Lipase 128 73-393 U/L Influenza Type A Antigen Neg for Influ A NEG Influenza Type B Antigen Neg for Influ B NEG Bedside Hemoglobin 8.8 12.0-16.0 g/dl Bedside Hematocrit 26 37-47 % Bedside Sodium 139 135-144 mEq/L Bedside Potassium 7.4 3.3-5.0 mEq/L Bedside Chloride 114 101-112 mEq/L Bedside Total CO2 18 24-31 mEq/l Bedside Blood Urea Nitrogen 38 7-18 mg/dl Bedside Creatinine 2.6 0.6-1.3 mg/dl Bedside Glucose (other) 290 70-99 mg/dl Bedside Ionized Calcium (Sarah) 1.23 1.12-1.32 mmol/l Arterial Blood pH 7.41 7.35-7.45 Arterial Blood Partial Pressure CO2 30 35-46 mmHg Arterial Blood Partial Pressure O2 103 80-95 mm/Hg Arterial Blood HCO3 19 19-24 mmol/L Arterial Blood Oxygen Saturation 92.5 90-95 % Arterial Blood Base Excess -5.3 -9-1.8 mEq/L Arterial Blood Gas Delivery 3L Fletcher Test POS POS Test 07/20/17 11:17 07/20/17 11:21 07/20/17 12:52 Range/Units Bedside Hemoglobin 7.8 12.0-16.0 g/dl Bedside Hematocrit 23 37-47 % Bedside Sodium 141 135-144 mEq/L Bedside Potassium 6.8 3.3-5.0 mEq/L Bedside Chloride 116 101-112 mEq/L Bedside Total CO2 19 24-31 mEq/l Anion Gap 13.0 16-25 mmol/L Bedside Blood Urea Nitrogen 40 7-18 mg/dl Bedside Creatinine 2.6 0.6-1.3 mg/dl Bedside Glucose (other) 265 70-99 mg/dl Bedside Ionized Calcium (Sarah) 1.26 1.12-1.32 mmol/l Bedside Lactic Acid Venous 2.25 0.90-1.70 mmol/L Microbiology Results 07/20/17 Blood Culture, Received Pending 07/20/17 Blood Culture, Received Pending 07/20/17 MRSA DNA Surveillance Screen, Elva Batch Pending 07/20/17 Urine Culture, Elva Batch Pending Diagnostic Radiology CXR: IMPRESSION: Congestive heart failure KUB: IMPRESSION: 1. Nonobstructed abdominal bowel gas pattern. 2. Numerous nonobstructing bilateral renal calculi are identified and similar to previous. CT ABD/PELVIS: IMPRESSION: 1. Mild to moderate right-sided hydroureteronephrosis secondary to a 7 x 4 x 8 mm calculus of the distal right ureter. Multiple additional bilateral nonobstructing nephrolithiasis. 2. Moderately motion degraded exam. 3. Small to moderate bilateral pleural effusions with subsegmental bibasilar consolidation suggesting compressive atelectasis or pneumonia. 4. Cholelithiasis. EKG EKG: wide complex QRS, rate 109, prolonged QT, ST changes Impression Assessment and Plan SEPSIS SECONDARY TO R URETER STONE AND POSSIBLE PNEUMONIA Pt from [facility], with hx SOB, cough past week with increasing leukocytosis, recent JANIE and lisinopril was held. Out patient Was on prophylactic Tamiflu, on Rocephin IV, IVF, prednisone 20mg x 3 days. Sent to ER with worsening SOB. In ER POC lactic acid 2.25, WBC: 40. T: 36.6. BP: 139/64,R: 40. Negative rapid influenza. U/A: 2+blood, large leuk, >30 WBC, 10-30 RBC, 1+ bacteria, 5-10 hyaline casts. CXR: CHF. CT abd/pelvis: [id number] calculus R distal ureter with mild-moderate R sided hydroureteronephrosis. Bilateral pleural effusions with bibasilar consolidation, atelectasis vs pneumonia. Pt was started on Zosyn, had total 500ml bolus NSS and then rate of 125ml/hr -pt admitted ICU - rail filler consulted to manage -pending blood cultures -pending urine culture -trend lactic acid -zosyn and vancomycin -follow CBC ACUTE RESPIRATORY FAILURE 88% on RA, 99% on 4L NC. R: 30-50's with accessory muscle use noted on oxygen -bipap ordered. pt DNI -NPO at this time HYPERKALEMIA K: 7.3. Gluc: 282. Was given Calcium gluc 1 gm, Insulin R 10U, Dextrose 50% 50ml. Repeat POC K: 6.8 -monitor electrolytes JANIE Cr: 2.6. Cr was 1.6 in 06/2017 and was 1.9 on 07/16/17 -IVF -monitor renal functions -avoid nephrotoxic agents when possible DM II - INSULIN DEPENDENT -lantus 5U BID, novolog sliding scale per protocol HX CVA residual R hemiplegia and dysarthria. On plavix CHRONIC ANEMIA Hgb: 9.1. Baseline ~9.6. no active bleeding noted GERD -PPI DEPRESSION -hold lexapro at this time DYSLIPIDEMIA -hold pravastatin at this time HTN 156/86. Monitor at this time. Additional meds may be needed DVT PROPHYLAXIS -heparin SQ DISPOSITION -admit ICU -DNR/DNI as per discussion with daughter -Follows with Dr Quijano at [facility] for routine care Pt was seen with Dr Quan. See addendum ADDENDUM: This is an 86 year old female resident at [facility], with a PMH of CVA with residual R sided weakness, insulin dependent DM2, HTN, depression, HLD, s/p pacemaker; presented with worsening shortness of breath. Upon presentation found to have WBC of >40k. CT of the abdomen performed, showing R sided obstructing stone. during the time of my exam, she is in severe respiratory distress with increased work of breathing. Bipap was then placed and patient is obtunded. Daughter is at bedside and confirms patient is DNR/DNI; no pressors as per daughter. Plan: Sepsis secondary to R ureteral stone WBC >40k +lactic acidosis +fevers UA with large leukocyte esterase and infection pattern, urine culture pending CT shows a R hydronephrosis, R ureteral stone urology consult appreciated; at this time, we will hold off on intervention rail filler consulted; due to patient being DNR/DNI, no pressors or extraordinary measures, will monitor in tele for now broad spectrum abx. Vanco + Zosyn for now IVFs if no improvement, consider palliative care Acute Hypoxic Respiratory Failure patient with significant respiratory distress not saturating well, requiring bipap at this time she is obtunded at this time nebs, wean O2 as tolerated Hyperkalemia Wide Complex Tachycardia - improved patient with significant K elevation at 7.3 given 10 units of R insulin, D50, calcium gluconate K down to 6.8 given another 10 units of insulin with D50 she had wide complex tachycardia, now improving rechecking K pending around 5PM 07/20 Acute Kidney Injury baseline creatinine of 1.3-1.4 presented with creatinine of 2.6 giving IVFs monitor for fluid overload avoid nephrotoxic agents if able Insulin Dependent DM2 BSGs >200 will change around insulin to 5 units BID insulin sliding scale DVT ppx subq heparin DNR/DNI - patient is ill-appearing, as per patient's daughter, if things are not looking good, we can discuss palliative. Patient is currently obtunded. Initially went to ICU, but due to current status and no extraordinary measures including pressors, intubation/mechanical ventilation, etc. now in tele. Level of Care Critical Care Resuscitation Status DO NOT RESUSCITATE VTE Prophylaxis VTE Risk Assessment Done? Y/N: Yes Risk Level: Moderate Given or contraindicated: Unfractionated heparin SQ Social Service Consult Lives in Skilled Nursing Additional Copies To Evi Quijano D.O.
--- NOTE | 2017-07-20 14:53 | Pharmacy Progress Note ---
Pharmacy Abx Initial Consult Date of Service Jul 20, 2017. Pharmacy Dosing Scope Date of Consult: 07/20/17 Consultation requested by: Anjali Garcia Pharmacy is consulted to initiate VANCOMYCIN and ZOSYN IV therapy, order appropriate labs and adjust drug dose/frequency. Subjective The patient is a 86 year old female admitted on for sepsis likely secondary to complicated UTI (R hydrouretronephrosis secondary to calculus) +/- pneumonia ( with risk factors for resistance) Objective Height (Feet): 5 Height (Inches): 4.00 Weight (Kilograms): 75.700 Vital Signs (Past 12Hrs) Vital Signs Past 12 Hours Date Time Temp Pulse Resp B/P (MAP) Pulse Ox O2 Delivery O2 Flow Rate FiO2 07/20/17 14:32 98 24 168/94 98 BiPAP 40 07/20/17 13:08 108 100 40 07/20/17 13:00 101 22 154/104 100 BiPAP 07/20/17 12:17 105 07/20/17 12:00 104 34 171/84 07/20/17 11:32 103 54 98 07/20/17 11:02 103 44 99 07/20/17 11:01 156/86 07/20/17 10:35 154/88 07/20/17 10:00 106 34 139/64 99 Nasal Cannula 4.0 07/20/17 09:32 106 36 100 07/20/17 09:18 107 36 139/64 99 Nasal Cannula 4.0 07/20/17 09:17 139/64 07/20/17 09:02 103 32 07/20/17 08:32 114 29 07/20/17 08:22 109 07/20/17 08:05 99 Nasal Cannula 4.0 07/20/17 08:04 127/71 07/20/17 08:02 36.6 109 40 127/71 88 Room Air 07/20/17 08:02 Room Air Lab Results (24Hrs) Laboratory Tests (24 Hours) Test 07/20/17 08:25 07/20/17 12:52 White Blood Count 40.36 K/uL (4.8-10.8) *H Red Blood Count 2.95 M/uL (4.2-5.4) L Hemoglobin 9.1 g/dL (12.0-16.0) L Hematocrit 28.3 % (37-47) L Mean Corpuscular Volume 95.9 fL (80-100) Mean Corpuscular Hemoglobin 30.8 pg (25-34) Mean Corpuscular Hemoglobin Concent 32.2 g/dl (32-36) Platelet Count 255 K/uL (130-400) Mean Platelet Volume 9.4 fL (7.4-10.4) Neutrophils (%) (Auto) 94.2 % Lymphocytes (%) (Auto) 1.9 % Monocytes (%) (Auto) 3.0 % Eosinophils (%) (Auto) 0.0 % Basophils (%) (Auto) 0.0 % Neutrophils # (Auto) 38.00 K/uL (1.4-6.5) H Lymphocytes # (Auto) 0.77 K/uL (1.2-3.4) L Monocytes # (Auto) 1.22 K/uL (0.11-0.59) H Eosinophils # (Auto) 0.00 K/uL (0-0.5) Basophils # (Auto) 0.02 K/uL (0-0.2) Micro Results Date/Time Source Procedure Growth Status 07/20/17 08:48 Blood Blood Culture Pending Received 07/20/17 08:25 Blood Blood Culture Pending Received 07/20/17 12:35 Nasal MRSA DNA Surveillance Screen Pending Elva Batch 07/20/17 00:00 Urine,Catheterized Urine Culture Pending Received Risk Factors for Resistance * Resident in a longterm or extended-care facility ([facility]) * Hospitalization for 48 hours or more within the past 90 days (hospitalized ->05/12) Assessment & Plan Assessment * 86 year old female admitted w/ sepsis likely from urinary source, possible pneumonia (vs CHF, atelectasis) * Significant leukocytosis present on labs, + tachycardia and tachypnea, hypertensive, JANIE present on labs (SCr 2.6 vs baseline of ~1.1) * R hydroureteronephrosis secondary to calculus noted on CT abd/pelvis * UA suggestive of infection, however many epi's present so one must consider contamination as well - specimen appears to be drawn via catheter, was this a new cath or was cath present on presentation? colonized catheter? Plan Vancomycin IV * Loading dose: 1750 mg (23 mg/kg) IV x 1 * Maintenance dose: given significant renal impairment, no maintenance dose will be ordered. Dosing will be guided by random am levels. * Goal trough level for sepsis : 15 to 20 mcg/mL * Random level ordered for 07/21/17 w/ AM labs * P'kinetic estimates: Vd 0.7L/kg, half-life ~40 hours Piperacillin/tazobactam * 4.5 g bolus administered over 30 minutes, then 4.5 g IV extended infusion every 12 hours for CrCl 20 mL/min or less and dialysis. * Aggressive dosing selected due to critically ill status Pharmacy will continue to follow and will adjust dose/frequency as necessary. Thank you.
--- NOTE | 2017-07-20 14:55 | Critical Care Consultation ---
Critical Care Consultation Date of Consultation: Jul 20, 2017. Attending Physician: Reason for Consultation: Shortness of breath, severe sepsis History of Present Illness This is an 86 year-old female with h/o CVA with right hemiparesis, was [facility] to [facility]. She as being treated for an UTI, abx were changed once. Today she was more lethargic, was sent to ED. She was displaying paradoxical breathing whch improved with BIPAP, however she remains lethargic. Daughter is present at the bedside and provided history. Per daughter she did complain of some urinary symptoms previously, but denied any pain in the flanks or in the back. Patient is DNR, DNI. Past Medical/Surgical History CVA DM HTN PMR Sjgren Depression Family History Diabetes mellitus Hypertension Stroke Social History Smoking Status: Unknown if Ever Smoked Drug Use: none Marital Status: Housing Status: lives alone Occupation Status: retired Allergies Coded Allergies: Morphine (Verified Allergy, Mild, shortness of breath with panic attack, 07/20/17) Darbepoetin Randall (Verified Allergy, Unknown, "RED ITCHY BLOTCHES ON SKIN" , 07/20/17) Home Medications Scheduled Cholecalciferol (Vitamin D3), 2,000 INTER.UNIT PO QAM Clopidogrel (Plavix), 75 MG PO QAM Cyanocobalamin (Vitamin B-12), 1,000 MCG PO DAILY Escitalopram Oxalate (Lexapro), 10 MG PO QPM Insulin Glargine (Lantus), 12 UNITS SC QAM Potassium Chloride (Potassium Chloride Er), 40 MEQ PO QAM Pravastatin Sodium (Pravastatin Sodium), 40 MG PO HS Ranitidine Hcl (Ranitidine Hcl), 75 MG PO BID Scheduled PRN Acetaminophen (Tylenol), 500 MG PO Q4H PRN for Pain Acetaminophen Tab (Tylenol), 650 MG PO TID PRN for Pain Calcium Carbonate (Tums), 1,000 MG PO QID PRN for Indigestion Dextrose (Diabetic Use) (Glucose), 15 GM PO UD PRN for Hypoglycemia Protocol Glucagon (Glucagon Emergency Kit), 1 MG IM UD PRN for Hypoglycemia Protocol Ipratropium-Albuterol (Duoneb), 3 ML INH Q6H PRN for Wheezing Magnesium Hydroxide (Milk Of Magnesia), 30 ML PO DAILY PRN for Constipation Ondansetron Hcl (Zofran), 4 MG PO AC PRN for Nausea Polyethylene Glycol 3350 (Miralax), 17 GM PO DAILY PRN for Constipation Senna (Senokot), 3 TAB PO BID PRN for Constipation Sodium Chloride (Gu Irrigant) (Sodium Chloride 0.9%), 10 ML IV QS PRN for FLUSH Current Inpatient Medications Current Inpatient Medications Medications (Trade) Dose Ordered Sig/Luis Route Start Time Stop Time Status Last Admin Dose Admin Sodium Chloride 1,000 ml @ 150 mls/hr Q6H40M STAT IV 07/20/17 08:14 07/20/17 14:53 07/20/17 09:16 150 MLS/HR Ioversol (Optiray 320) 100 ml UD PRN IV 07/20/17 08:30 07/24/17 08:29 Sodium Chloride 1,000 ml @ 125 mls/hr Q8H STAT IV 07/20/17 11:47 07/20/17 19:46 07/20/17 12:18 125 MLS/HR Heparin Sodium (Porcine) (Heparin Sq 5000 Unit/0.5ml) 5,000 unit Q12H SQ 07/20/17 12:45 08/19/17 12:44 UNV Acetaminophen (Tylenol Tab) 650 mg Q4H PRN PO 07/20/17 12:45 08/19/17 12:44 Nitroglycerin (Nitrostat Tab) 0.4 mg UD PRN SL 07/20/17 12:45 08/19/17 12:44 Levalbuterol (Xopenex 1.25MG/ 3ML Neb) 1.25 mg Q6R INH 07/20/17 15:00 08/19/17 14:59 Miscellaneous Information (Icu Protocol For Hyperglycemia) 1 ea PRN PRN N/A 07/20/17 12:45 07/22/17 12:44 Miscellaneous Information (Consult) 1 ea UD PRN N/A 07/20/17 12:55 08/19/17 12:54 Miscellaneous Information (Consult) 1 ea UD PRN N/A 07/20/17 13:00 08/19/17 12:59 Review of Systems Unable to obtain secondary to lethargy Physical Exam Date Time Temp Pulse Resp B/P (MAP) Pulse Ox O2 Delivery O2 Flow Rate FiO2 07/20/17 13:08 108 100 40 07/20/17 13:00 101 22 154/104 100 BiPAP 07/20/17 12:17 105 07/20/17 12:00 104 34 171/84 07/20/17 11:32 103 54 98 07/20/17 11:02 103 44 99 07/20/17 11:01 156/86 07/20/17 10:35 154/88 07/20/17 10:00 106 34 139/64 99 Nasal Cannula 4.0 07/20/17 09:32 106 36 100 07/20/17 09:18 107 36 139/64 99 Nasal Cannula 4.0 07/20/17 09:17 139/64 07/20/17 09:02 103 32 07/20/17 08:32 114 29 07/20/17 08:22 109 07/20/17 08:05 99 Nasal Cannula 4.0 07/20/17 08:04 127/71 07/20/17 08:02 36.6 109 40 127/71 88 Room Air 07/20/17 08:02 Room Air General Appearance: other (lethargic) Eyes: PERRLA Neck: no stridor Respiratory: breath sounds normal, clear to auscultation Cardiovasular: regular rate/rhythm, normal S1S2 Abdomen: non tender, no rebound Back: no CVA tenderness Upper Extremities: no edema Lower Extremities: no edema Neuro: lethargic, focal weakness (right) Laboratory Results Last 24 Hours Test 07/20/17 00:00 07/20/17 08:25 07/20/17 08:34 07/20/17 09:20 Urine Color YELLOW Urine Appearance TURBID Urine pH 5.0 Urine Specific Jay 1.019 Urine Protein 2+ Urine Glucose (UA) NEG Urine Ketones NEG Urine Occult Blood 2+ Urine Nitrite NEG Urine Bilirubin NEG Urine Urobilinogen NEG Urine Leukocyte Esterase LARGE Urine WBC (Auto) >30 /hpf Urine RBC (Auto) 10-30 /hpf Urine Hyaline Casts (Auto) 5-10 /lpf Urine Epithelial Cells (Auto) >30 /lpf Urine Bacteria (Auto) 1+ Urine Yeast (Auto) BUD W/ HYPHAE White Blood Count 40.36 K/uL Red Blood Count 2.95 M/uL Hemoglobin 9.1 g/dL Hematocrit 28.3 % Mean Corpuscular Volume 95.9 fL Mean Corpuscular Hemoglobin 30.8 pg Mean Corpuscular Hemoglobin Concent 32.2 g/dl Platelet Count 255 K/uL Mean Platelet Volume 9.4 fL Neutrophils (%) (Auto) 94.2 % Lymphocytes (%) (Auto) 1.9 % Monocytes (%) (Auto) 3.0 % Eosinophils (%) (Auto) 0.0 % Basophils (%) (Auto) 0.0 % Neutrophils # (Auto) 38.00 K/uL Lymphocytes # (Auto) 0.77 K/uL Monocytes # (Auto) 1.22 K/uL Eosinophils # (Auto) 0.00 K/uL Basophils # (Auto) 0.02 K/uL RDW Standard Deviation 56.8 fL RDW Coefficient of Variation 16.3 % Immature Granulocyte % (Auto) 0.9 % Immature Granulocyte # (Auto) 0.35 K/uL Sodium Level 140 mmol/L Potassium Level 7.3 mmol/L Chloride Level 113 mmol/L Carbon Dioxide Level 18 mmol/L Anion Gap 11.0 mmol/L 15.0 mmol/L Blood Urea Nitrogen 45 mg/dl Creatinine 2.68 mg/dl Est Creatinine Clear Calc Drug Dose 14.7 ml/min Estimated GFR () 17.8 Estimated GFR (Non- 15.4 BUN/Creatinine Ratio 16.8 Random Glucose 282 mg/dl Calcium Level 8.6 mg/dl Magnesium Level 2.3 mg/dl Total Bilirubin 0.3 mg/dl Direct Bilirubin < 0.1 mg/dl Aspartate Amino Transf (AST/SGOT) 129 U/L Alanine Aminotransferase (ALT/SGPT) 72 U/L Alkaline Phosphatase 81 U/L Total Protein 5.9 gm/dl Albumin 1.9 gm/dl Lipase 128 U/L Influenza Type A Antigen Neg for Influ A Influenza Type B Antigen Neg for Influ B Bedside Hemoglobin 8.8 g/dl Bedside Hematocrit 26 % Bedside Sodium 139 mEq/L Bedside Potassium 7.4 mEq/L Bedside Chloride 114 mEq/L Bedside Total CO2 18 mEq/l Bedside Blood Urea Nitrogen 38 mg/dl Bedside Creatinine 2.6 mg/dl Bedside Glucose (other) 290 mg/dl Bedside Ionized Calcium (Sarha) 1.23 mmol/l Arterial Blood pH 7.41 Arterial Blood Partial Pressure CO2 30 mmHg Arterial Blood Partial Pressure O2 103 mm/Hg Arterial Blood HCO3 19 mmol/L Arterial Blood Oxygen Saturation 92.5 % Arterial Blood Base Excess -5.3 mEq/L Arterial Blood Gas Delivery 3L Fletcher Test POS Test 07/20/17 11:17 07/20/17 11:21 07/20/17 12:52 Bedside Hemoglobin 7.8 g/dl Bedside Hematocrit 23 % Bedside Sodium 141 mEq/L Bedside Potassium 6.8 mEq/L Bedside Chloride 116 mEq/L Bedside Total CO2 19 mEq/l Anion Gap 13.0 mmol/L Bedside Blood Urea Nitrogen 40 mg/dl Bedside Creatinine 2.6 mg/dl Bedside Glucose (other) 265 mg/dl Bedside Ionized Calcium (Sarah) 1.26 mmol/l Bedside Lactic Acid Venous 2.25 mmol/L Diagnostic Results CT abdomen: IMPRESSION: 1. Mild to moderate right-sided hydroureteronephrosis secondary to a 7 x 4 x 8 mm calculus of the distal right ureter. Multiple additional bilateral nonobstructing nephrolithiasis. 2. Moderately motion degraded exam. 3. Small to moderate bilateral pleural effusions with subsegmental bibasilar consolidation suggesting compressive atelectasis or pneumonia. 4. Cholelithiasis. Assessment & Plan Severe sepsis secondary to urosepsis Right sided hydroureteronephrosis Hyperkalemia Acute kidney injury Ureter calculus CVA Plan: Started on antibiotics, Vanco and Zosyn Follow up cultures Continue IV fluids Treating the hyperkalemia Monitor renal indices and urine output Urology consult noted, the possibility of a ureteral stent was discussed, for now the daughter opted for a non-invasive approach. I had a long conversation with the daughter, essentially she doesn't want her mother to suffer and she doesn't want to aggressively prolong her life. She is ok with conservative measures and if she deteriorates than she will proceed with comfort care only. If she goes into septic shock, she would not want central line and pressors either. I explained her that in this situation there is no advantage for ICU monitoring , she agrees. May be admitted to a monitored unit given the significant hyperkalemia, which is still being treated If the situation changes, please let the ICU team know Critical care time spent with patient and family, reviewing the chart, greater than 30 minutes
[2017-07-20] MEDS: LEVALBUTEROL 1.25MG/3ML NEB INH SCH ×3 (15:00→19:37)
[2017-07-20] MEDS ORDERED: ACETAMINOPHEN 650 MG SUPP PR PRN (15:45)
[2017-07-20] MEDS ORDERED: VANCOMYCIN INJ 1,750 MG in SODIUM CHLORIDE 0.9% 500ML 500 ML IV STA (15:54)
[2017-07-20] MEDS ORDERED: INSULIN ASPART 100 UNITS/ML 3 ML PEN SC SCH (16:00)
[2017-07-20] MEDS ORDERED: SODIUM CHLORIDE 0.9% 1000ML 1,000 ML IV SCH (16:30)
[2017-07-20] MEDS ORDERED: NURSING VERBAL MED ORDER ONE (16:45)
[2017-07-20 17:13] LABS: HEMATOCRIT 30.8 % (37-47); HEMOGLOBIN 9.7 g/dL (12.0-16.0); MEAN CELL VOLUME 96.6 fL (80-100); MEAN CORPUSCULAR HEMOGLOBIN 30.4 pg (25-34); MEAN CORPUSCULAR HGB CONC 31.5 g/dl (32-36); MEAN PLATELET VOLUME 9.6 fL (7.4-10.4); PLATELET COUNT 195 K/uL (130-400); RED CELL DISTRIBUTION WIDTH CV 16.5 % (11.5-14.5); RED CELL DISTRIBUTION WIDTH SD 57.5 fL (36.4-46.3); WHITE BLOOD COUNT 30.34 K/uL (4.8-10.8)
[2017-07-20 17:24] LABS: INR 1.1 (0.9-1.1)
[2017-07-20 17:38] LABS: CALCIUM 8.5 mg/dl (8.5-10.1); CREATININE 2.56 mg/dl (0.60-1.20); POTASSIUM 6.1 mmol/L (3.5-5.1)
[2017-07-20] MEDS ORDERED: HEPARIN SOD 5000 UNIT/0.5 ML CARP SQ SCH (18:00)
[2017-07-20] MEDS ORDERED: HEPARIN IV LOW DOSE NO BOLUS SCH (18:01)
[2017-07-20] MEDS: INSULIN ASPART 100 UNITS/ML 3 ML PEN SC SCH (18:05)
[2017-07-20] MEDS ORDERED: INSULIN REGULAR 10 UNITS in SYRINGE 9.9 ML IV ONE (18:15)
[2017-07-20 18:44] LABS: PTT PATIENT 25.2 SECONDS (21.0-31.0)
[2017-07-20] MEDS: HEPARIN 25,000 UNIT/500ML D5W 500 ML IV PRN (19:46)
[2017-07-20] MEDS: PIPERACILL/TAZOBAC IV 4.5 GM in DEXTROSE 5% 100ML 100 ML IV SCH (20:50)
[2017-07-20] MEDS: INSULIN GLARGINE SOLOSTAR 100 UNITS/ML 3 ML PEN SC SCH (20:55)
[2017-07-20 21:31] LABS: CALCIUM 8.6 mg/dl (8.5-10.1); CREATININE 2.42 mg/dl (0.60-1.20); POTASSIUM 5.7 mmol/L (3.5-5.1)
[2017-07-21] VITALS (12 sets, daily range): BP systolic 142–176; BP diastolic 82–94; PULSE 103–109; TEMP 36.3–37.2; O2SAT 88–100; Ht 157.5 cm; Wt 74.9 kg
[2017-07-21] MEDS: INSULIN ASPART 100 UNITS/ML 3 ML PEN SC SCH ×3 (00:16→11:46)
[2017-07-21] MEDS: LEVALBUTEROL 1.25MG/3ML NEB INH SCH ×4 (02:02→19:29)
[2017-07-21 02:11] LABS: PTT PATIENT 41.9 SECONDS (21.0-31.0)
[2017-07-21 02:19] LABS: CALCIUM 8.5 mg/dl (8.5-10.1); CREATININE 2.22 mg/dl (0.60-1.20); POTASSIUM 5.5 mmol/L (3.5-5.1)
[2017-07-21] MEDS ORDERED: HEPARIN IV BOLUS 2,000 UNIT in SYRINGE 0 ML IV ONE ×2 (02:45→10:45)
--- NOTE | 2017-07-21 07:17 | DIAGNOSTIC IMAGING REPORT ---
CHEST ONE VIEW PORTABLE CLINICAL HISTORY: resp distress dyspnea COMPARISON STUDY: 07/20/2017 FINDINGS: Slight improvement in the findings of congestive failure. Persistent mild cardiomegaly. Somewhat diminished and/or improved prominence of pulmonary vasculature. Small left effusion unchanged. IMPRESSION: Congestive failure slightly improved from the prior exam. The above report was generated using voice recognition software. It may contain grammatical, syntax or spelling errors. Electronically signed by: Brian Jarquin M.D. 07/21/2017 7:16 AM Dictated Date/Time: 07/21/2017 7:15 AM
[2017-07-21] MEDS: PIPERACILL/TAZOBAC IV 4.5 GM in DEXTROSE 5% 100ML 100 ML IV SCH (07:22)
[2017-07-21 08:13] LABS: EOS ABS # 0.01 K/uL (0-0.5); HEMATOCRIT 27.2 % (37-47); HEMOGLOBIN 8.8 g/dL (12.0-16.0); IG# 0.11 K/uL (0.00-0.02); LYMPH ABS # 1.42 K/uL (1.2-3.4); MEAN CELL VOLUME 96.8 fL (80-100); MEAN CORPUSCULAR HEMOGLOBIN 31.3 pg (25-34); MEAN CORPUSCULAR HGB CONC 32.4 g/dl (32-36); MEAN PLATELET VOLUME 9.5 fL (7.4-10.4); MONO % 2.9 %; MONO ABS # 0.58 K/uL (0.11-0.59); NEUT % 89.6 %; NEUT ABS # 18.05 K/uL (1.4-6.5); PLATELET COUNT 187 K/uL (130-400); RED CELL DISTRIBUTION WIDTH CV 16.2 % (11.5-14.5); RED CELL DISTRIBUTION WIDTH SD 56.7 fL (36.4-46.3); WHITE BLOOD COUNT 20.17 K/uL (4.8-10.8)
[2017-07-21 08:33] LABS: INR 1.1 (0.9-1.1)
[2017-07-21 08:34] LABS: PTT PATIENT 46.2 SECONDS (21.0-31.0)
[2017-07-21 08:43] LABS: ALBUMIN 1.8 gm/dl (3.4-5.0); CALCIUM 8.7 mg/dl (8.5-10.1); CREATININE 2.27 mg/dl (0.60-1.20); PHOSPHORUS 2.9 mg/dl (2.5-4.9); POTASSIUM 5.6 mmol/L (3.5-5.1); TOTAL PROTEIN 6.1 gm/dl (6.4-8.2)
[2017-07-21] MEDS ORDERED: CLOPIDOGREL BISULFATE 75 MG TAB PO SCH (09:00)
--- NOTE | 2017-07-21 09:41 | Clinical Documentation Query ---
QUERY 1 OF [address] AZAR, In your clinical opinion is this patient being managed for: ( x ) Metabolic encephalopathy ( ) Not Agree ( ) Other explanation of clinical findings (Please Explain) ( ) Unable to determine (Please Define) ( ) Need to Discuss The medical record reflects the following clinical findings, treatment, and risk factors. Clinical Indicators: 86 yo female presenting with sepsis, R ureteral calculus. Noted to be obtunded, responds to painful stimuli to nail beds. VS 36.6-109-40, 127/71, 88% on Room Air. WBC 40.36, K 7.3, BUN 45, Cr 2.68, glucose 282, procalcitonin 17.14, lactic acid 2.25, trops 5.370/5.63/5.25 Treatment: ICU, urology consult, IV vancomycin, IV zosyn, O2 support/BIPAP, IV fluids, IV heparin Risk Factors: age, sepsis, acute respiratory failure, R ureteral calculus, pneumonia QUERY 2 OF 3 In your clinical opinion is this patient being managed for: (x) Type 2 MT due to demand ischemia ( ) Not Agree ( ) Other explanation of clinical findings (Please Explain) ( ) Unable to determine (Please Define) ( ) Need to Discuss The medical record reflects the following clinical findings, treatment, and risk factors. Clinical Indicators: trops 5.37/5.63/5.25, EKG T wave abnormality/consider lateral ischemia Treatment: ICU, IV heparin, respiratory care specialist consult, serial trops, O2 support/BIPAP, IV fluids, IV zosyn, IV vancomycin Risk Factors: age, sepsis, possible pneumonia, DM, HTN, CVA QUERY 3 OF 3 In your clinical opinion is this patient being managed for: ( x ) Urinary tract infection ( ) Not Agree ( ) Other explanation of clinical findings (Please Explain) ( ) Unable to determine (Please Define) ( ) Need to Discuss The medical record reflects the following clinical findings, treatment, and risk factors. Clinical Indicators: Documentation in the clinical record indicates urosepsis. UA cx prelim with strep species. Treatment: urology consult, IV fluids, IV vancomycin, IV zosyn, Risk Factors: age, gender, R ureteral calculus, DM Please clarify and document your clinical opinion in the progress notes and discharge summary. Terms such as "probable", "suspected", "likely", "questionable", "possible", or "still to be ruled out" are acceptable. IF IN AGREEMENT, YOU MUST DOCUMENT ABOVE DIAGNOSTIC STATEMENT IN DAILY PROGRESS NOTES AND DISCHARGE SUMMARY. This document is not part of the patient's record. Thank You, Yesenia Lai RN [phone]
[2017-07-21] MEDS ORDERED: PANTOprazole INJ 40 MG in SYRINGE 0 ML IV SCH (11:00)
[2017-07-21] MEDS: HEPARIN 25,000 UNIT/500ML D5W 500 ML IV PRN (11:39)
[2017-07-21] MEDS: INSULIN GLARGINE SOLOSTAR 100 UNITS/ML 3 ML PEN SC SCH (11:47)
[2017-07-21] MEDS ORDERED: VANCOMYCIN INJ 1,000 MG in SODIUM CHLORIDE 0.9% 250ML 250 ML IV ONE (13:00)
--- NOTE | 2017-07-21 14:47 | Progress Note ---
Subjective Date of Service: Jul 21, 2017. Subjective Pt evaluation today including: conversation w/ patient, conversation w/ family , physical exam, chart review, lab review, conversation w/ reimbursement consultant Spoke with patients daughter who states pt had a stroke with some limitation of r side and significant loss of quality of life . More recent acute problems may be secondary to the stone . No past history of stones the daughter is aware of . I discussed the fact that the standard of care for treating sepsis with an obstructing stone was a stent and subsequent stone removal after recovery from infection with ureteroscopy. She is ambivalent as to whether this is the right thing to do . I did say that by giving antibiotics we have not withdrawn support if that is in fact the goal . She has improved in that her wbc is down and she is afebrile and slightly hypertensive. I have offered to put the stent in . Also discussed having a palliative care consult . Pt to come in and further discuss w Dr. Moore . Antibiotics alone are not unreasonable if she understands this does not give the pt the best chance of survival and that if she did survive she would still need ureteroscopy to treat the stone . Withdrawing support may also be reasonable in this setting but this will have to be a family decision Problem List Medical Problems: (1) Ambulatory dysfunction Status: Acute (2) Aortic stenosis Status: Acute (3) Dehydration Status: Acute (4) Generalized abdominal pain Status: Acute (5) Heart murmur Status: Acute (6) Intractable abdominal pain Status: Acute (7) Right upper quadrant abdominal pain Status: Acute (8) Sepsis Status: Acute (9) Slurred speech Status: Acute (10) Spinal stenosis Status: Acute (11) Syncope Status: Acute (12) Urinary tract obstruction by kidney stone Status: Acute (13) UTI (urinary tract infection) Status: Acute (14) Vasovagal syncope Status: Acute (15) Vomiting Status: Acute (16) Weakness Status: Acute Objective Vital Signs Date Time Temp Pulse Resp B/P (MAP) Pulse Ox O2 Delivery O2 Flow Rate FiO2 07/21/17 14:11 106 100 40 07/21/17 14:10 106 24 100 BiPAP/CPAP 40 07/21/17 12:17 100 BiPAP 40 07/21/17 08:01 100 BiPAP 40 07/21/17 07:59 36.3 108 21 166/83 (110) 100 BiPAP 40 07/21/17 07:12 107 21 100 BiPAP/CPAP 40 07/21/17 07:12 107 100 40 07/21/17 04:00 BiPAP 07/21/17 03:42 37.0 109 20 176/94 (121) 100 BiPAP 07/21/17 02:02 105 24 100 BiPAP/CPAP 40 07/21/17 00:01 BiPAP 07/21/17 00:00 103 24 142/82 (102) 100 07/20/17 23:28 105 24 150/80 (103) 07/20/17 23:10 36.8 104 24 182/101 (128) 100 BiPAP 07/20/17 22:24 104 100 40 07/20/17 20:00 BiPAP 07/20/17 19:42 36.8 103 23 164/89 (114) 100 BiPAP 07/20/17 19:37 102 22 95 BiPAP/CPAP 40 07/20/17 16:26 93 BiPAP/CPAP 40 07/20/17 16:26 110 94 40 07/20/17 16:00 37.0 110 31 156/91 BiPAP 07/20/17 15:34 98 24 168/94 98 Physical Exam General Appearance: + pertinent finding Laboratory Results Last 24 Hours Test 07/20/17 16:30 07/20/17 16:59 07/20/17 18:02 07/20/17 21:00 Bedside Glucose 250 mg/dl 291 mg/dl White Blood Count 30.34 K/uL Red Blood Count 3.19 M/uL Hemoglobin 9.7 g/dL Hematocrit 30.8 % Mean Corpuscular Volume 96.6 fL Mean Corpuscular Hemoglobin 30.4 pg Mean Corpuscular Hemoglobin Concent 31.5 g/dl RDW Standard Deviation 57.5 fL RDW Coefficient of Variation 16.5 % Platelet Count 195 K/uL Mean Platelet Volume 9.6 fL Prothrombin Time 11.2 SECONDS Prothromb Time International Ratio 1.1 Activated Partial Thromboplast Time 25.2 SECONDS Partial Thromboplastin Ratio 1.0 Sodium Level 141 mmol/L 143 mmol/L Potassium Level 6.1 mmol/L 5.7 mmol/L Chloride Level 116 mmol/L 117 mmol/L Carbon Dioxide Level 16 mmol/L 17 mmol/L Anion Gap 10.0 mmol/L 9.0 mmol/L Blood Urea Nitrogen 45 mg/dl 44 mg/dl Creatinine 2.56 mg/dl 2.42 mg/dl Est Creatinine Clear Calc Drug Dose -2.0 ml/min -2.1 ml/min Estimated GFR () 18.8 20.2 Estimated GFR (Non- 16.2 17.4 BUN/Creatinine Ratio 17.4 18.1 Random Glucose 237 mg/dl 197 mg/dl Lactic Acid Level 2.3 mmol/L 1.6 mmol/L Calcium Level 8.5 mg/dl 8.6 mg/dl Troponin I 5.370 ng/ml 5.630 ng/ml Magnesium Level 2.2 mg/dl Test 07/21/17 00:12 07/21/17 01:54 07/21/17 05:58 07/21/17 07:46 Bedside Glucose 192 mg/dl 174 mg/dl Activated Partial Thromboplast Time 41.9 SECONDS 46.2 SECONDS Partial Thromboplastin Ratio 1.6 1.8 Sodium Level 142 mmol/L 143 mmol/L Potassium Level 5.5 mmol/L 5.6 mmol/L Chloride Level 117 mmol/L 116 mmol/L Carbon Dioxide Level 19 mmol/L 18 mmol/L Anion Gap 6.0 mmol/L 9.0 mmol/L Blood Urea Nitrogen 43 mg/dl 43 mg/dl Creatinine 2.22 mg/dl 2.27 mg/dl Est Creatinine Clear Calc Drug Dose -2.3 ml/min -2.1 ml/min Estimated GFR () 22.4 21.8 Estimated GFR (Non- 19.3 18.8 BUN/Creatinine Ratio 19.1 18.7 Random Glucose 184 mg/dl 176 mg/dl Lactic Acid Level 1.0 mmol/L Calcium Level 8.5 mg/dl 8.7 mg/dl Troponin I 5.250 ng/ml White Blood Count 20.17 K/uL Red Blood Count 2.81 M/uL Hemoglobin 8.8 g/dL Hematocrit 27.2 % Mean Corpuscular Volume 96.8 fL Mean Corpuscular Hemoglobin 31.3 pg Mean Corpuscular Hemoglobin Concent 32.4 g/dl Platelet Count 187 K/uL Mean Platelet Volume 9.5 fL Neutrophils (%) (Auto) 89.6 % Lymphocytes (%) (Auto) 7.0 % Monocytes (%) (Auto) 2.9 % Eosinophils (%) (Auto) 0.0 % Basophils (%) (Auto) 0.0 % Neutrophils # (Auto) 18.05 K/uL Lymphocytes # (Auto) 1.42 K/uL Monocytes # (Auto) 0.58 K/uL Eosinophils # (Auto) 0.01 K/uL Basophils # (Auto) 0.00 K/uL RDW Standard Deviation 56.7 fL RDW Coefficient of Variation 16.2 % Immature Granulocyte % (Auto) 0.5 % Immature Granulocyte # (Auto) 0.11 K/uL Hypersegmented Polys 1+ Anisocytosis PRESENT Prothrombin Time 11.6 SECONDS Prothromb Time International Ratio 1.1 Phosphorus Level 2.9 mg/dl Magnesium Level 2.1 mg/dl Total Bilirubin 0.4 mg/dl Direct Bilirubin 0.1 mg/dl Aspartate Amino Transf (AST/SGOT) 203 U/L Alanine Aminotransferase (ALT/SGPT) 239 U/L Alkaline Phosphatase 79 U/L Total Protein 6.1 gm/dl Albumin 1.8 gm/dl Lipase 172 U/L Random Vancomycin Level 19.5 mcg/ml Test 07/21/17 11:23 Bedside Glucose 199 mg/dl Assessment and Plan let us know if family wishes to proceed with stent placement . Spoke with Dr. Moore who will meet with family later this PM
[2017-07-21] MEDS ORDERED: PIPERACILL/TAZOBAC IV 4.5 GM in DEXTROSE 5% 100ML 100 ML IV SCH (16:00)
[2017-07-21] MEDS ORDERED: SODIUM CHLORIDE 0.9% 1000ML 1,000 ML IV SCH (19:07)
[2017-07-21] MEDS ORDERED: HYDROmorphone HCL 0.5MG/ML 50 ML CASSETTE IV PRN (19:15)
[2017-07-21] MEDS ORDERED: LORAZEPAM 2 MG/ML 1 ML VIAL IV PRN (19:15)
[2017-07-21] MEDS ORDERED: LORAZEPAM INJ 0.5 MG in SYRINGE 0.75 ML IV PRN (19:30)
--- NOTE | 2017-07-21 19:59 | Progress Note ---
Progress Note Date of Service Jul 21, 2017. Progress Note This is an 86 year old Female with PMH of stroke, diabetes on insulin, chronic anemia, admitted to the hospital after increased shortness of breath and found have sepsis likely secondary to righter ureter stone, also positive blood culture, urinary tract infection with bilateral pleural effusions and bibasilar consolidation concerning for pneumonia with patient becoming BIPAP dependent for the acute respiratory failure, who was initially receiving Zosyn and Vancomycin and IV fluids for the sepsis, and monitored on telemetry with elevated troponins due to demand ischemia vs myocardial infarction, was on IV heparin, tachycardia, acute kidney injury with hyperkalemia As per discussion with patient's family member and next of kin Magnolia Thomas ), patient's status is changed to comfort care today. As of this time, patient's BIPAP discontinued. IV antibiotics and IV heparin stopped. Lab draws to be stopped. Patient has Ativan and narcotics ordered for respiratory distress off BIPAP. Palliative Care consult requested as per the request of patient's daughter Magnolia who would like more information about hospice care.
[2017-07-22] MEDS: LEVALBUTEROL 1.25MG/3ML NEB INH SCH (01:13)
--- NOTE | 2017-07-22 06:12 | Progress Note ---
Progress Note Date of Service Jul 22, 2017. Progress Note NOTE: I was notified by the nurse around 0600 that the patient had passed. She was on comfort care measures after being septic with an infected kidney stone. She was given a dilaudid infusion overnight after being made comfort care measures. On arrival to bedside, there was no movement and the patient was not responsive to verbal or physical stimuli. Pupils were fixed and dilated and there were no heart or lungs sounds to auscultation. Nurse notified family. Time of was 6:05am. DO Zac
--- NOTE | 2017-07-22 07:05 | Discharge Summary ---
Discharge Summary Date of Service Jul 22, 2017. Discharge Summary Admission Date: Jul 20, 2017 at 12:35 Discharge Disposition: Principal Diagnosis: sepsis secondary to right ureter stone Secondary Diagnoses/Problems: positive blood culture, urinary tract infection with bilateral pleural effusions and bibasilar consolidation concerning for pneumonia with patient becoming BIPAP dependent for the acute respiratory failure, elevated troponins due to demand ischemia vs myocardial infarction, acute kidney injury with hyperkalemia Admission Information HPI (per Admitting provider): Pt is 86 y/o F with PMH CVA with secondary dysarthria, R sided weakness, HTN, DM II, Sjgren's, GERD, depression, dyslipidemia, pacemaker presented to ER from [facility] for worsening SOB & leukocytosis. Pt was treated prophylactically with Tamiflu as residents with flu in [facility]. Pt then developed cough and SOB and being treated for respiratory tract infection and UTI. She was started on IV Rocephin on 07/08/17. Duonebs were started. She had JANIE and lisinopril was d/c and pt received IVF which was then d/c. Pt had out patient u/s abd showing non-obstructing renal calculi. On 07/16/17 WBC: 12.8, K: 3.2, Cr: 1.9. On 07/07/17 urine culture consistent with contamination. Pt was on prednisone 20mg x 2 days (07/17/17-07/19/17). Pt not verbal today and pt's daughter with her and states pt sometimes says a few things. She does report pt more lethargic than usual, but right sided weakness unchanged since stroke. Daughter notes that pt has been having SOB and noticeable trouble breathing the past 5 days. Daughter also reports pt was having intermittent nausea and vomiting past couple of weeks and has been given zofran. States has noticed pt does sometimes choke and she is currently on soft mechanical diet, however daughter states reports from nursing pt hasn't been eating much and it has been reported pt has been pocketing food. Daughter reports morphine makes pt feel like having hard time breathing and makes her anxious. Physical Exam (per Admitting): General Appearance: + moderate distress (increased work of breathing), + pertinent finding (ill appearing) Head: normocephalic, atraumatic Eyes: normal inspection, PERRL ENT: + pertinent finding (mucous membranes dry) Neck: supple, no JVD, trachea midline Respiratory/Chest: + respiratory distress, + decreased breath sounds ( scattered rhonchi), + accessory muscle use Cardiovascular: + tachycardia Abdomen/GI: normal bowel sounds, soft, + tenderness (Pt groans with palpation of abdomen) Extremities/Musculoskelatal: normal capillary refill, no pedal edema Neurologic/Psych: + pertinent finding (non-verbal, somnolent, pt with eyes closed, will open eyes when asked, will not follow any other commands, responds to painful stimuli with groans) Skin: normal color Hospital Course This is an 86 year old Female with PMH of stroke, diabetes on insulin, chronic anemia, admitted to the hospital after increased shortness of breath and found have sepsis likely secondary to righter ureter stone, also positive blood culture, urinary tract infection with bilateral pleural effusions and bibasilar consolidation concerning for pneumonia with patient becoming BIPAP dependent for the acute respiratory failure, who was initially receiving Zosyn and Vancomycin and IV fluids for the sepsis, and monitored on telemetry with elevated troponins due to demand ischemia vs myocardial infarction, was on IV heparin, tachycardia, acute kidney injury with hyperkalemia As per discussion with patient's family member and next of kin, patient's status is changed to comfort care on evening of 07/22/17. The night time hospitalist was otified by the nurse around 0600 that the patient had . On arrival to bedside, there was no movement and the patient was not responsive to verbal or physical stimuli. Pupils were fixed and dilated and there were no heart or lungs sounds to auscultation. Time of was 6:05am. Total time spent on discharge = This includes examination of the patient, discharge planning, medication reconciliation, and communication with other providers. Discharge Instructions see above
--- NOTE | 2017-07-22 09:31 | Palliative Care Progress Note ---
Palliative Care Progress Note Date of Service Jul 22, 2017. Subjective Patient at 0605 this AM. Palliative care consult not able to be completed.
== END 2017-07-22 07:31 | disposition expired | DRG 871 ==
LOC: EDBD 08:02 → C.EDB 08:05 → C.2E 12:35 → CANRESERV 13:24 → ENRESERV 13:24 → EDBEDREQSVC 14:35 → EDBEDREQTM 14:35 → ENRESERV 15:17 → C.4E 07-21 18:12
PROVIDERS: ADMIT Family Medicine; ATTEND Hospitalist
DX: A41.9 Sepsis, unspecified organism (principal); J18.9 Pneumonia, unspecified organism; J96.01 Acute respiratory failure with hypoxia; N17.9 Acute kidney failure, unspecified; Z51.5 Encounter for palliative care; N20.1 Calculus of ureter; I21.A1 Myocardial infarction type 2; G81.91 Hemiplegia, unspecified affecting right dominant side; J90 Pleural effusion, not elsewhere classified; I10 Essential (primary) hypertension; R65.20 Severe sepsis without septic shock; Z86.73 Personal history of transient ischemic attack (TIA), and cerebral infarction without residual deficits; E11.9 Type 2 diabetes mellitus without complications; Z66 Do not resuscitate; E78.5 Hyperlipidemia, unspecified; Z90.710 Acquired absence of both cervix and uterus; M35.3 Polymyalgia rheumatica; Z95.0 Presence of cardiac pacemaker; Z88.5 Allergy status to narcotic agent; N13.9 Obstructive and reflux uropathy, unspecified; K21.9 Gastro-esophageal reflux disease without esophagitis; R00.0 Tachycardia, unspecified; D64.9 Anemia, unspecified; E87.5 Hyperkalemia; F32.9 Major depressive disorder, single episode, unspecified; Z79.4 Long term (current) use of insulin; Z83.3 Family history of diabetes mellitus; Z82.49 Family history of ischemic heart disease and other diseases of the circulatory system